=== PATIENT | female | born 1960 | race Caucasian/White ===

== ENCOUNTER 2019-09-22 09:45 | Outpatient (CLI) | payer MEDICAID, SELFPAY ==
--- NOTE | 2019-09-24 10:56 | ONC CON_ITS ---
Dr. Coronado New Patient Note Patient: Shana Connor Unit #: [id number]: 1960 Dicatated By: Nam Coronado M.D.Date of Visit: Sep 22, 2019 Onc MED New Patient/Consult Referring Physician: Dr. Mi Dangelo M.D. Chief Complaint: Breast cancer. History of Present Illness: This is a 59 year-old woman with grade 2 invasive ductal carcinoma of the right breast, stage IA (T1b, N0, M0), ER/GA positive and HER-2/dora negative. She had presented with an abnormal screening mammogram, which reportedly was BI-RADS 4, showing a suspicious lesion in the upper outer quadrant of the right breast, estimated at 0.6 cm. She underwent ultrasound directed core needle biopsy of the lesion on 08/07/2019. Pathology showed invasive ductal carcinoma, grade 1-2. The maximum focus of tumor was 0.5 cm. The breast prognostic profile showed ER positive at 95% and GA positive at 94%. It was negative for overexpression of HER-2/dora, 1+ by IHC and amplification ratio by FISH of 0.9 with 1.8 HER-2 copies/cell. The Ki-67 was intermediate at 15%. She preferred not to have radiation, and she then underwent right modified radical mastectomy on 08/17/2019. Pathology showed grade 2 invasive ductal carcinoma measuring 8 mm in maximum dimension. The margins were free with the closest being the deep margin at 2.5 cm. There was no involvement in 5 axillary lymph nodes. She is seen now in regard to adjuvant therapy. She has been feeling pretty good generally. She still has a fair amount of discomfort in the right chest and axilla following the recent surgery, but it is getting better. Her energy and appetite are still variable, but also getting better. ECOG score is 1. Her weight is stable. She has no fever, night sweats, or hot flashes. She has some allergy related sinus symptoms and she reports having a persistent nonproductive cough. She has some mild exertional dyspnea. She has no GI or complaints other than frequent urination. She has some arthritis in her right index finger. She has no other joint or bone pain. She complains that her feet get numb quite often. She has no other focal neurologic symptoms. She had her first at age 27. She underwent natural menopause at around age 44. She received no hormone replacement therapy. Her mother has been treated for breast cancer. There is no other history of breast or ovarian cancer in the family. Past Medical History: Her medical history includes allergic rhinitis, chronic obstructive pulmonary disease, and lichen planus. Past Surgical History: She underwent ultrasound directed core needle biopsy of the right breast on 08/07/2019 and she underwent right modified radical mastectomy on 08/17/2019. Her other surgical/procedural history includes section x 3 and cholecystectomy in 2002. Medications: Clobetasol Propionate 1 (0.05 %) Ointment Topical daily, Singulair 1 Tablet (of 10 mg) Oral daily, Symbicort 1 Puff(s) (of 80-4.5 mcg/act) Aerosol Inhalation b.i.d. Allergies: Aspirin, Codeine Sulfate, and Flagyl. Social History: Ms. Connor is . She is a daily smoker who has smoked 0.5 packs/day for 43 years. She has no history of drinking. She has a history of smoking for at least 40 years, previously up to 1 pack of cigarettes daily. She has cut down to 1/2 pack/day, and she has planning to quit. She had some alcohol use back in her 20s, but never heavy. Family History: She has no information regarding her biologic father. Her mother still living at age 77. She has diabetes. She has been treated for breast cancer. A son has type 1 diabetes. There is no other history of breast cancer or ovarian cancer in the family. Review Of Symptoms: Constitutional - Her energy is still somewhat variable, but getting better. Appetite also is variable. Her weight is stable. She has no fever, night sweats, or hot flashes. Her ECOG score is 1, Eyes - No change in vision, ENMT - No hearing loss or tinnitus. She has allergy related sinus symptoms. No mouth sores. No sore throat or difficulty swallowing, Hematologic/Lymphatic - She bruises easily, Respiratory - She gets short of breath when she walks a lot. She has persistent nonproductive cough. No pleuritic pain or hemoptysis, Cardiovascular - No angina pain. No palpitations, Gastrointestinal - No nausea or vomiting. No heartburn or acid reflux. No diarrhea or constipation. No blood in the stool or black stools, Genitourinary (F) - No dysuria or hematuria. She has urinary frequency. No urgency or incontinence, Musculoskeletal - She still has discomfort in her right chest/axillary area. She has some arthritis in her right index finger. She has no other joint or bone pain, Integumentary - She has lichen planus. She manages it with topical steroid, Neurologic - No headache. She has occasional orthostatic lightheadedness. She has numbness/tingling in her feet quite often. She has no other focal neurologic symptoms, Psychiatric - She recently has had some anxiety. No depression. She has had difficulty sleeping, but that is getting a little better. Vital Signs: Performed on Sep 22, 2019 10:46: 6, 28.80, 1.82 sq.m, 64.00 in, 98 %, 79 /min, 18 /min, 122/76 mm(hg), 97.5 F (LOW), and 167.8 lbs (HIGH). Physical Examination: Constitutional - She appears to be in good general health, Eyes - Sclerae nonicteric. Conjunctivae clear, ENMT - No lesions noted in the oral cavity, Neck - No mass or thyromegaly, Hematologic/Lymphatic - No cervical or clavicular adenopathy, Respiratory - Lungs are clear with some decrease in air movement bilaterally, Cardiovascular - Heart rhythm is regular. There is no murmur, gallop, or rub noted, Breasts - The mastectomy incision appears well-healed. There are no lesions noted in the right chest wall. The left breast shows no mass. There is no axillary adenopathy noted, Abdomen - Soft. There is an area of linear nodularity palpable in the right upper quadrant abdominal wall. It runs vertically. It is not tender. There are no changes in the overlying skin. Liver and spleen are not enlarged. There is no abdominal mass or ascites noted and there is no inguinal adenopathy, Back/Spine - No spine or CVA tenderness noted, Extremities - No edema. Pedal pulses are palpable bilaterally, Integumentary - No rashes. No suspicious skin lesions noted, Neurologic - No focal neurologic deficits noted. Impression: 1. Patient with grade 2 invasive ductal carcinoma of the right breast, stage IA (T1b, N0, M0), ER/GA positive and HER-2/dora negative. 2. She underwent right modified radical mastectomy on 08/17/2019. Her other medical illnesses include: 3. COPD. 4. Allergic rhinitis. 5. Lichen planus. Plan: The pathology findings were reviewed with the patient. We discussed the clinical implications. She has undergone mastectomy for an invasive ductal cancer of the right breast. It was an early stage lesion, T1b, with negative axillary lymph nodes, and it was hormone receptor positive and HER-2/dora negative. As such, she has recommended to undergo adjuvant hormonal therapy, preferably with an aromatase inhibitor. Side effects were reviewed including the potential for osteoporosis and/or joint pain, among others. She will need a baseline DEXA scan and she will then be scheduled for baseline lab studies, following which she will start treatment with anastrozole 1 mg daily. She will be given treatment for bone health as indicated. She will be scheduled for a 3-month interval follow-up visit. In the meantime, she has planning to quit smoking. Signed By: Nam Coronado M.D. <<Signature on File>>
== END 2019-09-22 09:46 | disposition home or self-care (01) ==
LOC: ONCMED 09:49
PROVIDERS: Family Provider Nurse Practitioner Family; PCP Nurse Practitioner; Referring Provider Surgery; Visit Provider Internal Medicine Hematology & Oncology
DX: C50.411 Malignant neoplasm of upper-outer quadrant of right female breast (principal); J44.9 Chronic obstructive pulmonary disease, unspecified; L43.9 Lichen planus, unspecified; F17.210 Nicotine dependence, cigarettes, uncomplicated; Z17.0 Estrogen receptor positive status [ER+]; Z79.811 Long term (current) use of aromatase inhibitors; Z90.11 Acquired absence of right breast and nipple; Z78.0 Asymptomatic menopausal state
CPT/HCPCS: 99205

== ENCOUNTER 2019-10-03 14:26 | Outpatient (CLI) | payer MEDICAID, SELFPAY ==
--- NOTE | 2019-10-03 14:31 | XR_ITS ---
WS: [id number] DEXA (DUAL ENERGY X-RAY ABSORPTIOMETRY) Bone mineral density was performed using a Pixelated machine. HISTORY: POSTMENOPAUSAL, SYMPTOMS OF OSTEOPOROSIS COMPARISON: None available. Lumbar spine BMD (L1-L4): 0.857 g/cm2 T score: -2.7 Z score: -2.0 Total hip BMD: Left: 0.809 g/cm2. T score: -1.6 Z score: -1.0 Right: 0.844 g/cm2. T score: -1.3 Z score: -0.7 10 year probability of a major osteoporotic fracture is 8%. XR/XR DEXA axial skeleton* [id number] IMPRESSION: OSTEOPOROSIS based upon the WHO classification for females.
[2019-10-03 15:22] LABS: Basophils % 0.6 %; Eosinophils # 0.1 10^3/uL (0.0-0.8); Hematocrit 40.9 % (37.0-47.0); Lymphocytes # 3.1 10^3/uL (0.8-4.8); Lymphocytes % 47.5 %; Mean Corpuscular HGB Conc 31.8 g/dL (30.0-36.0); Mean Corpuscular Hemoglobin 27.1 pg (28.0-34.0); Mean Corpuscular Volume 85.4 fL (81-99); Mean Platelet Volume 11.2 fL (7.4-10.4); Monocytes # 0.5 10^3/uL (0.2-0.9); Monocytes % 8.2 %; Neutrophils # 2.8 10^3/uL (1.8-7.7); Neutrophils % 41.5 %; Nucleated Red Blood Cells % 0 %; Platelet Count 223 10^3/cmm (130-400); Red Blood Count 4.79 10^6/uL (4.1-5.3); Red Cell Distribution Width 12.9 % (12.1-15.1); White Blood Count 6.6 10^3/uL (4.0-10.0)
[2019-10-03 15:46] LABS: Alanine Aminotransferase 32 U/L (0-33); Albumin Level 4.5 g/dL (3.5-5.2); Alkaline Phosphatase 71 IU/L (35-105); Aspartate Amino Transferase 22 U/L (0-32); Blood Urea Nitrogen 9 mg/dL (6-20); Calcium 9.4 mg/dL (8.5-10.5); Carbon Dioxide 27 mmol/L (22-29); Chloride 102 mmol/L (98-107); Globulin 2.8 g/dL (1.3-4.6); Glomerular Filtration Rate 64.5 mL/min (90-130); Glucose 119 mg/dL (65-115); Sodium 140 mmol/L (136-145); Total Bilirubin 0.2 mg/dL (0.15-1.2); Total Protein 7.3 g/dL (6.6-8.7)
[2019-10-03 16:18] LABS: 25 Hydroxy Vitamin D 58 ng/mL (30-100)
== END 2019-10-03 14:27 | disposition home or self-care (01) ==
LOC: ONCMED 14:29
PROVIDERS: Family Provider Nurse Practitioner Family; PCP Nurse Practitioner; Visit Provider Internal Medicine Medical Oncology
DX: C50.411 Malignant neoplasm of upper-outer quadrant of right female breast (principal); Z78.0 Asymptomatic menopausal state; M81.0 Age-related osteoporosis without current pathological fracture
CPT/HCPCS: 77080; 80053; 82306; 85025

== ENCOUNTER 2020-01-03 12:07 | Outpatient (CLI) | payer MEDICAID, SELFPAY ==
--- NOTE | 2020-01-07 10:19 | ONC FU_ITS ---
Dr. Coronado Patient Follow-Up Note Patient: Shana Connor Unit #: [id number]: 1960 Dicatated By: Nam Coronado M.D.Date of Visit:Jan 03, 2020 Onc Med Follow-up/Prog Note Chief Complaint: Breast cancer. History of Present Illness: This is a 59 year-old woman with grade 2 invasive ductal carcinoma of the right breast, stage IA (T1b, N0, M0), ER/MI positive and HER-2/dora negative. She had presented with an abnormal screening mammogram, which reportedly was BI-RADS 4, showing a suspicious lesion in the upper outer quadrant of the right breast, estimated at 0.6 cm. She underwent ultrasound directed core needle biopsy of the lesion on 08/07/2019. Pathology showed invasive ductal carcinoma, grade 1-2. The maximum focus of tumor was 0.5 cm. The breast prognostic profile showed ER positive at 95% and MI positive at 94%. It was negative for overexpression of HER-2/dora, 1+ by IHC and amplification ratio by FISH of 0.9 with 1.8 HER-2 copies/cell. The Ki-67 was intermediate at 15%. She preferred not to have radiation, and she then underwent right modified radical mastectomy on 08/17/2019. Pathology showed grade 2 invasive ductal carcinoma measuring 8 mm in maximum dimension. The margins were free with the closest being the deep margin at 2.5 cm. There was no involvement in 5 axillary lymph nodes. I had seen her initially on 09/22/2019. She began adjuvant hormonal therapy with anastrozole 1 mg daily. Her baseline DEXA scan showed evidence of osteoporosis with T score -2.7 in the lumbar spine, -1.6 in the left hip, and -1.3 in the right hip. With that finding, she also started alendronate 70 mg weekly. Her other medical illnesses include COPD, allergic rhinitis, and lichen planus. She had her first at age 27. She underwent natural menopause at around age 44. She received no hormone replacement therapy. Her mother has been treated for breast cancer. There is no other history of breast or ovarian cancer in the family. She has a history of smoking for at least 40 years, previously up to 1 pack of cigarettes daily. She had cut down to 1/2 pack/day. She is seen for a follow-up visit. She has not been feeling good. Her energy is gone downhill, and she has limited activity. ECOG score is 2. Appetite also has not been good. Her weight is down a couple of pounds. She has not had fever, night sweats, or hot flashes. She has been getting sick to her stomach. She also has been having pain in her shoulders and knees, and she complains that her back hurts constantly. She still has pain in her right chest wall. She has some sinus drainage and associated cough, and she complains that she has been having trouble breathing. Bowel function remains adequate. She has urinary frequency and some urgency. She does not complain of headache. She has been having dizziness. She has some numbness in her right arm. She also complains that she has having problems with depression, and she continues to have difficulty sleeping despite taking trazodone at bedtime. Medications: Clobetasol Propionate 1 (0.05 %) Ointment Topical daily, Sertraline HCl 1 Tablet (of 25 mg) Oral daily, Singulair 1 Tablet (of 10 mg) Oral daily, Symbicort 1 Puff(s) (of 80-4.5 mcg/act) Aerosol Inhalation b.i.d., traZODone HCl 1 Tablet (of 100 mg) Oral daily Allergies: Aspirin, Codeine Sulfate, and Flagyl. Review of Systems: Constitutional - Her energy has gone downhill. She has limited activity. Appetite is not good. Her weight is down a couple of pounds. She has no fever, night sweats, or hot flashes. Her ECOG score is 2, ENMT - She has allergy related sinus symptoms. No mouth sores. No sore throat or difficulty swallowing, Hematologic/Lymphatic - She bruises easily, Respiratory - She has been having trouble breathing. She has some cough with the sinus drainage. No pleuritic pain or hemoptysis, Cardiovascular - No angina pain. No palpitations, Gastrointestinal - She has nausea. No vomiting. No heartburn or acid reflux. No diarrhea or constipation. No blood in the stool or black stools, Genitourinary (F) - No dysuria or hematuria. She has urinary frequency and urgency. No incontinence, Musculoskeletal - She has pain in her shoulders and knees, and she also is having back pain. Her right arm still hurts, Neurologic - No headache. She has dizziness. She has numbness in her arms, Psychiatric - She has anxiety and depression. She has had difficulty sleeping. Vital Signs: Performed on Jan 03, 2020 12:35 Height - 64.00 in Weight - 164.8 lbs (LOW) BSA - 1.80 sq.m BMI - 28.29 Temperature - 98.0 F (LOW) Pulse - 88 /min Respiration - 20 /min BP - 134/76 mm(hg) O2 Sat - 97 % Pain - 9 Physical Examination: Constitutional - She appears somewhat weak generally, Eyes - Sclerae nonicteric. Conjunctivae clear, ENMT - No lesions noted in the oral cavity, Hematologic/Lymphatic - No cervical or clavicular adenopathy, Respiratory - Lungs are clear with some decrease in air movement bilaterally, Cardiovascular - Heart rhythm is regular. There is no murmur, gallop, or rub noted, Breasts - There is still tenderness in the right chest wall. There are no chest wall lesions noted. There is no axillary adenopathy, Extremities - No edema, Neurologic - No focal neurologic deficits noted. Lab/Imaging: Test performed on Oct 03, 2019 15:12 Sodium 140 mmol/L Vitamin D (25-Hydroxy), Total 58 ng/mL Potassium 4.0 mmol/L Chloride 102 mmol/L CO2 27 mmol/L Anion Gap 15.0 BUN 9 mg/dL Creatinine 0.9 mg/dL Cr Clearance (Est) 82.8700 mL/min eGFR 64.5 mL/min Glucose 119 mg/dL Calcium 9.4 mg/dL Protein, Total 7.3 g/dL Albumin 4.5 g/dL Globulin 2.8 g/dL Bilirubin, Total 0.2 mg/dL ALT (SGPT) 32 U/L AST (SGOT) 22 U/L Alkaline Phosphatase 71 IU/L WBC 6.6 10 3/uL RBC 4.79 10 6/uL HGB 13.0 g/dL HCT 40.9 % MCV 85.4 fL MCH 27.1 pg MCHC 31.8 g/dL RDW 12.9 % Platelet Count 223 10 3/cmm MPV 11.2 fL Neutrophils 2.8 10 3/uL Lymphocytes 3.1 10 3/uL Monocytes 0.5 10 3/uL Eosinophils 0.1 10 3/uL Basophils 0.0 10 3/uL Neutrophil % 41.5 % Lymphocyte % 47.5 % Monocyte % 8.2 % Eosinophil % 2.0 % Basophils % 0.6 % Impression: 1. Patient with grade 2 invasive ductal carcinoma of the right breast, stage IA (T1b, N0, M0), ER/MI positive and HER-2/dora negative. 2. She underwent right modified radical mastectomy on 08/17/2019. Her other medical illnesses include: 3. COPD. 4. Allergic rhinitis. 5. Lichen planus. In September 2019 she began adjuvant hormonal therapy with anastrozole 1 mg daily. Her baseline DEXA scan showed evidence of osteoporosis with T score -2.7 in the lumbar spine. With that finding, she also began treatment with alendronate 70 mg weekly. She comes in now with multiple complaints which include worsening fatigue and significant musculoskeletal pain. This is almost certainly treatment related. Plan: She is advised to stop both the anastrozole and the alendronate. I will see her for a follow-up visit in 1 month. Signed By: Nam Coronado M.D. <<Signature on File>>
== END 2020-01-03 12:08 | disposition home or self-care (01) ==
LOC: ONCMED 12:10
PROVIDERS: PCP Physician Assistant Medical; Visit Provider Internal Medicine Medical Oncology
DX: C50.411 Malignant neoplasm of upper-outer quadrant of right female breast (principal); Z17.0 Estrogen receptor positive status [ER+]; J30.9 Allergic rhinitis, unspecified; J44.9 Chronic obstructive pulmonary disease, unspecified; L43.9 Lichen planus, unspecified; Z79.818 Long term (current) use of other agents affecting estrogen receptors and estrogen levels
CPT/HCPCS: 99214

== ENCOUNTER 2020-02-12 12:51 | Outpatient (CLI) | payer MEDICAID, SELFPAY ==
--- NOTE | 2020-02-16 13:47 | ONC FU_ITS ---
Dr. Coronado Patient Follow-Up Note Patient: Shana Connor Unit #: [id number]: 1960 Dicatated By: Nam Coronado M.D.Date of Visit:Feb 12, 2020 Onc Med Follow-up/Prog Note Chief Complaint: Breast cancer. History of Present Illness: This is a 59 year-old woman with grade 2 invasive ductal carcinoma of the right breast, stage IA (T1b, N0, M0), ER/HI positive and HER-2/dora negative. She had presented with an abnormal screening mammogram, which reportedly was BI-RADS 4, showing a suspicious lesion in the upper outer quadrant of the right breast, estimated at 0.6 cm. She underwent ultrasound directed core needle biopsy of the lesion on 08/07/2019. Pathology showed invasive ductal carcinoma, grade 1-2. The maximum focus of tumor was 0.5 cm. The breast prognostic profile showed ER positive at 95% and HI positive at 94%. It was negative for overexpression of HER-2/dora, 1+ by IHC and amplification ratio by FISH of 0.9 with 1.8 HER-2 copies/cell. The Ki-67 was intermediate at 15%. She preferred not to have radiation, and she then underwent right modified radical mastectomy on 08/17/2019. Pathology showed grade 2 invasive ductal carcinoma measuring 8 mm in maximum dimension. The margins were free with the closest being the deep margin at 2.5 cm. There was no involvement in 5 axillary lymph nodes. I had seen her initially on 09/22/2019. She began adjuvant hormonal therapy with anastrozole 1 mg daily. Her baseline DEXA scan showed evidence of osteoporosis with T score -2.7 in the lumbar spine, -1.6 in the left hip, and -1.3 in the right hip. With that finding, she also started alendronate 70 mg weekly. Her other medical illnesses include COPD, allergic rhinitis, and lichen planus. She had her first at age 27. She underwent natural menopause at around age 44. She received no hormone replacement therapy. Her mother has been treated for breast cancer. There is no other history of breast or ovarian cancer in the family. She has a history of smoking for at least 40 years, previously up to 1 pack of cigarettes daily. She had cut down to 1/2 pack/day. INTERIM HISTORY: I had seen her for a follow-up visit on 01/03/2020. At that time she had multiple complaints, including significant fatigue and musculoskeletal pain. These seem to be almost certainly treatment related, and I did have her stop both the anastrozole and the alendronate. She is seen for a scheduled visit. She says that overall she has been feeling better since she stopped the medication, though her hips still hurt when she first gets up in the morning. On January 11 she developed extreme pain in her chest wall, severe enough to require pain pills and shots, but that subsequently did get better. Since then she still has had some chest wall pain, but not real strong. She describes it as a burning sensation. Her energy is still somewhat variable, but she is able to do light work. ECOG score is 1. Appetite also is variable. Her weight is up a couple of pounds. She has not had fever, but she is having a lot of hot flashes and sweating. She has shortness of breath with the hot weather. She also complains of cough. She is still smoking 1/2 pack of cigarettes daily. She has no GI complaints. She reports having overactive bladder. She does not complain of headache. She sometimes has dizziness. She has some numbness in her right arm. Medications: Clobetasol Propionate 1 (0.05 %) Ointment Topical daily, Gabapentin 1 Capsule (of 300 mg) Oral t.i.d., Magnesium 1 Tablet (of 400 mg) Oral daily, ProAir HFA 2 Puff(s) (of 108 (90 base) mcg/act) Aerosol, solution Inhalation four times a day, Singulair 1 Tablet (of 10 mg) Oral daily, Symbicort 2 Puff(s) (of 80-4.5 mcg/act) Aerosol Inhalation b.i.d., traMADol HCl 1 Tablet (of 50 mg) Oral q 6 hours PRN Allergies: Aspirin, Codeine Sulfate, and Flagyl. Review of Systems: Constitutional - Energy is somewhat variable. She is able to do light work. Appetite also is variable. Her weight is up a couple of pounds. She has not had fever. She has hot flashes and sweating. ECOG score is 1, ENMT - No sinus congestion/drainage. No mouth sores. No sore throat or difficulty swallowing, Hematologic/Lymphatic - She has easy bruising, Respiratory - She has shortness of breath, attributable to hot weather. She has cough. No pleuritic pain or hemoptysis. She is smoking 1/2 pack of cigarettes daily, Cardiovascular - No angina pain. No palpitations, Gastrointestinal - No nausea or vomiting. No heartburn or acid reflux. No diarrhea or constipation. No blood in the stool or black stools, Genitourinary (F) - No dysuria or hematuria. She has overactive bladder, Musculoskeletal - She had extreme pain on 11 January, severe enough that she required pain pills and shots, but it did get better. Since then her hips have still hurt when she first gets up. She still has some chest wall pain, but not real strong. It is a burning sensation, Integumentary - No skin rash, Neurologic - No headache. She sometimes has dizziness. She has numbness in her right arm. No other focal neurologic symptoms, Psychiatric - She has anxiety/depression. She has difficulty sleeping. Vital Signs: Performed on Feb 12, 2020 13:13 Height - 64.00 in Weight - 167.4 lbs (HIGH) BSA - 1.81 sq.m BMI - 28.73 Temperature - 98.5 F Pulse - 89 /min Respiration - 24 /min BP - 137/83 mm(hg) O2 Sat - 98 % Pain - 8 Physical Examination: Constitutional - She looks pretty good generally, Eyes - Sclerae nonicteric. Conjunctivae clear, ENMT - No lesions noted in the oral cavity, Hematologic/Lymphatic - No cervical, clavicular, or axillary adenopathy, Respiratory - Lungs are clear with some decrease in air movement bilaterally, Cardiovascular - Heart rhythm is regular. There is no murmur, gallop, or rub noted, Abdomen - Soft. Liver and spleen are not enlarged. There is no abdominal mass or ascites noted and there is no inguinal adenopathy, Extremities - No edema, Neurologic - No focal neurologic deficits noted. Impression: 1. 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 2. She underwent right modified radical mastectomy on 08/17/2019. Her other medical illnesses include: 3. COPD. 4. Allergic rhinitis. 5. Lichen planus. In September 2019 she began adjuvant hormonal therapy with anastrozole 1 mg daily. Her baseline DEXA scan showed evidence of osteoporosis with T score -2.7 in the lumbar spine. With that finding, she also began treatment with alendronate 70 mg weekly. She was seen for follow-up on 01/03/2020 and at that time she had significant fatigue and significant musculoskeletal pain which I felt was almost certainly treatment related. She stopped both the anastrozole and the alendronate. Since then she has been feeling better, though she still has some pain in her hips when she first gets up in the morning and she continues to have pain in her right chest wall. She also has having significant hot flashes and sweating. Plan: At least for now her treatment will remain on hold. She will be scheduled for a follow-up visit in 1 month. In the meantime, I will have her try venlafaxine for the hot flashes. Signed By: Nam Coronado M.D. <<Signature on File>>
== END 2020-02-12 12:52 | disposition home or self-care (01) ==
LOC: ONCMED 12:55
PROVIDERS: PCP Physician Assistant Medical; Visit Provider Internal Medicine Medical Oncology
DX: C50.411 Malignant neoplasm of upper-outer quadrant of right female breast (principal); Z17.0 Estrogen receptor positive status [ER+]; J44.9 Chronic obstructive pulmonary disease, unspecified; J30.9 Allergic rhinitis, unspecified; L43.9 Lichen planus, unspecified; M81.0 Age-related osteoporosis without current pathological fracture; M79.10 Myalgia, unspecified site; R07.89 Other chest pain; M25.552 Pain in left hip; M25.551 Pain in right hip; R61 Generalized hyperhidrosis; N95.1 Menopausal and female climacteric states; T45.1X5D Adverse effect of antineoplastic and immunosuppressive drugs, subsequent encounter; T45.8X5D Adverse effect of other primarily systemic and hematological agents, subsequent encounter; Z92.23 Personal history of estrogen therapy; Z90.11 Acquired absence of right breast and nipple
CPT/HCPCS: 99214

== ENCOUNTER 2020-03-18 14:00 | Outpatient (CLI) | payer MEDICAID, SELFPAY ==
--- NOTE | 2020-03-20 06:14 | ONC FU_ITS ---
Dr. Coronado Patient Follow-Up Note Patient: Shana Connor Unit #: [id number]: 1960 Dicatated By: Nam Coronado M.D.Date of Visit:Mar 18, 2020 Onc Med Follow-up/Prog Note Chief Complaint: Breast cancer. History of Present Illness: This is a 60 year-old woman with grade 2 invasive ductal carcinoma of the right breast, stage IA (T1b, N0, M0), ER/KY positive and HER-2/dora negative. She had presented with an abnormal screening mammogram, which reportedly was BI-RADS 4, showing a suspicious lesion in the upper outer quadrant of the right breast, estimated at 0.6 cm. She underwent ultrasound directed core needle biopsy of the lesion on 08/07/2019. Pathology showed invasive ductal carcinoma, grade 1-2. The maximum focus of tumor was 0.5 cm. The breast prognostic profile showed ER positive at 95% and KY positive at 94%. It was negative for overexpression of HER-2/dora, 1+ by IHC and amplification ratio by FISH of 0.9 with 1.8 HER-2 copies/cell. The Ki-67 was intermediate at 15%. She preferred not to have radiation, and she then underwent right modified radical mastectomy on 08/17/2019. Pathology showed grade 2 invasive ductal carcinoma measuring 8 mm in maximum dimension. The margins were free with the closest being the deep margin at 2.5 cm. There was no involvement in 5 axillary lymph nodes. I had seen her initially on 09/22/2019. She began adjuvant hormonal therapy with anastrozole 1 mg daily. Her baseline DEXA scan showed evidence of osteoporosis with T score -2.7 in the lumbar spine, -1.6 in the left hip, and -1.3 in the right hip. With that finding, she also started alendronate 70 mg weekly. Her other medical illnesses include COPD, allergic rhinitis, and lichen planus. She had her first at age 27. She underwent natural menopause at around age 44. She received no hormone replacement therapy. Her mother has been treated for breast cancer. There is no other history of breast or ovarian cancer in the family. She has a history of smoking for at least 40 years, previously up to 1 pack of cigarettes daily. She had cut down to 1/2 pack/day. INTERIM HISTORY: I had seen her for a follow-up visit on 01/03/2020. At that time she had multiple complaints, including significant fatigue and musculoskeletal pain. These seem to be almost certainly treatment related, and I did have her stop both the anastrozole and the alendronate. She is seen for a scheduled visit. Thus far she has remained off treatment. She continues to have multiple complaints. The most significant recently is that she has been having muscle cramps in her legs, severe enough that she cannot sleep. She also reports having pain in her right arm and chest wall, which gets worse with activity. She has still having frequent hot flashes, and she has not been taking venlafaxine consistently because of nausea. She says she has really bad shaking when she gets up in the morning. Her energy level is variable. ECOG score is 1. She says her appetite could be better. She has not had fever. She says her breathing is not good. She has cough associated with allergies. She is down to smoking 5 cigarettes/day. She has a little bit of acid reflux. A couple of weeks ago she had diarrhea for 2 days, but that resolved. She has no complaints. She currently has no other joint or bone pain. She does report having numbness in her right arm. Medications: B Complex 1 Capsule Oral daily, Clobetasol Propionate 1 (0.05 %) Ointment Topical daily, Ergocalciferol 1 Tablet (of 50 mcg ) Oral daily, Gabapentin 1 Capsule (of 300 mg) Oral t.i.d., Magnesium 1 Tablet (of 400 mg) Oral daily, ProAir HFA 2 Puff(s) (of 108 (90 base) mcg/act) Aerosol, solution Inhalation four times a day, Singulair 1 Tablet (of 10 mg) Oral daily, Symbicort 2 Puff(s) (of 80-4.5 mcg/act) Aerosol Inhalation b.i.d., traMADol HCl 1 Tablet (of 50 mg) Oral q 6 hours PRN, Vitamin D3 1 Capsule (of 125 mcg ) Oral daily Allergies: Aspirin, Codeine Sulfate, and Flagyl. Review of Systems: Constitutional - Her energy is variable. She is doing light work. Her appetite could be better. Her weight is up a couple of pounds. She has not had fever. She does report having hot flashes. ECOG score is 1, ENMT - She has sinus congestion/drainage. No mouth sores. No sore throat or difficulty swallowing, Hematologic/Lymphatic - No abnormal bruising or bleeding, Respiratory - Her breathing is not good. She has cough, which she attributes to allergies. She is down to smoking 5 cigarettes/day. No pleuritic pain or hemoptysis, Cardiovascular - No angina pain. No palpitations, Gastrointestinal - She has been having nausea with venlafaxine. She has a little bit of acid reflux. Two weeks ago she had diarrhea for a couple of days. Bowels have otherwise been okay. No blood in the stool or black stools, Genitourinary (F) - No dysuria or hematuria. No urinary frequency. No urgency or incontinence, Musculoskeletal - She has pain in her right arm/chest wall area with activity. She has been having a lot of leg cramps, Integumentary - No skin rash, Neurologic - No headache or dizziness. She has numbness in her right arm. No other focal neurologic symptoms, Psychiatric - She has anxiety and depression. She has difficulty sleeping because of the leg cramps. Vital Signs: Performed on Mar 18, 2020 14:21 Height - 64.00 in Weight - 169.4 lbs (HIGH) BSA - 1.82 sq.m BMI - 29.08 Temperature - 98.6 F Pulse - 87 /min Respiration - 24 /min BP - 115/69 mm(hg) O2 Sat - 98 % Pain - 4 Physical Examination: Constitutional - She looks pretty good generally, Eyes - Sclerae nonicteric. Conjunctivae clear, ENMT - No lesions noted in the oral cavity, Hematologic/Lymphatic - No cervical or clavicular adenopathy, Respiratory - Lungs are clear with some decrease in air movement bilaterally, Cardiovascular - Heart rhythm is regular. There is no murmur, gallop, or rub noted, Breasts - There are no lesions noted in the right chest wall. There is no axillary adenopathy, Abdomen - Soft. Liver and spleen are not enlarged. There is no abdominal mass or ascites noted and there is no inguinal adenopathy, Extremities - No edema, Neurologic - No focal neurologic deficits noted. Impression: 1. Patient with grade 2 invasive ductal carcinoma of the right breast, stage IA (T1b, N0, M0), ER/KY positive and HER-2/dora negative. 2. She underwent right modified radical mastectomy on 08/17/2019. Her other medical illnesses include: 3. COPD. 4. Allergic rhinitis. 5. Lichen planus. In September 2019 she began adjuvant hormonal therapy with anastrozole 1 mg daily. Her baseline DEXA scan showed evidence of osteoporosis with T score -2.7 in the lumbar spine. With that finding, she also began treatment with alendronate 70 mg weekly. She was seen for follow-up on 01/03/2020 and at that time she had significant fatigue and significant musculoskeletal pain which I felt was almost certainly treatment related. She stopped both the anastrozole and the alendronate. Since then she has felt somewhat better, though she continues to have numerous complaints. Plan: Her treatment will remain on hold. She will transition from venlafaxine to citalopram 20 mg daily. The dosage can be adjusted as necessary. She will be given a prescription for ropinirole to take 0.25 mg at bedtime, and that also can be escalated as needed. She will increase gabapentin to 600 mg 3 times daily. I will see her again in 1 month. Signed By: Nam Coronado M.D. <<Signature on File>>
== END 2020-03-18 14:01 | disposition home or self-care (01) ==
LOC: ONCMED 14:03
PROVIDERS: PCP Physician Assistant Medical; Visit Provider Internal Medicine Medical Oncology
DX: C50.411 Malignant neoplasm of upper-outer quadrant of right female breast (principal); Z17.0 Estrogen receptor positive status [ER+]; J44.9 Chronic obstructive pulmonary disease, unspecified; J30.9 Allergic rhinitis, unspecified; L43.9 Lichen planus, unspecified; Z79.818 Long term (current) use of other agents affecting estrogen receptors and estrogen levels
CPT/HCPCS: 99214

== ENCOUNTER 2020-04-25 15:03 | Outpatient (CLI) | payer MEDICAID, SELFPAY ==
--- NOTE | 2020-04-25 19:25 | ONC FU_ITS ---
Dr. Coronado Patient Follow-Up Note Patient: Shana Connor Unit #: [id number]: 1960 Dicatated By: Nam Coronado M.D.Date of Visit:Apr 25, 2020 Onc Med Follow-up/Prog Note Chief Complaint: Breast cancer. History of Present Illness: This is a 60 year-old woman with grade 2 invasive ductal carcinoma of the right breast, stage IA (T1b, N0, M0), ER/MT positive and HER-2/dora negative. She had presented with an abnormal screening mammogram, which reportedly was BI-RADS 4, showing a suspicious lesion in the upper outer quadrant of the right breast, estimated at 0.6 cm. She underwent ultrasound directed core needle biopsy of the lesion on 08/07/2019. Pathology showed invasive ductal carcinoma, grade 1-2. The maximum focus of tumor was 0.5 cm. The breast prognostic profile showed ER positive at 95% and MT positive at 94%. It was negative for overexpression of HER-2/dora, 1+ by IHC and amplification ratio by FISH of 0.9 with 1.8 HER-2 copies/cell. The Ki-67 was intermediate at 15%. She preferred not to have radiation, and she then underwent right modified radical mastectomy on 08/17/2019. Pathology showed grade 2 invasive ductal carcinoma measuring 8 mm in maximum dimension. The margins were free with the closest being the deep margin at 2.5 cm. There was no involvement in 5 axillary lymph nodes. I had seen her initially on 09/22/2019. She began adjuvant hormonal therapy with anastrozole 1 mg daily. Her baseline DEXA scan showed evidence of osteoporosis with T score -2.7 in the lumbar spine, -1.6 in the left hip, and -1.3 in the right hip. With that finding, she also started alendronate 70 mg weekly. Her other medical illnesses include COPD, allergic rhinitis, and lichen planus. She had her first at age 27. She underwent natural menopause at around age 44. She received no hormone replacement therapy. Her mother has been treated for breast cancer. There is no other history of breast or ovarian cancer in the family. She has a history of smoking for at least 40 years, previously up to 1 pack of cigarettes daily. She had cut down to 1/2 pack/day. INTERIM HISTORY: I had seen her for a follow-up visit on 01/03/2020. At that time she had multiple complaints, including significant fatigue and musculoskeletal pain. These seem to be almost certainly treatment related, and I did have her stop both the anastrozole and the alendronate. She is seen for a scheduled visit. She has been feeling better generally since she has been taking the citalopram. She also noted improvement in her leg cramps with the ropinirole. Her main complaint now has had her feet are dry and cracked, she has an itchy, burning skin eruption. It first started on the left foot about 6 to 7 months ago. She is tried different treatments for it. At one point she apparently was given triamcinolone, but she says it did not help. Overall, though, she is feeling better. Medications: B Complex 1 Capsule Oral daily, CeleXA 1 Tablet (of 10 mg) Oral daily, Clobetasol Propionate 1 (0.05 %) Ointment Topical daily, Ergocalciferol 1 Tablet (of 50 mcg ) Oral daily, Gabapentin 1 Capsule (of 600 mg) Oral t.i.d., Magnesium 1 Tablet (of 400 mg) Oral daily, ProAir HFA 2 Puff(s) (of 108 (90 base) mcg/act) Aerosol, solution Inhalation four times a day, rOPINIRole HCl 1 Tablet (of 0.25 mg) Oral at bedtime, Singulair 1 Tablet (of 10 mg) Oral daily, Symbicort 2 Puff(s) (of 80-4.5 mcg/act) Aerosol Inhalation b.i.d., traMADol HCl 1 Tablet (of 50 mg) Oral q 6 hours PRN, Vitamin D3 1 Capsule (of 125 mcg ) Oral daily Allergies: Aspirin, Codeine Sulfate, and Flagyl. Review of Systems: Constitutional - Her energy is very well. She sometimes feels sluggish. She is able to do light work. Her appetite is okay. Her weight is stable. She has not had fever. She does have hot flashes and sweating. ECOG score is 1, ENMT - She always has sinus drainage. No mouth sores. No sore throat or difficulty swallowing, Hematologic/Lymphatic - No abnormal bruising or bleeding, Respiratory - She has coughing spells, sometimes associated with shortness of breath/gasping. No pleuritic pain or hemoptysis, Cardiovascular - No angina pain. No palpitations, Gastrointestinal - No nausea or vomiting. No heartburn or acid reflux. No diarrhea or constipation. No blood in the stool or black stools, Genitourinary (F) - No dysuria or hematuria. No urinary frequency. No urgency or incontinence, Musculoskeletal - She complains that her knees pop. Her hip sometimes hurt when she first gets up, Integumentary - She has a significant skin eruption on her feet, left worse than right, Neurologic - She occasionally has slight headache. She sometimes has dizziness. No numbness or tingling. No other focal neurologic symptoms, Psychiatric - She has anxiety and depression, she has been feeling better since she started on the citalopram. She does have difficulty sleeping, but her leg cramps also are better. Vital Signs: Performed on Apr 25, 2020 15:23 Height - 64.00 in Weight - 168.6 lbs (LOW) BSA - 1.82 sq.m BMI - 28.94 Temperature - 98.0 F (LOW) Pulse - 76 /min Respiration - 20 /min BP - 141/83 mm(hg) (HIGH) O2 Sat - 100 % Pain - 8 Physical Examination: Constitutional - She looks pretty good generally, Eyes - Sclerae nonicteric. Conjunctivae clear, ENMT - No lesions noted in the oral cavity, Hematologic/Lymphatic - No cervical, clavicular, or axillary adenopathy, Respiratory - Lungs are clear with some decrease in air movement bilaterally, Cardiovascular - Heart rhythm is regular. There is no murmur, gallop, or rub noted, Abdomen - Soft. Liver and spleen are not enlarged. There is no abdominal mass or ascites noted and there is no inguinal adenopathy, Extremities - No edema, Integumentary - There is a patchy, annular skin eruption on both feet, worse on the left. It has an eczematous appearance, Neurologic - No focal neurologic deficits noted. Impression: 1. Patient with grade 2 invasive ductal carcinoma of the right breast, stage IA (T1b, N0, M0), ER/MT positive and HER-2/dora negative. 2. She underwent right modified radical mastectomy on 08/17/2019. Her other medical illnesses include: 3. COPD. 4. Allergic rhinitis. 5. Lichen planus. In September 2019 she began adjuvant hormonal therapy with anastrozole 1 mg daily. Her baseline DEXA scan showed evidence of osteoporosis with T score -2.7 in the lumbar spine. With that finding, she also began treatment with alendronate 70 mg weekly. She was seen for follow-up on 01/03/2020 and at that time she had significant fatigue and significant musculoskeletal pain which I felt was almost certainly treatment related. She stopped both the anastrozole and the alendronate. During subsequent follow-up I also had her change her antidepressant from venlafaxine to citalopram and she was started on ropinirole for leg cramps. With those changes she has been feeling better generally. Her main complaint now is that she is having problems associated with a significant skin eruption on both feet, worse on the left. It has an eczematous appearance. Plan: Her treatment will remain on hold. Her medications will otherwise remain the same. I took scrapings from the left foot for RENE prep, and I will make recommendations for treatment of the skin eruption when those results are available. I will timely plan a follow-up visit in 3 months. Signed By: Nam Coronado M.D. <<Signature on File>>
== END 2020-04-25 15:04 | disposition home or self-care (01) ==
LOC: ONCMED 15:05
PROVIDERS: PCP Physician Assistant Medical; Visit Provider Internal Medicine Medical Oncology
DX: C50.411 Malignant neoplasm of upper-outer quadrant of right female breast (principal); Z17.0 Estrogen receptor positive status [ER+]; R21 Rash and other nonspecific skin eruption; J44.9 Chronic obstructive pulmonary disease, unspecified; J30.9 Allergic rhinitis, unspecified; L43.9 Lichen planus, unspecified; Z92.23 Personal history of estrogen therapy
CPT/HCPCS: 87210; 99214

== ENCOUNTER 2020-07-23 13:45 | Outpatient (CLI) | payer MEDICAID, SELFPAY ==
--- NOTE | 2020-07-25 13:22 | ONC FU_ITS ---
Dr. Coronado Patient Follow-Up Note Patient: Shana Connor Unit #: [id number]: 1960 Dicatated By: Nam Coronado M.D.Date of Visit:Jul 23, 2020 Onc Med Follow-up/Prog Note Chief Complaint: Breast cancer. History of Present Illness: This is a 60 year-old woman with grade 2 invasive ductal carcinoma of the right breast, stage IA (T1b, N0, M0), ER/OR positive and HER-2/dora negative. She had presented with an abnormal screening mammogram, which reportedly was BI-RADS 4, showing a suspicious lesion in the upper outer quadrant of the right breast, estimated at 0.6 cm. She underwent ultrasound directed core needle biopsy of the lesion on 08/07/2019. Pathology showed invasive ductal carcinoma, grade 1-2. The maximum focus of tumor was 0.5 cm. The breast prognostic profile showed ER positive at 95% and OR positive at 94%. It was negative for overexpression of HER-2/dora, 1+ by IHC and amplification ratio by FISH of 0.9 with 1.8 HER-2 copies/cell. The Ki-67 was intermediate at 15%. She preferred not to have radiation, and she then underwent right modified radical mastectomy on 08/17/2019. Pathology showed grade 2 invasive ductal carcinoma measuring 8 mm in maximum dimension. The margins were free with the closest being the deep margin at 2.5 cm. There was no involvement in 5 axillary lymph nodes. I had seen her initially on 09/22/2019. She began adjuvant hormonal therapy with anastrozole 1 mg daily. Her baseline DEXA scan showed evidence of osteoporosis with T score -2.7 in the lumbar spine, -1.6 in the left hip, and -1.3 in the right hip. With that finding, she also started alendronate 70 mg weekly. Her other medical illnesses include COPD, allergic rhinitis, and lichen planus. She had her first at age 27. She underwent natural menopause at around age 44. She received no hormone replacement therapy. Her mother has been treated for breast cancer. There is no other history of breast or ovarian cancer in the family. She has a history of smoking for at least 40 years, previously up to 1 pack of cigarettes daily. She had cut down to 1/2 pack/day. INTERIM HISTORY: I had seen her for a follow-up visit on 01/03/2020. At that time she had multiple complaints, including significant fatigue and musculoskeletal pain. These appeared to be treatment related, and I did have her stop both the anastrozole and the alendronate. She is seen for a scheduled visit. She says she has been having good days and bad days. She is able to do some light work. ECOG score is 1. Her appetite is not that good, in part due to dental work. She does not have fever, night sweats, or hot flashes. She has allergy related sinus symptoms and cough. She has some shortness of breath. She does not complain of chest pain. She has no GI or complaints. She is still having pain, typically in the lower back and legs. She has numbness in her right leg from the waist down. She says it feels like it is asleep, but without the tingling. Medications: B Complex 1 Capsule Oral daily, Gabapentin 1 Capsule (of 600 mg) Oral t.i.d., ProAir HFA 2 Puff(s) (of 108 (90 base) mcg/act) Aerosol, solution Inhalation four times a day, Singulair 1 Tablet (of 10 mg) Oral daily, Symbicort 2 Puff(s) (of 80-4.5 mcg/act) Aerosol Inhalation b.i.d., Vitamin D3 1 Capsule (of 125 mcg ) Oral daily Allergies: Aspirin, Codeine Sulfate, and Flagyl. Review of Systems: Constitutional - Her energy is variable. She has good days and bad days. Appetite is not that good. She does not have fever, night sweats, or hot flashes. ECOG score is 1, ENMT - She has allergy related sinus symptoms. No mouth sores. No sore throat or difficulty swallowing, Hematologic/Lymphatic - No abnormal bruising or bleeding, Respiratory - She has some shortness of breath. She has cough, also allergy related. No pleuritic pain or hemoptysis, Cardiovascular - No angina pain. No palpitations, Gastrointestinal - No nausea or vomiting. No heartburn or acid reflux. No diarrhea or constipation. No blood in the stool or black stools, Genitourinary (F) - No dysuria or hematuria. No urinary frequency. No urgency or incontinence, Musculoskeletal - She still has some pain, mainly in her lower back and legs, Integumentary - No skin rash, Neurologic - No headache or dizziness. She says her right leg is numb from the waist down. She says it feels like it is asleep, but without the tingling, Psychiatric - She has some anxiety/depression. She sleeps okay. Vital Signs: Performed on Jul 23, 2020 13:55 Height - 64.00 in Weight - 177.4 lbs (HIGH) BSA - 1.86 sq.m BMI - 30.45 (HIGH) Temperature - 97.8 F (LOW) Pulse - 96 /min Respiration - 16 /min BP - 140/66 mm(hg) O2 Sat - 98 % Pain - 0 Physical Examination: Constitutional - She looks pretty good generally, Eyes - Sclerae nonicteric. Conjunctivae clear, ENMT - No lesions noted in the oral cavity, Hematologic/Lymphatic - No cervical, clavicular, or axillary adenopathy, Respiratory - Lungs are clear with some decrease in air movement bilaterally, Cardiovascular - Heart rhythm is regular. There is a II/ systolic murmur. There is no gallop or rub noted, Abdomen - Soft. Liver and spleen are not enlarged. There is no abdominal mass or ascites noted and there is no inguinal adenopathy, Extremities - No edema, Integumentary - There is an eczematous skin eruption on the dorsum of both feet. She also has a small patch on the upper right forearm, Neurologic - No focal neurologic deficits noted. Impression: 1. Patient with grade 2 invasive ductal carcinoma of the right breast, stage IA (T1b, N0, M0), ER/OR positive and HER-2/dora negative. 2. She underwent right modified radical mastectomy on 08/17/2019. Her other medical illnesses include: 3. COPD. 4. Allergic rhinitis. 5. Lichen planus. In September 2019 she began adjuvant hormonal therapy with anastrozole 1 mg daily. Her baseline DEXA scan showed evidence of osteoporosis with T score -2.7 in the lumbar spine. With that finding, she also began treatment with alendronate 70 mg weekly. She was seen for follow-up on 01/03/2020 and at that time she had significant fatigue and significant musculoskeletal pain which I felt was almost certainly treatment related. She stopped both the anastrozole and the alendronate. During subsequent follow-up I also had her change her antidepressant from venlafaxine to citalopram and she was started on ropinirole for leg cramps. With those changes she had been feeling better generally. However, she is continued to have fatigue and she has musculoskeletal pain, mainly in the lower back and legs. She also has a persistent skin eruption on both feet, appearance of which is consistent with eczema. Plan: She will continue her topical steroid for the eczema, but I will also have her schedule him to see Dr. Bryant for further management of that problem. She will now begin a trial of further adjuvant hormonal therapy with exemestane 25 mg daily. I will see her again in 3 months, or sooner as needed. Signed By: Nam Coronado M.D. <<Signature on File>>
== END 2020-07-23 13:46 | disposition home or self-care (01) ==
LOC: ONCMED 13:47
PROVIDERS: PCP Physician Assistant Medical; Visit Provider Internal Medicine Medical Oncology
DX: C50.411 Malignant neoplasm of upper-outer quadrant of right female breast (principal); Z17.0 Estrogen receptor positive status [ER+]; J44.9 Chronic obstructive pulmonary disease, unspecified; J30.9 Allergic rhinitis, unspecified; L43.9 Lichen planus, unspecified; L30.9 Dermatitis, unspecified; M81.0 Age-related osteoporosis without current pathological fracture; Z79.52 Long term (current) use of systemic steroids; Z79.811 Long term (current) use of aromatase inhibitors; Z90.11 Acquired absence of right breast and nipple
CPT/HCPCS: 99214

== ENCOUNTER → 2020-07-30 12:04 | Outpatient (BNVA) | payer MEDICAID, SELFPAY | PROVIDERS: PCP Physician Assistant Medical; Visit Provider Internal Medicine Medical Oncology | DX: C50.411 Malignant neoplasm of upper-outer quadrant of right female breast (principal) | CPT/HCPCS: 85025 ==

== ENCOUNTER 2020-08-31 11:46 | Emergency (ER) | payer MEDICAID, SELFPAY ==
[2020-08-31 11:48] VITALS: BP 177/113; PULSE 88; RESP 16; TEMP 36.8; O2SAT 98; BMI 28.4
[2020-08-31 12:02] VITALS: O2SAT 99
--- NOTE | 2020-08-31 12:08 | W.ED.ANXIETY ---
HPI - Anxiety General: Chief Complaint: Anxiety Stated Complaint: ANXIETY Time Seen by Provider: 08/31/20 11:51 History of Present Illness: HPI narrative: The patient is a 60-year-old female who comes to the ER complaining of anxiety related to taking care of grandchildren while her daughter is on the phone. She is also frustrated that the grandchildren do not listen to her. She got fed up and came to the ER. Denies suicidal or homicidal ideations. Just admits to severe stress and anxiety related to her home life. Denies drugs and alcohol. She has an appointment with psych next month MD complaint: anxiety Severity: moderate Quality: constant Place: home Associated symptoms: Deny chest pain, confusion, headache(s) or palpitations Review of Systems General: Reports: 10 or more systems reviewed and unremarkable except in HPI and below Const: Denies: fatigue Eyes: Denies: change in vision, blurry vision or eye redness ENMT: Denies: throat pain, swelling of lips/tongue, ear or mastoid pain or nasal congestion Card: Denies: chest pain, palpitations, irregular heart rhythm, edema, dyspnea on exertion or orthopnea Resp: Denies: dyspnea, productive cough or non-productive cough GI: Denies: abdominal pain, diarrhea or GI cramping : Denies: flank pain, difficulty voiding, urinary frequency or urinary urgency Musc: Denies: neck pain, back pain, extremity pain, joint pain, joint redness, limited range of motion or muscle weakness Skin/Breast: Denies: rash, pruritus, erythema, skin pain or skin tenderness Neuro: Denies: headache(s), numbness in extremities, weakness in extremities, sensory changes, difficulty walking, dizziness, confusion or Slurred speech present Psych: Reports: anxiety and depression Endo: Denies: polyuria All/Imm: Denies: urticaria, throat swelling or tongue swelling Physical Exam Const: COMMON NORMALS: no acute distress, average body habitus, patient oriented x3, no limitations, healthy appearing, alert and well nourished GENERAL APPEARANCE: cooperative, comfortable and well developed ORIENTATION/CONSCIOUSNESS: Yes awake, Yes oriented to person, Yes oriented to place and Yes oriented to time HENMT: COMMON NORMALS: normocephalic, external ears normal and Normal external nose present HEAD & SCALP: normal to inspection and normocephalic NOSE: Normal external nose present EXTERNAL EAR: Yes external ears normal MOUTH: Normal oral and palatal mucosa present THROAT: posterior oropharynx normal Eye: COMMON NORMALS: Equal, round and reactive pupils present and EOMs intact bilaterally GENERAL EYE: appearance normal, both eyes and all related structures PUPIL: Yes Equal, round and reactive pupils present Neck/C-Spine: COMMON NORMALS: full ROM, no lymphadenopathy, no meningeal signs and no JVD GENERAL: Yes normal visual inspection Lymph: LYMPHATIC: no lymphadenopathy noted Chest: COMMONS NORMALS: normal inspection of the chest and normal palpation of entire chest wall Resp: COMMON NORMALS: normal respiratory effort, No retractions, No use of accessory muscles, clear to auscultation bilaterally and percussion normal EFFORT & INSPECTION: Yes able to speak in complete sentences AUSCULTATION: clear to auscultation bilaterally PERCUSSION: percussion normal Cardio: COMMON NORMALS: no JVD, regular rate, regular rhythm, S1 normal heart sound present, S2 normal heart sound present and Peripheral pulses 2+ throughout RATE: regular rate RHYTHM: regular rhythm HEART SOUNDS: S1 normal heart sound present and S2 normal heart sound present PERIPHERAL PULSES: Peripheral pulses 2+ throughout GI: COMMON NORMALS: Normal to inspection, nondistended, normoactive bowel sounds present, Soft to palpation, non-tender and no masses INSPECTION: Yes normal to inspection PALPATION: Yes Soft to palpation : COMMON NORMALS: Yes no CVA tenderness BLADDER/KIDNEY EXAM: Yes no CVA tenderness Back/Pelvis: COMMON NORMALS: no CVA tenderness, thoracic and lumbar spine normal to inspection, no thoracic nor lumbar tenderness and thoraco-lumbar ROM normal Extremity: COMMON NORMALS: normal to inspection, full ROM, capillary refill normal, no joint enlargement and no pedal edema GENERAL: Yes normal exam except as noted Neuro: COMMON NORMALS: patient oriented x3, CN's II-XII intact bilaterally, moves all extremities, no focal motor deficits, no sensory deficits noted and gait normal SENSORIUM/ORIENTATION: Yes alert, Yes oriented to person, Yes oriented to place and Yes oriented to time MENINGEAL SIGNS: Yes no meningeal signs Psych: COMMON NORMALS: mental status grossly normal, Normal thought process present, cooperative, normal affect and speech normal SPEECH: Yes normal speech MOOD & AFFECT: Yes depressed mood and Yes anxious THOUGHT PROCESS: Normal thought process present Skin: COMMON NORMALS: no rashes or lesions noted GENERAL SKIN EXAM: no rashes or lesions noted Course Vital Signs: Vital signs: Vital Signs Temperature 98.3 F 08/31/20 11:48 Pulse Rate 88 08/31/20 11:48 Respiratory Rate 16 08/31/20 11:48 Blood Pressure 177/113 08/31/20 11:48 Pulse Oximetry 99 08/31/20 12:02 MDM - Anxiety MDM Narrative: Medical decision making narrative: The patient came in with an acute anxiety issue. She was given Ativan and calm down and was stable for discharge. Placed a case management referral to help her get a psychiatry appointment. ER with worsening symptoms Discharge Plan Discharge Patient Disposition: Home Clinical Impression: Acute anxiety Condition: Stable Prescriptions: No Action gabapentin 300 mg capsule 300 mg PO TID RF: 0 exemestane 25 mg tablet 25 mg PO DAILY RF: 0 loratadine [Claritin] 10 mg tablet 10 mg PO DAILY RF: 0 Proair Digihaler 90 mcg/actuation aero powdr breath act w/sensor 1 inh inhalation Q4H RF: 0 budesonide-formoterol [Symbicort] 80-4.5 mcg/actuation HFA aerosol inhaler 2 puff inhalation BID RF: 0 Discharge Orders: Discharge ED (Routine); Ordered 08/31/20 Ordered By: Suman Daniel Referrals: Salvador Menjivar [Primary Care Provider] - Discharge Diet: Advance as tolerated Discharge Activity: Resume usual activity Patient Instructions: Anxiety (ED) Activity Restrictions/Additional Instructions: Please follow-up with psychiatry as an outpatient. Return to the ER with worsening symptoms Coding Level of Care Code ED Operations Administrative Assistant for Karen Fwd Exam Comprehensive
[2020-08-31] MEDS: LORazepam 0.5 mg Tablet PO (12:34)
--- NOTE | 2020-09-02 15:23 | DCPLANNER ---
inside sales manager had message to speak with patient about a referral to [facility]. inside sales manager called phone number [phone], unable to speak with patient at this time, phone number has been disconnected or is no longer in service.
== END 2020-08-31 13:32 | disposition home or self-care (01) ==
PROVIDERS: Emergency Provider Family Medicine; PCP Physician Assistant Medical
DX: F41.9 Anxiety disorder, unspecified (principal)
CPT/HCPCS: 12345; 99281; 99283

== ENCOUNTER → 2020-09-23 14:07 | Outpatient (BNVA) | payer MEDICAID, SELFPAY | PROVIDERS: PCP Physician Assistant Medical; Visit Provider Psychiatry & Neurology Psychiatry | DX: F33.2 Major depressive disorder, recurrent severe without psychotic features (principal) | CPT/HCPCS: 99204 ==

== ENCOUNTER 2020-10-23 13:37 | Outpatient (CLI) | payer MEDICAID, SELFPAY ==
[2020-10-23 14:07] LABS: Basophils % 0.4 %; Eosinophils # 0.2 10^3/uL (0.0-0.8); Hematocrit 43.8 % (37.0-47.0); Hemoglobin 14.4 g/dL (11.5-15.3); Lymphocytes # 2.9 10^3/uL (0.8-4.8); Lymphocytes % 41.3 %; Mean Corpuscular HGB Conc 32.9 g/dL (30.0-36.0); Mean Corpuscular Hemoglobin 27.9 pg (28.0-34.0); Mean Corpuscular Volume 84.7 fL (81-99); Mean Platelet Volume 11.1 fL (7.4-10.4); Monocytes # 0.5 10^3/uL (0.2-0.9); Monocytes % 7.5 %; Neutrophils % 47.7 %; Nucleated Red Blood Cells % 0 %; Platelet Count 243 10^3/cmm (130-400); Red Blood Count 5.17 10^6/uL (4.1-5.3); Red Cell Distribution Width 13.1 % (12.1-15.1); White Blood Count 6.9 10^3/uL (4.0-10.0)
[2020-10-23 14:26] LABS: Alanine Aminotransferase 40 U/L (0-33); Albumin Level 4.4 g/dL (3.5-5.2); Alkaline Phosphatase 59 IU/L (35-105); Anion Gap 14.9 (5-19); Aspartate Amino Transferase 25 U/L (0-32); Blood Urea Nitrogen 8 mg/dL (6-20); Carbon Dioxide 27 mmol/L (22-29); Chloride 103 mmol/L (98-107); Globulin 2.6 g/dL (1.3-4.6); Glomerular Filtration Rate 64.3 mL/min (90-130); Glucose 145 mg/dL (65-115); Osmolality Calculated 293 mOsm/kg (285-295); Potassium 3.9 mmol/L (3.5-5.1); Sodium 141 mmol/L (136-145); Total Bilirubin 0.2 mg/dL (0.15-1.2)
--- NOTE | 2020-10-27 11:46 | ONC FU_ITS ---
Dr. Coronado Patient Follow-Up Note Patient: Shana Connor Unit #: [id number]: [id number] Dicatated By: Nam Coronado M.D.Date of Visit:Oct 23, 2020 Onc Med Follow-up/Prog Note Chief Complaint: Breast cancer. 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 She had presented with an abnormal screening mammogram, which reportedly was BI-RADS 4, showing a suspicious lesion in the upper outer quadrant of the right breast, estimated at 0.6 cm. She underwent ultrasound directed core needle biopsy of the lesion on 08/07/2019. Pathology showed invasive ductal carcinoma, grade 1-2. The maximum focus of tumor was 0.5 cm. The breast prognostic profile showed ER positive at 95% and HI positive at 94%. It was negative for overexpression of HER-2/dora, 1+ by IHC and amplification ratio by FISH of 0.9 with 1.8 HER-2 copies/cell. The Ki-67 was intermediate at 15%. She preferred not to have radiation, and she then underwent right modified radical mastectomy on 08/17/2019. Pathology showed grade 2 invasive ductal carcinoma measuring 8 mm in maximum dimension. The margins were free with the closest being the deep margin at 2.5 cm. There was no involvement in 5 axillary lymph nodes. I had seen her initially on 09/22/2019. She began adjuvant hormonal therapy with anastrozole 1 mg daily. Her baseline DEXA scan showed evidence of osteoporosis with T score -2.7 in the lumbar spine, -1.6 in the left hip, and -1.3 in the right hip. With that finding, she also started alendronate 70 mg weekly. Her other medical illnesses include COPD, allergic rhinitis, and lichen planus. She had her first at age 27. She underwent natural menopause at around age 44. She received no hormone replacement therapy. Her mother has been treated for breast cancer. There is no other history of breast or ovarian cancer in the family. She has a history of smoking for at least 40 years, previously up to 1 pack of cigarettes daily. She had cut down to 1/2 pack/day. INTERIM HISTORY: I had seen her for a follow-up visit on 01/03/2020. At that time she had multiple complaints, including significant fatigue and musculoskeletal pain. These appeared to be treatment related, and I did have her stop both the anastrozole and the alendronate. In July 2020 she further adjuvant hormonal therapy with exemestane 25 mg daily. At that time she also began topical steroid therapy for eczema. She is seen for a scheduled visit. She complains of having pain in her right leg and hip, mostly at night. The pain starts in the area behind her right knee, but she says the whole leg feels like it is on fire. She says it feels like there is thousand needles sticking her and then feels like it is coming out of a deep freeze. She has had no benefit taking 300 mg of gabapentin 3 times daily. She says her energy is pretty good. She is walking and exercising. Her ECOG score is 0. Her appetite is variable. She has not had fever. She does have some hot flashes and sweating. She has allergy related sinus symptoms and cough and she sometimes has shortness of breath. She does not complain of chest pain. She has no GI or complaints. She occasionally has back pain. She does not complain of headache or dizziness. She has an area of itching in her right arm and she sometimes has itching in her feet. The rash on her feet tends to come and go. She does seem to be getting some benefit with the steroid cream. Medications: B Complex 1 Capsule Oral daily, Gabapentin 1 Capsule (of 600 mg) Oral t.i.d., ProAir HFA 2 Puff(s) (of 108 (90 base) mcg/act) Aerosol, solution Inhalation four times a day, Singulair 1 Tablet (of 10 mg) Oral daily, Symbicort 2 Puff(s) (of 80-4.5 mcg/act) Aerosol Inhalation b.i.d., Vitamin D3 1 Capsule (of 125 mcg ) Oral daily Allergies: Aspirin, Codeine Sulfate, and Flagyl. Vital Signs: Performed on Oct 23, 2020 15:45 Height - 64.00 in Weight - 170.6 lbs (LOW) BSA - 1.83 sq.m BMI - 29.28 Temperature - 96.9 F (LOW) Pulse - 96 /min Respiration - 18 /min BP - 122/70 mm(hg) O2 Sat - 96 % Pain - 6 Fatigue - 0 Physical Examination: Constitutional - She looks pretty good generally, Eyes - Sclerae nonicteric. Conjunctivae clear, ENMT - No lesions noted in the oral cavity, Hematologic/Lymphatic - No cervical, clavicular, or axillary adenopathy, Respiratory - Lungs are clear with some decrease in air movement bilaterally, Cardiovascular - Heart rhythm is regular. There is a II/ systolic murmur. There is no gallop or rub noted, Abdomen - Soft. Liver and spleen are not enlarged. There is no abdominal mass or ascites noted and there is no inguinal adenopathy, Extremities - No edema, Integumentary - There is just a mild residual skin eruption on her feet. An area of excema persists on the upper right forearm, Neurologic - No focal neurologic deficits noted. Lab/Imaging: Test performed on Oct 23, 2020 13:47 Sodium 141 mmol/L Potassium 3.9 mmol/L Chloride 103 mmol/L CO2 27 mmol/L Anion Gap 14.9 BUN 8 mg/dL Creatinine 0.9 mg/dL Cr Clearance (Est) 83.24 mL/min eGFR 64.3 mL/min Glucose 145 mg/dL Osmolality - Calculated 293 mOsm/kg Calcium 9.0 mg/dL Protein, Total 7.0 g/dL Albumin 4.4 g/dL Globulin 2.6 g/dL Bilirubin, Total 0.2 mg/dL ALT (SGPT) 40 U/L AST (SGOT) 25 U/L Alkaline Phosphatase 59 IU/L WBC 6.9 10 3/uL RBC 5.17 10 6/uL HGB 14.4 g/dL HCT 43.8 % MCV 84.7 fL MCH 27.9 pg MCHC 32.9 g/dL RDW 13.1 % Platelet Count 243 10 3/cmm MPV 11.1 fL Neutrophils 3.30 10 3/uL Lymphocytes 2.9 10 3/uL Monocytes 0.5 10 3/uL Eosinophils 0.2 10 3/uL Basophils 0.0 10 3/uL Neutrophil % 47.7 % Lymphocyte % 41.3 % Monocyte % 7.5 % Eosinophil % 3.0 % Basophils % 0.4 % NRBC % 0 % Problem List: 1. Grade 2 invasive ductal carcinoma of the right breast, stage IA (T1b, N0, M0), ER/HI positive and HER-2/dora negative. She underwent right modified radical mastectomy on 08/17/2019. 2. COPD. 3. Allergic rhinitis. 4. Lichen planus. 5. She has a skin eruption which appears consistent with eczema. 6. Osteoporosis. 7. Depression. Problems Addressed with this Encounter and Plan: 1. 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 She underwent right modified radical mastectomy on 08/17/2019. In September 2019 she began adjuvant hormonal therapy with anastrozole 1 mg daily. At her follow-up on 01/03/2020 she reported significant fatigue and significant musculoskeletal pain which I felt was almost certainly treatment related. She stopped both the anastrozole and the alendronate. In July 2020 she began further adjuvant hormonal therapy with exemestane. Thus far she appears to be tolerating it with acceptable toxicity. She will continue exemestane 25 mg daily. I will see her for a follow-up visit in 3 months. In the meantime, she has undergone mastectomy and she is in need of postmastectomy bras and prosthesis. 2. Her baseline DEXA scan showed evidence of osteoporosis with T score -2.7 in the lumbar spine. With that finding, she also began treatment with alendronate. It was stopped in January 2020. As her symptoms have improved, she will try going back on the alendronate at 70 mg weekly. 3. She has a skin eruption on her feet and to a lesser extent on her arms. It appears consistent with eczema. It has shown some improvement on topical therapy with clobetasol. 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 4. She has somewhat unusual neuropathy symptoms localized to the right leg. I am uncertain what may be causing it. Thus far it has just been managed symptomatically. 5. She has bony nodules on the dorsum of both feet. This appears to be something physiologic, as it is very symmetric. However, she does have associated tenderness, I will schedule her to see a manager of case. Signed By: Nam Coronado M.D. <<Signature on File>>
== END 2020-10-23 13:38 | disposition home or self-care (01) ==
LOC: ONCMED 13:39
PROVIDERS: PCP Physician Assistant Medical; Visit Provider Internal Medicine Medical Oncology
DX: C50.411 Malignant neoplasm of upper-outer quadrant of right female breast (principal); M81.0 Age-related osteoporosis without current pathological fracture; J44.9 Chronic obstructive pulmonary disease, unspecified; R21 Rash and other nonspecific skin eruption; M89.9 Disorder of bone, unspecified; G57.91 Unspecified mononeuropathy of right lower limb; Z17.0 Estrogen receptor positive status [ER+]; Z79.811 Long term (current) use of aromatase inhibitors; Z90.11 Acquired absence of right breast and nipple
CPT/HCPCS: 80053; 85025; 99214

== ENCOUNTER → 2020-11-12 10:00 | Outpatient (BNVA) | payer MEDICAID, SELFPAY | PROVIDERS: PCP Physician Assistant Medical; Visit Provider Psychiatry & Neurology Psychiatry | DX: F33.2 Major depressive disorder, recurrent severe without psychotic features (principal) | CPT/HCPCS: 99214 ==

== ENCOUNTER → 2020-12-20 15:05 | Outpatient (BNVA) | payer MEDICAID, SELFPAY | PROVIDERS: PCP Physician Assistant Medical; Visit Provider Psychiatry & Neurology Psychiatry | DX: F33.2 Major depressive disorder, recurrent severe without psychotic features (principal) | CPT/HCPCS: 99213 ==

== ENCOUNTER → 2020-12-24 09:36 | Outpatient (BNVA) | payer MEDICAID, SELFPAY | PROVIDERS: PCP Physician Assistant Medical; Visit Provider Podiatrist Foot & Ankle Surgery | DX: M77.31 Calcaneal spur, right foot (principal); M77.32 Calcaneal spur, left foot; M79.672 Pain in left foot; M79.671 Pain in right foot; M19.072 Primary osteoarthritis, left ankle and foot; M19.071 Primary osteoarthritis, right ankle and foot | CPT/HCPCS: 73630 ==

== ENCOUNTER 2021-01-22 14:01 | Outpatient (CLI) | payer MEDICAID, SELFPAY ==
[2021-01-22 15:12] LABS: Iron 68 ug/dL (37-145); Total Iron Binding Capacity 295 mcg/dl; Unsaturated Iron Binding 227 ug/dL (112-347)
--- NOTE | 2021-01-26 10:59 | ONC FU_ITS ---
Dr. Coronado Patient Follow-Up Note Patient: Shana Connor Unit #: [id number]: 1960 Dicatated By: Nam Coronado M.D.Date of Visit:Jan 22, 2021 Onc Med Follow-up/Prog Note Chief Complaint: Breast cancer. 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 She had presented with an abnormal screening mammogram, which reportedly was BI-RADS 4, showing a suspicious lesion in the upper outer quadrant of the right breast, estimated at 0.6 cm. She underwent ultrasound directed core needle biopsy of the lesion on 08/07/2019. Pathology showed invasive ductal carcinoma, grade 1-2. The maximum focus of tumor was 0.5 cm. The breast prognostic profile showed ER positive at 95% and ME positive at 94%. It was negative for overexpression of HER-2/dora, 1+ by IHC and amplification ratio by FISH of 0.9 with 1.8 HER-2 copies/cell. The Ki-67 was intermediate at 15%. She preferred not to have radiation, and she then underwent right modified radical mastectomy on 08/17/2019. Pathology showed grade 2 invasive ductal carcinoma measuring 8 mm in maximum dimension. The margins were free with the closest being the deep margin at 2.5 cm. There was no involvement in 5 axillary lymph nodes. I had seen her initially on 09/22/2019. She began adjuvant hormonal therapy with anastrozole 1 mg daily. Her baseline DEXA scan showed evidence of osteoporosis with T score -2.7 in the lumbar spine, -1.6 in the left hip, and -1.3 in the right hip. With that finding, she also started alendronate 70 mg weekly. Her other medical illnesses include COPD, allergic rhinitis, and lichen planus. She had her first at age 27. She underwent natural menopause at around age 44. She received no hormone replacement therapy. Her mother has been treated for breast cancer. There is no other history of breast or ovarian cancer in the family. She has a history of smoking for at least 40 years, previously up to 1 pack of cigarettes daily. She had cut down to 1/2 pack/day. INTERIM HISTORY: I had seen her for a follow-up visit on 01/03/2020. At that time she had multiple complaints, including significant fatigue and musculoskeletal pain. These appeared to be treatment related, and I did have her stop both the anastrozole and the alendronate. In July 2020 she further adjuvant hormonal therapy with exemestane 25 mg daily. At that time she also began topical steroid therapy for eczema. She is seen for a scheduled visit. Her energy is pretty good, though she does have some fatigue. ECOG score is 1. Her appetite is OK. She has not had fever. She has hot flashes and sweating. She continues to complain of cough and she has shortness of breath. She does not complain of chest pain. She has no GI or complaints. She has back pain and she continues to have pain in her right leg. Medications: B Complex 1 Capsule Oral daily, buPROPion HCl ER (XL) (300 mg) Tablet SR 24 HR Oral daily, E400 (400 Units) Capsule Oral daily, Gabapentin 1 Capsule (of 600 mg) Oral t.i.d., ProAir HFA 2 Puff(s) (of 108 (90 base) mcg/act) Aerosol, solution Inhalation four times a day, Singulair 1 Tablet (of 10 mg) Oral daily, Symbicort 2 Puff(s) (of 80-4.5 mcg/act) Aerosol Inhalation b.i.d., Vitamin D3 1 Capsule (of 125 mcg ) Oral daily Allergies: Aspirin, Codeine Sulfate, and Flagyl. Vital Signs: Performed on Jan 22, 2021 16:00 Height - 64.00 in Weight - 172.4 lbs (HIGH) BSA - 1.84 sq.m BMI - 29.59 Temperature - 98.1 F (LOW) Pulse - 106 /min (HIGH) Respiration - 18 /min BP - 156/83 mm(hg) (HIGH) O2 Sat - 98 % Pain - 0 Fatigue - 5 Physical Examination: Constitutional - She looks pretty good generally, Eyes - Sclerae nonicteric. Conjunctivae clear, ENMT - No lesions noted in the oral cavity, Hematologic/Lymphatic - No cervical, clavicular, or axillary adenopathy, Respiratory - Lungs show diminished air movement and coarse breath sounds bilaterally, Cardiovascular - Heart rhythm is regular. There is a II/ systolic murmur. There is no gallop or rub noted, Abdomen - Soft. Liver and spleen are not enlarged. There is no abdominal mass or ascites noted and there is no inguinal adenopathy, Extremities - No edema, Neurologic - No focal neurologic deficits noted. Lab/Imaging: Test performed on Oct 23, 2020 13:47 Sodium 141 mmol/L Potassium 3.9 mmol/L Chloride 103 mmol/L CO2 27 mmol/L Anion Gap 14.9 BUN 8 mg/dL Creatinine 0.9 mg/dL Cr Clearance (Est) 83.24 mL/min eGFR 64.3 mL/min Glucose 145 mg/dL Osmolality - Calculated 293 mOsm/kg Calcium 9.0 mg/dL Protein, Total 7.0 g/dL Albumin 4.4 g/dL Globulin 2.6 g/dL Bilirubin, Total 0.2 mg/dL ALT (SGPT) 40 U/L AST (SGOT) 25 U/L Alkaline Phosphatase 59 IU/L WBC 6.9 10 3/uL RBC 5.17 10 6/uL HGB 14.4 g/dL HCT 43.8 % MCV 84.7 fL MCH 27.9 pg MCHC 32.9 g/dL RDW 13.1 % Platelet Count 243 10 3/cmm MPV 11.1 fL Neutrophils 3.30 10 3/uL Lymphocytes 2.9 10 3/uL Monocytes 0.5 10 3/uL Eosinophils 0.2 10 3/uL Basophils 0.0 10 3/uL Neutrophil % 47.7 % Lymphocyte % 41.3 % Monocyte % 7.5 % Eosinophil % 3.0 % Basophils % 0.4 % NRBC % 0 % Problem List: 1. Grade 2 invasive ductal carcinoma of the right breast, stage IA (T1b, N0, M0), ER/ME positive and HER-2/dora negative. She underwent right modified radical mastectomy on 08/17/2019. 2. COPD. 3. Allergic rhinitis. 4. Lichen planus. 5. She has a skin eruption which appears consistent with eczema. 6. Osteoporosis. 7. Depression. Problems Addressed with this Encounter and Plan: 1. 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 She underwent right modified radical mastectomy on 08/17/2019. In September 2019 she began adjuvant hormonal therapy with anastrozole 1 mg daily. At her follow-up on 01/03/2020 she reported significant fatigue and significant musculoskeletal pain which I felt was almost certainly treatment related. She stopped both the anastrozole and the alendronate. In July 2020 she began further adjuvant hormonal therapy with exemestane. Thus far she has been able to tolerate it with acceptable toxicity. She continue exemestane 25 mg daily. I will see her for a follow-up visit in 3 months. 2. Her baseline DEXA scan showed evidence of osteoporosis with T score -2.7 in the lumbar spine. With that finding, she has been taking alendronate 70 mg weekly. 3. She has a history of smoking in excess of 40 pack/years. She has persistent cough. She will be scheduled for a lung cancer screening CT. Signed By: Nam Coronado M.D. <<Signature on File>>
== END 2021-01-22 14:02 | disposition home or self-care (01) ==
PROVIDERS: PCP Physician Assistant Medical; Visit Provider Internal Medicine Medical Oncology
DX: C50.811 Malignant neoplasm of overlapping sites of right female breast (principal); Z17.0 Estrogen receptor positive status [ER+]; Z79.811 Long term (current) use of aromatase inhibitors; J44.9 Chronic obstructive pulmonary disease, unspecified; J30.9 Allergic rhinitis, unspecified; F32.9 Major depressive disorder, single episode, unspecified; M81.0 Age-related osteoporosis without current pathological fracture; L43.9 Lichen planus, unspecified; Z87.891 Personal history of nicotine dependence; Z90.11 Acquired absence of right breast and nipple; Z79.899 Other long term (current) drug therapy
CPT/HCPCS: 36415; 83540; 83550; 99214

== ENCOUNTER 2021-02-05 07:29 | Outpatient (CLI) | payer MEDICAID, SELFPAY ==
--- NOTE | 2021-02-05 07:36 | CT_ITS ---
WS: [id number] LDCT LUNG CANCER SCREENING HISTORY: Nicotine Dependence TECHNIQUE: Axial imaging performed from the apices to 1 cm below the costophrenic angles. Coronal and sagittal reformats are submitted with axial MIP series. All CT scans at [facility] use at least one of these dose optimization techniques: automated exposure control; mA and/or kV adjustment per patient size (includes targeted exams where dose is matched to clinical indication); or iterativ e reconstruction. DLP: 78.31 mGy.cm DIvol: 2.38 mGy COMPARISON: None available. Diagnostic quality: Satisfactory Lung Nodules: No discrete pulmonary nodules or endobronchial lesions. Small amount of mucus in the pr oximal RIGHT mainstem bronchus. Biapical pleural thickening and nodularity with scarring. Lungs: Benign granuloma LEFT lower lobe. No pneumonia. Heart: Other findings: There are numerous mediastinal and hilar lymph nodes. Some of these lymph nodes are c alcified. Other lymph nodes are less than a centimeter. No adenopathy based on criteria. Small hiatal hernia. Splenic granulomata. No adrenal mass. CT/CT lung screening [id number] IMPRESSION: LUNG-RADS: 1-Negative FOLLOW UP: 12 Month: Continue annual screening with LDCT OTHER FINDINGS (S MODIFIER): None.
== END 2021-02-05 07:30 | disposition home or self-care (01) ==
LOC: RAD 07:33
PROVIDERS: PCP Physician Assistant Medical; Visit Provider Internal Medicine Critical Care Medicine
DX: Z12.2 Encounter for screening for malignant neoplasm of respiratory organs (principal); F17.210 Nicotine dependence, cigarettes, uncomplicated; K44.9 Diaphragmatic hernia without obstruction or gangrene
CPT/HCPCS: 71271

== ENCOUNTER → 2021-02-19 08:30 | Outpatient (BNVA) | payer MEDICAID, SELFPAY | PROVIDERS: PCP Physician Assistant Medical; Visit Provider Psychiatry & Neurology Psychiatry | DX: F33.2 Major depressive disorder, recurrent severe without psychotic features (principal); F17.200 Nicotine dependence, unspecified, uncomplicated | CPT/HCPCS: 99214 ==

== ENCOUNTER → 2021-02-25 11:31 | Outpatient (BNVA) | payer MEDICAID, SELFPAY | PROVIDERS: PCP Physician Assistant Medical; Visit Provider Podiatrist Foot & Ankle Surgery | DX: R21 Rash and other nonspecific skin eruption (principal); M79.673 Pain in unspecified foot; L60.3 Nail dystrophy; M19.071 Primary osteoarthritis, right ankle and foot; B35.1 Tinea unguium; M79.671 Pain in right foot; M79.672 Pain in left foot; B35.9 Dermatophytosis, unspecified | CPT/HCPCS: 84450; 84460 ==

== ENCOUNTER 2021-04-28 12:11 | Outpatient (CLI) | payer MEDICAID, SELFPAY ==
[2021-04-28 13:22] LABS: Basophils # 0.1 10^3/uL (0.0-0.1); Basophils % 0.7 %; Eosinophils # 0.1 10^3/uL (0.0-0.8); Eosinophils % 1.8 %; Hematocrit 42.8 % (37.0-47.0); Hemoglobin 13.9 g/dL (11.5-15.3); Lymphocytes # 2.7 10^3/uL (0.8-4.8); Lymphocytes % 36.5 %; Mean Corpuscular HGB Conc 32.5 g/dL (30.0-36.0); Mean Corpuscular Hemoglobin 28.5 pg (28.0-34.0); Mean Corpuscular Volume 87.7 fl (81-99); Mean Platelet Volume 11.3 fL (7.4-10.4); Monocytes # 0.6 10^3/uL (0.2-0.9); Neutrophils # 3.84 10^3/uL (1.8-7.7); Neutrophils % 52.7 %; Nucleated Red Blood Cells % 0 %; Platelet Count 251 10^3/cmm (130-400); Red Blood Count 4.88 10^6/uL (4.1-5.3); Red Cell Distribution Width 13.8 % (12.1-15.1); White Blood Count 7.3 10^3/uL (4.0-10.0)
[2021-04-28 13:59] LABS: Alanine Aminotransferase 18 U/L (0-33); Albumin Level 4.5 g/dL (3.5-5.2); Alkaline Phosphatase 73 IU/L (35-105); Anion Gap 14.4 (5-19); Aspartate Amino Transferase 16 U/L (0-32); Blood Urea Nitrogen 10 mg/dL (6-20); Calcium 9.3 mg/dL (8.5-10.5); Carbon Dioxide 26 mmol/L (22-29); Chloride 102 mmol/L (98-107); Globulin 2.8 g/dL (1.3-4.6); Glomerular Filtration Rate 56.7 mL/min (90-130); Glucose 90 mg/dL (65-115); Osmolality Calculated 285 mOsm/kg (285-295); Potassium 4.4 mmol/L (3.5-5.1); Sodium 138 mmol/L (136-145); Total Bilirubin 0.3 mg/dL (0.15-1.2); Total Protein 7.3 g/dL (6.6-8.7)
--- NOTE | 2021-04-28 17:33 | ONC FU_ITS ---
Dr. Coronado Patient Follow-Up Note Patient: Shana Connor Unit #: [id number]: 1960 Dicatated By: Nam Coronado M.D.Date of Visit:Apr 28, 2021 Onc Med Follow-up/Prog Note Chief Complaint: Breast cancer. History of Present Illness: This is a 61 year-old woman with grade 2 invasive ductal carcinoma of the right breast, stage IA (T1b, N0, M0), ER/CO positive and HER-2/dora negative. She had presented with an abnormal screening mammogram, which reportedly was BI-RADS 4, showing a suspicious lesion in the upper outer quadrant of the right breast, estimated at 0.6 cm. She underwent ultrasound directed core needle biopsy of the lesion on 08/07/2019. Pathology showed invasive ductal carcinoma, grade 1-2. The maximum focus of tumor was 0.5 cm. The breast prognostic profile showed ER positive at 95% and CO positive at 94%. It was negative for overexpression of HER-2/dora, 1+ by IHC and amplification ratio by FISH of 0.9 with 1.8 HER-2 copies/cell. The Ki-67 was intermediate at 15%. She preferred not to have radiation, and she then underwent right modified radical mastectomy on 08/17/2019. Pathology showed grade 2 invasive ductal carcinoma measuring 8 mm in maximum dimension. The margins were free with the closest being the deep margin at 2.5 cm. There was no involvement in 5 axillary lymph nodes. I had seen her initially on 09/22/2019. She began adjuvant hormonal therapy with anastrozole 1 mg daily. Her baseline DEXA scan showed evidence of osteoporosis with T score -2.7 in the lumbar spine, -1.6 in the left hip, and -1.3 in the right hip. With that finding, she also started alendronate 70 mg weekly. Her other medical illnesses include COPD, allergic rhinitis, and lichen planus. She had her first at age 27. She underwent natural menopause at around age 44. She received no hormone replacement therapy. Her mother has been treated for breast cancer. There is no other history of breast or ovarian cancer in the family. She has a history of smoking for at least 40 years, previously up to 1 pack of cigarettes daily. She had cut down to 1/2 pack/day. INTERIM HISTORY: I had seen her for a follow-up visit on 01/03/2020. At that time she had multiple complaints, including significant fatigue and musculoskeletal pain. These appeared to be treatment related, and I did have her stop both the anastrozole and the alendronate. In July 2020 she began further adjuvant hormonal therapy with exemestane 25 mg daily. At that time she also began topical steroid therapy for eczema. She is seen for a scheduled visit. She has been feeling pretty good generally. She seems to be tolerating the exemestane pretty well, though she does complain of having pain in the lateral aspect of her right hip. She says it hurts daily, though not as bad as it had previously. She still sometimes has associated tingling in her right leg. She has pretty good energy, and she does a lot of walking. Her ECOG score is 1. She says her appetite is gone downhill. She has had significant weight loss. By our scale she is down 14 pounds. She does not have fever or night sweats. She does have cough and she has some shortness of breath. She is smoking, but she has cut down to 1/2 pack of cigarettes daily. She does not complain of chest pain. She has no GI/ complaints other than constipation. She has no other joint or bone pain. She has been having a slight headache. She does not complain of dizziness. She has no other focal neurologic symptoms. Medications: B Complex 1 Capsule Oral daily, buPROPion HCl ER (XL) (300 mg) Tablet SR 24 HR Oral daily, E400 (400 Units) Capsule Oral daily, Gabapentin 1 Capsule (of 600 mg) Oral t.i.d., ProAir HFA 2 Puff(s) (of 108 (90 base) mcg/act) Aerosol, solution Inhalation four times a day, Singulair 1 Tablet (of 10 mg) Oral daily, Symbicort 2 Puff(s) (of 80-4.5 mcg/act) Aerosol Inhalation b.i.d., Vitamin D3 1 Capsule (of 125 mcg ) Oral daily Allergies: Aspirin, Codeine Sulfate, and Flagyl. Vital Signs: Performed on Apr 28, 2021 15:18 Height - 64.00 in Weight - 158.4 lbs (LOW) BSA - 1.77 sq.m BMI - 27.19 Temperature - 96.6 F (LOW) Pulse - 99 /min Respiration - 18 /min BP - 106/66 mm(hg) O2 Sat - 98 % Pain - 3 Fatigue - 2 Physical Examination: Constitutional - She looks pretty good generally, Eyes - Sclerae nonicteric. Conjunctivae clear, ENMT - Mouth is dry. There are no lesions noted in the oral cavity, Hematologic/Lymphatic - No cervical or clavicular adenopathy, Respiratory - Lungs sound clear with diminished air movement bilaterally, Cardiovascular - Heart rhythm is regular. There is a II/ systolic murmur. There is no gallop or rub noted, Breasts - There are no lesions noted in the right chest wall. The left breast shows no mass. There is no axillary adenopathy noted, Abdomen - Soft. Liver and spleen are not enlarged. There is no abdominal mass or ascites noted and there is no inguinal adenopathy, Extremities - No edema, Neurologic - No focal neurologic deficits noted. Lab/Imaging: Test performed on Apr 28, 2021 12:37 Sodium 138 mmol/L Potassium 4.4 mmol/L Chloride 102 mmol/L CO2 26 mmol/L Anion Gap 14.4 BUN 10 mg/dL Creatinine 1.0 mg/dL Cr Clearance (Est) 68.71 mL/min eGFR 56.7 mL/min Glucose 90 mg/dL Osmolality - Calculated 285 mOsm/kg Calcium 9.3 mg/dL Protein, Total 7.3 g/dL Albumin 4.5 g/dL Globulin 2.8 g/dL Bilirubin, Total 0.3 mg/dL ALT (SGPT) 18 U/L AST (SGOT) 16 U/L Alkaline Phosphatase 73 IU/L WBC 7.3 10 3/uL RBC 4.88 10 6/uL HGB 13.9 g/dL HCT 42.8 % MCV 87.7 fl MCH 28.5 pg MCHC 32.5 g/dL RDW 13.8 % Platelet Count 251 10 3/cmm MPV 11.3 fL Neutrophils 3.84 10 3/uL Lymphocytes 2.7 10 3/uL Monocytes 0.6 10 3/uL Eosinophils 0.1 10 3/uL Basophils 0.1 10 3/uL Neutrophil % 52.7 % Lymphocyte % 36.5 % Monocyte % 8.0 % Eosinophil % 1.8 % Basophils % 0.7 % NRBC % 0 % Problem List: 1. Grade 2 invasive ductal carcinoma of the right breast, stage IA (T1b, N0, M0), ER/CO positive and HER-2/dora negative. She underwent right modified radical mastectomy on 08/17/2019. 2. COPD. 3. Allergic rhinitis. 4. Lichen planus. 5. She has a skin eruption which appears consistent with eczema. 6. Osteoporosis. 7. Depression. Problems Addressed with this Encounter and Plan: 1. Patient with grade 2 invasive ductal carcinoma of the right breast, stage IA (T1b, N0, M0), ER/CO positive and HER-2/dora negative. She underwent right modified radical mastectomy on 08/17/2019. In September 2019 she began adjuvant hormonal therapy with anastrozole 1 mg daily. At her follow-up on 01/03/2020 she reported significant fatigue and significant musculoskeletal pain which I felt was almost certainly treatment related. She stopped both the anastrozole and the alendronate. In July 2020 she began further adjuvant hormonal therapy with exemestane. She has been tolerating it with acceptable toxicity, though she has had ongoing complaints of pain in the right hip area and she also has anorexia with significant weight loss. She will have x-rays of the pelvis and right hip. For now she will continue adjuvant hormonal therapy with exemestane 25 mg daily. I will see her for a follow-up visit in 3 months. 2. Her baseline DEXA scan showed evidence of osteoporosis with T score -2.7 in the lumbar spine. With that finding, she has been taking alendronate 70 mg weekly. 3. She has a history of smoking in excess of 40 pack/years. She has persistent cough. She had a negative screening lung CT in January 2021. She would like something to help her quit smoking, she previously was not successful using nicotine products. Unfortunately, Chantix is currently not available. Signed By: Nam Coronado M.D. <<Signature on File>>
== END 2021-04-28 12:12 | disposition home or self-care (01) ==
LOC: ONCMED 12:16
PROVIDERS: PCP Physician Assistant Medical; Visit Provider Internal Medicine Medical Oncology
DX: C50.411 Malignant neoplasm of upper-outer quadrant of right female breast (principal); Z17.0 Estrogen receptor positive status [ER+]; M81.0 Age-related osteoporosis without current pathological fracture; J44.9 Chronic obstructive pulmonary disease, unspecified; F32.9 Major depressive disorder, single episode, unspecified; F17.210 Nicotine dependence, cigarettes, uncomplicated; Z79.811 Long term (current) use of aromatase inhibitors; Z90.11 Acquired absence of right breast and nipple
CPT/HCPCS: 36415; 80053; 85025; 99214

== ENCOUNTER 2021-04-29 09:18 | Outpatient (CLI) | payer MEDICAID, SELFPAY ==
--- NOTE | 2021-04-29 09:46 | XR_ITS ---
WS: [id number] Exam: XR hip RT 2-3V wo/w pel* [id number] Date/Time of Exam: 04/29/2021 9:49 AM Reason For Exam: BREAST CANCER/OSTEOPOROSIS/R HIP PAIN No acute fracture or dislocation. The joint compartment relatively well maintained. Hypertrophic spur ring along the lateral aspect of the acetabulum that might predispose the patient to femoral acetabul ar impingement. No sign of bone destruction. XR/XR hip RT 2-3V wo/w pel* [id number] IMPRESSION: 1. No fracture or bone destruction noted. 2. Hypertrophic bone formation along the lateral margin of the acetabulum that might predispose the patient to femoral acetabular impingement.
== END 2021-04-29 09:19 | disposition home or self-care (01) ==
PROVIDERS: PCP Physician Assistant Medical; Visit Provider Internal Medicine Medical Oncology
DX: C50.411 Malignant neoplasm of upper-outer quadrant of right female breast (principal); M81.0 Age-related osteoporosis without current pathological fracture; M25.551 Pain in right hip
CPT/HCPCS: 73502

== ENCOUNTER → 2021-05-14 10:16 | Outpatient (BNVA) | payer MEDICAID, SELFPAY | PROVIDERS: PCP Physician Assistant Medical; Visit Provider Psychiatry & Neurology Psychiatry | DX: F33.2 Major depressive disorder, recurrent severe without psychotic features (principal); F17.210 Nicotine dependence, cigarettes, uncomplicated | CPT/HCPCS: 99214 ==

== ENCOUNTER 2021-05-23 12:31 | Outpatient (CLI) | payer MEDICAID, SELFPAY ==
--- NOTE | 2021-05-23 12:38 | USCV_ITS ---
Shana Connor Age: 61 Gender: F : 1960 Exam Date: 05/23/2021 13:18 Ordering Phys: Stacie Glover MD Technologist: Johanna Robbins [place] [facility] [place]: SOB BP: 158 / 90 HR: 77 Rhythm: Sinus Technical Quality: Adequate MEASUREMENTS (Male / Female) Normal Values 2D ECHO LV Diastolic Diameter PLAX 4.8 cm 4.2 - 5.9 / 3.9 - 5.3 cm LV Systolic Diameter PLAX 2.2 cm LV Chamber Size 2.6 cm IVS Diastolic Thickness 1.2 cm 0.6 - 1.0 / 0.6 - 0.9 cm IVS Systolic Thickness 2.0 cm LVPW Diastolic Thickness 1.4 cm 0.6 - 1.0 / 0.6 - 0.9 cm LVPW Systolic Thickness 1.5 cm RV Chamber Size 2.7 cm LVOT Diameter 2.1 cm LV Ejection Fraction 2D Teich 85.3 % LV Ejection Fraction MOD 2C 56.1 % LV Ejection Fraction 2C AL 55.3 % LA Diameter 2.6 cm LA Width 2.4 cm LA Height 3.6 cm RA Width 2.6 cm RA Height 3.7 cm Aorta at Sinotubular Diameter 2.5 cm M-MODE LV Diastolic Diameter MM 5.2 cm 4.2 - 5.9 / 3.9 - 5.3 cm LV Systolic Diameter MM 4.2 cm LV Ejection Fraction MM Teich 37.3 % IVS Diastolic Thickness MM 1.0 cm 0.6 - 1.0 / 0.6 - 0.9 cm IVS Systolic Thickness MM 1.3 cm LVPW Diastolic Thickness MM 1.4 cm 0.6 - 1.0 / 0.6 - 0.9 cm LVPW Systolic Thickness MM 1.5 cm Aortic Annulus Diameter 3.4 cm LA Ao Ratio MM 0.9 MV E Point Septal Separation 0.8 cm DOPPLER AV Peak Velocity 166.0 cm/s LVOT Peak Velocity 102.0 cm/s AV Area Cont Eq vti 2.2 cm squared AV Area Cont Eq pk 2.1 cm squared MV Area PHT 3.9 cm squared Mitral E to A Ratio 0.8 MV E' Velocity 44.0 cm/s Mitral E to MV E' Ratio 8.4 Mitral E to LV E' Lateral Ratio 7.2 Mitral E to LV E' Septal Ratio 10.2 TR Peak Velocity 220.6 cm/s TR Peak Gradient 19.5 mmHg TR Mean Velocity 162.4 cm/s TR Mean Gradient 12.2 mmHg TR Velocity Time Integral 62.9 cm TV Peak E Velocity 59.0 cm/s PV Peak Velocity 50.0 cm/s RV Acceleration Time 0.1 s RV Ejection Time 0.3 s RV AcT/ET 0.4 FINDINGS Left Ventricle Normal left ventricular size. LV systolic function is normal with EF of 50-55%. No regional wall motion abnormalities. Grade 1 diastolic dysfunction Right Ventricle The right ventricle is normal in size and function. Right Atrium The right atrium is normal in size. Left Atrium The left atrium is normal in size. Mitral Valve Structurally normal mitral valve without significant stenosis or prolapse. There is no mitral regurgitation. Aortic Valve Structurally normal aortic valve without significant sclerosis or stenosis. There is no aortic regurgitation. Tricuspid Valve Structurally normal tricuspid valve without significant stenosis or regurgitation. Insufficient TR jet to calculate RVSP Pulmonic Valve Structurally normal pulmonic valve without significant stenosis. There is no pulmonic regurgitation. Pericardium Normal pericardium without effusion. Aorta Normal ascending aorta dimension. CONCLUSIONS LV systolic function is normal with EF of 50-55% Grade 1 diastolic dysfunction No significant valvular heart disease No comparison studies are available Dilshad Mcknight MD (Electronically Signed) Final Date: 23 May 2021 17:49 S
== END 2021-05-23 12:32 | disposition home or self-care (01) ==
LOC: RAD 12:33
PROVIDERS: PCP Physician Assistant; Visit Provider Internal Medicine Critical Care Medicine
DX: R06.02 Shortness of breath (principal)
CPT/HCPCS: 93306

== ENCOUNTER 2021-05-27 20:00 | Outpatient (CLI) | payer MEDICAID, SELFPAY | END 2021-05-27 20:01 | disposition home or self-care (01) | LOC: SLEEP 05-28 06:40 | PROVIDERS: PCP Physician Assistant Medical; Visit Provider Internal Medicine Critical Care Medicine | DX: G47.33 Obstructive sleep apnea (adult) (pediatric) (principal) | CPT/HCPCS: 95810 ==

== ENCOUNTER → 2021-05-29 09:12 | Outpatient (BNVA) | payer MEDICAID, SELFPAY | PROVIDERS: PCP Physician Assistant; Visit Provider Internal Medicine Critical Care Medicine | DX: Z01.812 Encounter for preprocedural laboratory examination (principal); Z20.822 Contact with and (suspected) exposure to COVID-19 | CPT/HCPCS: 87635 ==

== ENCOUNTER 2021-06-04 09:51 | Outpatient (CLI) | payer MEDICAID, SELFPAY ==
--- NOTE | 2021-06-04 10:45 | PFTS_ITS ---
Date of Study:06/04/21 Date of Dictation: MECHANICS: Forced vital capacity (FVC) is normal. Forced expiratory volume in one second (FEV1) is normal. FEV1/FVC is normal. FLOW VOLUME LOOP: Normal. LUNG VOLUMES: Total lung capacity (TLC) is normal. Residual volume (RV) is normal. DIFFUSING CAPACITY FOR CARBON MONOXIDE: Normal. INTERPRETATION: All component of the pulmonary function tests are normal. MTDD
== END 2021-06-04 09:52 | disposition home or self-care (01) ==
LOC: RT 09:54
PROVIDERS: PCP Physician Assistant; Visit Provider Internal Medicine Critical Care Medicine
DX: J44.9 Chronic obstructive pulmonary disease, unspecified (principal)
CPT/HCPCS: 94060; 94726; 94729; J7611

== ENCOUNTER 2021-06-16 12:49 | Outpatient (CLI) | payer MEDICAID, SELFPAY ==
--- NOTE | 2021-06-16 13:03 | MR_ITS ---
WS: [id number] INDICATION: Breast cancer right hip pain TECHNIQUE: MRI of the pelvis without and with gadolinium enhancement. FINDINGS: Comparison radiograph April 29, 2021 Hypertrophic changes about the right acetabulum. Normal bone marrow signal in the underlying right fe moral head and neck. Moderate degenerative arthritis both hips with joint space narrowing. No evidenc e of metastatic disease in the right hip. Normal bone marrow signal in the lower lumbar spine and sacrum. Normal bone marrow signal in the iliu m. Normal visualized pubic rami. Normal soft tissues. No abnormal gadolinium enhancement. Distal sacrum and coccyx appear normal. Mild degenerative arthrit is sacroiliac joints with a small amount of subchondral cystic change on the right. Mild disc bulging L4-L5 and L5-S1. MR/MR pelvis wo/w con [id number] IMPRESSION: Moderate degenerative arthritis both hips with joint space narrowing. Hypertrop hic changes about the right hip. Normal bone marrow signal in the right femoral head and neck. No evidence of metastatic disease in the right hip. Normal bone marrow signal in the lower lumbar spine, sacrum and ilium. No evide nce of bony metastatic disease. Mild degenerative arthritis sacroiliac joints with a small amount of subchondra l cystic change on the right. Mild disc bulging L4-L5 and L5-S1 with small central protrusion L5-S1.otrusion L5-S1.
[2021-06-16] MEDS: gadobenate dimeglumine 20 mL vial IV (13:47)
== END 2021-06-16 12:50 | disposition home or self-care (01) ==
LOC: RADSHAW 12:53
PROVIDERS: PCP Physician Assistant; Visit Provider Internal Medicine Medical Oncology
DX: C50.411 Malignant neoplasm of upper-outer quadrant of right female breast (principal); M16.0 Bilateral primary osteoarthritis of hip; M51.26 Other intervertebral disc displacement, lumbar region; M51.27 Other intervertebral disc displacement, lumbosacral region
CPT/HCPCS: 72197; A9577

== ENCOUNTER 2021-06-23 08:22 | Outpatient (CLI) | payer MEDICAID, SELFPAY ==
--- NOTE | 2021-06-23 09:05 | ONC FU_ITS ---
Dr. Coronado Patient Follow-Up Note Patient: Shana Connor Unit #: [id number]: 1960 Dicatated By: Nam Coronado M.D.Date of Visit:Jun 23, 2021 Onc Med Follow-up/Prog Note Chief Complaint: Breast cancer. 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 She had presented with an abnormal screening mammogram, which reportedly was BI-RADS 4, showing a suspicious lesion in the upper outer quadrant of the right breast, estimated at 0.6 cm. She underwent ultrasound directed core needle biopsy of the lesion on 08/07/2019. Pathology showed invasive ductal carcinoma, grade 1-2. The maximum focus of tumor was 0.5 cm. The breast prognostic profile showed ER positive at 95% and IN positive at 94%. It was negative for overexpression of HER-2/dora, 1+ by IHC and amplification ratio by FISH of 0.9 with 1.8 HER-2 copies/cell. The Ki-67 was intermediate at 15%. She preferred not to have radiation, and she then underwent right modified radical mastectomy on 08/17/2019. Pathology showed grade 2 invasive ductal carcinoma measuring 8 mm in maximum dimension. The margins were free with the closest being the deep margin at 2.5 cm. There was no involvement in 5 axillary lymph nodes. I had seen her initially on 09/22/2019. She began adjuvant hormonal therapy with anastrozole 1 mg daily. Her baseline DEXA scan showed evidence of osteoporosis with T score -2.7 in the lumbar spine, -1.6 in the left hip, and -1.3 in the right hip. With that finding, she also started alendronate 70 mg weekly. Her other medical illnesses include COPD, allergic rhinitis, and lichen planus. She had her first at age 27. She underwent natural menopause at around age 44. She received no hormone replacement therapy. Her mother has been treated for breast cancer. There is no other history of breast or ovarian cancer in the family. She has a history of smoking for at least 40 years, previously up to 1 pack of cigarettes daily. She had cut down to 1/2 pack/day. INTERIM HISTORY: At her followup visit on 01/03/2020 she had multiple complaints, including significant fatigue and musculoskeletal pain. These appeared to be treatment related, and I did have her stop both the anastrozole and the alendronate. In July 2020 she began further adjuvant hormonal therapy with exemestane 25 mg daily. At that time she also began topical steroid therapy for eczema. She has scheduled follow-up on 04/28/2021. At that time she was having significant pain in the right hip area. X-rays of the right hip showed hypertrophic spurring along the lateral aspect of the acetabulum, but there was no evidence of metastatic disease. Further evaluation with MRI of the pelvis on 06/16/2021 again showed hypertrophic changes about the right acetabulum. There were moderate degenerative arthritis changes in both hips, there was no evidence of metastatic disease. She is seen for a followup visit. She says she has been doing okay. Her energy is variable. She is able to do light work. ECOG score is 1. She has good appetite. She has not had fever, but she does complain that she sweats a lot. She has allergy related sinus symptoms and she does have quite a bit of cough. She has shortness of breath with activity, but she says her breathing is not bad. She does not complain of chest pain. She has no GI or complaints. She is still having significant pain in the lateral aspect of the right hip. She has occasional headache. She does not complain of dizziness, and she has no focal neurologic symptoms. Medications: B Complex 1 Capsule Oral daily, buPROPion HCl ER (XL) (300 mg) Tablet SR 24 HR Oral daily, E400 (400 Units) Capsule Oral daily, Gabapentin 1 Capsule (of 600 mg) Oral t.i.d., ProAir HFA 2 Puff(s) (of 108 (90 base) mcg/act) Aerosol, solution Inhalation four times a day, Singulair 1 Tablet (of 10 mg) Oral daily, Symbicort 2 Puff(s) (of 80-4.5 mcg/act) Aerosol Inhalation b.i.d., Vitamin D3 1 Capsule (of 100 mcg ) Oral daily Allergies: Aspirin, Codeine Sulfate, and Flagyl. Vital Signs: Performed on Jun 23, 2021 08:34 Height - 64.00 in Weight - 157 lbs (LOW) BSA - 1.76 sq.m BMI - 26.95 Temperature - 97.6 F (LOW) Pulse - 92 /min Respiration - 18 /min BP - 163/75 mm(hg) (HIGH) O2 Sat - 99 % Pain - 6 Fatigue - 1 Physical Examination: Constitutional - She looks pretty good generally, Eyes - Sclerae nonicteric. Conjunctivae clear, ENMT - Mouth is dry. There are no lesions noted in the oral cavity, Hematologic/Lymphatic - No cervical or clavicular adenopathy, Respiratory - Lungs sound clear with diminished air movement bilaterally, Cardiovascular - Heart rhythm is regular. There is a II/ systolic murmur. There is no gallop or rub noted, Breasts - There are no lesions noted in the right chest wall. There is no axillary adenopathy noted, Abdomen - Soft. Liver and spleen are not enlarged. There is no abdominal mass or ascites noted and there is no inguinal adenopathy, Extremities - No edema, Neurologic - No focal neurologic deficits noted. Problem List: 1. Grade 2 invasive ductal carcinoma of the right breast, stage IA (T1b, N0, M0), ER/IN positive and HER-2/dora negative. She underwent right modified radical mastectomy on 08/17/2019. 2. COPD. 3. Allergic rhinitis. 4. Lichen planus. 5. She has a skin eruption which appears consistent with eczema. 6. Osteoporosis. 7. Depression. Problems Addressed with this Encounter and Plan: 1. Patient with grade 2 invasive ductal carcinoma of the right breast, stage IA (T1b, N0, M0), ER/IN positive and HER-2/dora negative. She underwent right modified radical mastectomy on 08/17/2019. In September 2019 she began adjuvant hormonal therapy with anastrozole 1 mg daily. At her follow-up on 01/03/2020 she reported significant fatigue and significant musculoskeletal pain which I felt was almost certainly treatment related. She stopped both the anastrozole and the alendronate. In July 2020 she began further adjuvant hormonal therapy with exemestane. She has been tolerating it with acceptable toxicity, though she has had ongoing complaints of pain in the right hip area. X-rays of the right hip and subsequent MRI of the pelvis showed no evidence of metastatic disease. As such, she will continue adjuvant hormonal therapy with exemestane 25 mg daily. I will see her again in 3 months. In the meantime, I will see if I get her scheduled for an appointment at the pain clinic, as her pain does seem to localize laterally, and she may have at least some component of trochanteric bursitis which may be amenable to a local injection. 2. Her baseline DEXA scan showed evidence of osteoporosis with T score -2.7 in the lumbar spine. With that finding, she has been taking alendronate 70 mg weekly. I did have her stop taking it when her bone pain had worsened. At this point I will have her start treatment with Prolia, but that will be subject to verification of insurance coverage. Signed By: Nam Coronado M.D. <<Signature on File>>
== END 2021-06-23 08:23 | disposition home or self-care (01) ==
LOC: ONCMED 08:24
PROVIDERS: PCP Physician Assistant; Visit Provider Internal Medicine Medical Oncology
DX: C50.811 Malignant neoplasm of overlapping sites of right female breast (principal); Z17.0 Estrogen receptor positive status [ER+]; Z90.11 Acquired absence of right breast and nipple; Z79.811 Long term (current) use of aromatase inhibitors; Z79.52 Long term (current) use of systemic steroids; J44.9 Chronic obstructive pulmonary disease, unspecified; J30.9 Allergic rhinitis, unspecified; L43.9 Lichen planus, unspecified; L30.9 Dermatitis, unspecified; M81.0 Age-related osteoporosis without current pathological fracture; F32.9 Major depressive disorder, single episode, unspecified; Z79.899 Other long term (current) drug therapy
CPT/HCPCS: 99214

== ENCOUNTER → 2021-07-21 08:20 | Outpatient (BNVA) | payer MEDICAID, SELFPAY | PROVIDERS: PCP Physician Assistant; Visit Provider Anesthesiology Pain Medicine | DX: M47.816 Spondylosis without myelopathy or radiculopathy, lumbar region (principal); M51.16 Intervertebral disc disorders with radiculopathy, lumbar region; M16.0 Bilateral primary osteoarthritis of hip; F17.200 Nicotine dependence, unspecified, uncomplicated; Z79.899 Other long term (current) drug therapy | CPT/HCPCS: 99204 ==

== ENCOUNTER 2021-07-24 10:15 | Outpatient (CLI) | payer MEDICAID, SELFPAY ==
--- NOTE | 2021-07-24 10:22 | MM_ITS ---
WS: [id number] LEFT DIGITAL MAMMOGRAPHY WITH CAD CLINICAL INFORMATION: HX OF BREAST CA HISTORY: Prior right mastectomy COMPARISON: TECHNIQUE: 3 views of the left breast were obtained. FINDINGS: Scattered fibroglandular densities of the left breast. One or 2 tiny incidental punctate calcificatio ns. No suspicious focal mass, asymmetry, calcifications, or architectural distortion. No evidence of jose gnancy. MM/[place] [id number] IMPRESSION: BI-RADS: 2-Benign FOLLOW UP: 1 Year Follow-up Recommend return to annual diagnostic mammography.
== END 2021-07-24 10:16 | disposition home or self-care (01) ==
LOC: RADSHAW 10:17
PROVIDERS: PCP Physician Assistant; Visit Provider Physician Assistant
DX: Z85.3 Personal history of malignant neoplasm of breast (principal)
CPT/HCPCS: 77065

== ENCOUNTER → 2021-08-11 13:00 | Outpatient (BNVA) | payer MEDICAID, SELFPAY | PROVIDERS: PCP Physician Assistant; Visit Provider Anesthesiology Pain Medicine | DX: M16.0 Bilateral primary osteoarthritis of hip (principal) | CPT/HCPCS: 20610; 77002; J1030; J3490 ==

== ENCOUNTER → 2021-08-12 10:01 | Outpatient (BNVA) | payer MEDICAID, SELFPAY | PROVIDERS: PCP Physician Assistant; Visit Provider Psychiatry & Neurology Psychiatry | DX: F33.2 Major depressive disorder, recurrent severe without psychotic features (principal); F17.200 Nicotine dependence, unspecified, uncomplicated | CPT/HCPCS: 99214 ==

== ENCOUNTER → 2021-08-27 08:57 | Outpatient (BNVA) | payer MEDICAID, SELFPAY | PROVIDERS: PCP Physician Assistant; Visit Provider Anesthesiology Pain Medicine | DX: M47.816 Spondylosis without myelopathy or radiculopathy, lumbar region (principal); M51.16 Intervertebral disc disorders with radiculopathy, lumbar region; M16.0 Bilateral primary osteoarthritis of hip; M79.604 Pain in right leg; F17.210 Nicotine dependence, cigarettes, uncomplicated | CPT/HCPCS: 99213; 99214 ==

== ENCOUNTER 2021-09-23 14:20 | Outpatient (CLI) | payer MEDICAID, SELFPAY ==
--- NOTE | 2021-09-23 19:03 | ONC FU_ITS ---
Dr. Coronado Patient Follow-Up Note Patient: Shana Connor Unit #: [id number]: 1960 Dicatated By: Nam Coronado M.D.Date of Visit:Sep 23, 2021 Onc Med Follow-up/Prog Note Chief Complaint: Breast cancer. History of Present Illness: This is a 61 year-old woman with grade 2 invasive ductal carcinoma of the right breast, stage IA (T1b, N0, M0), ER/VA positive and HER-2/dora negative. She had presented with an abnormal screening mammogram, which reportedly was BI-RADS 4, showing a suspicious lesion in the upper outer quadrant of the right breast, estimated at 0.6 cm. She underwent ultrasound directed core needle biopsy of the lesion on 08/07/2019. Pathology showed invasive ductal carcinoma, grade 1-2. The maximum focus of tumor was 0.5 cm. The breast prognostic profile showed ER positive at 95% and VA positive at 94%. It was negative for overexpression of HER-2/dora, 1+ by IHC and amplification ratio by FISH of 0.9 with 1.8 HER-2 copies/cell. The Ki-67 was intermediate at 15%. She preferred not to have radiation, and she then underwent right modified radical mastectomy on 08/17/2019. Pathology showed grade 2 invasive ductal carcinoma measuring 8 mm in maximum dimension. The margins were free with the closest being the deep margin at 2.5 cm. There was no involvement in 5 axillary lymph nodes. I had seen her initially on 09/22/2019. She began adjuvant hormonal therapy with anastrozole 1 mg daily. Her baseline DEXA scan showed evidence of osteoporosis with T score -2.7 in the lumbar spine, -1.6 in the left hip, and -1.3 in the right hip. With that finding, she also started alendronate 70 mg weekly. At her followup visit on 01/03/2020 she had multiple complaints, including significant fatigue and musculoskeletal pain. These appeared to be treatment related, and I did have her stop both the anastrozole and the alendronate. In July 2020 she began further adjuvant hormonal therapy with exemestane 25 mg daily. At that time she also began topical steroid therapy for eczema. Her other medical illnesses include COPD, allergic rhinitis, and lichen planus. She had her first at age 27. She underwent natural menopause at around age 44. She received no hormone replacement therapy. Her mother has been treated for breast cancer. There is no other history of breast or ovarian cancer in the family. She has a history of smoking for at least 40 years, previously up to 1 pack of cigarettes daily. She had cut down to 1/2 pack/day. INTERIM HISTORY: She has scheduled follow-up on 04/28/2021. At that time she was having significant pain in the right hip area. X-rays of the right hip showed hypertrophic spurring along the lateral aspect of the acetabulum, but there was no evidence of metastatic disease. Further evaluation with MRI of the pelvis on 06/16/2021 again showed hypertrophic changes about the right acetabulum. There were moderate degenerative arthritis changes in both hips, there was no evidence of metastatic disease. She continued adjuvant hormonal therapy with exemestane 25 mg daily. She is seen for a followup visit. She has been feeling pretty good generally. Subsequent to her last visit she was started on paroxetine at 20 mg daily. She has since then reduced the dosage to 10 mg because it was making her sick. She also started propranolol 10 mg twice daily. She is concerned because her recent laboratory studies had shown slight increase in her serum creatinine with her calculated GFR mildly decreased at 48 mL/min. Appetite is somewhat variable. Her weight is stable. She has not had fever. She does report having a lot of sweating both during the daytime and at night. She has not had sore mouth or throat. She does not complain of cough. She sometimes has shortness of breath. She does not complain of chest pain. She has no GI or complaints. She has had pain in her right hip. She was given a steroid injection, which helped for a while. She currently has no other joint or bone pain. She does not complain of headache. She says she gets lightheaded a lot. She has no numbness/paresthesia or other focal neurologic symptoms, but she does complain that she is shaky. Medications: B Complex 1 Capsule Oral daily, buPROPion HCl ER (XL) (300 mg) Tablet SR 24 HR Oral daily, E400 (400 Units) Capsule Oral daily, Gabapentin 1 Capsule (of 600 mg) Oral t.i.d., Paxil 0.5 Tablet (of 20 mg) Oral at bedtime, ProAir HFA 2 Puff(s) (of 108 (90 base) mcg/act) Aerosol, solution Inhalation four times a day, Propranolol HCl 1 Tablet (of 10 mg) Oral b.i.d., Singulair 1 Tablet (of 10 mg) Oral daily, Symbicort 2 Puff(s) (of 80-4.5 mcg/act) Aerosol Inhalation b.i.d., Vitamin D3 1 Capsule (of 100 mcg ) Oral daily Allergies: Aspirin, Codeine Sulfate, and Flagyl. Vital Signs: Performed on Sep 23, 2021 14:37 Height - 64.00 in Weight - 156.8 lbs (LOW) BSA - 1.76 sq.m BMI - 26.91 Temperature - 98.2 F (LOW) Pulse - 90 /min Respiration - 16 /min BP - 136/73 mm(hg) O2 Sat - 97 % Pain - 0 Fatigue - 5 Physical Examination: Constitutional - She looks pretty good generally, Eyes - Sclerae nonicteric. Conjunctivae clear, ENMT - No lesions noted in the oral cavity, Hematologic/Lymphatic - No cervical or clavicular adenopathy, Respiratory - Lungs sound clear with diminished air movement bilaterally, Cardiovascular - Heart rhythm is regular. There is a II/ systolic murmur. There is no gallop or rub noted, Breasts - There are no lesions noted in the right chest wall. The left breast shows no mass. There is no axillary adenopathy noted, Abdomen - Soft. Liver and spleen are not enlarged. There is no abdominal mass or ascites noted and there is no inguinal adenopathy, Extremities - No edema, Neurologic - No focal neurologic deficits noted. Problem List: 1. Grade 2 invasive ductal carcinoma of the right breast, stage IA (T1b, N0, M0), ER/VA positive and HER-2/dora negative. She underwent right modified radical mastectomy on 08/17/2019. 2. COPD. 3. Allergic rhinitis. 4. Lichen planus. 5. She has a skin eruption which appears consistent with eczema. 6. Osteoporosis. 7. Depression. Problems Addressed with this Encounter and Plan: 1. Patient with grade 2 invasive ductal carcinoma of the right breast, stage IA (T1b, N0, M0), ER/VA positive and HER-2/dora negative. She underwent right modified radical mastectomy on 08/17/2019. In September 2019 she began adjuvant hormonal therapy with anastrozole 1 mg daily. At her follow-up on 01/03/2020 she reported significant fatigue and significant musculoskeletal pain which I felt was almost certainly treatment related. She stopped both the anastrozole and the alendronate. In July 2020 she began further adjuvant hormonal therapy with exemestane. She has been tolerating it with acceptable toxicity, though she has had ongoing complaints of pain in the right hip area. X-rays of the right hip and subsequent MRI of the pelvis showed no evidence of metastatic disease. She did get some temporary benefit with a local injection. She has otherwise been stable clinically. In the absence of any evidence of metastatic disease, she continues adjuvant hormonal therapy with exemestane 25 mg daily. She will be scheduled for a follow-up visit in 6 months. 2. Her baseline DEXA scan showed evidence of osteoporosis with T score -2.7 in the lumbar spine. With that finding, she had started taking alendronate 70 mg weekly. I did have her stop taking it when her bone pain worsened. She will now be scheduled for a repeat DEXA scan, as it has been close to 2 years since her last study. She will have further treatment as indicated. Signed By: Nam Coronado M.D. <<Signature on File>>
== END 2021-09-23 14:21 | disposition home or self-care (01) ==
LOC: ONCMED 14:24
PROVIDERS: PCP Physician Assistant; Visit Provider Internal Medicine Medical Oncology
DX: C50.411 Malignant neoplasm of upper-outer quadrant of right female breast (principal); Z17.0 Estrogen receptor positive status [ER+]; J44.9 Chronic obstructive pulmonary disease, unspecified; L43.9 Lichen planus, unspecified; J30.9 Allergic rhinitis, unspecified; M81.0 Age-related osteoporosis without current pathological fracture; F32.A Depression, unspecified; Z79.899 Other long term (current) drug therapy
CPT/HCPCS: 99214

== ENCOUNTER 2021-10-20 14:36 | Outpatient (CLI) | payer MEDICAID, SELFPAY ==
--- NOTE | 2021-10-20 14:45 | XR_ITS ---
WS: [id number] SCREENING DEXA SCAN [employer] CLINICAL INFORMATION: 2 YEAR FOLLOW UP EVALUATION, OSTEOPOROSIS COMPARISON: None. FINDINGS: The L1-L4 bone mineral density measures 0.919 g/cm2. This corresponds to a T score score of -2.2 and Z score of -1.2. Left femoral neck bone mineral density measures 0.809 g/cm2. This corresponds to a T score of -1.6 an d Z score of -0.8. Right femoral neck bone mineral density measures 0.810 g/cm2. This corresponds to a T score -1.6of an d Z score of -0.8. Mean femoral neck bone mineral density measures 0.809 g/cm2. This corresponds to a T score of -1.6 an d Z score of -0.8. XR/XR DEXA axial skeleton* [id number] IMPRESSION: Osteopenia Patient's FRAX calculated 10 year probability for major osteoporotic fracture i s 10.3 % and osteoporotic hip fracture is 2.3%.
== END 2021-10-20 14:37 | disposition home or self-care (01) ==
LOC: RAD 14:38
PROVIDERS: PCP Physician Assistant; Visit Provider Internal Medicine Medical Oncology
DX: M81.0 Age-related osteoporosis without current pathological fracture (principal); M85.80 Other specified disorders of bone density and structure, unspecified site
CPT/HCPCS: 77080

== ENCOUNTER 2021-10-27 11:03 | Outpatient (CLI) | payer MEDICAID, SELFPAY ==
--- NOTE | 2021-10-27 11:15 | USCV_ITS ---
Shana Connor Age: 61 Gender: F : 1960 Exam Date: 10/27/2021 10:55 Ordering Phys: Luis Manuel Bingham DPM Technologist: Joy Mares Exam Location: [facility] [place]_ Indication: PRE OP RIGHT LEFT Brachial 0.00 mmHg Brachial 126.00 mmHg Pressure (mmHg) Waveform Pressure (mmHg) Waveform 143.00 High Thigh 136.00 169.00 Below Knee 166.00 161.00 WATER [employer] 145.00 101.00 DPA 161.00 1.28 Ankle/Brachial Index 1.28 94.00 Pre-Exercise Toe Pressure 100.00 Pre-Exercise Toe/Brachial Index 0.79 0.75 FINDINGS Normal resting ABIs bilaterally Normal resting TBI bilaterally New normal PVR waveforms CONCLUSIONS No evidence of any significant arterial obstruction, based on the above findings. Dr Ervin Millard MD [facility] (Electronically Signed) Final Date: 29 October 2021 10:17 S
== END 2021-10-27 11:04 | disposition home or self-care (01) ==
LOC: RAD 11:04
PROVIDERS: PCP Physician Assistant; Visit Provider Podiatrist Foot & Ankle Surgery
DX: R09.89 Other specified symptoms and signs involving the circulatory and respiratory systems (principal)
CPT/HCPCS: 93923

== ENCOUNTER 2021-10-30 11:02 | Outpatient (CLI) | payer MEDICAID, SELFPAY ==
[2021-10-30] MEDS: denosumab 60 mg SDV SUBCUT (11:23)
== END 2021-10-30 11:03 | disposition home or self-care (01) ==
PROVIDERS: PCP Physician Assistant; Visit Provider Internal Medicine Medical Oncology
DX: M81.0 Age-related osteoporosis without current pathological fracture (principal)
CPT/HCPCS: 96372; J0897

== ENCOUNTER → 2021-11-04 11:02 | Outpatient (BNVA) | payer MEDICAID, SELFPAY | PROVIDERS: PCP Physician Assistant; Visit Provider Psychiatry & Neurology Psychiatry | DX: F33.2 Major depressive disorder, recurrent severe without psychotic features (principal) | CPT/HCPCS: 99214 ==

== ENCOUNTER → 2021-11-17 10:42 | Outpatient (BNVA) | payer MEDICAID, SELFPAY | PROVIDERS: PCP Physician Assistant; Visit Provider Anesthesiology Pain Medicine | DX: M16.0 Bilateral primary osteoarthritis of hip (principal); M51.16 Intervertebral disc disorders with radiculopathy, lumbar region; M47.816 Spondylosis without myelopathy or radiculopathy, lumbar region; M79.604 Pain in right leg; M79.605 Pain in left leg; F17.210 Nicotine dependence, cigarettes, uncomplicated; Z79.891 Long term (current) use of opiate analgesic | CPT/HCPCS: 99214 ==

== ENCOUNTER → 2021-11-20 09:01 | Outpatient (BNVA) | payer MEDICAID, SELFPAY | PROVIDERS: PCP Physician Assistant; Visit Provider Podiatrist Foot & Ankle Surgery | DX: L60.0 Ingrowing nail (principal); B35.1 Tinea unguium; F17.210 Nicotine dependence, cigarettes, uncomplicated | CPT/HCPCS: 11750 ==

== ENCOUNTER → 2021-12-19 13:57 | Outpatient (BNVA) | payer MEDICAID, SELFPAY | PROVIDERS: PCP Physician Assistant; Visit Provider Podiatrist Foot & Ankle Surgery | DX: L60.0 Ingrowing nail (principal) | CPT/HCPCS: 99213 ==

== ENCOUNTER → 2021-12-24 10:48 | Outpatient (BNVA) | payer MEDICAID, SELFPAY | PROVIDERS: PCP Physician Assistant; Visit Provider Anesthesiology Pain Medicine | DX: M51.16 Intervertebral disc disorders with radiculopathy, lumbar region (principal); M47.816 Spondylosis without myelopathy or radiculopathy, lumbar region; M16.0 Bilateral primary osteoarthritis of hip; M79.604 Pain in right leg; F17.210 Nicotine dependence, cigarettes, uncomplicated; Z79.891 Long term (current) use of opiate analgesic | CPT/HCPCS: 99214 ==

== ENCOUNTER → 2021-12-30 10:21 | Outpatient (BNVA) | payer MEDICAID, SELFPAY | PROVIDERS: PCP Physician Assistant; Referring Provider Anesthesiology Pain Medicine; Visit Provider Orthopaedic Surgery | DX: M70.61 Trochanteric bursitis, right hip (principal) | CPT/HCPCS: 20610; 73522; 99203; J0702; J3490 ==

== ENCOUNTER 2022-01-14 06:34 | Outpatient (CLI) | payer MEDICAID, SELFPAY ==
--- NOTE | 2022-01-14 | US_ITS ---
WS: [id number] RENAL ULTRASOUND HISTORY: CHRONIC KIDNEY DISEASE COMPARISON: None available. TECHNIQUE: 2-D and color Doppler imaging of the kidney submitted. Right kidney: 10.6 cm x 5.8 cm x 4.2 cm. Normal echogenicity with no hydronephrosis or mass. Left kidney: 9.8 cm x 4.6 cm x 4.7 cm. Normal echogenicity with no hydronephrosis or mass. Aorta: Normal. Urinary Bladder: Normal distention. US/US renal BI* [id number] IMPRESSION: Normal renal ultrasound.
== END 2022-01-14 06:35 | disposition home or self-care (01) ==
LOC: RAD 06:34
PROVIDERS: PCP Physician Assistant; Visit Provider Internal Medicine
DX: N18.9 Chronic kidney disease, unspecified (principal)
CPT/HCPCS: 76770

== ENCOUNTER → 2022-03-19 07:51 | Outpatient (BNVA) | payer MEDICARE, MEDICAID, SELFPAY | PROVIDERS: PCP Physician Assistant; Visit Provider Podiatrist Foot & Ankle Surgery | DX: L60.0 Ingrowing nail (principal); L60.3 Nail dystrophy; M79.672 Pain in left foot | CPT/HCPCS: 11750 ==

== ENCOUNTER 2022-03-27 11:50 | Emergency (ER) | payer MEDICARE, MEDICAID, SELFPAY ==
--- NOTE | 2022-03-27 12:08 | ED_ITS ---
HPI - General Adult General: Chief complaint: Weakness Stated complaint: weakness Time Seen by Provider: 03/27/22 11:51 Source: patient and EMS Mode of arrival: EMS Limitations: no limitations History of Present Illness: This patient presented to our emergency department via EMS. She is here primarily because she states over the past couple weeks she has felt like she has weakness in her lower extremities. She states that it seems to worse than when she is active. She denies any focal weakness it seems to be involving both her lower extremities. She denies any difficulty with speech, difficulty with upper extremity movement etc. She denies any loss of bowel or bladder control. She also states that she feels like she gets short of breath at times. She does admit to having COPD but states she quit smoking approximately 3 weeks ago. She is approximately 2 and half years out from a right mastectomy for invasive ductal carcinoma. She is seen by oncology at this facility. Also periodically seen by pulmonology. She denies fevers chills or cough. She denies any chest pain. She states she has had some slight weight gain over the past 6 months. She denies any vomiting or diarrhea change in bowel bladder habits etc. No headache, difficulty with speech, other focal neurologic symptoms. She states she was seen in a clinic this morning and [place] and she reports that they told her she should come to the emergency department. We did not receive any telephone calls from any facilities regarding this patient however we called the clinic that she stated that she was seen and was able to talks with some of the staff there. They report from reading the nurse practitioner's note that the patient had a couple falls last week But they did not specifically request her to go to the emergency department. I asked the patient about this and additional information she said oh yes she did fall . She stated 1 fall was after she got out of bed to go to the bathroom and she felt lightheaded and collapsed and the second fall was after she stood up and then moved to another room and also fell. She denied any associated palpitations, injury or pain as a result of these falls. In light of the constellation of her presentation I asked her what generally she felt was bothering her that necessitated her to come to the emergency department and she was again rather vague about many of her symptoms she states she does not feel as energetic and feels less rested and weak than she normally does. She did not admitted to me that she has not been using her CPAP at night for the last 3 weeks and that her sleep is been poor because she had gotten used to the CPAP machine and it actually improved her sleep nights rest. She also recently had toenail excisions has been taking antibiotics as well as Tylenol with codeine for pain and I asked her if her foot surgeries is altered her proprioception some that might be contributing to how she is feeling but she stated that she did not think that was bothering her at this time. Associated symptoms: Reports dyspnea; Deny chest pain, confusion, headache(s), nausea, rash, palpitations, syncope or vomiting Review of Systems Const: Reports: fatigue; Denies: fever(s), chills or body aches Eyes: Denies: change in vision ENMT: Denies: throat pain, odynophagia, nasal congestion or nasal obstruction Card: Reports: lightheadedness and dyspnea on exertion; Denies: chest pain, palpitations, irregular heart rhythm, edema, swelling of feet/ankles, syncope or pre-syncope Resp: Reports: dyspnea; Denies: productive cough, non-productive cough, wheezing or stridor GI: Denies: abdominal pain, nausea, vomiting or diarrhea : Denies: flank pain, difficulty voiding, dysuria or urinary frequency Musc: Reports: back pain; Denies: neck pain, extremity pain or extremity swelling Skin/Breast: Denies: rash or pruritus Neuro: Reports: weakness in extremities and frequent falls; Denies: headache(s), numbness in extremities, dizziness, vertigo, confusion, Slurred speech present or seizure-like activity Psych: Reports: depression; Denies: anxiety [facility] ED PFSH: Medical History (Updated 03/27/22 @ 15:32 by Juan Manuel Ferguson DO) Breast cancer Osteoporosis Psychiatric care Surgical History H/O mastectomy History of cholecystectomy Family History Mother Diabetes Cancer Chronic kidney disease (CKD) Social History Smoking and tobacco status: current every day smoker (1 cig/day) cigarettes Packs smoked per day: 0.23 Years cigarettes smoked: 44 [ Other cigarette details: Hx of 1 PPD x 43 Years] Quit status (tobacco): has tried quititng Number of times tried to quit tobacco: 2 Second hand smoke exposure: No Smoking risk assessment/counseling performed?: No Alcohol intake: former Desire information about alcohol rehabilitation?: No Counseling given: No Desire information about substance/drug rehabilitation?: No Counseling given: No Lives independently: Yes Household members: none Marital status: / Current occupational status: disabled History of recent travel: No Current gender identity: Female Physical Exam Narrative: EXAM NARRATIVE: The patient is alert makes good eye contact. Const: COMMON NORMALS: no acute distress, average body habitus, patient oriented x3 and alert GENERAL APPEARANCE: cooperative HENMT: COMMON NORMALS: normocephalic, atraumatic, Normal nasal mucous membranes and turbinates present and moist oral mucous membranes HEAD & SCALP: normocephalic and atraumatic FACE & SINUS: normal facial exam NOSE: Normal nasal mucous membranes and turbinates present Eye: COMMON NORMALS: Equal, round and reactive pupils present, EOMs intact bilaterally and conjunctivae normal CONJUNCTIVA: Yes conjunctivae normal PUPIL: Yes Equal, round and reactive pupils present Neck/C-Spine: COMMON NORMALS: no JVD and No carotid bruits CERVICAL SPINE: Yes cervical ROM normal, No Cervical spine tenderness, No step off deformity, No Paracervical muscle tenderness, No Paracervical spasm and No Trapezius muscle tenderness Chest: COMMONS NORMALS: normal inspection of the chest and normal inspection of the breasts (Right breast absent) Breast/axilla inspection: Yes normal inspection of the breasts (Right breast absent) Resp: COMMON NORMALS: normal respiratory effort, No retractions, No use of accessory muscles and clear to auscultation bilaterally AUSCULTATION: clear to auscultation bilaterally Cardio: COMMON NORMALS: no JVD, regular rate, regular rhythm, No murmurs present (Cardio) and Peripheral pulses 2+ throughout RATE: regular rate RHYTHM: regular rhythm PERIPHERAL PULSES: Peripheral pulses 2+ throughout GI: COMMON NORMALS: Normal to inspection, nondistended, normoactive bowel sounds present, Soft to palpation and non-tender PALPATION: Yes Soft to palpation Back/Pelvis: COMMON NORMALS: thoracic and lumbar spine normal to inspection, thoraco-lumbar ROM normal and straight leg raise negative bilaterally THORACIC SPINE/UPPER BACK: No thoracic spinal tenderness and No paraspinal muscle tenderness LUMBAR SPINE/LOWER BACK: No lumbar spinal tenderness and No paraspinal muscle tenderness SACROILIAC JOINTS: Yes SI joint(s) abnormal (Right) SI joint details: tender to palpation Extremity: COMMON NORMALS: normal to inspection, full ROM, capillary refill normal, no joint enlargement, no calf tenderness and no pedal edema Neuro: COMMON NORMALS: patient oriented x3, moves all extremities, no focal motor deficits and no sensory deficits noted SENSORIUM/ORIENTATION: Yes alert CRANIAL NERVES: Yes CN normal except as noted SPEECH: speech normal Psych: COMMON NORMALS: mental status grossly normal and cooperative Skin: COMMON NORMALS: no rashes or lesions noted, no wounds, turgor normal and no jaundice GENERAL SKIN EXAM: no rashes or lesions noted and turgor normal Course Reevaluation(s): Reevaluation #1: Patient is currently lying comfortably in her room. Vital signs reviewed and normal. Repeat examination reveals her to be alert calm conversant. No focal or new findings on repeat examination. All her studies today and the results and implications were shared with the patient. Time: 15:29 Vital Signs: Vital signs: Vital Signs Temperature 98.2 F 03/27/22 12:09 Pulse Rate 64 03/27/22 14:56 Respiratory Rate 16 03/27/22 14:56 Blood Pressure 120/72 03/27/22 14:56 Pulse Oximetry 98 03/27/22 14:56 Oxygen Delivery Me thod 03/27/22 14:56 MDM - General Adult Medical Decision Making This patient who came to the emergency department for rather vague and multifactorial somatic complaints was evaluated. Her primary symptoms seem to be related to fatigue and sense of breathlessness from time to time. Contributing history was that she apparently has not been using her CPAP for the last 3+ weeks because of lack of all her equipment necessary for her CPAP to function. He had no symptoms to suggest any focality to her symptoms and this was reinforced by a very reassuring physical examination. Her ancillary studies did not show any signs of central nervous system or intracranial hemorrhage mass etc. Her lumbar spine films are reassuring and that they showed no lytic lesion s or severe bony abnormalities. Her laboratories were also reassuring, EKG showed no acute changes and her monitoring of her cardiac rhythms were is normal. Vital signs remained very stable and reassuring throughout her emergency department stay. At this point the work-up and medical screening ex amination does not reveal any evidence of an ongoing emergency medical condition. I have shared these findings with her in detail. She voiced understanding of our evaluation and was comfortable and reassured by our lack of any significant results. We discussed return precautions in detail, I enco uraged her to get her CPAP operational, follow-up with her routine physician and return to this emergency department anytime she develops new persistent or worsening symptoms. Medical Records I reviewed the patient's medical records. Reviewed oncology note as well as recent pulmonary medicine note. Lab Data I reviewed the patient's lab results. : 03/27/22 12:50 03/27/22 12:[address] 03/27/22 12:30 IMPRESSION: 1. No evidence of intracranial hemorrhage or mass effect. 2. Minimal small vessel changes. Mild parenchymal volume loss. 3. No acute intracranial findings. Lumbar Spine X-Ray 03/27/22 12:30 Impression: 1. Minimal osteoarthritis. 2. Degenerative disc narrowing at L5-S1. Laboratory Results WBC 7.0 10^3/uL (4.0-10.0) 03/27/22 12:50 RBC 4.80 10^6/uL (4.1-5.3) 03/27/22 12:50 Hgb 13.7 g/dL (11.5-15.3) 03/27/22 12:50 Hct 42.0 % (37.0-47.0) 03/27/22 12:50 MCV 87.5 fl (81-99) 03/27/22 12:50 MCH 28.5 pg (28.0-34.0) 03/27/22 12:50 MCHC 32.6 g/dL (30.0-36.0) 03/27/22 12:50 RDW 13.1 % (12.1-15.1) 03/27/22 12:50 Plt Count 249 10^3/cmm (130-400) 03/27/22 12:50 MPV 10.7 fL (7.4-10.4) H 03/27/22 12:50 Neut % (Auto) 43.1 % 03/27/22 12:50 Lymph % (Auto) 43.4 % 03/27/22 12:50 [place] % (Auto) 9.5 % 03/27/22 12:50 Eos % (Auto) 3.1 % 03/27/22 12:50 Baso % (Auto) 0.6 % 03/27/22 12:50 Neut # (Auto) 3.02 10^3/uL (1.8-7.7) 03/27/22 12:50 Lymph # (Auto) 3.1 10^3/uL (0.8-4.8) 03/27/22 12:50 [place] # (Auto) 0.7 10^3/uL (0.2-0.9) 03/27/22 12:50 Eos # (Auto) 0.2 10^3/uL (0.0-0.8) 03/27/22 12:50 Baso # (Auto) 0.0 10^3/uL (0.0-0.1) 03/27/22 12:50 Nucleated RBC % (auto) 0 % 03/27/22 12:50 Nucleated RBCs # 0.0 /100WBC 03/27/22 12:50 Sodium 140 mmol/L (136-145) 03/27/22 12:50 Potassium 4.3 mmol/L (3.5-5.1) 03/27/22 12:50 Chloride 102 mmol/L (98-107) 03/27/22 12:50 Carbon Dioxide 29 mmol/L (22-29) 03/27/22 12:50 Anion Gap 13.3 (5-19) 03/27/22 12:50 BUN 15 mg/dL (8-23) 03/27/22 12:50 Creatinine 1.2 mg/dL (0.5-0.9) H 03/27/22 12:50 GFR Calculation 45.8 mL/min (90-130) L 03/27/22 12:50 Glucose 79 mg/dL (65-115) 03/27/22 12:50 Calculated Osmolality 290 mOsm/kg (285-295) 03/27/22 12:50 Calcium 9.1 mg/dL (8.5-10.5) 03/27/22 12:50 Total Bilirubin 0.3 mg/dL (0.15-1.2) 03/27/22 12:50 AST 18 U/L (0-32) 03/27/22 12:50 ALT 23 U/L (0-33) 03/27/22 12:50 Alkaline Phosphatase 45 U/L (35-105) 03/27/22 12:50 NT-Pro-B Natriuret Pep 23 pg/mL (0-125) 03/27/22 12:50 Total Protein 6.9 g/dL (6.6-8.7) 03/27/22 12:50 Albumin 4.4 g/dL (3.5-5.2) 03/27/22 12:50 Globulin 2.5 g/dL (1.3-4.6) 03/27/22 12:50 Urine Color Yellow (Yellow) 03/27/22 14:45 Urine Appearance Clear (CLEAR) 03/27/22 14:45 Urine pH 7 (5-7) 03/27/22 14:45 Ur Specific [place] 1.010 (1.005-1.030) 03/27/22 14:45 Urine Protein Neg (Negative) 03/27/22 14:45 Urine Glucose (UA) Norm (Normal) 03/27/22 14:45 Urine Ketones Negative (Negative) 03/27/22 14:45 Urine Blood 2+ (Negative) H 03/27/22 14:45 Urine Nitrate Negative (Negative) 03/27/22 14:45 Urine Bilirubin Neg (Negative) 03/27/22 14:45 Urine Urobilinogen 1 mg/dL (Negative) H 03/27/22 14:45 Ur Leukocyte Esterase 2+ (Negative) H 03/27/22 14:45 Urine RBC 0-4 /hpf (0-2) H 03/27/22 14:45 Urine WBC 0-4 /hpf (0-5) H 03/27/22 14:45 Ur Squamous Epith Cells 10-15 /hpf (0-5) H 03/27/22 14:45 Amorphous Sediment Not Reportable 03/27/22 14:45 Urine Bacteria None /hpf (NONE) 03/27/22 14:45 EKG Data EKG 1: I personally reviewed and interpreted this EKG as follows: Interpretation: EKG reveals a resting rate of 68 bpm. Consistent with normal sinus rhythm. Normal intervals, normal axis. No acute ST-T wave changes. Normal EKG. Computer generated interpretation: Head CT 03/27/22 12:30 IMPRESSION: 1. No evidence of intracranial hemorrhage or mass effect. 2. Minimal small vessel changes. Mild parenchymal volume loss. 3. No acute intracranial findings. Lumbar Spine X-Ray 03/27/22 12:30 Impression: 1. Minimal osteoarthritis. 2. Degenerative disc narrowing at L5-S1. Discharge Plan Discharge Patient Disposition: Home Clinical Impression: Obstructive sleep apnea, COPD (chronic obstructive pulmonary disease) Condition: Stable Prescriptions: No Action exemestane 25 mg tablet 25 mg PO DAILY Rx Instructions: must administer after a meal Proair Digihaler 90 mcg/actuation aero powdr breath act w/sensor 2 inh inhalation Q4H PRN (Reason: shortness of breath or wheezing) Label Comments: CPAP Rx Instructions: CPAP B-complex with vitamin C Capsule 1 cap PO DAILY vitamin E (dl, acetate) 400 unit capsule 450 mg PO DAILY Spiriva with HandiHaler 18 mcg capsule, w/inhalation device 1 cap inhalation DAILY Rx Instructions: puncture 1 cap using device; one dose = 2 inhalations (DME) orthopedic sandal See Rx Instructions .Route .MEDSUPPLY Qty: 1 0RF Rx Instructions: As directed cholecalciferol (vitamin D3) 125 mcg (5,000 unit) capsule 125 mcg PO DAILY (DME) oxygen-air delivery systems Device See Rx Instructions .Route Rx Instructions: As directed azelastine 137 mcg (0.1 %) aerosol,spray 1 spray intranasal BID 30 Days Qty: 30 6RF Rx Instructions: administer into each nostril bupropion HCl [Wellbutrin XL] 300 mg tablet extended release 24 hr 300 mg PO QAM Qty: 30 2RF paroxetine HCl 40 mg tablet 40 mg PO DAILY Qty: 30 2RF propranolol 10 mg tablet 10 mg PO BID Qty: 60 2RF varenicline 1 mg tablet 1 mg PO BID Qty: 56 2RF acetaminophen-codeine 300-30 mg tablet 1 tab PO Q6H PRN (Reason: pain) 7 Days Qty: 20 0RF cephalexin 500 mg capsule 500 mg PO BID 7 Days Qty: 14 0RF fluticasone propionate [Flonase Allergy Relief] 50 mcg/actuation spray,suspension 2 spray intranasal DAILY Qty: 16 3RF Rx Instructions: administer into each nostril Discharge Orders: Discharge ED (Routine); Ordered 03/27/22 Ordered By: Juan Manuel Ferguson Referrals: Leelee Echevarria PA-C [Primary Care Provider] - Discharge Diet: Usual diet Discharge Activity: Increase activity as tolerated Patient Instructions: Opioid Safety Activity Restrictions/Additional Instructions: As we discussed while you are in the emergency department there was no no worrisome results from your evaluation. We do encourage you to start using your CPAP as previously recommended. We also recommend you continue taking all your usual medications, avoid tobacco use, follow-up with your regular care provider in the next 7 to 10 days and your specialists as previously scheduled. If you develop any new persistent or worsening symptoms such as chest pain, fevers, focal weakness or other concerns return to this emergency department i mmediately. Coding Level of Care Code ED Barrel Planer for Karen Fwsuyapa Exam Comprehensive
[2022-03-27 12:09] VITALS: BP 142/77; PULSE 71; RESP 18; TEMP 36.8; O2SAT 97; BMI 26.8
--- NOTE | 2022-03-27 12:30 | CT_ITS ---
WS: [id number] CT HEAD TECHNIQUE: Noncontrast CT of the head obtained from the skullbase to the vertex. CLINICAL INFORMATION: falls COMPARISON: None. DLP: 954.[address] scans at [facility] use at least one of these dose optimization techniques: automated e xposure control; mA and/or kV adjustment per patient size (includes targeted exams where dose is matc hed to clinical indication); or iterative reconstruction. FINDINGS: No evidence of intracranial hemorrhage or mass effect. Ventricular system and basal cisterns are montilla nt. Mild small vessel changes with mild parenchymal volume loss. No extra-axial fluid collections. No evidence of mass or mass effect. Paranasal sinuses and mastoid air cells are well aerated. .Normal visualized soft tissues. CT/CT head wo con* [id number] IMPRESSION: 1. No evidence of intracranial hemorrhage or mass effect. 2. Minimal small vessel changes. Mild parenchymal volume loss. 3. No acute intracranial findings.
--- NOTE | 2022-03-27 12:30 | XR_ITS ---
WS: [id number] Lumbar spine, 3 views, 03/27/2022 Clinical Data: back pain Comparison: None. Findings: No compression fractures or subluxation is seen. There is degenerative disc narrowing at L5-S1. Minim al anterior osteophyte formation is present in all lumbar vertebral bodies.. The transverse processes and SI joints are normal. There are clips in the right upper quadrant from a cholecystectomy XR/XR lumbar spine 2-3V* [id number] Impression: 1. Minimal osteoarthritis. 2. Degenerative disc narrowing at L5-S1.
--- NOTE | 2022-03-27 12:53 | ECG_ITS ---
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 Measurements Intervals [place] Rate: 68 P: 67 NJ: 164 QRS: 29 QRSD: 84 T: 57 QT: 388 QTc: 415 Interpretive Statements SINUS RHYTHM Compared to ECG 07/27/2014 22:37:46 No significant changes Electronically Signed On 03-28-2022 9:19:58 CDT by Celso Sanderson M.D. [id number]
[2022-03-27 13:05] LABS: Basophils % 0.6 %; Eosinophils # 0.2 10^3/uL (0.0-0.8); Eosinophils % 3.1 %; Hemoglobin 13.7 g/dL (11.5-15.3); Lymphocytes # 3.1 10^3/uL (0.8-4.8); Lymphocytes % 43.4 %; Mean Corpuscular HGB Conc 32.6 g/dL (30.0-36.0); Mean Corpuscular Hemoglobin 28.5 pg (28.0-34.0); Mean Corpuscular Volume 87.5 fl (81-99); Mean Platelet Volume 10.7 fL (7.4-10.4); Monocytes # 0.7 10^3/uL (0.2-0.9); Monocytes % 9.5 %; Neutrophils # 3.02 10^3/uL (1.8-7.7); Neutrophils % 43.1 %; Nucleated Red Blood Cells % 0 %; Platelet Count 249 10^3/cmm (130-400); Red Cell Distribution Width 13.1 % (12.1-15.1)
[2022-03-27 13:43] LABS: Alanine Aminotransferase 23 U/L (0-33); Albumin Level 4.4 g/dL (3.5-5.2); Alkaline Phosphatase 45 U/L (35-105); Anion Gap 13.3 (5-19); Aspartate Amino Transferase 18 U/L (0-32); Blood Urea Nitrogen 15 mg/dL (8-23); Calcium 9.1 mg/dL (8.5-10.5); Carbon Dioxide 29 mmol/L (22-29); Chloride 102 mmol/L (98-107); Globulin 2.5 g/dL (1.3-4.6); Glomerular Filtration Rate 45.8 mL/min (90-130); Glucose 79 mg/dL (65-115); NT Pro B Type Natriuretic Pept 23 pg/mL (0-125); Osmolality Calculated 290 mOsm/kg (285-295); Potassium 4.3 mmol/L (3.5-5.1); Sodium 140 mmol/L (136-145); Total Bilirubin 0.3 mg/dL (0.15-1.2); Total Protein 6.9 g/dL (6.6-8.7)
[2022-03-27 14:56] VITALS: BP 120/72; PULSE 64; RESP 16; O2SAT 98
[2022-03-27 15:04] LABS: Bilirubin Urine Neg (Negative); Blood Urine 2+ (Negative); Glucose Urine UA Norm (Normal); Ketones Urine Negative (Negative); Nitrate Urine Negative (Negative); Protein Urine Neg (Negative); Urine Appearance Clear (CLEAR); Urine Color Yellow (Yellow); Urobilinogen Urine 1 mg/dL (Negative); pH Urine 7 (5-7)
[2022-03-27 15:05] LABS: Add Urine Microscopic? YES; Leukocyte Esterase Urine 2+ (Negative)
[2022-03-27 15:09] LABS: RBC Urine 0-4 /hpf (0-2); WBC Urine 0-4 /hpf (0-5)
[2022-03-27 15:10] LABS: Add Urine Culture? Yes
[2022-03-27 15:42] VITALS: BP 119/71; PULSE 74; RESP 16; O2SAT 97
== END 2022-03-27 15:43 | disposition home or self-care (01) ==
PROVIDERS: Emergency Provider Emergency Medicine; PCP Physician Assistant
DX: J44.9 Chronic obstructive pulmonary disease, unspecified (principal); G47.33 Obstructive sleep apnea (adult) (pediatric); Z85.3 Personal history of malignant neoplasm of breast; F17.210 Nicotine dependence, cigarettes, uncomplicated
CPT/HCPCS: 70450; 72100; 80053; 81001; 83880; 85025; 87086; 93005; 99285

== ENCOUNTER 2022-04-10 10:04 | Outpatient (CLI) | payer MEDICARE, MEDICAID, SELFPAY ==
--- NOTE | 2022-04-10 10:45 | CT_ITS ---
WS: [id number] LDCT LUNG CANCER SCREENING HISTORY: F17.210 - Nicotine dependence, cigarettes, uncomplicated TECHNIQUE: Axial imaging performed from the apices to 1 cm below the costophrenic angles. Coronal and sagittal reformats are submitted with axial MIP series. All CT scans at [facility] use at least one of these dose optimization techniques: automated exposure control; mA and/or kV adjustment per patient size (includes targeted exams where dose is matched to clinical indication); or iterativ e reconstruction. DLP: 66.40 mGy.cm DIvol: Mean CTDIvol: 1.60 (mGy) COMPARISON: 02/05/2021 Diagnostic quality: Satisfactory Lung Nodules: No endobronchial lesions or nodules. No mass. Lungs: Mild pulmonary hyperexpansion from emphysema. Heart: Normal size heart. No pericardial effusion. Other findings: Small benign appearing mediastinal and hilar lymph nodes. No increase in size. Prior RIGHT mastectomy. Splenic granulomata. CT/CT lung screening [id number] IMPRESSION: LUNG-RADS: 1-Negative FOLLOW UP: 12 Month: Continue annual screening with LDCT OTHER FINDINGS (S MODIFIER): None.
== END 2022-04-10 10:05 | disposition home or self-care (01) ==
LOC: RAD 10:06
PROVIDERS: PCP Physician Assistant; Visit Provider Internal Medicine Critical Care Medicine
DX: Z12.2 Encounter for screening for malignant neoplasm of respiratory organs (principal); F17.210 Nicotine dependence, cigarettes, uncomplicated
CPT/HCPCS: 71271

== ENCOUNTER → 2022-04-16 11:03 | Outpatient (BNVA) | payer MEDICARE, MEDICAID, SELFPAY | PROVIDERS: PCP Physician Assistant; Visit Provider Podiatrist Foot & Ankle Surgery | DX: L60.3 Nail dystrophy (principal) | CPT/HCPCS: 99213 ==

== ENCOUNTER 2022-05-04 15:27 | Oncology outpatient (recurring) (ONCR) | payer MEDICARE, MEDICAID, SELFPAY ==
[2022-05-04] MEDS: denosumab 60 mg SDV SUBCUT (16:49)
== END 2022-06-01 23:59 | disposition home or self-care (01) ==
PROVIDERS: PCP Physician Assistant; Visit Provider Internal Medicine Medical Oncology
DX: C50.411 Malignant neoplasm of upper-outer quadrant of right female breast (principal); Z17.0 Estrogen receptor positive status [ER+]; Z90.11 Acquired absence of right breast and nipple; Z79.818 Long term (current) use of other agents affecting estrogen receptors and estrogen levels; M81.0 Age-related osteoporosis without current pathological fracture; Z79.899 Other long term (current) drug therapy; Z87.891 Personal history of nicotine dependence
CPT/HCPCS: 96372; 99214; J0897

== ENCOUNTER → 2022-05-18 13:01 | Outpatient (BNVA) | payer MEDICARE, MEDICAID, SELFPAY | PROVIDERS: PCP Physician Assistant; Visit Provider Podiatrist Foot & Ankle Surgery | DX: L60.3 Nail dystrophy (principal); Z98.890 Other specified postprocedural states | CPT/HCPCS: 99213 ==

== ENCOUNTER 2022-06-11 13:40 | Outpatient (CLI) | payer MEDICARE, MEDICAID, SELFPAY ==
--- NOTE | 2022-06-11 13:49 | MM_ITS ---
WS: [id number] LEFT 3D TOMOSYNTHESIS DIGITAL MAMMOGRAPHY WITH CAD CLINICAL INFORMATION: HX OF BREAST CA COMPARISON: July 24, 2021 TECHNIQUE: 3 views of the left breast were obtained. FINDINGS: Scattered fibroglandular densities of the left breast. A few incidental punctate calcifications. No suspicious focal mass, asymmetry, calcifications, or architectural distortion. No evidence of jose gnancy. MM/[place] [id number] IMPRESSION: BI-RADS: 2-Benign FOLLOW UP: 1 Year Follow-up Recommend return to annual diagnostic mammography.
== END 2022-06-11 13:41 | disposition home or self-care (01) ==
LOC: RAD 13:40
PROVIDERS: PCP Physician Assistant; Visit Provider Physician Assistant
DX: Z85.3 Personal history of malignant neoplasm of breast (principal)
CPT/HCPCS: 77061; G0279

== ENCOUNTER 2022-08-20 11:08 | Outpatient (CLI) | payer MEDICARE, MEDICAID, SELFPAY ==
--- NOTE | 2022-08-20 11:19 | USCV_ITS ---
Shana Connor Age: 62 Gender: F : 1960 Exam Date: 08/20/2022 13:13 Ordering Phys: Leelee Echevarria Technologist: Exam [place] [facility] [place] Indication: pad RIGHT LEFT Brachial mmHg Brachial 136.00 mmHg Pressure (mmHg) Waveform Pressure (mmHg) Waveform 132.00 EAP SPECIALIST 163.00 163.00 DPA 168.00 1.20 Ankle/Brachial Index 1.20 131.00 Pre-Exercise Toe Pressure 109.00 0.96 Pre-Exercise Toe/Brachial Index 0.80 FINDINGS Resting ELIO of 1.2 on the right and 1.2 on the left Resting TBI of 0.96 on the right and 0.8 on the left CONCLUSIONS Normal resting ABIs and TBIs bilaterally. No significant arterial obstruction, based on the above findings Dr Ervin Millard MD FACC (Electronically Signed) Final Date: 07 September 2022 07:56 S
== END 2022-08-20 11:09 | disposition home or self-care (01) ==
LOC: RAD 11:09
PROVIDERS: PCP Physician Assistant; Visit Provider Physician Assistant
DX: I99.8 Other disorder of circulatory system (principal); I73.9 Peripheral vascular disease, unspecified
CPT/HCPCS: 93922

== ENCOUNTER → 2022-09-25 09:56 | Outpatient (BNVA) | payer MEDICARE, MEDICAID, SELFPAY | PROVIDERS: PCP Physician Assistant; Visit Provider Internal Medicine Pulmonary Disease | DX: J44.9 Chronic obstructive pulmonary disease, unspecified (principal); J30.9 Allergic rhinitis, unspecified; G47.33 Obstructive sleep apnea (adult) (pediatric); Z87.891 Personal history of nicotine dependence | CPT/HCPCS: 99214 ==

== ENCOUNTER → 2022-10-12 09:43 | Outpatient (BNVA) | payer MEDICARE, MEDICAID, SELFPAY | PROVIDERS: PCP Physician Assistant; Visit Provider Podiatrist Foot & Ankle Surgery | DX: S93.491A Sprain of other ligament of right ankle, initial encounter (principal); X58.XXXA Exposure to other specified factors, initial encounter | CPT/HCPCS: 73610 ==

== ENCOUNTER 2022-10-12 14:27 | Outpatient (CLI) | payer MEDICARE, MEDICAID, SELFPAY | END 2022-10-12 14:28 | disposition home or self-care (01) | LOC: SPT 14:28 | PROVIDERS: PCP Physician Assistant; Visit Provider Podiatrist Foot & Ankle Surgery | DX: Z46.89 Encounter for fitting and adjustment of other specified devices (principal); S93.401D Sprain of unspecified ligament of right ankle, subsequent encounter; X58.XXXD Exposure to other specified factors, subsequent encounter | CPT/HCPCS: 97760; 99213; L1902 ==

== ENCOUNTER → 2022-11-10 07:54 | Outpatient (BNVA) | payer MEDICARE, MEDICAID, SELFPAY | PROVIDERS: PCP Physician Assistant; Referring Provider Physician Assistant; Visit Provider Psychiatry & Neurology Neurology | DX: R25.1 Tremor, unspecified (principal); F32.A Depression, unspecified; Z79.899 Other long term (current) drug therapy; R26.0 Ataxic gait; R29.2 Abnormal reflex; M54.2 Cervicalgia; R20.0 Anesthesia of skin; R20.2 Paresthesia of skin; M20.001 Unspecified deformity of right finger(s); J44.9 Chronic obstructive pulmonary disease, unspecified; G47.33 Obstructive sleep apnea (adult) (pediatric); Z91.81 History of falling; Z87.891 Personal history of nicotine dependence | CPT/HCPCS: 99204 ==

== ENCOUNTER 2022-11-16 12:40 | Oncology outpatient (recurring) (ONCR) | payer MEDICARE, MEDICAID, SELFPAY ==
[2022-11-16] MEDS: denosumab 60 mg SDV SUBCUT (15:11)
[2022-11-16 15:13] VITALS: BP 122/74; PULSE 80; RESP 16; TEMP 36.7; O2SAT 98
== END 2022-11-29 23:59 | disposition home or self-care (01) ==
PROVIDERS: PCP Physician Assistant; Visit Provider Internal Medicine Medical Oncology
DX: C50.411 Malignant neoplasm of upper-outer quadrant of right female breast (principal); Z17.0 Estrogen receptor positive status [ER+]; Z90.11 Acquired absence of right breast and nipple; Z79.818 Long term (current) use of other agents affecting estrogen receptors and estrogen levels; M81.0 Age-related osteoporosis without current pathological fracture; Z79.899 Other long term (current) drug therapy; Z87.891 Personal history of nicotine dependence; M25.571 Pain in right ankle and joints of right foot
CPT/HCPCS: 96372; 99213; 99214; J0897

== ENCOUNTER 2022-11-22 16:01 | Inpatient (IN) | payer MEDICARE, MEDICAID, SELFPAY ==
[2022-11-22] VITALS (9 sets, daily range): BP systolic 97–112; BP diastolic 62–68; PULSE 90–125; RESP 16–19; TEMP 36.6–37.7; O2SAT 96–98; BMI 28.4
[2022-11-22 17:11] LABS: Glucose Urine UA Norm (Normal); Ketones Urine 1+ (Negative); Protein Urine 3+ (Negative); Urine Appearance Hazy (CLEAR); Urine Color Dark Yellow (Yellow); pH Urine 5 (5-7)
[2022-11-22 17:12] LABS: Add Urine Microscopic? YES; Bilirubin Urine 1+ (Negative); Blood Urine 3+ (Negative); Leukocyte Esterase Urine 2+ (Negative); Nitrate Urine Negative (Negative); Urobilinogen Urine 4 mg/dL (Negative)
[2022-11-22 17:13] LABS: Basophils % 0.3 %; Eosinophils % 0.2 %; Hematocrit 40.5 % (37.0-47.0); Lymphocytes # 2.1 10^3/uL (0.8-4.8); Lymphocytes % 14.9 %; Mean Corpuscular HGB Conc 32.1 g/dL (30.0-36.0); Mean Corpuscular Hemoglobin 27.6 pg (28.0-34.0); Monocytes # 1.5 10^3/uL (0.2-0.9); Monocytes % 10.6 %; Neutrophils % 73.6 %; Nucleated Red Blood Cells % 0 %; Platelet Count 205 10^3/cmm (130-400); Red Blood Count 4.71 10^6/uL (4.1-5.3); Red Cell Distribution Width 12.9 % (12.1-15.1)
--- NOTE | 2022-11-22 17:13 | W.ED.ABDPA2 ---
HPI - Abdominal Pain General: Chief Complaint: Abdominal Pain Stated Complaint: Sent from clinic, abd pain Time Seen by Provider: 11/22/22 17:13 History of Present Illness: Ms. Connor is a 62-year-old lady presenting to the emergency department due to right lower quadrant abdominal pain. She reports onset of symptoms 3 days ago without known specific provoking event. Initially more suprapubic in nature now right lower quadrant with radiation up to the flank and back. Moderate to severe in intensity and worse with palpation and movement. She has noticed possible hematuria and decreased urine output. Nausea but no vomiting. No diarrhea. No other specific changes in health, exacerbating, or alleviating factors identified. Onset (ago): day(s) Pain Consistency: constant Location: RLQ Radiation: R flank and back Exacerbating factors: movement Relieving factors: nothing Associated Symptoms: Reports dysuria, hematuria and nausea; Denies diarrhea and vomiting Review of Systems General: Reports: 10 or more systems reviewed and unremarkable except in HPI and below GI: Reports: nausea; Denies: vomiting or diarrhea : Reports: dysuria and hematuria PFSH ED PFSH: Medical History Allergic rhinosinusitis Breast cancer Chronic kidney disease Stage 3a 10/2022 COPD (chronic obstructive pulmonary disease) Depression Eczema Obstructive sleep apnea Osteoarthritis Osteoporosis Psychiatric care Surgical History History of section x 3 History of cholecystectomy History of right mastectomy (08/17/19) Right modified radical mastectomy S/P matrixectomy of toe Family History Mother Diabetes Cancer Chronic kidney disease (CKD) Social History Smoking and tobacco status: former smoker (smoked x 40+ years) Quit status (tobacco): has quit using tobacco Second hand smoke exposure: Yes (Some.) Smoking risk assessment/counseling performed?: No Alcohol intake: former Desire information about alcohol rehabilitation?: No Counseling given: No Substance/Drug Use: never Desire information about substance/drug rehabilitation?: No Counseling given: No Lives independently: Yes Household members: none Marital status: / Current occupational status: disabled Do you think of yourself as: Straight/Heterosexual Current gender identity: Female Physical Exam Const: COMMON NORMALS: alert GENERAL APPEARANCE: cooperative and well developed HENMT: COMMON NORMALS: normocephalic and atraumatic HEAD & SCALP: normocephalic and atraumatic Eye: COMMON NORMALS: conjunctivae normal CONJUNCTIVA: Yes conjunctivae normal SCLERA: sclerae normal Neck/C-Spine: COMMON NORMALS: supple GENERAL: Yes trachea midline Resp: COMMON NORMALS: normal respiratory effort EFFORT & INSPECTION: Yes able to speak in complete sentences Cardio: COMMON NORMALS: regular rhythm RATE: tachycardic RHYTHM: regular rhythm GI: COMMON NORMALS: Soft to palpation PALPATION: Yes Soft to palpation, Yes Tenderness to palpation present (GI), No Guarding due to palpation present (GI) and No Rigid due to palpation Extremity: GENERAL: Yes normal exam except as noted and No edema Neuro: COMMON NORMALS: moves all extremities SENSORIUM/ORIENTATION: Yes alert and No Orientation impaired Psych: COMMON NORMALS: mental status grossly normal and Normal thought process present THOUGHT PROCESS: Normal thought process present Course Vital Signs: Vital signs: Vital Signs Temperature 99.0 F 11/24/22 13:11 Pulse Rate 89 11/24/22 13:11 Respiratory Rate 16 11/24/22 13:11 Blood Pressure 132/83 11/24/22 13:11 Pulse Oximetry 98 11/24/22 13:11 Oxygen Delivery Me thod Room Air 11/24/22 12:00 Fraction of Inspir ed Oxygen 21 11/22/22 22:30 MDM - Abdominal Pain Medical Decision Making 62-year-old lady presenting with abdominal and urinary symptoms. Exam as above. No evidence of acute surgical abdomen. Patient is somewhat ill and tachycardic however nontoxic in appearance. Labs notable for leukocytosis, normal hemoglobin and platelet count. Metabolic panel with dehydration and elevated creatinine above baseline. Lipase is normal. Urinalysis concerning for urinary tract infection. CT demonstrates obstructing stone in the distal right ureter with mild hydroureteronephrosis and stranding. Patient treated with antibiotics, IV fluids, analgesia. Discussed with urology. Patient requires inpatient management of infected kidney stone. The results of ED evaluation were discussed with the patient including plan for admission due to requirement for level of care not available if discharged to prevent significant worsening/deterioration. Patient agreeable with plan. Discussed with hospitalist service who was agreeable to admit patient. Medical Records I reviewed the patient's medical records. Lab Data I reviewed the patient's lab results. 11/23/22 04:07 11/24/22 03:03 Labs/Radiology: Radiology Impressions Abdomen/Pelvis CT 11/23/22 10:20 IMPRESSION: 1. No ureteral calcification. 2. No pelvic mass. 3. Advanced RIGHT pyelonephritis. Enhancement extends into the proximal RIGHT ureter. No obstructing stone or mass identified. Findings associated with the RIGHT kidney are probably all related to the urinary tract infection. Notified Dr. Acosta at 11/23/2022 1:56 PM. Laboratory Results WBC 14.0 10^3/uL (4.0-10.0) H 11/22/22 17:02 RBC 4.71 10^6/uL (4.1-5.3) 11/22/22 17:02 Hgb 13.0 g/dL (11.5-15.3) 11/22/22 17:02 Hct 40.5 % (37.0-47.0) 11/22/22 17:02 MCV 86.0 fl (81-99) 11/22/22 17:02 MCH 27.6 pg (28.0-34.0) L 11/22/22 17:02 MCHC 32.1 g/dL (30.0-36.0) 11/22/22 17:02 RDW 12.9 % (12.1-15.1) 11/22/22 17:02 Plt Count 205 10^3/cmm (130-400) 11/22/22 17:02 MPV 11.0 fL (7.4-10.4) H 11/22/22 17:02 Neut % (Auto) 73.6 % 11/22/22 17:02 Lymph % (Auto) 14.9 % 11/22/22 17:02 Carbon % (Auto) 10.6 % 11/22/22 17:02 Eos % (Auto) 0.2 % 11/22/22 17:02 Baso % (Auto) 0.3 % 11/22/22 17:02 Neut # (Auto) 10.30 10^3/uL (1.8-7.7) H 11/22/22 17:02 Lymph # (Auto) 2.1 10^3/uL (0.8-4.8) 11/22/22 17:02 Carbon # (Auto) 1.5 10^3/uL (0.2-0.9) H 11/22/22 17:02 Eos # (Auto) 0.0 10^3/uL (0.0-0.8) 11/22/22 17:02 Baso # (Auto) 0.0 10^3/uL (0.0-0.1) 11/22/22 17:02 Nucleated RBC % (auto) 0 % 11/22/22 17:02 Nucleated RBCs # 0.0 /100WBC 11/22/22 17:02 Sodium 126 mmol/L (136-145) L 11/22/22 17:02 Potassium 3.7 mmol/L (3.5-5.1) 11/22/22 17:02 Chloride 92 mmol/L (98-107) L 11/22/22 17:02 Carbon Dioxide 20 mmol/L (22-29) L 11/22/22 17:02 Anion Gap 17.7 (5-19) 11/22/22 17:02 BUN 19 mg/dL (8-23) 11/22/22 17:02 Creatinine 1.7 mg/dL (0.5-0.9) H 11/22/22 17:02 GFR Calculation 30.7 mL/min (90-130) L 11/22/22 17:02 Glucose 141 mg/dL (65-115) H 11/22/22 17:02 Calculated Osmolality 267 mOsm/kg (285-295) L 11/22/22 17:02 Lactic Acid 1.4 mmol/L (0.5-2.2) 11/22/22 17:02 Calcium 8.2 mg/dL (8.5-10.5) L 11/22/22 17:02 Total Bilirubin 0.5 mg/dL (0.15-1.2) 11/22/22 17:02 AST 11 U/L (0-32) 11/22/22 17:02 ALT 18 U/L (0-33) 11/22/22 17:02 Alkaline Phosphatase 65 U/L (35-105) 11/22/22 17:02 Total Protein 7.5 g/dL (6.6-8.7) 11/22/22 17:02 Albumin 4.1 g/dL (3.5-5.2) 11/22/22 17:02 Globulin 3.4 g/dL (1.3-4.6) 11/22/22 17:02 Lipase 12 U/L (13-60) L 11/22/22 17:02 Procalcitonin 0.35 ng/mL (0-0.5) 11/22/22 17:02 TSH 1.27 uIU/mL (0.27-4.20) 11/22/22 17:02 Urine Color Dark yellow (Yellow) 11/22/22 16:22 Urine Appearance Hazy (CLEAR) A 11/22/22 16:22 Urine pH 5 (5-7) 11/22/22 16:22 Ur Specific [place] 1.020 (1.005-1.030) 11/22/22 16:22 Urine Protein 3+ (Negative) H 11/22/22 16:22 Urine Glucose (UA) Norm (Normal) 11/22/22 16:22 Urine Ketones 1+ (Negative) H 11/22/22 16:22 Urine Blood 3+ (Negative) H 11/22/22 16:22 Urine Nitrate Negative (Negative) 11/22/22 16:22 Urine Bilirubin 1+ (Negative) H 11/22/22 16:22 Urine Urobilinogen 4 mg/dL (Negative) H 11/22/22 16:22 Ur Leukocyte Esterase 2+ (Negative) H 11/22/22 16:22 Urine RBC 10-15 /hpf (0-2) H 11/22/22 16:22 Urine WBC Too numerous to cnt /hpf (0-5) H 11/22/22 16:22 Ur Squamous Epith Cells 0-4 /hpf (0-5) H 11/22/22 16:22 Amorphous Sediment Not Reportable 11/22/22 16:22 Urine Bacteria 1+ /hpf (NONE) H 11/22/22 16:22 Discharge Plan Discharge Patient Disposition: Admitted As Inpatient Admit Provider: Anuel Carlson Clinical Impression: UTI (urinary tract infection), Sepsis, THO (acute kidney injury), Calculus, ureteral, Hydroureteronephrosis Condition: Stable Discharge Diet: Advance as tolerated and Usual diet Discharge Activity: Resume usual activity and Increase activity as tolerated Coding Level of Care Code ED Director Of [employer] for [facility] Fwd
[2022-11-22 17:25] LABS: Add Urine Culture? Yes; Bacteria Urine 1+ /hpf; Squamous Epithelial Cell Urine 0-4 /hpf (0-5); WBC Urine TOO NUMEROUS TO CNT /hpf (0-5)
[2022-11-22 17:32] LABS: Alanine Aminotransferase 18 U/L (0-33); Albumin Level 4.1 g/dL (3.5-5.2); Alkaline Phosphatase 65 U/L (35-105); Anion Gap 17.7 (5-19); Aspartate Amino Transferase 11 U/L (0-32); Blood Urea Nitrogen 19 mg/dL (8-23); Calcium 8.2 mg/dL (8.5-10.5); Carbon Dioxide 20 mmol/L (22-29); Chloride 92 mmol/L (98-107); Creatinine Clr Calc Pharmacy 36.2364; Globulin 3.4 g/dL (1.3-4.6); Glomerular Filtration Rate 30.7 mL/min (90-130); Glucose 141 mg/dL (65-115); Lipase 12 U/L (13-60); Osmolality Calculated 267 mOsm/kg (285-295); Potassium 3.7 mmol/L (3.5-5.1); Sodium 126 mmol/L (136-145); Total Bilirubin 0.5 mg/dL (0.15-1.2); Total Protein 7.5 g/dL (6.6-8.7)
[2022-11-22 17:33] LABS: Lactic Sepsis W/Reflex 1.4 mmol/L (0.5-2.2)
--- NOTE | 2022-11-22 17:51 | CTR_ITS ---
PROCEDURE INFORMATION: Exam: CT Abdomen And Pelvis Without Contrast Exam date and time: 11/22/2022 6:12 PM Age: 62 years old Clinical indication: Abdominal pain; Localized; Right lower quadrant (rlq); Prior surgery; Surgery type: C-sec; Dena; Right mastectomy; Additional info: Rlq pain, eval pyelonephritis vs appy vs other TECHNIQUE: Imaging protocol: Computed tomography of the abdomen and pelvis without contrast. Radiation optimization: All CT scans at this facility use at least one of these dose optimization techniques: automated exposure control; mA and/or kV adjustment per patient size (includes targeted exams where dose is matched to clinical indication); or iterative reconstruction. REPORTING DATA: Count of CT and Cardiac NM exams in prior 12 months: This patient has received 2 known CTs and 0 known cardiac nuclear medicine studies in the 12 months prior to the current study. COMPARISON: 1. MR pelvis wo/w con [id number] 06/16/2021 1:[address] abdomen pelvis w con* [id number] 04/16/2019 8:19 PM RADIATION DOSE METRICS: Total DLP (mGy-cm): 676.99 FINDINGS: Lungs: Left lower lobe calcified granuloma is unchanged. Diaphragm: Small-sized hiatal hernia. Liver: Diffuse fatty infiltration of the liver. Liver borderline enlarged measuring 17.8 cm. Gallbladder and bile ducts: Cholecystectomy. Pancreas: Normal. No ductal dilation. Spleen: Splenic granulomata are unchanged. Adrenal glands: Normal. No mass. Kidneys and ureters: There is mild right-sided hydroureteronephrosis. There is an obstructing stone present in the right distal ureter at the ureterovesical junction measuring 3 mm maximum size on series 4, image 208. There is stranding adjacent to the right ureter and right kidney which is asymmetric. Small bilateral nonobstructing 2-3 mm stones are seen bilaterally in the kidneys. Stomach and bowel: Unremarkable. No obstruction. No mucosal thickening. Appendix: No evidence of appendicitis. Intraperitoneal space: Unremarkable. No free air. No significant fluid collection. Vasculature: Unremarkable. No abdominal aortic aneurysm. Lymph nodes: Unremarkable. No enlarged lymph nodes. Urinary bladder: The bladder is incompletely distended. Reproductive: Unremarkable as visualized. Bones/joints: Unremarkable. No acute fracture. Soft tissues: Partially imaged right mastectomy change. CT/CT kidney stone [id number] IMPRESSION: 1. Obstructing stone in the distal right ureter measures 3 mm with mild hydroureteronephrosis proximally. There is stranding adjacent to the right kidney/ureter present. Correlate with urinalysis for possible infection. 2. Additional small bilateral nonobstructing nephroliths are also seen. 3. Fatty infiltration of the liver with borderline hepatomegaly. 4. Stable cholecystectomy changes.
[2022-11-22] MEDS: cefTRIAXone 1,000 MG in sodium chloride 0.9% (plus) 50 ML 100 MG IV (17:52)
[2022-11-22] MEDS: fentaNYL 50 mcg/mL INJ 2mL IVP (17:53)
[2022-11-22] MEDS: sodium chloride 0.9% 1,000 ML 999 ML IV (17:53)
[2022-11-22] MEDS: piperacillin-tazobactam 4.5 GM in sodium chloride 0.9% (plus) 50 ML IV (19:30)
--- NOTE | 2022-11-22 19:45 | PC.NURSE ---
Report called to Candis BALTAZAR on med surg at this time.
--- NOTE | 2022-11-22 20:01 | PM.HP ---
Providers/Chief Complaint Admitting Physician: Anuel Carlson MD Primary Care Provider: Leelee Echevarria Chief Complaint: Sent from clinic, abd pain History of Present Illness Shana Connor is a 62 year old female with a past medical COPD, breast cancer, depression, eczema, obstructive sleep apnea, who presents to [facility] due to 24-hour history of difficulty urinating, dysuria, right-sided flank pain, right lower quadrant pain. Denies any fevers, chills, nausea, vomiting, prior history of nephrolithiasis. Review of Systems Const: Denies: fever(s) Card: Denies: chest pain Resp: Denies: dyspnea GI: Reports: abdominal pain : Denies: flank pain or difficulty voiding Musc: Denies: back pain Medications/Allergies Home Medications Medication Instructions Recorded Confirmed Last Taken Type B-complex with vitamin C 1 cap PO DAILY 09/23/20 11/22/22 Unknown History vitamin E (dl, acetate) 180 mg 450 mg PO DAILY 11/12/20 11/22/22 Unknown History (400 unit) capsule cholecalciferol (vitamin D3) 125 125 mcg PO DAILY 07/21/21 11/22/22 Unknown History mcg (5,000 unit) capsule fluticasone propionate 50 2 spray intranasal DAILY #16 grams 02/10/22 11/22/22 Unknown Rx mcg/actuation nasal spray,suspension (Flonase Allergy Relief) azelastine 137 mcg (0.1 %) nasal 1 spray intranasal BID 30 days #30 03/25/22 11/22/22 Unknown Rx spray aerosol mL cetirizine 10 mg capsule (All Day 10 mg PO DAILY PRN 08/12/22 11/22/22 Unknown History Allergy (cetirizine)) exemestane 25 mg tablet See Rx Instructions .Route 08/21/22 11/22/22 Unknown Rx .COMPLEX #30 tabs albuterol sulfate 90 mcg/actuation 2 puff inhalation Q6H PRN 09/25/22 11/22/22 Unknown History aerosol inhaler tiotropium 2.5 mcg-olodaterol 2.5 2 puff inhalation DAILY #4 grams 09/25/22 11/22/22 Unknown Rx mcg/actuation mist for inhalation (Stiolto Respimat) ASO ankle brace #1 ea 10/12/22 11/22/22 Unknown Rx bupropion HCl 300 mg 24 hr tablet, 300 mg PO QAM #30 tabs 11/04/22 11/22/22 Unknown Rx extended release (Wellbutrin XL) paroxetine HCl 40 mg tablet 40 mg PO DAILY #30 tabs 11/04/22 11/22/22 Unknown Rx paroxetine HCl 40 mg tablet (Paxil) 40 mg PO DAILY 11/16/22 11/22/22 Unknown History Allergies Allergy/AdvReac Type Severity Reaction Status Date / Time aspirin Allergy Severe makes me Verified 11/22/22 14:54 stop breathing codeine Allergy Intermediate loss of Verified 11/22/22 14:54 functioning metronidazole [From Flagyl] Allergy Intermediate memory fog Verified 11/22/22 14:54 mushrooms Allergy Severe Can't Uncoded 11/22/22 14:54 breath PFSH Acute PFSH: Medical History Allergic rhinosinusitis Breast cancer COPD (chronic obstructive pulmonary disease) Depression Eczema Obstructive sleep apnea Osteoarthritis Osteoporosis Psychiatric care Surgical History History of section x 3 History of cholecystectomy History of right mastectomy (08/17/19) Right modified radical mastectomy Family History Mother Diabetes Cancer Chronic kidney disease (CKD) Social History Smoking and tobacco status: former smoker (smoked x 40+ years) Quit status (tobacco): has quit using tobacco Second hand smoke exposure: Yes (Some.) Smoking risk assessment/counseling performed?: No Alcohol intake: former Desire information about alcohol rehabilitation?: No Counseling given: No Substance/Drug Use: never Desire information about substance/drug rehabilitation?: No Counseling given: No Lives independently: Yes Household members: none Marital status: / Current occupational status: disabled Do you think of yourself as: Straight/Heterosexual Current gender identity: Female Vitals/I&O/Wt Last Vital Signs Temp 100 F H 11/22/22 16:13 Pulse 101 H 11/22/22 19:03 Resp 16 11/22/22 19:03 BP 101/68 11/22/22 19:03 Pulse Ox 96 11/22/22 19:03 O2 Del Method Room Air 11/22/22 19:03 11/22/22 11/22/22 11/22/22 06:59 14:59 22:59 Intake Total 1050 / 1050 Balance 1050 / 1050 Weight last 48 hrs Weight 77.564 kg Physical Exam Const: COMMON NORMALS: no acute distress and patient oriented x3 HENMT: COMMON NORMALS: normocephalic Eye: COMMON NORMALS: Equal, round and reactive pupils present and EOMs intact bilaterally Neck/C-Spine: COMMON NORMALS: full ROM and no lymphadenopathy Lymph: LYMPHATIC: no lymphadenopathy noted Resp: COMMON NORMALS: normal respiratory effort, No retractions, No use of accessory muscles and clear to auscultation bilaterally AUSCULTATION: clear to auscultation bilaterally Cardio: COMMON NORMALS: regular rate, regular rhythm, S1 normal heart sound present and S2 normal heart sound present RATE: regular rate RHYTHM: regular rhythm HEART SOUNDS: S1 normal heart sound present and S2 normal heart sound present GI: COMMON NORMALS: Normal to inspection, nondistended, normoactive bowel sounds present, Soft to palpation and non-tender Extremity: COMMON NORMALS: no pedal edema Neuro: COMMON NORMALS: patient oriented x3, CN's II-XII intact bilaterally, moves all extremities and no focal motor deficits Psych: COMMON NORMALS: mental status grossly normal Data 11/22/22 17:02 11/22/22 17:02 A&P Assessment and plan (1) UTI (urinary tract infection): (2) THO (acute kidney injury): (3) Calculus, ureteral: (4) Hydroureteronephrosis: (5) COPD (chronic obstructive pulmonary disease): (6) Hyponatremia: Plan 1. ? Obstructing stone in the distal right ureter measures 3 mm with mild hydroureteronephrosis proximally. There is stranding adjacent to the right kidney/ureter present. Correlate with urinalysis for possible infection. 2. ? Additional small bilateral nonobstructing nephroliths are also seen. 3. ? Fatty infiltration of the liver with borderline hepatomegaly. 4. ? Stable cholecystectomy changes. -Has leukocytosis, evidence of UTI, creatinine 1.7, serum sodium 126 Plan -Admit to general medical floors -Continue Rocephin -Urine culture, blood cultures -Urology consulted, n.p.o. at midnight possible surgical procedure tomorrow morning -Morphine for pain -Zofran for nausea -Hyponatremia likely sec to dehydration, IV fluids -THO likely sec to UTI, nephrolithiasis, IV fluids -Full code -SCDs for DVT prophylaxis, Lovenox on hold for possible surgical intervention -Sleep apnea, CPAP Attestations Medical Necessity Statement*: Patient requires hospitalization, inpatient, greater than 2 midnights, for UTI, right nephrolithiasis with hydroureteronephrosis, hyponatremia Coding Level of Care Code Acute Code for g Fwd Diagnoses UTI (urinary tract infection) N39.0 THO (acute kidney injury) N17.9 Calculus, ureteral N20.1 Hydroureteronephrosis N13.30 COPD (chronic obstructive pulmonary disease) J44.9 Hyponatremia E87.1
--- NOTE | 2022-11-22 20:31 | P.CONIM_ITS ---
Providers/Reason For Consult Consulting Physician/Specialty*: Urology/Acosta Reason for Consult*: Right distal ureteral stone/UTI Requesting Physician: Dr. Carlson Attending Physician: Anuel Carlson MD Primary Care Provider: Leelee Echevarria History of Present Illness History of Present Illness Shana Connor is a 62 year old female presenting to [facility] ED with about 3 days of RLQ pain, LUTS, and later pain radiating to Back and Right flank. Pain described as severe. No prior stones. He does have a history of apparently decreased renal function and follows with nephrology per her report Denied N/V/F/C. Workup: * WBC: 14 * Lactate: normal * Cr: 1.7 up from baseline * Nl LFTs * CT: mild Right hydronephrosis / hydroureter to 3mm RIGHT UVJ stone. Perirenal /periureteral stranding. There is a collection of fluid superior to bladder not mentioned in the report: differential includes ovarian cyst, bowel dilation segmentally, ?. Not a lot of inflammation locally. On review of CT in 2019 there appears to be a similar though to a lesser extent fluid collection in the same area. * UA: TNTC WBCs, 0-4 squamous cells, nitrite negative. * Vitals: no hemodynamic instability. Temp: 100.1. Tachycardia. Antibiotics started. Will review with radiology Suspicious that this will not be a ureteral obstruction secondary to a stone. May require cystoscopy. Review of Systems Const: Reports: malaise; Denies: fever(s) or chills Eyes: Denies: change in vision or yellow eyes ENMT: Denies: hoarseness Card: Denies: chest pain Resp: Denies: dyspnea or productive cough GI: Reports: abdominal pain; Denies: hematochezia : Reports: flank pain and urinary urgency Musc: Denies: joint redness Skin/Breast: Denies: rash or new lesions Neuro: Denies: confusion, behavioral changes or Slurred speech present Psych: Denies: memory loss Endo: Denies: flushing Clint/Lymph: Reports: easy bruising and easy bleeding All/Imm: Denies: acute wheezing Medications/Allergies Home Medications Medication Instructions Recorded Confirmed Last Taken Type vitamin E (dl, acetate) 180 mg 180 mg PO DAILY 11/12/20 11/23/22 Unknown History (400 unit) capsule cholecalciferol (vitamin D3) 125 125 mcg PO QAM 07/21/21 11/23/22 Unknown History mcg (5,000 unit) capsule fluticasone propionate 50 2 spray intranasal DAILY #16 grams 02/10/22 11/23/22 Unknown Rx mcg/actuation nasal spray,suspension (Flonase Allergy Relief) azelastine 137 mcg (0.1 %) nasal 1 spray intranasal BID 30 days #30 03/25/22 11/23/22 Unknown Rx spray aerosol mL cetirizine 10 mg capsule (All Day 10 mg PO DAILY PRN Allergy Symptoms 08/12/22 11/23/22 Unknown History Allergy (cetirizine)) albuterol sulfate 90 mcg/actuation 2 puff inhalation Q4H PRN 09/25/22 11/23/22 Unknown History aerosol inhaler Shortness Of Breath tiotropium 2.5 mcg-olodaterol 2.5 2 puff inhalation DAILY #4 grams 09/25/22 11/23/22 Unknown Rx mcg/actuation mist for inhalation (Stiolto Respimat) ASO ankle brace #1 ea 10/12/22 11/23/22 Unknown Rx bupropion HCl 300 mg 24 hr tablet, 300 mg PO QAM #30 tabs 11/04/22 11/23/22 Unknown Rx extended release (Wellbutrin XL) paroxetine HCl 40 mg tablet (Paxil) 40 mg PO BEDTIME 11/16/22 11/23/22 Unknown History clobetasol 0.05 % topical cream See Rx Instructions .Route .COMPLEX 11/23/22 11/23/22 Unknown History exemestane 25 mg tablet 25 mg PO QAM 11/23/22 11/23/22 Unknown History hydroxyzine HCl 50 mg tablet 50 mg PO BID PRN Anxiety 11/23/22 11/23/22 Unknown History vitamin B complex 1 tab PO DAILY 11/23/22 11/23/22 Unknown History Allergies Allergy/AdvReac Type Severity Reaction Status Date / Time aspirin Allergy Severe makes me Verified 11/22/22 14:54 stop breathing codeine Allergy Intermediate loss of Verified 11/22/22 14:54 functioning metronidazole [From Flagyl] Allergy Intermediate memory fog Verified 11/22/22 14:54 mushrooms Allergy Severe Can't Uncoded 11/22/22 14:54 breath PFSH Acute PFSH: Medical History Allergic rhinosinusitis Breast cancer Chronic kidney disease Stage 3a 10/2022 COPD (chronic obstructive pulmonary disease) Depression Eczema Obstructive sleep apnea Osteoarthritis Osteoporosis Psychiatric care Surgical History History of section x 3 History of cholecystectomy History of right mastectomy (08/17/19) Right modified radical mastectomy S/P matrixectomy of toe Family History Mother Diabetes Cancer Chronic kidney disease (CKD) Social History Smoking and tobacco status: former smoker (smoked x 40+ years) Quit status (tobacco): has quit using tobacco Second hand smoke exposure: Yes (Some.) Smoking risk assessment/counseling performed?: No Alcohol intake: former Desire information about alcohol rehabilitation?: No Counseling given: No Substance/Drug Use: never Desire information about substance/drug rehabilitation?: No Counseling given: No Lives independently: Yes Household members: none Marital status: / Current occupational status: disabled Do you think of yourself as: Straight/Heterosexual Current gender identity: Female Vitals/I&O/Wt Last Vital Signs Temp 100 F H 11/22/22 16:13 Pulse 101 H 11/22/22 19:03 Resp 16 11/22/22 19:03 BP 101/68 11/22/22 19:03 Pulse Ox 96 11/22/22 19:03 O2 Del Method Room Air 11/22/22 19:03 11/22/22 11/22/22 11/22/22 06:59 14:59 22:59 Intake Total 1100 / 1100 Balance 1100 / 1100 Weight last 48 hrs Weight 171 lb Physical Exam Const: COMMON NORMALS: no acute distress, alert and well nourished GENERAL APPEARANCE: well kempt and well developed ORIENTATION/CONSCIOUSNESS: not confused HENMT: COMMON NORMALS: normocephalic HEAD & SCALP: normal to inspection and normocephalic Eye: COMMON NORMALS: conjunctivae normal and no scleral icterus CONJUNCTIVA: Yes conjunctivae normal Neck/C-Spine: GENERAL: Yes normal visual inspection Resp: COMMON NORMALS: normal respiratory effort EFFORT & INSPECTION: Yes able to speak in complete sentences, No labored and No Actively coughing Cardio: COMMON NORMALS: regular rate RATE: regular rate Neuro: COMMON NORMALS: no focal motor deficits SENSORIUM/ORIENTATION: Yes alert Psych: COMMON NORMALS: mental status grossly normal APPEARANCE: Yes grossly normal and Yes well kempt ATTITUDE: Yes calm and Yes engaged Skin: COMMON NORMALS: no rashes or lesions noted and no jaundice GENERAL SKIN EXAM: no rashes or lesions noted Data 11/23/22 04:07 11/23/22 04:07 A&P Assessment and plan (1) UTI (urinary tract infection): (2) Hydroureteronephrosis: Exact etiology unclear. Differential diagnosis does include a right distal ureteral stone but so far not able to identified on CT scan (3) Pelvic mass: Increasing pelvic mass of unclear etiology. Will review with radiology in the morning Plan Further evaluate pelvic mass and look for other potential sources of right ureteral obstruction. Consult Attestations Medical Necessity Statement: UTI, evidence of right ureteral obstruction, refractory pain requiring hospitalization. Work-up ongoing. Coding Level of Care Code Acute Code for g Fwd Diagnoses UTI (urinary tract infection) N39.0 Hydroureteronephrosis N13.30 Pelvic mass R19.00
[2022-11-22 20:37] LABS: Procalcitonin 0.35 ng/mL (0-0.5)
[2022-11-22] MEDS: sodium chloride 0.9% 1,000 ML 100 ML IV (21:02)
[2022-11-22 22:36] LABS: Thyroid Stimulating Hormone 1.27 uIU/mL (0.27-4.20)
[2022-11-23] VITALS (8 sets, daily range): BP systolic 100–142; BP diastolic 67–85; PULSE 93–99; RESP 15–18; TEMP 36.6–37.1; O2SAT 95–98; BMI 28.4
[2022-11-23 04:13] LABS: Basophils % 0.2 %; Eosinophils # 0.1 10^3/uL (0.0-0.8); Eosinophils % 0.5 %; Hematocrit 37.4 % (37.0-47.0); Hemoglobin 11.9 g/dL (11.5-15.3); Lymphocytes # 1.8 10^3/uL (0.8-4.8); Mean Corpuscular HGB Conc 31.8 g/dL (30.0-36.0); Mean Corpuscular Hemoglobin 27.7 pg (28.0-34.0); Monocytes # 1.5 10^3/uL (0.2-0.9); Monocytes % 14.2 %; Neutrophils # 7.03 10^3/uL (1.8-7.7); Neutrophils % 67.9 %; Nucleated Red Blood Cells % 0 %; Platelet Count 187 10^3/cmm (130-400); Red Cell Distribution Width 13.1 % (12.1-15.1); White Blood Count 10.4 10^3/uL (4.0-10.0)
[2022-11-23 04:29] LABS: Blood Urea Nitrogen 19 mg/dL (8-23); Calcium 7.4 mg/dL (8.5-10.5); Carbon Dioxide 20 mmol/L (22-29); Chloride 103 mmol/L (98-107); Glomerular Filtration Rate 38.4 mL/min (90-130); Glucose 113 mg/dL (65-115); Osmolality Calculated 283 mOsm/kg (285-295); Sodium 135 mmol/L (136-145)
[2022-11-23 04:33] LABS: Anion Gap 16.1 (5-19); Potassium 4.1 mmol/L (3.5-5.1)
[2022-11-23 04:38] LABS: Estmated Average Glucose 126
[2022-11-23] MEDS: buPROPion XL (24 HR) 300 mg Tablet PO (05:19)
[2022-11-23] MEDS: sodium chloride 0.9% 1,000 ML 100 ML IV (05:20)
[2022-11-23] MEDS: pantoprazole DR 40 mg Tablet PO (08:24)
--- NOTE | 2022-11-23 08:50 | PC.PHAR ---
pt states she takes care of her own medications-pt states the propranolol 10mg bid filled 10/12/22 30d/s was dced-
--- NOTE | 2022-11-23 09:18 | P.PN_ITS ---
Subjective Subjective: Patient's seen and examined. She is feeling a little bit better. Still with right flank pain and right lower quadrant pain, but not as bad as it had been. No vomiting. Medications: Reviewed: Yes Vitals/I&O/Wt Last Vital Signs Temp 98.8 F 11/23/22 08:00 Pulse 93 11/23/22 08:00 Resp 18 11/23/22 08:00 BP 111/74 11/23/22 08:00 Pulse Ox 95 11/23/22 08:00 O2 Del Method Room Air 11/23/22 08:00 FiO2 21 11/22/22 22:30 11/22/22 11/23/22 11/23/22 22:59 06:59 14:59 Intake Total 1100 / 1100 830 / 1930 Balance 1100 / 1100 830 / 1930 Weight last 48 hrs Weight 77.564 kg Weight 77.564 kg Physical Exam Narrative: Awake and alert, mildly ill-appearing, lungs are clear. Regular rhythm. Has some right flank greater than right lower quadrant pain with palpation, no rebound or guarding. Positive bowel sounds. 2+ pulses. Speech clear. Data 11/23/22 04:07 11/23/22 04:07 Micro: Microbiology 11/23/22 04:07 Blood Culture - Preliminary Blood SPECIMEN COLLECTED 11/22/22 21:34 Blood Culture - Preliminary Blood SPECIMEN COLLECTED A&P Assessment and plan (1) UTI (urinary tract infection): Present on admission, with some perinephric and periureteral stranding noted on imaging Urine culture and blood cultures pending On Rocephin IVFs Pain control and antiemetics as needed (2) Right distal ureteral calculus: Obstructing 3 mm stone in the right distal ureter with some hydroureteronephrosis proximally Has been seen by Dr. Acosta, appreciate assistance Straining urine for stones (3) Hyponatremia: Secondary to dehydration Improved 126 > 135 Adjust IVFs to maintenance (4) Pelvic mass: Per Dr Acosta's consultation, there is a fluid collection superior to the blad camelia not mentioned in the CT report with a similar though smaller finding noted in 2019 imaging, etiology currently not clear (5) THO (acute kidney injury): Does not meet criteria for acute kidney injury, nor did she at admission, last creatinine 1.2 Appears to have chronic kidney disease stage IIIa on review of chart This admission has elevated creatinine secondary to dehydration and infection - Improved 1.7 > 1.4 On IV fluids (6) COPD (chronic obstructive pulmonary disease): Chronic, not acute On duonebs as needed, home flonase (7) Obstructive sleep apnea: Chronic, on CPAP (8) Major depressive disorder, recurrent severe without psychotic features: Chronic On home buproprion and paroxetine (9) 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 At risk of acute worsening, including renal failure and progressive infection, without appropriate treatment. Coding Level of Care Code Acute Code for Chg Fwd Diagnoses UTI (urinary tract infection) N39.0 Right distal ureteral calculus N20.1 Hyponatremia E87.1 Pelvic mass R19.00 THO (acute kidney injury) N17.9 COPD (chronic obstructive pulmonary disease) J44.9 Obstructive sleep apnea G47.33 Major depressive disorder, recurrent severe without psychotic features F33.2 Carcinoma of upper-outer quadrant of right breast in female, estrogen receptor positive C50.411; Z17.0
--- NOTE | 2022-11-23 10:20 | CT_ITS ---
WS: [id number] CT ABDOMEN AND PELVIS WITH CONTRAST HISTORY: fluid collection superior to bladder on noncontrast CT TECHNIQUE: Imaging performed of the abdomen and pelvis with IV contrast and oral. Dual phase imaging of the abdomen and pelvis. Coronal and sagittal reformats are submitted. All CT scans at [facility] use at least one of these dose optimization techniques: automated exposure control; mA and/or kV adjustment per patient size (includes targeted exams where dose is matched to clinical indication ); or iterative reconstruction. IV CONTRAST: Omnipaque 350; 100 mL IV. Oral contrast: Yes. DLP: 1304.33 mGy.cm COMPARISON: 11/22/2022 Lower thorax: Benign granuloma RIGHT lung base. Heart is normal size. Small hiatal hernia. Liver/biliary system: Mild hepatic steatosis and mild hepatomegaly. Gallbladder: Status post cholecystectomy. Pancreas: Normal size pancreas and pancreatic duct. No adjacent inflammation. Spleen: Granulomatous. Normal size. Adrenal glands: Normal. Right kidney: Abnormal RIGHT kidney. Kidney is enlarged with perinephric stranding. Variable enhancem ent and attenuation throughout the kidney. Multifocal wedge-shaped areas of low attenuation and decre ased enhancement. Mild dilatation of the RIGHT renal pelvis. Proximal RIGHT ureter is also dilated wi th periureteral wall enhancement. Near the pelvic brim the ureter returns to more normal caliber. No ureteral stone. Left kidney: Normal. Aorta: Mild atherosclerosis with no aneurysm. Lymphadenopathy: None. Free fluid: None. GI tract: No obstruction. Less fluid distention of the cecum. No evidence for appendicitis. Abdominal wall: Fat containing umbilical hernia. Pelvis: No free fluid or adenopathy within the pelvis. Atrophic uterus. No pelvic mass. Ovaries are a trophic also. Normal urinary bladder. No ureteral obstruction or calcification. Bones: Unremarkable. CT/CT abdomen pelvis w con* [id number] IMPRESSION: 1. No ureteral calcification. 2. No pelvic mass. 3. Advanced RIGHT pyelonephritis. Enhancement extends into the proximal RIGHT ureter. No obstructing stone or mass identified. Findings associated with the R IGHT kidney are probably all related to the urinary tract infection. Notified Dr. Acosta at 11/23/2022 1:56 PM.
[2022-11-23] MEDS: dextrose 5%-ns + KCl 20 20 MEQ/1,000 ML BAG 100 MEQ IV ×2 (11:04→20:43)
[2022-11-23] MEDS: iohexol 350 mg/mL 500 mL Btl (per mL) IV (13:17)
--- NOTE | 2022-11-23 17:11 | PM.PN ---
Subjective Subjective: Urology follow-up: Reviewed films with Dr. Ruano radiology. Details of the pelvic mass were not clear on noncontrasted CT scan and she recommended a repeat with contrast as well as a pelvic ultrasound CT scan abdomen and pelvis with and without IV and oral contrast showed the cystic area to be portion of the cecum. The uterus was closely approximated to the bladder and much better defined on the contrasted image and there was no evidence of ureteral stone in the area of the distal ureter. There was increased enhancement of the ureteral wall consistent more with inflammatory change and likely some relative obstructive changes distally kidney showed evidence of pyelonephritis. I did review the films. No indication for stenting. WBCs improved, 10.4 Creatinine improved: 1.4 down from 1.7 Vitals/I&O/Wt Last Vital Signs Temp 98.7 F 11/23/22 16:00 Pulse 94 11/23/22 16:00 Resp 16 11/23/22 16:00 BP 142/85 11/23/22 16:00 Pulse Ox 98 11/23/22 16:00 O2 Del Method Room Air 11/23/22 16:00 FiO2 21 11/22/22 22:30 11/23/22 11/23/22 11/23/22 06:59 14:59 22:59 Intake Total 830 / 1930 460 / 460 Balance 830 / 1930 460 / 460 Weight last 48 hrs Weight 171 lb Weight 171 lb Physical Exam Const: COMMON NORMALS: no acute distress and patient oriented x3 HENMT: OTHER: Atraumatic Neck/C-Spine: OTHER: Good range of motion Resp: OTHER: Unlabored. No audible wheezes Neuro: COMMON NORMALS: patient oriented x3 Psych: COMMON NORMALS: mental status grossly normal, Normal thought process present and cooperative THOUGHT PROCESS: Normal thought process present Data 11/23/22 04:07 11/23/22 04:07 Micro: Microbiology 11/23/22 04:07 Blood Culture - Preliminary Blood SPECIMEN COLLECTED 11/22/22 21:34 Blood Culture - Preliminary Blood SPECIMEN COLLECTED A&P Assessment and plan (1) Hydroureteronephrosis: (2) Acute pyelonephritis: Plan No indication currently for stent. Would continue IV antibiotics for acute pyelonephritis. The abnormal findings on the CT scan regarding pelvic mass ultimately found to be benign variants of normal. No further work-up indicated. It is clear on the CT scan that 2 calcifications in the area of the distal ureter were not in fact in the ureter at all. Hydroureteronephrosis most likely secondary to relative decreased lumen based on inflammatory changes of the ureter. Clinically no progression to increasing infectious concerns. Attestations Medical Necessity Statement*: See attending Coding Level of Care Code Acute Code for Chg Fwd Diagnoses Hydroureteronephrosis N13.30 Acute pyelonephritis N10
[2022-11-23] MEDS: cefTRIAXone 1,000 MG in sodium chloride 0.9% (plus) 50 ML 100 MG IV (18:12)
[2022-11-23] MEDS: acetaminophen 325 mg Tablet 650 MG PO (18:12)
[2022-11-23] MEDS: PARoxetine 20 mg Tablet 40 MG PO (20:42)
[2022-11-24] VITALS (7 sets, daily range): BP systolic 118–143; BP diastolic 71–83; PULSE 88–98; RESP 16; TEMP 36.6–37.2; O2SAT 95–98
[2022-11-24] MEDS: acetaminophen 325 mg Tablet 650 MG PO (01:37)
[2022-11-24 04:06] LABS: Anion Gap 16.2 (5-19); Blood Urea Nitrogen 13 mg/dL (8-23); Calcium 7.7 mg/dL (8.5-10.5); Carbon Dioxide 19 mmol/L (22-29); Chloride 106 mmol/L (98-107); Glomerular Filtration Rate 56.6 mL/min (90-130); Glucose 154 mg/dL (65-115); Magnesium 2.2 mg/dL (1.7-2.3); Osmolality Calculated 287 mOsm/kg (285-295); Phosphorus 2.3 mg/dL (2.5-4.5); Potassium 4.2 mmol/L (3.5-5.1); Sodium 137 mmol/L (136-145)
[2022-11-24] MEDS: buPROPion XL (24 HR) 300 mg Tablet PO (06:06)
[2022-11-24] MEDS: dextrose 5%-ns + KCl 20 20 MEQ/1,000 ML BAG 100 MEQ IV (06:09)
--- NOTE | 2022-11-24 07:19 | PM.PN ---
Subjective Subjective: Urology follow-up: Feeling better. Decreased discomfort. No fever. Vital signs are stable overnight I reviewed with her the final on her CT scan. There is no evidence of intrinsic ureteral obstruction The pelvic mass was determined to be dilated cecum primarily. The hydroureteronephrosis was likely related to edema from infection. Recommended holding on further urologic evaluation at this point. I expect she will be fine with antibiotic therapy alone. Vitals/I&O/Wt Last Vital Signs Temp 97.9 F 11/24/22 04:00 Pulse 96 11/24/22 04:00 Resp 16 11/24/22 04:00 BP 143/78 11/24/22 04:00 Pulse Ox 97 11/24/22 03:34 O2 Del Method CPAP 11/24/22 03:34 FiO2 21 11/22/22 22:30 11/23/22 11/24/22 11/24/22 22:59 06:59 14:59 Intake Total 1495 / 1955 943.333 / 2898.333 Balance 1495 / 1955 943.333 / 2898.333 Weight last 48 hrs Weight 171 lb Weight 171 lb Physical Exam Narrative: Alert, oriented, no acute distress Normal mental status Unlabored respiration Appears much more comfortable. Good range of motion of extremities Data 11/23/22 04:07 11/24/22 03:03 Micro: Microbiology 11/23/22 04:07 Blood Culture - Preliminary Blood NEGATIVE TO DATE 11/22/22 21:34 Blood Culture - Preliminary Blood NEGATIVE TO DATE A&P Assessment and plan (1) UTI (urinary tract infection): Agree with continued antibiotic therapy. (2) Hydroureteronephrosis: No indication for stenting Plan We will sign off at this point. Please call for any concerns or questions Attestations Medical Necessity Statement*: See attending Coding Level of Care Code Acute Code for Chg Fwd Diagnoses UTI (urinary tract infection) N39.0 Hydroureteronephrosis N13.30
[2022-11-24] MEDS: PARoxetine 20 mg Tablet 40 MG PO (08:31)
[2022-11-24] MEDS: pantoprazole DR 40 mg Tablet PO (08:31)
[2022-11-24] MEDS: fluticasone nasal spray 16gm Btl 2 SPRAY INTRANASAL (08:32)
--- NOTE | 2022-11-24 11:02 | P.DS_ITS ---
Discharge Providers Date of Admission: 11/22/22 19:37 Date of Discharge: November 24, 2022 Attending Provider at Admission: Anuel Carlson MD Attending Provider at Discharge: Wagner Barroso MD Consults: Urology Primary Care Provider: Leelee Echevarria Diagnoses at Discharge Discharge Diagnosis (1) UTI (urinary tract infection): Status: Acute (2) Hydroureteronephrosis: Status: Acute Reason for Visit Reason for Visit: Sent from clinic, [facility] pain Hospital Course Hospital Course Shana Connor is a very pleasant 62-year-old female with a past medical history significant for COPD, nicotine use, osteoarthritis, obstructive sleep apnea, and chronic kidney disease who presented with difficulty urinating, dysuria, right- sided flank pain, and right lower quadrant abdominal pain, found to have acute pyelonephritis. Urine culture preliminary results with gram negative rods. Patient treated with broad spectrum antibiotic with ceftriaxone. Urology consulted and followed. Repeat imaging showed no ureteral calcification, no pelvic mass but did reveal advanced right pyelonephritis. Symptoms improved. Patient transitioned to cefpodoxime at discharge. She is to follow up with her primary care provider within one week. Physical Exam Narrative: General: Patient is awake and alert. Head: Normocephalic. Atraumatic. EOM intact. Neck: No JVD. Cardiovascular: RRR. No gallops. No murmurs. No peripheral edema. Lungs: Clear to auscultation, no use of accessory muscles, no crackles or wheezes. Skin: No jaundice. No rashes. Abdomen: Normal bowel sounds, abdomen soft and nontender. Genito Urinary: Genital exam not performed since complaints not related. Rectal: Rectal exam not performed since no symptoms indicated blood loss. Extremities: No cyanosis or clubbing. Musculoskeletal: 5/5 strength, normal range of motion, no swollen or erythematous joints. Neurological: Moves all 4 extremities. No myoclonus. Discharge Data Studies Completed and Pending Completed Studies During Hospitalization Category Date Time Status CT abdomen pelvis w con* [id number] Urgent Cat Scan 11/23/22 10:[address] kidney stone [id number] Stat Cat Scan 11/22/22 17:51 Completed Pending at discharge Category Date Time Status Blood Culture Routine Lab 11/22/22 21:34 Results Urine Culture Stat Lab 11/22/22 16:22 Results US pelvic complete* [id number] Urgent Ultrasound 11/30/22 10:15 Unverified Radiology Impressions Abdomen/Pelvis CT 11/23/22 10:20 IMPRESSION: 1. No ureteral calcification. 2. No pelvic mass. 3. Advanced RIGHT pyelonephritis. Enhancement extends into the proximal RIGHT ureter. No obstructing stone or mass identified. Findings associated with the RIGHT kidney are probably all related to the urinary tract infection. Notified Dr. Acosta at 11/23/2022 1:56 PM. Laboratory Results WBC 10.4 10^3/uL (4.0-10.0) H 11/23/22 04:07 RBC 4.30 10^6/uL (4.1-5.3) 11/23/22 04:07 Hgb 11.9 g/dL (11.5-15.3) 11/23/22 04:07 Hct 37.4 % (37.0-47.0) 11/23/22 04:07 MCV 87.0 fl (81-99) 11/23/22 04:07 MCH 27.7 pg (28.0-34.0) L 11/23/22 04:07 MCHC 31.8 g/dL (30.0-36.0) 11/23/22 04:07 RDW 13.1 % (12.1-15.1) 11/23/22 04:07 Plt Count 187 10^3/cmm (130-400) 11/23/22 04:07 MPV 11.0 fL (7.4-10.4) H 11/23/22 04:07 Neut % (Auto) 67.9 % 11/23/22 04:07 Lymph % (Auto) 17.0 % 11/23/22 04:07 Hand % (Auto) 14.2 % 11/23/22 04:07 Eos % (Auto) 0.5 % 11/23/22 04:07 Baso % (Auto) 0.2 % 11/23/22 04:07 Neut # (Auto) 7.03 10^3/uL (1.8-7.7) 11/23/22 04:07 Lymph # (Auto) 1.8 10^3/uL (0.8-4.8) 11/23/22 04:07 Hand # (Auto) 1.5 10^3/uL (0.2-0.9) H 11/23/22 04:07 Eos # (Auto) 0.1 10^3/uL (0.0-0.8) 11/23/22 04:07 Baso # (Auto) 0.0 10^3/uL (0.0-0.1) 11/23/22 04:07 Nucleated RBC % (auto) 0 % 11/23/22 04:07 Nucleated RBCs # 0.0 /100WBC 11/23/22 04:07 Sodium 137 mmol/L (136-145) 11/24/22 03:03 Potassium 4.2 mmol/L (3.5-5.1) 11/24/22 03:03 Chloride 106 mmol/L (98-107) 11/24/22 03:03 Carbon Dioxide 19 mmol/L (22-29) L 11/24/22 03:03 Anion Gap 16.2 (5-19) 11/24/22 03:03 BUN 13 mg/dL (8-23) 11/24/22 03:03 Creatinine 1.0 mg/dL (0.5-0.9) H 11/24/22 03:03 GFR Calculation 56.6 mL/min (90-130) L 11/24/22 03:03 Glucose 154 mg/dL (65-115) H 11/24/22 03:03 Estimat Average Glucose 126 11/23/22 04:07 Hemoglobin A1c 6.0 % (4.0-6.0) 11/23/22 04:07 Calculated Osmolality 287 mOsm/kg (285-295) 11/24/22 03:03 Lactic Acid 1.4 mmol/L (0.5-2.2) 11/22/22 17:02 Calcium 7.7 mg/dL (8.5-10.5) L 11/24/22 03:03 Phosphorus 2.3 mg/dL (2.5-4.5) L 11/24/22 03:03 Magnesium 2.2 mg/dL (1.7-2.3) 11/24/22 03:03 Total Bilirubin 0.5 mg/dL (0.15-1.2) 11/22/22 17:02 AST 11 U/L (0-32) 11/22/22 17:02 ALT 18 U/L (0-33) 11/22/22 17:02 Alkaline Phosphatase 65 U/L (35-105) 11/22/22 17:02 Total Protein 7.5 g/dL (6.6-8.7) 11/22/22 17:02 Albumin 4.1 g/dL (3.5-5.2) 11/22/22 17:02 Globulin 3.4 g/dL (1.3-4.6) 11/22/22 17:02 Lipase 12 U/L (13-60) L 11/22/22 17:02 Procalcitonin 0.35 ng/mL (0-0.5) 11/22/22 17:02 TSH 1.27 uIU/mL (0.27-4.20) 11/22/22 17:02 Urine Color Dark yellow (Yellow) 11/22/22 16:22 Urine Appearance Hazy (CLEAR) A 11/22/22 16:22 Urine pH 5 (5-7) 11/22/22 16:22 Ur Specific [place] 1.020 (1.005-1.030) 11/22/22 16:22 Urine Protein 3+ (Negative) H 11/22/22 16:22 Urine Glucose (UA) Norm (Normal) 11/22/22 16:22 Urine Ketones 1+ (Negative) H 11/22/22 16:22 Urine Blood 3+ (Negative) H 11/22/22 16:22 Urine Nitrate Negative (Negative) 11/22/22 16:22 Urine Bilirubin 1+ (Negative) H 11/22/22 16:22 Urine Urobilinogen 4 mg/dL (Negative) H 11/22/22 16:22 Ur Leukocyte Esterase 2+ (Negative) H 11/22/22 16:22 Urine RBC 10-15 /hpf (0-2) H 11/22/22 16:22 Urine WBC Too numerous to cnt /hpf (0-5) H 11/22/22 16:22 Ur Squamous Epith Cells 0-4 /hpf (0-5) H 11/22/22 16:22 Amorphous Sediment Not Reportable 11/22/22 16:22 Urine Bacteria 1+ /hpf (NONE) H 11/22/22 16:22 Vitals Last Vital Signs Temp 98.2 F 11/24/22 08:00 Pulse 88 11/24/22 08:00 Resp 16 11/24/22 08:00 BP 118/71 11/24/22 08:00 Pulse Ox 96 11/24/22 07:40 O2 Del Method Room Air 11/24/22 07:40 FiO2 21 11/22/22 22:30 Discharge Plan Discharge Patient Disposition: Home Condition: Stable Prescriptions: New cefpodoxime 200 mg tablet 200 mg PO BID 12 Days Qty: 24 0RF Rx Instructions: must administer with a meal/food Endocet 5-325 mg tablet 1 tab PO Q8H PRN (Reason: pain) 7 Days Qty: 14 0RF Continued vitamin E (dl, acetate) 400 unit capsule 180 mg PO DAILY cholecalciferol (vitamin D3) 125 mcg (5,000 unit) capsule 125 mcg PO QAM azelastine 137 mcg (0.1 %) aerosol,spray 1 spray intranasal BID 30 Days Qty: 30 6RF Rx Instructions: administer into each nostril paroxetine HCl [Paxil] 40 mg tablet 40 mg PO BEDTIME (DME) ASO ankle brace See Rx Instructions .Route .MEDSUPPLY Qty: 1 0RF Rx Instructions: As directed albuterol sulfate 90 mcg/actuation HFA aerosol inhaler 2 puff inhalation Q4H PRN (Reason: Shortness Of Breath) Stiolto Respimat 2.5-2.5 mcg/actuation mist 2 puff inhalation DAILY Qty: 4 3RF All Day Allergy (cetirizine) 10 mg capsule 10 mg PO DAILY PRN (Reason: Allergy Symptoms) bupropion HCl [Wellbutrin XL] 300 mg tablet extended release 24 hr 300 mg PO QAM Qty: 30 2RF fluticasone propionate [Flonase Allergy Relief] 50 mcg/actuation spray,suspension 2 spray intranasal DAILY Qty: 16 3RF Rx Instructions: administer into each nostril clobetasol 0.05 % cream See Rx Instructions .ROUTE .COMPLEX Rx Instructions: apply to affected area one to two times weekly as directed hydroxyzine HCl 50 mg tablet 50 mg PO BID PRN (Reason: Anxiety) exemestane 25 mg tablet 25 mg PO QAM vitamin B complex Tablet 1 tab PO DAILY Discharge Orders: Discharge Order (Routine); Ordered 11/24/22 Ordered By: Wagner Barroso Referrals: Leelee Echevarria PA-C [Primary Care Provider] - 05/01/23 11:15 am Discharge Diet: Advance as tolerated and Usual diet Discharge Activity: Resume usual activity and Increase activity as tolerated Patient Instructions: Oxycodone/Acetaminophen (By mouth), Cefpodoxime Proxetil (By mouth), Opioid Safety Activity Restrictions/Additional Instructions: 1. Take medications as prescribed. 2. Keep follow up appointments. 3. Increase physical activity as tolerated. 4. No driving or operating heavy machines while on narcotics (oxycodone). Discharge Attestations Time Spent in Discharge Care*: greater than 30 min Quality Metrics Clinical Quality Measures [ No reported AMI, CVA or VTE this stay] Coding Level of Care Code Acute Code for Chg Fwd Diagnoses UTI (urinary tract infection) N39.0 Hydroureteronephrosis N13.30
--- NOTE | 2022-11-24 11:19 | PC.NURSE ---
1115 - IV OUT, INTACT, TOLERATED WELL. DC PAPERWORK COMPLETED. FLONASE GIVEN TO PT. WAITING FOR DAUGHTER TO LEAVE FACILITY.
== END 2022-11-24 13:12 | disposition home or self-care (01) | DRG 690 ==
LOC: ER 19:23 → MEDSURG 19:38
PROVIDERS: Emergency Medicine; Hospitalist; Admitting Provider Family Medicine; Emergency Provider Emergency Medicine; PCP Physician Assistant; Visit Provider Internal Medicine
DX: N10 Acute pyelonephritis (principal); F33.2 Major depressive disorder, recurrent severe without psychotic features; E87.1 Hypo-osmolality and hyponatremia; N13.1 Hydronephrosis with ureteral stricture, not elsewhere classified; N39.0 Urinary tract infection, site not specified; B96.20 Unspecified Escherichia coli [E. coli] as the cause of diseases classified elsewhere; J44.9 Chronic obstructive pulmonary disease, unspecified; M19.90 Unspecified osteoarthritis, unspecified site; G47.33 Obstructive sleep apnea (adult) (pediatric); N18.9 Chronic kidney disease, unspecified; Z79.51 Long term (current) use of inhaled steroids; C50.411 Malignant neoplasm of upper-outer quadrant of right female breast; Z79.811 Long term (current) use of aromatase inhibitors; Z17.0 Estrogen receptor positive status [ER+]; L30.9 Dermatitis, unspecified; M81.0 Age-related osteoporosis without current pathological fracture; Z90.11 Acquired absence of right breast and nipple; Z87.891 Personal history of nicotine dependence; N17.9 Acute kidney failure, unspecified; R19.00 Intra-abdominal and pelvic swelling, mass and lump, unspecified site
CPT/HCPCS: 36415; 74176; 74177; 80048; 80053; 81000; 81001; 83036; 83605; 83690; 83735; 84100; 84145; 84443; 85025; 87040; 87077; 87086; 87186; 94660; 94664; 96374; 96375; 99285; J0696; J2543; J3010; J7030; Q9967; S0156

== ENCOUNTER 2022-12-01 08:51 | Outpatient (CLI) | payer MEDICARE, MEDICAID, SELFPAY ==
--- NOTE | 2022-12-01 08:45 | MR_ITS ---
WS: [id number] MRI CERVICAL SPINE NONCONTRAST TECHNIQUE: Sagittal T1, T2 and STIR imaging. Axial T2, gradient, and fiesta imaging. CLINICAL INFORMATION: R25.1 - Tremor, unspecified COMPARISON: None. FINDINGS: Straightening of the normal cervical lordosis. Cord signal is normal. Mild disc bulging at C5-C6. C2-C3: Normal. C3-C4: Normal. C4-C5: Mild disc osteophyte complex with endplate ridging. Mild facet arthropathy. Mild LEFT and no s ignificant RIGHT foraminal narrowing. C5-C6: Disc osteophyte complex with endplate ridging. Moderate facet arthropathy. Mild LEFT and no si gnificant RIGHT foraminal narrowing. Spinal canal is patent. C6-C7: Disc osteophyte complex with endplate ridging. Moderate RIGHT and mild LEFT foraminal narrowin g. Moderate facet arthropathy. Spinal canal is patent. C7-T1: Mild osteophytic ridging. Mild facet arthropathy. Mild LEFT and no significant RIGHT foraminal narrowing. Visualized brain stem structures: Normal. Prevertebral soft tissues: Normal. MR/MR cervical spin wo con* [id number] IMPRESSION: Some images degraded by motion. 1. Straightening of the normal cervical lordosis. Cord signal is normal. No hi gh-grade central canal narrowing. 2. Mild LEFT C4-C5 C5-C6 and C7-T1 bony foraminal narrowing. 3. Mild disc osteophyte complex C5-C6. 4. Moderate RIGHT C6-C7 bony foraminal narrowing. 5. Moderate facet arthropathy C5-C6 and C6-C7.
--- NOTE | 2022-12-01 09:30 | MR_ITS ---
WS: [id number] MRI HEAD WITHOUT CONTRAST TECHNIQUE: Sagittal T1, T2 axial, T2 axial FLAIR, axial and coronal T1 images, axial susceptibility w eighted imaging, axial diffusion weighted images, and coronal T2 images were obtained. CLINICAL INFORMATION: R25.1 - Tremor, unspecified COMPARISON: CT head March 07, 2022 FINDINGS: No evidence of restricted diffusion to suggest acute ischemia. Ventricular system and basal cisterns are patent. Moderate patchy supratentorial white matter changes likely due to small vessel disease in a patient this age. Mild parenchymal volume loss. Normal posterior fossa. Normal vascular flow voids at the skull base. No extra-axial fluid collections. No evidence of mass or mass effect. Paranasal s inuses are well aerated. Mild mucosal thickening LEFT maxillary sinus. A few retention cysts in the posterior nasopharynx. Normal parapharyngeal fat. Mild mucosal thickenin g RIGHT mastoid tip. No hemosiderin on the susceptibly weighted images. Normal optic chiasm and pituitary infundibulum. Te mporal lobes and hippocampal formations are normal in appearance. Normal cavernous sinuses and Meckel 's cave. Proximal 7th and 8th cranial nerves appear normal. MR/MR head wo con* [id number] IMPRESSION: 1. No evidence of restricted diffusion to suggest acute ischemia. 2. Moderate patchy supratentorial white matter changes likely due to small ves isael disease in a patient this age. Mild parenchymal volume loss. 3. No hemosiderin on susceptibly weighted images. 4. Mild mucosal thickening LEFT maxillary sinus and RIGHT mastoid tip. 5. Temporal lobes and hippocampal formations are normal in appearance. 6. No other suspicious findings.
== END 2022-12-01 08:52 | disposition home or self-care (01) ==
LOC: RAD 08:55
PROVIDERS: PCP Physician Assistant; Visit Provider Psychiatry & Neurology Neurology
DX: R25.1 Tremor, unspecified (principal); M25.78 Osteophyte, vertebrae
CPT/HCPCS: 70551; 72141

== ENCOUNTER → 2022-12-15 12:35 | Outpatient (BNVA) | payer MEDICARE, MEDICAID, SELFPAY | PROVIDERS: PCP Physician Assistant; Visit Provider Psychiatry & Neurology Neurology | DX: R25.1 Tremor, unspecified (principal); Z90.11 Acquired absence of right breast and nipple; Z85.3 Personal history of malignant neoplasm of breast; J44.9 Chronic obstructive pulmonary disease, unspecified; G47.33 Obstructive sleep apnea (adult) (pediatric); M50.30 Other cervical disc degeneration, unspecified cervical region | CPT/HCPCS: 99212 ==

== ENCOUNTER → 2023-01-04 12:41 | Outpatient (BNVA) | payer MEDICARE, MEDICAID, SELFPAY | PROVIDERS: PCP Physician Assistant; Visit Provider Podiatrist Foot & Ankle Surgery | DX: S93.491A Sprain of other ligament of right ankle, initial encounter (principal); X58.XXXA Exposure to other specified factors, initial encounter; M25.371 Other instability, right ankle; L30.9 Dermatitis, unspecified | CPT/HCPCS: 99213 ==

== ENCOUNTER 2023-02-08 14:34 | Outpatient (CLI) | payer MEDICARE, MEDICAID, OTHER, SELFPAY ==
--- NOTE | 2023-02-08 14:49 | US_ITS ---
WS: [id number] RENAL ULTRASOUND HISTORY: CHRONIC KIDNEY DZ STAGE 3A COMPARISON: 01/14/2022 TECHNIQUE: 2-D and color Doppler imaging of the kidney submitted. Right kidney: 10.4 cm x 4.0 cm x 4.0 cm. Cortex: 1.1 cm Normal echogenicity with no hydronephrosis or mass. Left kidney: 10.2 cm x 4.1 cm x 3.5 cm. Cortex: 1.0 cm Normal echogenicity with no hydronephrosis or mass. Aorta: Normal. Urinary Bladder: Nondistended. US/US renal BI* [id number] IMPRESSION: Normal renal ultrasound. Stable renal ultrasound since 01/14/2022.
== END 2023-02-08 14:35 | disposition home or self-care (01) ==
LOC: RAD 14:38
PROVIDERS: PCP Physician Assistant; Visit Provider Nurse Practitioner Family
DX: N18.31 Chronic kidney disease, stage 3a (principal)
CPT/HCPCS: 76770

== ENCOUNTER → 2023-03-31 12:47 | Outpatient (BNVA) | payer MEDICARE, MEDICAID, SELFPAY | PROVIDERS: PCP Physician Assistant; Referring Provider Nurse Practitioner Family; Visit Provider Specialist | DX: M70.61 Trochanteric bursitis, right hip | CPT/HCPCS: 20610; 99204; J1100; J2795; J3301 ==

== ENCOUNTER → 2023-03-31 13:00 | Outpatient (BNVA) | payer MEDICARE, MEDICAID, SELFPAY | PROVIDERS: PCP Physician Assistant; Referring Provider Nurse Practitioner Family; Visit Provider Specialist | DX: M70.61 Trochanteric bursitis, right hip | CPT/HCPCS: 20610; 73502 ==

== ENCOUNTER 2023-04-07 06:00 | Outpatient (RCR) | payer MEDICARE, MEDICAID, SELFPAY | END 2023-05-01 23:59 | disposition home or self-care (01) | LOC: MPT 06:00 | PROVIDERS: Visit Provider Specialist | DX: M70.61 Trochanteric bursitis, right hip (principal) | CPT/HCPCS: 97110; 97140; 97161 ==

== ENCOUNTER → 2023-04-19 12:47 | Outpatient (BNVA) | payer MEDICARE, MEDICAID, SELFPAY | PROVIDERS: PCP Physician Assistant; Visit Provider Psychiatry & Neurology Neurology | DX: R25.1 Tremor, unspecified (principal) | CPT/HCPCS: 99212 ==

== ENCOUNTER → 2023-04-26 10:56 | Outpatient (BNVA) | payer MEDICARE, MEDICAID, SELFPAY | PROVIDERS: PCP Physician Assistant; Visit Provider Internal Medicine Pulmonary Disease | DX: F17.210 Nicotine dependence, cigarettes, uncomplicated (principal); J30.9 Allergic rhinitis, unspecified; G47.33 Obstructive sleep apnea (adult) (pediatric); J42 Unspecified chronic bronchitis; Z91.199 Patient's noncompliance with other medical treatment and regimen due to unspecified reason; R06.02 Shortness of breath; T78.40XA Allergy, unspecified, initial encounter; F41.1 Generalized anxiety disorder; N18.9 Chronic kidney disease, unspecified; F33.2 Major depressive disorder, recurrent severe without psychotic features | CPT/HCPCS: 36415; 82785; 85025; 86003; 99214 ==

== ENCOUNTER 2023-04-29 10:14 | Outpatient (CLI) | payer MEDICARE, MEDICAID, SELFPAY ==
--- NOTE | 2023-04-29 10:33 | MM_ITS ---
WS: [id number] LEFT 3D TOMOSYNTHESIS DIGITAL MAMMOGRAPHY WITH CAD CLINICAL INFORMATION: HX BR CA;RT MST; LT BR PAIN HISTORY: LEFT breast pain COMPARISON: 2021 TECHNIQUE: 3 views of the left breast were obtained. FINDINGS: Scattered fibroglandular densities of the left breast. A few incidental punctate calcifications. No n ew suspicious parenchymal abnormalities. No definite suspicious mammographic findings in the area of concern. Ultrasound is pending. ULTRASOUND BREAST LEFT TECHNIQUE: Ultrasound left breast focused area of concern. CLINICAL INFORMATION: HX BR CA;RT MST; LT BR PAIN FINDINGS: Ultrasound LEFT breast area of concern 9:00 to 3 o'clock position. Small simple cyst 9 o'clock positi on at the areola measuring 3 mm. Incidental ductal ectasia at the 3 o'clock position. No suspicious c ystic or solid lesions. No lesions to target for biopsy. Recommend return to annual diagnostic mammog [place]. IMPRESSION: MM/[place] [id number] BI-RADS: 2-Benign FOLLOW UP: 1 Year Follow-up Recommend return to annual screening mammography.
== END 2023-04-29 10:15 | disposition home or self-care (01) ==
LOC: RAD 10:15
PROVIDERS: PCP Physician Assistant; Visit Provider Internal Medicine Medical Oncology
DX: C50.411 Malignant neoplasm of upper-outer quadrant of right female breast (principal); Z17.0 Estrogen receptor positive status [ER+]
CPT/HCPCS: 76642; 77061; 99204; G0279; J1100; J2795; J3301

== ENCOUNTER → 2023-05-06 10:19 | Outpatient (BNVA) | payer MEDICARE, MEDICAID, SELFPAY | PROVIDERS: PCP Physician Assistant; Visit Provider Internal Medicine Cardiovascular Disease | DX: R07.9 Chest pain, unspecified (principal); J44.9 Chronic obstructive pulmonary disease, unspecified; R06.02 Shortness of breath; G47.33 Obstructive sleep apnea (adult) (pediatric); F41.1 Generalized anxiety disorder; N18.9 Chronic kidney disease, unspecified; F33.2 Major depressive disorder, recurrent severe without psychotic features; Z87.891 Personal history of nicotine dependence; R94.31 Abnormal electrocardiogram [ECG] [EKG] | CPT/HCPCS: 93005; 99204 ==

== ENCOUNTER 2023-05-11 14:55 | Outpatient (CLI) | payer MEDICARE, MEDICAID, SELFPAY ==
--- NOTE | 2023-05-11 15:00 | CT_ITS ---
WS: [id number] LDCT LUNG CANCER SCREENING TECHNIQUE: Noncontrast CT of the chest with coronal and sagittal reformatted images. CLINICAL INFORMATION: Cancer Screen COMPARISON: CT 04/10/2022 DLP: 49.42 mGy.cm DIvol: Mean CTDIvol: 1.00 (mGy) All CT scans at [facility] use at least one of these dose optimization techniques: automat ed exposure control; mA and/or kV adjustment per patient size (includes targeted exams where dose is matched to clinical indication); or iterative reconstruction. FINDINGS: Mild chronic emphysematous changes. No acute pulmonary infiltrates. Tiny nodule RIGHT middle lobe emmett suring 3 mm. This is unchanged. No suspicious pulmonary parenchymal opacities. Normal size anterior mediastinal lymph nodes. Calcified anterior mediastinal and hilar lymph nodes. N ormal caliber thoracic aorta. No axillary lymphadenopathy. Surgical clips RIGHT axilla. Evidence of p rior RIGHT mastectomy. Splenic granulomas. IMPRESSION: CT/CT lung screening [id number] LUNG-RADS: 2-Benign Appearance or Behavior FOLLOW UP: 12 Month: Continue annual screening with LDCT
== END 2023-05-11 14:56 | disposition home or self-care (01) ==
PROVIDERS: PCP Physician Assistant; Visit Provider Internal Medicine Pulmonary Disease
DX: Z12.2 Encounter for screening for malignant neoplasm of respiratory organs (principal); Z87.891 Personal history of nicotine dependence
CPT/HCPCS: 71271

== ENCOUNTER 2023-05-17 12:01 | Outpatient (CLI) | payer MEDICARE, MEDICAID, SELFPAY ==
[2023-05-17 12:04] VITALS: BMI 27.4
--- NOTE | 2023-05-17 12:04 | ECG_ITS ---
[facility] Test Date: 2023-05-17 Pat Name: Shana Connor Department: Room: Gender: Female Hygiene Coordinator: Criss Maynardfus : 1960 Requested By: Nickie Mitchell Order Number: [id number] Baljit MD: Nickie Mitchell M.D. Interpretive Statements NAME OF STUDY: TREADMILL STRESS TEST INDICATION: Dyspnea on exertion Baseline blood pressure of 116/72 mm Hg, heart rate 90 beats per minute and oxygen saturation of 95%. EKG showed sinus rhythm, normal axis with normal ST-Ts. ??? The patient exercised for 6 minutes and 49 seconds on a standard protocol. Patient attained a maximum heart rate of 155 beats per minute(95% of the maximum predicted heart rate) with a blood pressure at the peak exercise of 177/65 mm Hg. The EKG at the peak exercise revealed sinus tachycardia with no significant ST-T wave changes. Patient did not have any chest pain or any significant arrhythmis with the exercise??? During the recovery phase, there were no new changes. ??? Blood pressure at the end of the recovery phase was 114/69 mm Hg with a heart rate of 100 beats per minute and oxygen saturation of 94%. ??? CONCLUSION: 1. Normal EKG response to treadmill exercise. 2. No exercise-induced chest pain or cardiac arrhythmia 3. Excellent exercise tolerance, attained a maximum of 10.2 METs. 4. Baseline normal blood pressure with normal response to exercise. Electronically Signed On 05-19-2023 12:45:42 CDT by Nickie Mitchell M.D. [email or web address]
[2023-05-17 12:40] VITALS: BP 114/69; PULSE 100
== END 2023-05-17 12:02 | disposition home or self-care (01) ==
LOC: CDL 12:01
PROVIDERS: PCP Physician Assistant; Visit Provider Internal Medicine Cardiovascular Disease
DX: R06.09 Other forms of dyspnea (principal)
CPT/HCPCS: 93017

== ENCOUNTER 2023-05-25 11:48 | Oncology outpatient (recurring) (ONCR) | payer MEDICARE, MEDICAID, SELFPAY ==
[2023-05-25 11:59] VITALS: BP 118/72; PULSE 86; RESP 16; TEMP 36.8; O2SAT 97
[2023-05-25 12:09] LABS: Basophils % 0.6 %; Eosinophils # 0.1 10^3/uL (0.0-0.8); Eosinophils % 2.1 %; Hematocrit 40.5 % (36-47); Lymphocytes # 2.4 10^3/uL (0.8-4.8); Lymphocytes % 35.6 %; Mean Corpuscular HGB Conc 32.6 g/dL (30-55); Mean Corpuscular Hemoglobin 27.8 pg (27-33); Mean Corpuscular Volume 85.4 fl (85-98); Monocytes # 0.6 10^3/uL (0.2-0.9); Monocytes % 8.7 %; Neutrophils # 3.57 10^3/uL (1.8-7.7); Neutrophils % 52.9 %; Nucleated Red Blood Cells % 0 %; Platelet Count 236 10^3/cmm (157-399); Red Blood Count 4.74 10^6/uL (3.85-5.65); Red Cell Distribution Width 13.8 % (12.1-15.1); White Blood Count 6.75 10^3/uL (3.29-11.43)
[2023-05-25 12:31] LABS: Alanine Aminotransferase 31 U/L (0-33); Albumin Level 4.7 g/dL (3.5-5.2); Alkaline Phosphatase 74 U/L (35-105); Anion Gap 13.1 (5-19); Aspartate Amino Transferase 24 U/L (0-32); Blood Urea Nitrogen 13 mg/dL (8-23); Calcium 10.1 mg/dL (8.5-10.5); Carbon Dioxide 29 mmol/L (22-29); Chloride 104 mmol/L (98-107); Globulin 2.4 g/dL (1.3-4.6); Glomerular Filtration Rate 50.5 mL/min (90-130); Glucose 96 mg/dL (65-115); Osmolality Calculated 294 mOsm/kg (285-295); Potassium 4.1 mmol/L (3.5-5.1); Sodium 142 mmol/L (136-145); Total Bilirubin 0.2 mg/dL (0.15-1.2); Total Protein 7.1 g/dL (6.6-8.7)
[2023-05-25 12:33] LABS: Creatinine Clr Calc Pharmacy 54.9633
[2023-05-25] MEDS: denosumab 60 mg SDV SUBCUT (14:36)
--- NOTE | 2023-05-25 15:15 | USCV_ITS ---
Shana Connor Age: 63 Gender: F : 1960 Exam Date: 05/25/2023 15:18 Ordering Phys: Nickie Mitchell MD ([email or web address]) Technologist: BURTON Exam Location: [facility] – [place] Indication: FLORES BP: 124 / 79 HR: 74 Rhythm: Sinus Technical Quality: Adequate MEASUREMENTS (Male / Female) Normal Values 2D ECHO LVOT Diameter 2.0 cm LV Ejection Fraction MOD 2C 61.4 % LV Ejection Fraction 2C AL 62.8 % LA Diameter 3.1 cm LA Width 2.7 cm LA Height 3.8 cm RA Width 2.6 cm RA Height 3.8 cm Aorta at Sinotubular Diameter 2.2 cm IVC Diameter 1.4 cm M-MODE Aortic Annulus Diameter 2.5 cm LA Ao Ratio MM 1.3 MV E Point Septal Separation 0.4 cm DOPPLER AV Peak Velocity 172.3 cm/s LVOT Peak Velocity 101.0 cm/s AV Area Cont Eq vti 2.2 cm squared AV Area Cont Eq pk 1.9 cm squared MV Peak Velocity 95.0 cm/s MV Area PHT 3.9 cm squared Mitral E to A Ratio 0.8 MV E' Velocity 50.0 cm/s Mitral E to MV E' Ratio 10.5 Mitral E to LV E' Lateral Ratio 9.0 Mitral E to LV E' Septal Ratio 12.6 TV Peak E Velocity 50.0 cm/s Right Atrial Pressure 3.0 mmHg PV Peak Velocity 126.0 cm/s RV Acceleration Time 0.1 s RV Ejection Time 0.3 s RV AcT/ET 0.3 FINDINGS Left Ventricle Normal left ventricular size, systolic function and wall thickness, with no regional wall motion abnormalities. Left ventricular ejection fraction is estimated at 60-65 %. Normal diastolic function. Right Ventricle Normal right ventricular size and systolic function. RVSP could not be calculated due to incomplete tricuspid regurgitation velocity profile. Right Atrium Normal right atrial size. Left Atrium Normal left atrial size. Mitral Valve Structurally normal mitral valve. No mitral valve stenosis. No mitral valve regurgitation. Aortic Valve Structurally normal trileaflet aortic valve. No aortic valve stenosis. No aortic valve regurgitation. Tricuspid Valve Structurally normal tricuspid valve. No tricuspid valve stenosis. Trace tricuspid valve regurgitation. Pulmonic Valve Structurally normal pulmonic valve. No pulmonary valve stenosis. Trace pulmonary valve regurgitation. Pericardium No pericardial effusion. Aorta Normal size aortic root and proximal ascending aorta. IVC Normal IVC dimension with >50% respiratory change of the inferior vena cava. CONCLUSIONS 1. Normal left ventricular size, systolic function and wall thickness, with no regional wall motion abnormalities. Left ventricular ejection fraction is estimated at 60-65 %. Normal diastolic function. 2. No significant valvular abnormality. 3. When compared to study dated 05/23/21, left ventricular systolic function seems to have improved. Nickie Mitchell MD (Electronically Signed) Final Date: 01 June 2023 12:38 S
== END 2023-06-01 23:59 | disposition home or self-care (01) ==
PROVIDERS: Nurse Practitioner Family; PCP Physician Assistant; Visit Provider Internal Medicine Medical Oncology
DX: C50.411 Malignant neoplasm of upper-outer quadrant of right female breast (principal); Z17.0 Estrogen receptor positive status [ER+]; Z90.11 Acquired absence of right breast and nipple; Z79.818 Long term (current) use of other agents affecting estrogen receptors and estrogen levels; M81.0 Age-related osteoporosis without current pathological fracture; Z79.899 Other long term (current) drug therapy; Z87.891 Personal history of nicotine dependence
CPT/HCPCS: 36415; 80053; 85025; 93306; 96372; 99214; J0897

== ENCOUNTER 2023-06-21 14:55 | Outpatient (CLI) | payer MEDICARE, MEDICAID, SELFPAY ==
--- NOTE | 2023-06-21 15:00 | CT_ITS ---
WS: [id number] CT LUMBAR SPINE, noncontrast. HISTORY: LOW BACK PAIN, fall 1 month ago. TECHNIQUE: Contiguous 2.0 mm axial imaging are performed. Sagittal and coronal reformats are submitte d and reviewed. All CT scans at [facility] use at least one of these dose optimization techni ques: automated exposure control; mA and/or kV adjustment per patient size (includes targeted exams w here dose is matched to clinical indication); or iterative reconstruction. IV contrast: None DLP: 506.28 mGy.cm COMPARISON: None available. Posterior alignment is normal. No acute fractures. Facet joints are normally aligned. Disc bases are well-maintained. L1-2: No central stenosis. Shallow LEFT foraminal disc protrusion. L2-3: Mild disc bulging. No stenosis. L3-4: Mild annular disc bulging without significant stenosis. L4-5: Mild diffuse annular disc bulging with a shallow LEFT foraminal disc protrusion. Mild central, bilateral subarticular recess and LEFT foraminal stenosis. Disc encroaches upon the subarticular rece sses and the traversing L5 nerve roots. L5-S1: Diffuse annular disc bulging. Posterior disc is calcified encroaching upon the ventral thecal sac, subarticular recesses and foramina. Calcified disc contacts the S1 nerve roots bilaterally. Mild central and foraminal stenosis. Visualized retroperitoneum is normal. IMPRESSION: 1. No lumbar spine fracture. 2. L4-5: Mild central, bilateral subarticular recess and LEFT foraminal stenosis. Disc encroaches upo n the traversing L5 nerve roots bilaterally in the subarticular recesses. 3. L5-S1: Calcified disc contacts the S1 nerve roots bilaterally. Mild central and bilateral foramina l and subarticular recess stenosis.
== END 2023-06-21 14:56 | disposition home or self-care (01) ==
LOC: RAD 14:55
PROVIDERS: PCP Physician Assistant; Visit Provider Nurse Practitioner Family
DX: M48.07 Spinal stenosis, lumbosacral region (principal); M51.87 Other intervertebral disc disorders, lumbosacral region; M51.37 Other intervertebral disc degeneration, lumbosacral region
CPT/HCPCS: 72131; 99213

== ENCOUNTER 2023-07-23 16:45 | Emergency (ER) | payer MEDICARE, MEDICAID, OTHER, SELFPAY ==
[2023-07-23 17:26] VITALS: BP 121/76; PULSE 94; RESP 15; TEMP 37.1; O2SAT 96; BMI 27.9
[2023-07-23 18:41] LABS: D Dimer 0.34 ug/mLFEU (0-0.59)
--- NOTE | 2023-07-23 21:05 | XRR_ITS ---
PROCEDURE INFORMATION: Exam: XR Right Knee Exam date and time: 07/23/2023 9:09 PM Age: 63 years old Clinical indication: Knee; Right; Patient HX: Pain, rle pain, popliteal pain, d-dimer negative TECHNIQUE: Imaging protocol: Radiologic exam of the right knee. Views: 3 views. COMPARISON: No relevant prior studies available. FINDINGS: Bones/joints: Mild tricompartmental osteoarthritis of the knee. Soft tissues: Normal. XR/XR knee RT 3V* [id number] IMPRESSION: Mild tricompartmental osteoarthritis of the knee.
--- NOTE | 2023-07-23 21:05 | W.ED.EXTPRO ---
Documented by User: NICOLLE Chong 07/23/23 23:06 HPI - Extremity Problem General: Chief complaint: Extremity Problem,Nontraumatic Stated complaint: sent over by doc, possible blood clot in leg Time Seen by Provider: 07/23/23 20:22 Source: patient Mode of arrival: wheelchair Limitations: no limitations History of Present Illness: Patient presents to the emergency department today accompanied by family for evaluation treatment of right lower extremity pain. Patient reports onset of pain approximately 5 days ago. She denies any trauma or known injuries. Patient states pain has continued to increase and worsen with time. She did call and notify her doctor if she has had corbett pain before where they were suspicious it was due to some of her chemotherapy medication. However, when she talk to them today, they did not think it was the same and recommended she come for a DVT rule out. Patient is denying shortness of breath, chest pain, prolonged immobilization or long car trips. However, patient does have a history of breast cancer, COPD, CKD, osteoporosis, and osteo arthritis. Patient denies any activities where she has been on her knees for prolonged amounts of time such as gardening or working on floors. Review of Systems General: Reports: 10 or more systems reviewed and unremarkable except in HPI and below PFSH ED PFSH: Medical History Chronic kidney disease Stage 3a 10/2022 Eczema Osteoarthritis Depression Obstructive sleep apnea Psychiatric care Allergic rhinosinusitis COPD (chronic obstructive pulmonary disease) Breast cancer Osteoporosis Surgical History S/P matrixectomy of toe History of section x 3 History of right mastectomy (08/17/19) Right modified radical mastectomy History of cholecystectomy Family History Mother Diabetes Cancer Chronic kidney disease (CKD) Social History Smoking and tobacco/nicotine status: former use of tobacco/nicotine Quit status (tobacco/nicotine): has quit using Year quit tobacco: 2022 Former quit date comment: 1 ppd X 40 years Second hand smoke exposure: Yes (Some.) Alcohol intake: former Substance/Drug Use: never Lives independently: Yes Household members: none Marital status: / Current occupational status: disabled Do you think of yourself as: Straight/Heterosexual Current gender identity: Female Physical Exam Const: COMMON NORMALS: no acute distress, patient oriented x3 and alert HENMT: COMMON NORMALS: normocephalic, atraumatic and hearing grossly normal bilaterally HEAD & SCALP: normocephalic and atraumatic Eye: COMMON NORMALS: Equal, round and reactive pupils present, EOMs intact bilaterally and conjunctivae normal CONJUNCTIVA: Yes conjunctivae normal PUPIL: Yes Equal, round and reactive pupils present Neck/C-Spine: COMMON NORMALS: full ROM and no JVD Lymph: LYMPHATIC: no lymphadenopathy noted Resp: COMMON NORMALS: normal respiratory effort, No retractions and No use of accessory muscles Cardio: COMMON NORMALS: no JVD and regular rate RATE: regular rate Back/Pelvis: COMMON NORMALS: thoraco-lumbar ROM normal Extremity: NARRATIVE EXTREMITY EXAM: Patient is able to bear weight and ambulate on the right lower extremity. Patient is able to wiggle her toes and able to perform plantar and dorsiflexion of the right foot. Patient has very little discomfort with this examination however, on palpation of the right calf, patient notes tenderness feeling like I was going to break her corbett . Patient is also tender on palpation in the popliteal region of the right knee. No significant swelling or effusion appreciated on physical examination of the right knee. While there is no significant swelling of the right calf, it is noticeably more firm than the left calf region. Neuro: COMMON NORMALS: patient oriented x3 SENSORIUM/ORIENTATION: Yes alert Psych: COMMON NORMALS: mental status grossly normal, Normal thought process present, cooperative and normal affect THOUGHT PROCESS: Normal thought process present Skin: COMMON NORMALS: no rashes or lesions noted and turgor normal GENERAL SKIN EXAM: no rashes or lesions noted and turgor normal OTHER: No pitting edema or discoloration of the right lower extremity. Course Vital Signs: Vital signs: Vital Signs Temperature 98.8 F 07/23/23 17:26 Pulse Rate 94 07/23/23 17:26 Respiratory Rate 15 07/23/23 17:26 Blood Pressure 121/76 07/23/23 17:26 Pulse Oximetry 96 07/23/23 17:26 Oxygen Delivery Me thod Room Air 07/23/23 17:26 MDM - Extremity (Nontraumatic) Medical Decision Making Patient was sent to the emergency department for rule out of a DVT. From the waiting room, patient had a D-dimer ordered which was negative. However, patient's physical examination does show tightness of the right calf in comparison to the left with tenderness in the popliteal region. While she does not have pitting edema, she does indicate tenderness to palpation on her calf but is not specifically Homans positive. Given the popliteal tenderness and long history of osteoporosis and osteoarthritis, will look for concerns for pathological fracture-also due to patient's current cancer status. I did have Dr. Thorne look over the patient's knee x-ray. There were no significant findings to this x-ray and, with her history of age greater than 60, cancer history, we did discuss the appropriateness of going ahead and doing a DVT rule out by ultrasound. I did discuss this with the patient who would like to proceed with the ultrasound. Ultrasound is negative for findings of DVT. After discussing with Dr. Thorne we will treat for musculoskeletal issues. Given that the patient has CKD we will not treat with NSAID. Also because she has cancer we will avoid steroids. Patient was treated with a muscle relaxer here in the emergency department with a prescription sent to the pharmacy to be picked up and continued in the morning. Recommended massage and application of heat to the muscle. Patient asked for a list of risk factors for DVT as she noted several members in her family were curious. I did provide these to her. Also, I gave her strict return precautions for change in the right lower extremity to be watching for and to be seen and reevaluated through the weekend of the holiday should they occur. Patient verbalized her understanding and agreement to treatment plan. Differential Diagnosis Likely lower extremity edema; Unlikely herpes zoster, gout, cellulitis, superficial thrombophlebitis or deep vein thrombosis of lower extremity Lab Data Radiology Impressions Knee X-Ray 07/23/23 21:05 IMPRESSION: Mild tricompartmental osteoarthritis of the knee. Venous Duplex 07/23/23 21:37 IMPRESSION: No evidence of deep vein thrombosis. Laboratory Results D-Dimer 0.34 ug/mLFEU (0-0.59) 07/23/23 18:07 All radiology interpretation(s) finalized by discharge Discharge Plan Discharge Patient Disposition: Home Clinical Impression: Acute pain of right lower extremity Condition: Stable Prescriptions: New tizanidine 4 mg tablet 4 mg PO Q8H PRN (Reason: muscle spasticity) Qty: 21 0RF No Action vitamin E (dl, acetate) 400 unit capsule 180 mg PO DAILY cholecalciferol (vitamin D3) 125 mcg (5,000 unit) capsule 125 mcg PO QAM azelastine 137 mcg (0.1 %) aerosol,spray 1 spray intranasal BID PRN Rx Instructions: administer into each nostril fluticasone propionate [Flonase Allergy Relief] 50 mcg/actuation spray,suspension 2 spray intranasal DAILY Qty: 16 3RF Rx Instructions: administer into each nostril Breztri Aerosphere 160-9-4.8 mcg/actuation HFA aerosol inhaler 2 inh inhalation BID Qty: 10.7 3RF bupropion HCl [Wellbutrin XL] 300 mg tablet extended release 24 hr 300 mg PO QAM Qty: 30 2RF paroxetine HCl 40 mg tablet 40 mg PO DAILY Qty: 30 2RF albuterol sulfate 90 mcg/actuation HFA aerosol inhaler 2 puff inhalation Q4H PRN (Reason: Shortness Of Breath) All Day Allergy (cetirizine) 10 mg capsule 10 mg PO DAILY PRN (Reason: Allergy Symptoms) triamcinolone acetonide 0.1 % lotion 1 applic topical BID Qty: 60 5RF exemestane 25 mg tablet See Rx Instructions .ROUTE .COMPLEX Qty: 90 2RF Dose Instruction: Take 1 tablet by mouth once daily Rx Instructions: Take 1 tablet by mouth once daily clobetasol 0.05 % cream See Rx Instructions .ROUTE .COMPLEX Rx Instructions: apply to affected area one to two times weekly as directed vitamin B complex Tablet 1 tab PO DAILY Discharge Orders: Discharge ED (Routine); Ordered 07/23/23 Ordered By: Vanesa Cedillo Referrals: Leelee Echevarria PA-C [Primary Care Provider] - Discharge Diet: Usual diet Discharge Activity: Increase activity as tolerated Patient Instructions: Deep Vein Thrombosis (ED), Muscle Spasm (ED) Activity Restrictions/Additional Instructions: Upon your arrival we did obtain a lab called a D-dimer. Elevated D-dimer levels do make his concerned for blood clots however, your D-dimer was within normal limits. Given the tenderness behind your knee we were suspicious for potential osteoarthritic findings causing issues with the knee joint-even possibly Alvarez's cyst. However, I did have our emergency room physician who subspecializes in orthopedics take a look at it. While there is some signs of arthritis it is not as significant as we suspected and, cannot appreciate a significant effusion which would typically accompany a Alvarez's cyst. Given your history, you are a patient with an overall increased risk of a blood clot so, the ER physician recommendation was to go ahead and perform an ultrasound of the vasculature in your right lower extremity to make sure we have not missed a blood clot. The good news is the ultrasound was clear. Due to the tightness on palpation of the musculature the emergency room physician recommended treatment with muscle relaxer. We do recommend continue to apply heating pads or warm moist heat with warm washcloths to the muscle of the calf for 15 to 20 minutes, multiple times throughout the day. We also recommend stretches of the calf muscle by flexion extension of the foot-think about pushing and releasing the gas pedal of your car. You had asked about the risk factors for developing a blood clot in your leg. There are several which are: Age greater than 60, prolonged immobilization such as long car rides or extended time in bed due to illness, injuries, surgeries, , hormone treatments, increased weight, smoking history, cancer history, history of heart failure, and overall genetics. We do want you to continue monitoring over the next several days. Watch for continued swelling of the right lower extremity, discoloration of the skin, inability to perform flexion extension of the foot, or lack of sensation in the lower extremity or foot. If any of these agree need to be brought back to the emergency department for evaluation-especially given the weekend and holiday coming up. Coding Level of Care Code ED Fugitive Detective for Chg Fwd Documented by User: Maxwell Thorne, 07/24/23 00:50 HPI - Extremity Problem General: Chief complaint: Extremity Problem,Nontraumatic Stated complaint: sent over by doc, possible blood clot in leg Time Seen by Provider: 07/23/23 20:22 [facility] ED PFSH: Medical History Chronic kidney disease Stage 3a 10/2022 Eczema Osteoarthritis Depression Obstructive sleep apnea Psychiatric care Allergic rhinosinusitis COPD (chronic obstructive pulmonary disease) Breast cancer Osteoporosis Surgical History S/P matrixectomy of toe History of section x 3 History of right mastectomy (08/17/19) Right modified radical mastectomy History of cholecystectomy Family History Mother Diabetes Cancer Chronic kidney disease (CKD) Social History Smoking and tobacco/nicotine status: former use of tobacco/nicotine Quit status (tobacco/nicotine): has quit using Year quit tobacco: 2022 Former quit date comment: 1 ppd X 40 years Second hand smoke exposure: Yes (Some.) Alcohol intake: former Substance/Drug Use: never Lives independently: Yes Household members: none Marital status: / Current occupational status: disabled Do you think of yourself as: Straight/Heterosexual Current gender identity: Female Course Vital Signs: Vital signs: Vital Signs Temperature 98.8 F 07/23/23 17:26 Pulse Rate 94 07/23/23 17:26 Respiratory Rate 15 07/23/23 17:26 Blood Pressure 121/76 07/23/23 17:26 Pulse Oximetry 96 07/23/23 17:26 Oxygen Delivery Me thod Room Air 07/23/23 17:26 MDM - Extremity (Nontraumatic) Medical Decision Making Patient was sent to the emergency department for rule out of a DVT. From the waiting room, patient had a D-dimer ordered which was negative. However, patient's physical examination does show tightness of the right calf in comparison to the left with tenderness in the popliteal region. While she does not have pitting edema, she does indicate tenderness to palpation on her calf but is not specifically Homans positive. Given the popliteal tenderness and long history of osteoporosis and osteoarthritis, will look for concerns for pathological fracture-also due to patient's current cancer status. I did have Dr. Thorne look over the patient's knee x-ray. There were no significant findings to this x-ray and, with her history of age greater than 60, cancer history, we did discuss the appropriateness of going ahead and doing a DVT rule out by ultrasound. I did discuss this with the patient who would like to proceed with the ultrasound. Ultrasound is negative for findings of DVT. After discussing with Dr. Thorne we will treat for musculoskeletal issues. Given that the patient has CKD we will not treat with NSAID. Also because she has cancer we will avoid steroids. Patient was treated with a muscle relaxer here in the emergency department with a prescription sent to the pharmacy to be picked up and continued in the morning. Recommended massage and application of heat to the muscle. Patient asked for a list of risk factors for DVT as she noted several members in her family were curious. I did provide these to her. Also, I gave her strict return precautions for change in the right lower extremity to be watching for and to be seen and reevaluated through the weekend of the holiday should they occur. Patient verbalized her understanding and agreement to treatment plan. This patient was originally seen by Mrs. Mamadou PA-C.? I agree with her history, evaluation, and treatment. Lab Data Radiology Impressions Knee X-Ray 07/23/23 21:05 IMPRESSION: Mild tricompartmental osteoarthritis of the knee. Venous Duplex 07/23/23 21:37 IMPRESSION: No evidence of deep vein thrombosis. Laboratory Results D-Dimer 0.34 ug/mLFEU (0-0.59) 07/23/23 18:07 Discharge Plan Discharge Patient Disposition: Home Clinical Impression: Acute pain of right lower extremity Condition: Stable Prescriptions: New tizanidine 4 mg tablet 4 mg PO Q8H PRN (Reason: muscle spasticity) Qty: 21 0RF No Action vitamin E (dl, acetate) 400 unit capsule 180 mg PO DAILY cholecalciferol (vitamin D3) 125 mcg (5,000 unit) capsule 125 mcg PO QAM azelastine 137 mcg (0.1 %) aerosol,spray 1 spray intranasal BID PRN Rx Instructions: administer into each nostril fluticasone propionate [Flonase Allergy Relief] 50 mcg/actuation spray,suspension 2 spray intranasal DAILY Qty: 16 3RF Rx Instructions: administer into each nostril Breztri Aerosphere 160-9-4.8 mcg/actuation HFA aerosol inhaler 2 inh inhalation BID Qty: 10.7 3RF bupropion HCl [Wellbutrin XL] 300 mg tablet extended release 24 hr 300 mg PO QAM Qty: 30 2RF paroxetine HCl 40 mg tablet 40 mg PO DAILY Qty: 30 2RF albuterol sulfate 90 mcg/actuation HFA aerosol inhaler 2 puff inhalation Q4H PRN (Reason: Shortness Of Breath) All Day Allergy (cetirizine) 10 mg capsule 10 mg PO DAILY PRN (Reason: Allergy Symptoms) triamcinolone acetonide 0.1 % lotion 1 applic topical BID Qty: 60 5RF exemestane 25 mg tablet See Rx Instructions .ROUTE .COMPLEX Qty: 90 2RF Dose Instruction: Take 1 tablet by mouth once daily Rx Instructions: Take 1 tablet by mouth once daily clobetasol 0.05 % cream See Rx Instructions .ROUTE .COMPLEX Rx Instructions: apply to affected area one to two times weekly as directed vitamin B complex Tablet 1 tab PO DAILY Discharge Orders: Discharge ED (Routine); Ordered 07/23/23 Ordered By: Vanesa Cedillo Referrals: Leelee Echevarria PA-C [Primary Care Provider] - Discharge Diet: Usual diet Discharge Activity: Increase activity as tolerated Patient Instructions: Deep Vein Thrombosis (ED), Muscle Spasm (ED) Activity Restrictions/Additional Instructions: Upon your arrival we did obtain a lab called a D-dimer. Elevated D-dimer levels do make his concerned for blood clots however, your D-dimer was within normal limits. Given the tenderness behind your knee we were suspicious for potential osteoarthritic findings causing issues with the knee joint-even possibly Alvarez's cyst. However, I did have our emergency room physician who subspecializes in orthopedics take a look at it. While there is some signs of arthritis it is not as significant as we suspected and, cannot appreciate a significant effusion which would typically accompany a Alvarez's cyst. Given your history, you are a patient with an overall increased risk of a blood clot so, the ER physician recommendation was to go ahead and perform an ultrasound of the vasculature in your right lower extremity to make sure we have not missed a blood clot. The good news is the ultrasound was clear. Due to the tightness on palpation of the musculature the emergency room physician recommended treatment with muscle relaxer. We do recommend continue to apply heating pads or warm moist heat with warm washcloths to the muscle of the calf for 15 to 20 minutes, multiple times throughout the day. We also recommend stretches of the calf muscle by flexion extension of the foot-think about pushing and releasing the gas pedal of your car. You had asked about the risk factors for developing a blood clot in your leg. There are several which are: Age greater than 60, prolonged immobilization such as long car rides or extended time in bed due to illness, injuries, surgeries, , hormone treatments, increased weight, smoking history, cancer history, history of heart failure, and overall genetics. We do want you to continue monitoring over the next several days. Watch for continued swelling of the right lower extremity, discoloration of the skin, inability to perform flexion extension of the foot, or lack of sensation in the lower extremity or foot. If any of these agree need to be brought back to the emergency department for evaluation-especially given the weekend and holiday coming up. Coding Level of Care Code ED Fugitive Detective for Karen Stokes
--- NOTE | 2023-07-23 21:37 | USR_ITS ---
PROCEDURE INFORMATION: Exam: US Duplex Right Lower Extremity Veins, Limited Exam date and time: 07/23/2023 10:19 PM Age: 63 years old Clinical indication: Pain; Leg, lower; Right; Additional info: Pain, RT calf/popliteal pain. Tightness of calf, pain on TECHNIQUE: Imaging protocol: Real-time duplex ultrasound of the right extremity with 2-D barreto scale, color Doppler flow and spectral waveform analysis including responses to compression and other maneuvers (when performed) with image documentation. Limited exam was focused on the right lower extremity veins. COMPARISON: US renal BI* [id number] 02/08/2023 3:01 PM FINDINGS: Right deep veins: Unremarkable. The common femoral, femoral, proximal profunda femoral and popliteal veins are patent without thrombus. Normal Doppler waveforms. Normal compressibility and/or augmentation response. Superficial veins: Unremarkable. Saphenofemoral junction is patent without thrombus. Soft tissues: Unremarkable. US/[place] [id number] IMPRESSION: No evidence of deep vein thrombosis.
[2023-07-23] MEDS: tizanidine 4 mg Tablet PO (23:10)
--- NOTE | 2023-07-23 23:17 | PC.NURSE ---
[id number]
== END 2023-07-23 23:21 | disposition home or self-care (01) ==
PROVIDERS: Emergency Medicine; Emergency Provider Physician Assistant; PCP Physician Assistant
DX: M79.604 Pain in right leg (principal); Z87.891 Personal history of nicotine dependence; N18.31 Chronic kidney disease, stage 3a; J44.9 Chronic obstructive pulmonary disease, unspecified; Z85.3 Personal history of malignant neoplasm of breast
CPT/HCPCS: 36415; 73562; 85378; 93971; 99284

== ENCOUNTER → 2023-07-29 08:25 | Outpatient (BNVA) | payer MEDICARE, MEDICAID, OTHER, SELFPAY | PROVIDERS: PCP Physician Assistant; Visit Provider Podiatrist Foot & Ankle Surgery | DX: L60.0 Ingrowing nail (principal) | CPT/HCPCS: 11750 ==

== ENCOUNTER → 2023-08-10 13:28 | Outpatient (BNVA) | payer MEDICARE, MEDICAID, SELFPAY | PROVIDERS: PCP Physician Assistant; Visit Provider Podiatrist Foot & Ankle Surgery | DX: M25.571 Pain in right ankle and joints of right foot (principal); Z98.890 Other specified postprocedural states; M20.41 Other hammer toe(s) (acquired), right foot | CPT/HCPCS: 73610; 99213 ==

== ENCOUNTER → 2023-08-20 08:49 | Outpatient (BNVA) | payer MEDICARE, MEDICAID, SELFPAY | PROVIDERS: PCP Physician Assistant; Visit Provider Nurse Practitioner Family | DX: R06.02 Shortness of breath (principal) | CPT/HCPCS: 99213 ==

== ENCOUNTER 2023-08-31 06:00 | Outpatient (RCR) | payer MEDICARE, MEDICAID, SELFPAY | END 2023-09-01 23:59 | disposition home or self-care (01) | LOC: MPT 06:00 | PROVIDERS: Visit Provider Internal Medicine Cardiovascular Disease | DX: M51.36 Other intervertebral disc degeneration, lumbar region (principal) | CPT/HCPCS: 97110; 97162 ==

== ENCOUNTER 2023-09-02 06:00 | Outpatient (RCR) | payer MEDICARE, MEDICAID, SELFPAY | END 2023-09-30 23:59 | disposition home or self-care (01) | LOC: MPT 06:00 | PROVIDERS: Visit Provider Internal Medicine Cardiovascular Disease | DX: M47.896 Other spondylosis, lumbar region (principal) | CPT/HCPCS: 97110; G0283 ==

== ENCOUNTER → 2023-09-09 07:44 | Outpatient (BNVA) | payer MEDICARE, MEDICAID, SELFPAY | PROVIDERS: PCP Physician Assistant; Visit Provider Podiatrist Foot & Ankle Surgery | DX: L60.0 Ingrowing nail (principal); M20.41 Other hammer toe(s) (acquired), right foot | CPT/HCPCS: 99214 ==

== ENCOUNTER 2023-10-01 08:23 | Day surgery (SDC) | payer MEDICARE, MEDICAID, SELFPAY ==
[2023-10-01] VITALS (9 sets, daily range): BP systolic 122–161; BP diastolic 65–92; PULSE 71–91; RESP 18–20; TEMP 36.1–36.3; O2SAT 94–98
--- NOTE | 2023-10-01 | XR_ITS ---
WS: [id number] Right foot, C-arm fluoroscopy views, 10/01/2023 Clinical Data: HELEN PICS Comparison: Bilateral feet, 12/24/2020 Findings: Dr. Bingham performed a fusion of the right second toe. Impression: Fusion of right second toe.
[2023-10-01] MEDS: sodium chloride 0.9% 1,000 ML 30 ML IV (08:53)
--- NOTE | 2023-10-01 09:42 | ANES.PREANE2 ---
Pre-Anesthetic Assessment Height/Weight: Height 1.65 m Weight 73.936 kg Temp Pulse Resp BP Pulse Ox O2 Del Method 97.4 F L 84 18 161/79 97 Room Air 10/01/23 08:34 10/01/23 08:34 10/01/23 08:34 10/01/23 08:34 10/01/23 08:34 10/01/23 08:39 Preop Diagnosis: Right second hammertoe deformity. Operation Date: 10/01/23 10:40 Proposed Procedures p Tendon Transfer Foot/Flexor tendon transfer right foot(Right) - Luis Manuel Bingham DPM s Hammertoe Correction/ Right second hammertoe correction(Right) - Luis Manuel Bingham DPM Was Beta Marcelino taken within 24 hours: N/A Was Clonidine taken within 24 hours: N/A Last intake: Intake Last Liquid Date 09/30/23 Last Liquid Time 21:00 Last Solid Date 09/30/23 Last Solid Time 17:30 Social Tobacco Smoked today Exam alert and oriented x 3 Airway Submandibular: within normal limits Cervical ROM: within normal limits Dentition: false Comments: Comments: Upper & lower Pulmonary Chronic Obstructive Pulmonary Disease and Sleep Apnea Chronic Renal Insufficiency Neuropsych Anxiety Anesthetic Plan ASA status: 3 Anesthesia: MAC Risk of > 500 ml blood loss (7ml/kg in children): No Medications/Allergies Home Medications Medication Instructions Recorded Confirmed Last Taken Type vitamin E (dl, acetate) 180 mg 180 mg PO DAILY 11/12/20 09/30/23 09/30/23 History (400 unit) capsule cholecalciferol (vitamin D3) 125 125 mcg PO QAM 07/21/21 09/30/23 09/30/23 History mcg (5,000 unit) capsule cetirizine 10 mg capsule (All Day 10 mg PO DAILY PRN Allergy Symptoms 08/12/22 09/30/23 09/30/23 History Allergy (cetirizine)) albuterol sulfate 90 mcg/actuation 2 puff inhalation Q4H PRN 09/25/22 09/30/23 09/30/23 History aerosol inhaler Shortness Of Breath clobetasol 0.05 % topical cream See Rx Instructions .Route .COMPLEX 11/23/22 09/30/23 09/30/23 History vitamin B complex 1 tab PO DAILY 11/23/22 09/30/23 09/30/23 History azelastine 137 mcg (0.1 %) nasal 1 spray intranasal BID PRN sob 04/26/23 09/30/23 09/30/23 History spray aerosol fluticasone propionate 50 2 spray intranasal DAILY #16 grams 04/26/23 09/30/23 09/30/23 Rx mcg/actuation nasal spray,suspension (Flonase Allergy Relief) oxybutynin chloride 5 mg 5 mg PO DAILY 08/13/23 09/30/23 09/30/23 History tablet,extended release 24 hr bupropion HCl 300 mg 24 hr tablet, 300 mg PO QAM #90 tabs 09/14/23 09/30/23 09/30/23 Rx extended release (Wellbutrin XL) paroxetine HCl 40 mg tablet 40 mg PO DAILY #90 tabs 09/14/23 09/30/23 09/30/23 Rx umeclidinium 62.5 mcg-vilanterol 1 inh inhalation DAILY #60 ea 09/21/23 09/30/23 09/30/23 Rx 25 mcg/actuation powdr for inhalation (Anoro Ellipta) exemestane 25 mg tablet 25 mg PO DAILY 10/01/23 10/01/23 10/01/23 History Allergies Allergy/AdvReac Type Severity Reaction Status Date / Time aspirin Allergy Severe makes me Verified 09/30/23 10:08 stop breathing codeine Allergy Intermediate loss of Verified 09/30/23 10:08 functioning metronidazole [From Flagyl] Allergy Intermediate memory fog Verified 09/30/23 10:08 mushrooms Allergy Severe Can't Uncoded 09/30/23 10:08 breath Current Medications Generic Name Dose Route Start Last Admin Trade Name Freq PRN Reason Stop Dose Admin Sodium Chloride 1,000 mls @ 30 mls/hr 10/01/23 08:30 10/01/23 08:53 Sodium Chloride 0.9% IV 10/02/23 08:29 30 mls/hr .Q24H RASHAWN Administration PFSH Anesthesia Medical History Chronic kidney disease Stage 3a 10/2022 Eczema Osteoarthritis Depression Obstructive sleep apnea Psychiatric care Allergic rhinosinusitis COPD (chronic obstructive pulmonary disease) Breast cancer Osteoporosis Surgical History S/P matrixectomy of toe History of section x 3 History of right mastectomy (08/17/19) Right modified radical mastectomy History of cholecystectomy Family History Mother Diabetes Cancer Chronic kidney disease (CKD) Social History Smoking and tobacco/nicotine status: former use of tobacco/nicotine Quit status (tobacco/nicotine): has quit using Year quit tobacco: 2022 Former quit date comment: 1 ppd X 40 years Second hand smoke exposure: Yes (Some.) Alcohol intake: former Substance/Drug Use: never Lives independently: Yes Household members: none Marital status: / Current occupational status: disabled Do you think of yourself as: Straight/Heterosexual Current gender identity: Female Data Anesthesia Cardiac Studies: Echocardiogram 05/25/23
--- NOTE | 2023-10-01 10:17 | P.HPUD_ITS ---
Surgery/Procedure H&P Update DATE OF PROCEDURE: October 01, 2023 DATE H&P PERFORMED: 09/08/23 H&P UPDATE INFORMATION: I have reviewed H&P completed within last 30 days, I have examined patient prior to procedure, No changes to prior documentation and H&P is in [facility] [place] EMR on date indicated PREOP DIAGNOSIS: Right second hammertoe deformity. PLANNED PROCEDURE: Operation Date: 10/01/23 10:40 Proposed Procedures p Tendon Transfer Foot/Flexor tendon transfer right foot(Right) - Luis Manuel Bingham DPM s Hammertoe Correction/ Right second hammertoe correction(Right) - Luis Manuel Bingham DPM
--- NOTE | 2023-10-01 10:18 | P.OP_ITS ---
Operative Report Date of procedure: October 01, 2023 Pre-op diagnosis: Contracture right foot M24.574 and Hammertoe right foot M20.41 Post-op diagnosis: Contracture right foot M24.574 and Hammertoe right foot M20.41 Procedure done: Flexor tendon transfer right foot. CPT code 26783. Right second hammertoe correction. CPT code 34493 Implants: 4-0 Vicryl, 4-0 nylon, [place] 2 mm screw Specimens removed/disposition: None Pathology: None Surgeon: Luis Manuel Bingham DPM Miniature Set Constructor: Roland Estimated blood loss: 2 19 IV fluids: None Urine output: None Complications: None Brief History: Patient requesting right second hammertoe correction. I reviewed at length with the patient, the risks, potential complications, benefits, alternatives, expectations, and typical outcomes associated with the surgery. The risks and potential complications were explained in detail, including but not limited to infection, wound dehiscence or soft tissue complications, bleeding and hematoma, chronic edema, neuritis or nerve damage producing numbness or chronic pain, CRPS, failure to relieve pain or worsening pain, thick / painful / unsightly scar, limited motion / stiffness, malposition, delayed union, malunion, or nonunion, fracture, reaction to implants, anesthetic complications, venous thromboembolism, and deformity recurrence. I discussed the notion of no regrets with the patient as it pertains to complications and outcomes. The patient seemed to understand the nature of the proposed care and required convalescence. They asked appropriate questions, answered to their satisfaction. They are aware no guarantees can be made as to a satisfactory outcome and they understand there may be other possible unforeseen complications or outcomes not listed here that will be treated accordingly if they arise. There were no written or implied guarantees given to the patient. They gave informed consent to proceed. Procedure: Under mild sedation the patient was brought to the operating room and remained on the gurney in supine position. A timeout was performed. Anesthesia was then administered by the anesthesia service. Local anesthesia was injected by myself consisting of 20 cc of one-to-one mixture 1% lidocaine and 0.5% Marcaine plain and a right second ray block fashion. Well-padded pneumatic tourniquet was applied to the right ankle. The right lower extremity was then scrubbed, prepped and draped utilizing normal aseptic technique. Right foot was exanguinated with an Esmarch bandage and tourniquet inflated to 250 mmHg. Attention was directed to the dorsal aspect of the right foot where a sagittal plane compartment with tendon imbalance and contracture of the right forefoot was appreciated along with right second hammertoe deformity with sagittal plane dominance. A linear incision was performed over the dorsal aspect of the right second toe coursing proximally, the starting at the proximal interphalangeal joint down to the metatarsal phalangeal joint through skin with a #15 blade. Transverse tenotomy and capsulotomy is performed of the second toe over the proximal interphalangeal joint and the head of the proximal phalanx was transected as well as the base of the intermediate phalanx transected of its articular surface in preparation for arthrodesis. Attention was then directed deep within the deepest portion of the incision within the confines of the second toe proximal to phalangeal joint where dissection was performed of the flexor digitorum longus tendon this was then split longitudinally and bisected fashion followed by resection at its most distal portion within the incision, medial and laterally it was wrapped back to itself and transferred effectively dorsally to the diaphysis of the proximal phalanx effectively transferring this deep flexor digitorum longus tendon to help correct the sagittal plane contracture of the right second toe. This was secured with absorbable suture. Arthrodesis of the right second hammertoe was then carried out utilizing a [place] 2 mm screw with excellent bony apposition and compression noted, the incision was flushed with copious amounts of sterile skin solution followed by intraoperative C arm to confirm placement of hardware down the medullary canal of the intermediate, proximal and distal phalanx and noted to be well centered with a rectus toe and the hardware did not violate or across the metatarsal phalangeal joint. Intraoperatively the right second toe was anatomically reduced and then corrected position. The incision was then irrigated with saline solution and closed in a layered fashion. Extensor tendon and capsule reapproximated with 4-0 Vicryl and skin reapproximated with 4-0 nylon. Incision was dressed with Adaptic, sterile 4 x 4's, Kerlix and Richard wrap followed by application of a postop shoe. Tourniquet was deflated and a prompt hyperemic response was noted to the distal digits of the right foot. Patient tolerated the procedure and anesthesia well and was transferred to the PACU with vital signs stable and vascular status intact. Following a period of postoperative monitoring she will be discharged home without home care instructions, scheduled follow-up and my cell phone number to contact me with any postoperative questions or concerns.
[2023-10-01] MEDS: ceFAZolin 2,000 MG in sodium chloride 0.9% (plus) 50 ML 100 MG IV (10:21)
[2023-10-01] MEDS: lidocaine 2% INJ 20 mL INJECTION (10:42)
[2023-10-01] MEDS: BUPivacaine 0.5% INJ 30 mL INJECTION (10:42)
--- NOTE | 2023-10-01 11:06 | W.PM.BPON ---
Date of Procedure: 10/01/23 Surgeon: Luis Manuel Bingham DPM [employer] Sales Manager(s): Roland Procedure(s) performed: Hammertoe correction with flexor tendon transfer right foot, second toe Findings of the procedure(s): None Estimated blood loss: 2 cc Specimen(s) removed: None Post-operative diagnosis: Hammertoe with flexor tendon contracture right second toe No complications with anesthesia or surgery
--- NOTE | 2023-10-01 17:56 | ANE.PACU2 ---
Inpatient post-anesthesia follow up: Airway intact: Yes Vital signs: Temperature 97.0 F Pulse Rate 71 Respiratory Rate 18 Blood Pressure 157/86 Pulse Oximetry 97 Oxygen Delivery Me thod Room Air Oxygen Flow Rate Fraction of Inspir ed Oxygen Hydration adequate: Yes Nausea and vomiting: No Pain level: 2 Mental status: Baseline
== END 2023-10-01 12:08 | disposition home or self-care (01) ==
PROVIDERS: PCP Physician Assistant; Visit Provider Podiatrist Foot & Ankle Surgery
PROC: (CPT 27690; principal; 2023-10-01 10:30)
PROC: (CPT 28285; 2023-10-01 10:30)
DX: M24.574 Contracture, right foot (principal); M20.41 Other hammer toe(s) (acquired), right foot; J44.9 Chronic obstructive pulmonary disease, unspecified; N18.30 Chronic kidney disease, stage 3 unspecified; G47.33 Obstructive sleep apnea (adult) (pediatric); M81.0 Age-related osteoporosis without current pathological fracture; Z85.3 Personal history of malignant neoplasm of breast; Z87.891 Personal history of nicotine dependence
CPT/HCPCS: 27690; 28285; 73620; 76000; C1713; J0690; J2250; J2704; J3010; J3490; J7030

== ENCOUNTER → 2023-10-07 14:56 | Outpatient (BNVA) | payer MEDICARE, MEDICAID, SELFPAY | PROVIDERS: PCP Physician Assistant; Visit Provider Podiatrist Foot & Ankle Surgery | DX: Z98.890 Other specified postprocedural states (principal) | CPT/HCPCS: 99024 ==

== ENCOUNTER → 2023-10-14 14:01 | Outpatient (BNVA) | payer MEDICARE, MEDICAID, SELFPAY | PROVIDERS: PCP Physician Assistant; Visit Provider Podiatrist Foot & Ankle Surgery | DX: Z98.890 Other specified postprocedural states (principal); Z47.89 Encounter for other orthopedic aftercare | CPT/HCPCS: 73630; 97760; 99024; L3031 ==

== ENCOUNTER 2023-10-14 14:37 | Outpatient (CLI) | payer MEDICARE, MEDICAID, SELFPAY | END 2023-10-14 14:38 | disposition home or self-care (01) | LOC: SPT 14:38 | PROVIDERS: PCP Physician Assistant; Visit Provider Podiatrist Foot & Ankle Surgery | DX: Z47.89 Encounter for other orthopedic aftercare (principal) | CPT/HCPCS: 97760; 99024; L3031 ==

== ENCOUNTER 2023-10-16 14:43 | Emergency (ER) | payer MEDICARE, MEDICAID, SELFPAY ==
[2023-10-16 14:46] VITALS: BP 128/70; PULSE 74; RESP 16; TEMP 36.9; O2SAT 98; BMI 27.1
--- NOTE | 2023-10-16 14:46 | W.ED.LOWEXIN ---
HPI - Extremity Injury (Lower) General: Chief Complaint: Extremity Problem,Nontraumatic Stated Complaint: RIGHT LEG PAIN/SWELLING Time Seen by Provider: 10/16/23 14:45 Source: patient Mode of arrival: EMS History of Present Illness: 63 yo female presents with pain and swelling of the R leg. She has a hx of breast CA diagnosed in August 2019 patient is stage Ia she undergone treatment and is being monitored at this time. No history of DVT or PE is not currently on any anticoagulants. She has had the swelling and pain intermittently in her leg for time 1 point evidently thought it was arthritic. She there has been discussion of recommending compression stockings but she states she has not had any prescriptions for them to this point. No recent injury to the leg. Review of Systems Const: Denies: fever(s) or chills Card: Denies: chest pain Resp: Denies: dyspnea GI: Denies: abdominal pain : Denies: dysuria, urinary frequency or urinary urgency Musc: Denies: neck pain or back pain Skin/Breast: Denies: rash PFSH ED PFSH: Medical History Chronic kidney disease Stage 3a 10/2022 Eczema Osteoarthritis Depression Obstructive sleep apnea Psychiatric care Allergic rhinosinusitis COPD (chronic obstructive pulmonary disease) Breast cancer Osteoporosis Surgical History S/P matrixectomy of toe History of section x 3 History of right mastectomy (08/17/19) Right modified radical mastectomy History of cholecystectomy Family History Mother Diabetes Cancer Chronic kidney disease (CKD) Social History Smoking and tobacco/nicotine status: former use of tobacco/nicotine Quit status (tobacco/nicotine): has quit using Year quit tobacco: 2022 Former quit date comment: 1 ppd X 40 years Second hand smoke exposure: Yes (Some.) Alcohol intake: former Substance/Drug Use: never Lives independently: Yes Household members: none Marital status: / Current occupational status: disabled Do you think of yourself as: Straight/Heterosexual Current gender identity: Female Physical Exam Const: COMMON NORMALS: no acute distress GENERAL APPEARANCE: cooperative and comfortable ORIENTATION/CONSCIOUSNESS: Yes awake, Yes oriented to person, Yes oriented to place and Yes oriented to time HENMT: COMMON NORMALS: normocephalic, atraumatic and hearing grossly normal bilaterally HEAD & SCALP: normocephalic and atraumatic Resp: COMMON NORMALS: normal respiratory effort, No retractions, No use of accessory muscles and clear to auscultation bilaterally AUSCULTATION: clear to auscultation bilaterally Cardio: COMMON NORMALS: regular rate, regular rhythm and No murmurs present (Cardio) RATE: regular rate RHYTHM: regular rhythm GI: COMMON NORMALS: Soft to palpation and No hepatosplenomegaly present AUSCULTATION: Yes normoactive bowel sounds PALPATION: Yes Soft to palpation, No Tenderness to palpation present (GI), No Guarding due to palpation present (GI) and Yes No hepatosplenomegaly present Extremity: COMMON NORMALS: normal to inspection and capillary refill normal GENERAL: Yes calf tenderness (Right lower leg) and Yes edema (Right lower leg) Neuro: SENSORIUM/ORIENTATION: Yes oriented to person, Yes oriented to place and Yes oriented to time Skin: COMMON NORMALS: no rashes or lesions noted GENERAL SKIN EXAM: no rashes or lesions noted Course Vital Signs: Vital signs: Vital Signs Temperature 98.4 F 10/16/23 14:46 Pulse Rate 74 10/16/23 14:46 Respiratory Rate 16 10/16/23 14:46 Blood Pressure 128/70 10/16/23 14:46 Pulse Oximetry 98 10/16/23 14:46 Oxygen Delivery Me thod Room Air 10/16/23 14:46 MDM - Extremity Injury (Lower) Medical Decision Making Venous duplex negative. No anemia CMP otherwise unremarkable. Discharge patient home she has had this for some time recommend some [id number] compression stockings elevate low-salt diet if persist could follow-up with her primary care doctor to consider prescription custom fit compression stockings Medical Records I reviewed the patient's medical records. Lab Data I reviewed the patient's lab results. 10/16/23 15:12 10/16/23 15:12 Radiology Impressions Venous Duplex 10/16/23 14:47 IMPRESSION: No evidence of deep vein thrombosis. Laboratory Results WBC 7.44 10^3/uL (3.29-11.43) 10/16/23 15:12 RBC 4.83 10^6/uL (3.85-5.65) 10/16/23 15:12 Hgb 13.10 g/dL (11.27-16.99) 10/16/23 15:12 Hct 41.4 % (36-47) 10/16/23 15:12 MCV 85.7 fl (85-98) 10/16/23 15:12 MCH 27.1 pg (27-33) 10/16/23 15:12 MCHC 31.6 g/dL (30-55) 10/16/23 15:12 RDW 13.7 % (12.1-15.1) 10/16/23 15:12 Plt Count 175 10^3/cmm (157-399) 10/16/23 15:12 MPV 11.2 fL (7.4-10.4) H 10/16/23 15:12 Neut % (Auto) 45.0 % 10/16/23 15:12 Lymph % (Auto) 43.8 % 10/16/23 15:12 [place] % (Auto) 8.7 % 10/16/23 15:12 Eos % (Auto) 2.0 % 10/16/23 15:12 Baso % (Auto) 0.4 % 10/16/23 15:12 Neut # (Auto) 3.34 10^3/uL (1.8-7.7) 10/16/23 15:12 Lymph # (Auto) 3.3 10^3/uL (0.8-4.8) 10/16/23 15:12 [place] # (Auto) 0.7 10^3/uL (0.2-0.9) 10/16/23 15:12 Eos # (Auto) 0.2 10^3/uL (0.0-0.8) 10/16/23 15:12 Baso # (Auto) 0.0 10^3/uL (0.0-0.1) 10/16/23 15:12 Nucleated RBC % (auto) 0 % 10/16/23 15:12 Nucleated RBCs # 0.0 /100WBC 10/16/23 15:12 Sodium 139 mmol/L (136-145) 10/16/23 15:12 Potassium 4.1 mmol/L (3.5-5.1) 10/16/23 15:12 Chloride 101 mmol/L (98-107) 10/16/23 15:12 Carbon Dioxide 25 mmol/L (22-29) 10/16/23 15:12 Anion Gap 17.1 (5-19) 10/16/23 15:12 BUN 16 mg/dL (8-23) 10/16/23 15:12 Creatinine 1.1 mg/dL (0.5-0.9) H 10/16/23 15:12 GFR Calculation 50.5 mL/min (90-130) L 10/16/23 15:12 Glucose 116 mg/dL (65-115) H 10/16/23 15:12 Calculated Osmolality 290 mOsm/kg (285-295) 10/16/23 15:12 Calcium 9.6 mg/dL (8.5-10.5) 10/16/23 15:12 Total Bilirubin 0.2 mg/dL (0.15-1.2) 10/16/23 15:12 AST 29 U/L (0-32) 10/16/23 15:12 ALT 34 U/L (0-33) H 10/16/23 15:12 Alkaline Phosphatase 55 U/L (35-105) 10/16/23 15:12 Total Protein 7.1 g/dL (6.6-8.7) 10/16/23 15:12 Albumin 4.2 g/dL (3.5-5.2) 10/16/23 15:12 Globulin 2.9 g/dL (1.3-4.6) 10/16/23 15:12 All radiology interpretation(s) finalized by discharge Discharge Plan Discharge Patient Disposition: Home Clinical Impression: Leg edema, right Condition: Stable Prescriptions: No Action vitamin E (dl, acetate) 400 unit capsule 180 mg PO DAILY cholecalciferol (vitamin D3) 125 mcg (5,000 unit) capsule 125 mcg PO QAM azelastine 137 mcg (0.1 %) aerosol,spray 1 spray intranasal BID PRN (Reason: sob) Rx Instructions: administer into each nostril fluticasone propionate [Flonase Allergy Relief] 50 mcg/actuation spray,suspension 2 spray intranasal DAILY Qty: 16 3RF Rx Instructions: administer into each nostril bupropion HCl [Wellbutrin XL] 300 mg tablet extended release 24 hr 300 mg PO QAM Qty: 90 0RF (DME) Carbon Fiber Plate See Rx Instructions .Route .MEDSUPPLY Qty: 1 0RF Rx Instructions: As directed albuterol sulfate 90 mcg/actuation HFA aerosol inhaler 2 puff inhalation Q4H PRN (Reason: Shortness Of Breath) All Day Allergy (cetirizine) 10 mg capsule 10 mg PO DAILY PRN (Reason: Allergy Symptoms) oxybutynin chloride 5 mg tablet extended release 24hr 5 mg PO DAILY Anoro Ellipta 62.5-25 mcg/actuation blister with device 1 inh inhalation DAILY Qty: 60 6RF vitamin B complex Tablet 1 tab PO DAILY exemestane 25 mg tablet 25 mg PO DAILY paroxetine HCl 40 mg tablet 40 mg PO QPM Discharge Orders: Discharge ED (Routine); Ordered 10/16/23 Ordered By: Mustapha Arellano Referrals: Leelee Echevarria PA-C [Primary Care Provider] - Discharge Diet: Usual diet and Low Salt Discharge Activity: Increase activity as tolerated Patient Instructions: Opioid Safety, Pain Management Activity Restrictions/Additional Instructions: Thank you for choosing [facility] for your healthcare needs today. Please realize this is an emergency room and that we are providing you with a medical screening exam and this may not be complete and all inclusive of all the testing and or work up that you may need to determine your ailment or severity of your illness. It is very important that you follow up as instructed or that you return to the Emergency Department should you have concerns or if your condition changes or worsens in any way. Coding Level of Care Code ED Office Technologist for Karen Stokes
--- NOTE | 2023-10-16 14:47 | USR_ITS ---
PROCEDURE INFORMATION: Exam: US Duplex Right Lower Extremity Veins, Limited Exam date and time: 10/16/2023 3:32 PM Age: 63 years old Clinical indication: Edema, localized; Lower extremity, right; Additional info: Leg sweling TECHNIQUE: Imaging protocol: Real-time duplex ultrasound of the right extremity with 2-D barreto scale, color Doppler flow and spectral waveform analysis including responses to compression and other maneuvers (when performed) with image documentation. Limited exam was focused on the right lower extremity veins. COMPARISON: US renal BI* [id number] 02/08/2023 3:01 PM FINDINGS: Right deep veins: Unremarkable. The common femoral, femoral, proximal profunda femoral and popliteal veins are patent without thrombus. Normal Doppler waveforms. Normal compressibility and/or augmentation response. Superficial veins: Greater saphenous vein at the saphenofemoral junction is patent without thrombus. Soft tissues: Unremarkable. US/[place] [id number] IMPRESSION: No evidence of deep vein thrombosis.
[2023-10-16 15:25] LABS: Basophils % 0.4 %; Eosinophils # 0.2 10^3/uL (0.0-0.8); Hematocrit 41.4 % (36-47); Lymphocytes # 3.3 10^3/uL (0.8-4.8); Lymphocytes % 43.8 %; Mean Corpuscular HGB Conc 31.6 g/dL (30-55); Mean Corpuscular Hemoglobin 27.1 pg (27-33); Mean Corpuscular Volume 85.7 fl (85-98); Mean Platelet Volume 11.2 fL (7.4-10.4); Monocytes # 0.7 10^3/uL (0.2-0.9); Monocytes % 8.7 %; Neutrophils # 3.34 10^3/uL (1.8-7.7); Nucleated Red Blood Cells % 0 %; Platelet Count 175 10^3/cmm (157-399); Red Blood Count 4.83 10^6/uL (3.85-5.65); Red Cell Distribution Width 13.7 % (12.1-15.1); White Blood Count 7.44 10^3/uL (3.29-11.43)
[2023-10-16 15:48] LABS: Alanine Aminotransferase 34 U/L (0-33); Albumin Level 4.2 g/dL (3.5-5.2); Alkaline Phosphatase 55 U/L (35-105); Anion Gap 17.1 (5-19); Aspartate Amino Transferase 29 U/L (0-32); Blood Urea Nitrogen 16 mg/dL (8-23); Calcium 9.6 mg/dL (8.5-10.5); Carbon Dioxide 25 mmol/L (22-29); Chloride 101 mmol/L (98-107); Globulin 2.9 g/dL (1.3-4.6); Glomerular Filtration Rate 50.5 mL/min (90-130); Glucose 116 mg/dL (65-115); Osmolality Calculated 290 mOsm/kg (285-295); Potassium 4.1 mmol/L (3.5-5.1); Sodium 139 mmol/L (136-145); Total Bilirubin 0.2 mg/dL (0.15-1.2); Total Protein 7.1 g/dL (6.6-8.7)
[2023-10-16 15:49] LABS: Creatinine Clr Calc Pharmacy 54.0714
[2023-10-16 16:41] VITALS: BP 138/82; O2SAT 98
== END 2023-10-16 16:42 | disposition home or self-care (01) ==
PROVIDERS: Emergency Provider Family Medicine; PCP Physician Assistant
DX: R60.0 Localized edema (principal); N18.9 Chronic kidney disease, unspecified; J44.9 Chronic obstructive pulmonary disease, unspecified; Z85.3 Personal history of malignant neoplasm of breast; Z87.891 Personal history of nicotine dependence
CPT/HCPCS: 80053; 85025; 93971; 99284

== ENCOUNTER 2023-10-25 14:01 | Outpatient (CLI) | payer MEDICARE, MEDICAID, SELFPAY ==
--- NOTE | 2023-10-25 14:00 | XR_ITS ---
WS: [id number] SCREENING DEXA SCAN [facility] CLINICAL INFORMATION: osteoporosis COMPARISON: 2021 FINDINGS: The L1-L4 bone mineral density measures 0.916 g/cm2. This corresponds to a T score score of -2.2 and Z score of -1.2. Left femoral neck bone mineral density measures 0.854 g/cm2. This corresponds to a T score of -1.2 an d Z score of -0.4. Right femoral neck bone mineral density measures 0.841 g/cm2. This corresponds to a T score -1.3of an d Z score of -0.5. Mean femoral neck bone mineral density measures 0.847 g/cm2. This corresponds to a T score of -1.3 an d Z score of -0.5. IMPRESSION: Osteopenia lumbar spine. Osteopenia femoral necks. Patient's FRAX calculated 10 year probability for major osteoporotic fracture is 20.3% and osteoporot ic hip fracture is 4.3%. Bone mineral density lumbar spine decreased -0.3% Bone mineral density femoral necks increased 4.7%
== END 2023-10-25 14:02 | disposition home or self-care (01) ==
LOC: RAD 14:01
PROVIDERS: PCP Physician Assistant; Visit Provider Nurse Practitioner Family
DX: M81.0 Age-related osteoporosis without current pathological fracture (principal); M85.89 Other specified disorders of bone density and structure, multiple sites
CPT/HCPCS: 77080

== ENCOUNTER → 2023-11-11 12:49 | Outpatient (BNVA) | payer MEDICARE, MEDICAID, SELFPAY | PROVIDERS: PCP Physician Assistant; Visit Provider Podiatrist Foot & Ankle Surgery | DX: Z98.890 Other specified postprocedural states (principal) | CPT/HCPCS: 73630 ==

== ENCOUNTER 2023-11-18 06:00 | Outpatient (RCR) | payer MEDICARE, MEDICAID, SELFPAY | END 2023-11-30 23:59 | disposition home or self-care (01) | LOC: MPT 06:00 | PROVIDERS: Visit Provider Podiatrist Foot & Ankle Surgery | DX: S93.401D Sprain of unspecified ligament of right ankle, subsequent encounter (principal); X58.XXXD Exposure to other specified factors, subsequent encounter | CPT/HCPCS: 97110; 97162 ==

== ENCOUNTER 2023-11-22 12:10 | Oncology outpatient (recurring) (ONCR) | payer MEDICARE, MEDICAID, SELFPAY ==
[2023-11-22 12:40] LABS: Basophils % 0.3 %; Eosinophils # 0.1 10^3/uL (0.0-0.8); Eosinophils % 1.8 %; Hematocrit 40.1 % (36-47); Lymphocytes # 2.8 10^3/uL (0.8-4.8); Lymphocytes % 35.7 %; Mean Corpuscular HGB Conc 33.2 g/dL (30-55); Mean Corpuscular Hemoglobin 27.9 pg (27-33); Mean Corpuscular Volume 84.2 fl (85-98); Mean Platelet Volume 10.5 fL (7.4-10.4); Monocytes # 0.5 10^3/uL (0.2-0.9); Monocytes % 6.9 %; Neutrophils # 4.31 10^3/uL (1.8-7.7); Nucleated Red Blood Cells % 0 %; Platelet Count 256 10^3/cmm (157-399); Red Blood Count 4.76 10^6/uL (3.85-5.65); Red Cell Distribution Width 14.1 % (12.1-15.1); White Blood Count 7.82 10^3/uL (3.29-11.43)
[2023-11-22 13:16] LABS: Alanine Aminotransferase 33 U/L (0-33); Albumin Level 4.5 g/dL (3.5-5.2); Alkaline Phosphatase 74 U/L (35-105); Anion Gap 12.4 (5-19); Aspartate Amino Transferase 24 U/L (0-32); Blood Urea Nitrogen 14 mg/dL (8-23); Calcium 9.3 mg/dL (8.5-10.5); Carbon Dioxide 29 mmol/L (22-29); Chloride 104 mmol/L (98-107); Globulin 2.5 g/dL (1.3-4.6); Glomerular Filtration Rate 45.7 mL/min (90-130); Glucose 147 mg/dL (65-115); Osmolality Calculated 295 mOsm/kg (285-295); Potassium 4.4 mmol/L (3.5-5.1); Sodium 141 mmol/L (136-145); Total Bilirubin 0.2 mg/dL (0.15-1.2)
== END 2023-11-30 23:59 | disposition home or self-care (01) ==
PROVIDERS: Nurse Practitioner Family; Visit Provider Internal Medicine Medical Oncology
DX: C50.411 Malignant neoplasm of upper-outer quadrant of right female breast (principal); Z17.0 Estrogen receptor positive status [ER+]; Z90.11 Acquired absence of right breast and nipple; Z79.818 Long term (current) use of other agents affecting estrogen receptors and estrogen levels; M81.0 Age-related osteoporosis without current pathological fracture; Z79.899 Other long term (current) drug therapy; Z87.891 Personal history of nicotine dependence
CPT/HCPCS: 36415; 80053; 85025; 99214

== ENCOUNTER 2023-11-25 13:38 | Outpatient (CLI) | payer MEDICARE, MEDICAID, SELFPAY ==
--- NOTE | 2023-11-25 13:40 | USCV_ITS ---
[employer] Guidance Shana Connor Age: 63 Gender: F : 1960 Exam Date: 11/25/2023 13:56 Ordering Phys: Leelee Echevarria Technologist: KIMBERLY [place]am [place] [facility] [place] [facility] [place] Indication: Bruit Risk Factors: Previous Vascular Surgery: Right Brachial BP: / Left Brachial BP: / Right Left Velocity (cm/s) Spectral Plaque Velocity (cm/s) Spectral Plaque Syst/Diast Broadening Syst/Diast Broadening 78.90/ 21.90 Prox CCA 80.10 / 21.70 94.40/ 28.40 Mid CCA 82.00 / 29.00 103.50/32.30 Distal CCA 88.10 / 36.60 83.10/ 26.00 Prox ICA 54.60 / 25.40 51.20/ 22.70 Mid ICA 56.50 / 21.60 58.80/ 25.60 Distal ICA 82.20 / 32.50 90.60 ECA 66.50 0.80 ICA/CCA 0.90 Antegrade Vertebral Antegrade 48.10/ 15.60 cm/s 55.70/ 25.10 cm/s Tri Subclavian Tri 107.9 125.2 0 0 FINDINGS Comparison: none available. No significant elevation of systolic or diastolic velocities. Waveforms are normal. Mixture of calcified and noncalcified plaque in the bifurcations. CONCLUSIONS Bilateral ICA stenosis less than 50%. Mild carotid atherosclerosis. Dr. Berna Ruano DO (Electronically Signed) Final Date: 25 November 2023 15:27 S
== END 2023-11-25 13:39 | disposition home or self-care (01) ==
LOC: RAD 13:38
PROVIDERS: PCP Physician Assistant; Visit Provider Physician Assistant
DX: R09.89 Other specified symptoms and signs involving the circulatory and respiratory systems (principal); I65.23 Occlusion and stenosis of bilateral carotid arteries
CPT/HCPCS: 93880

== ENCOUNTER 2023-12-01 06:00 | Outpatient (RCR) | payer MEDICARE, MEDICAID, SELFPAY | END 2023-12-31 23:59 | disposition home or self-care (01) | LOC: MPT 06:00 | PROVIDERS: PCP Physician Assistant; Visit Provider Podiatrist Foot & Ankle Surgery | DX: S93.409D Sprain of unspecified ligament of unspecified ankle, subsequent encounter (principal); X58.XXXD Exposure to other specified factors, subsequent encounter | CPT/HCPCS: 97110; 97112 ==

== ENCOUNTER → 2023-12-20 08:43 | Outpatient (BNVA) | payer MEDICARE, MEDICAID, SELFPAY | PROVIDERS: PCP Physician Assistant; Visit Provider Specialist | DX: M25.561 Pain in right knee (principal) | CPT/HCPCS: 73560; 73565; 99214 ==

== ENCOUNTER 2023-12-24 16:42 | Emergency (ER) | payer MEDICARE, MEDICAID, SELFPAY ==
[2023-12-24] VITALS (7 sets, daily range): BP systolic 130–152; BP diastolic 76–92; PULSE 69–98; RESP 16–17; TEMP 36.7; O2SAT 97–100; BMI 27.3
--- NOTE | 2023-12-24 16:51 | CTR_ITS ---
PROCEDURE INFORMATION: Exam: CT Head Without Contrast Exam date and time: 12/24/2023 5:22 PM Age: 63 years old Clinical indication: Dizziness TECHNIQUE: Imaging protocol: Computed tomography of the head without contrast. Radiation optimization: All CT scans at this facility use at least one of these dose optimization techniques: automated exposure control; mA and/or kV adjustment per patient size (includes targeted exams where dose is matched to clinical indication); or iterative reconstruction. Other technique: STROKE PROTOCOL was implemented. COMPARISON: MR head wo con* [id number] 12/01/2022 9:14 AM RADIATION DOSE METRICS: Total DLP (mGy-cm): 968.08 FINDINGS: Brain: There is periventricular white matter lucency consistent with chronic microvascular disease. No acute infarct is identified. There is no hemorrhage or extra-axial collection. There is no mass. Cerebral ventricles: No ventriculomegaly. Paranasal sinuses: Visualized sinuses are unremarkable. No fluid levels. Mastoid air cells: Visualized mastoid air cells are well aerated. Bones: Unremarkable. No acute fracture. Soft tissues: Unremarkable. CT/CT head wo con* [id number] IMPRESSION: 1. Mild chronic microvascular disease. 2. No acute intracranial lesion or injury and no change from prior scan. ASSESSMENT: ASPECTS (Frans[place]a Stroke Program Early CT Score) is 10.
--- NOTE | 2023-12-24 16:51 | XRR_ITS ---
PROCEDURE INFORMATION: Exam: XR Chest Exam date and time: 12/24/2023 5:11 PM Age: 63 years old Clinical indication: Other: Dizzy and weak; Prior surgery; Surgery date: 6+ months; Surgery type: R mastectomy and gallbladder removal; Additional info: Dizziness TECHNIQUE: Imaging protocol: Radiologic exam of the chest. Views: 1 view. COMPARISON: CT lung screening [id number] 05/11/2023 3:11 PM FINDINGS: Lungs: Stable calcified granuloma in the left lower lobe. No consolidation. Pleural spaces: Unremarkable. No pleural effusion. No pneumothorax. Heart/Mediastinum: Unremarkable. No cardiomegaly. Bones/joints: Unremarkable. XR/XR chest 1V portable [id number] IMPRESSION: No acute findings.
--- NOTE | 2023-12-24 16:52 | ECG_ITS ---
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 Measurements Intervals [place] Rate: 84 P: 67 NC: 168 QRS: 35 QRSD: 88 T: 59 QT: 354 QTc: 419 Interpretive Statements SINUS RHYTHM Compared to ECG 05/06/2023 10:31:15 No significant changes Electronically Signed On 12-24-2023 20:19:53 CDT by Dilshad Mcknight M.D. [id number]
--- NOTE | 2023-12-24 16:53 | ED_ITS ---
Documented by User: Sabino Pride MD 12/25/23 06:05 HPI - Dizziness 2 General: Chief Complaint: Dizziness Stated Complaint: dizzy, post vaccination Time Seen by Provider: 12/24/23 16:47 Source: patient and EMS Mode of arrival: EMS Limitations: no limitations History of Present Illness: HPI Narrative: 63-year-old female states that she has b een having lightheadedness and not feeling well after she had received a hepatitis shot today at 2:30 PM. She states her symptoms started right after states anytime she stands up she feels like she is going to pass out she is just felt weak as well. States she had some dizziness as well denies any headache denies any chest pain. Associated symptoms: Denies chest pain, chills, headache(s), nausea or vomiting Review of Systems 2 Const: Denies: fever(s), chills, body aches or change in appetite Eyes: Denies: blurry vision ENMT: Denies: throat pain or dental pain Card: Reports: pre-syncope; Denies: chest pain Resp: Denies: dyspnea GI: Denies: abdominal pain, nausea, vomiting or diarrhea : Denies: dysuria Musc: Denies: neck pain or back pain Skin/Breast: Denies: rash Neuro: Reports: dizziness; Denies: headache(s) PFSH ED 2 PFSH: Medical History Chronic kidney disease Stage 3a 10/2022 Eczema Osteoarthritis Depression Obstructive sleep apnea Psychiatric care Allergic rhinosinusitis COPD (chronic obstructive pulmonary disease) Breast cancer Osteoporosis Surgical History S/P matrixectomy of toe History of section x 3 History of right mastectomy (08/17/19) Right modified radical mastectomy History of cholecystectomy Family History Mother Diabetes Cancer Chronic kidney disease (CKD) Social History Smoking and tobacco/nicotine status: former use of tobacco/nicotine Quit status (tobacco/nicotine): has quit using Year quit tobacco: 2022 Former quit date comment: 1 ppd X 40 years Second hand smoke exposure: Yes (Some.) Alcohol intake: former Substance/Drug Use: never Lives independently: Yes Household members: none Marital status: / Current occupational status: disabled Do you think of yourself as: Straight/Heterosexual Current gender identity: Female Physical Exam 2 Const: COMMON NORMALS: patient oriented x3 HENMT: COMMON NORMALS: normocephalic and atraumatic HEAD & SCALP: n ormocephalic and atraumatic Eye: COMMON NORMALS: Equal, round and reactive pupils present and EOMs intact bilaterally PUPIL: Yes Equal, round and reactive pupils present Neck/C-Spine: COMMON NORMALS: full ROM and supple Chest: COMMONS NORMALS: normal inspection of the chest and normal palpation of entire chest wall Resp: COMMON NORMALS: normal respiratory effort, No retractions, No use of accessory muscles and clear to auscultation bilaterally AUSCULTATION: clear to auscultation bilaterally Cardio: COMMON NORMALS: regular rate, regular rhythm and No murmurs present (Cardio) RATE: regular rate RHYTHM: regular rhythm GI: COMMON NORMALS: Normal to inspection, nondistended, normoactive bowel sounds present, Soft to palpation, non-tender and no masses PALPATION: Yes Soft to palpation Extremity: COMMON NORMALS: normal to inspection and full ROM Neuro: COMMON NORMALS: patient oriented x3, moves all extremities and no focal motor deficits CRANIAL NERVES: Yes CN normal except as noted C OORDINATION/BALANCE: [id number] test normal SPEECH: speech normal M OTOR EXAM: 5/5 motor strength present throughout COORDINATION: [id number] test normal OTHER: Patient had felt lightheaded upon standing was able to ambulate in her room Psych: COMMON NORMALS: mental status grossly normal, Normal thought process present and cooperative THOUGHT PROCESS: Normal thought process present Skin: COMMON NORMALS: no rashes or lesions noted and no wounds GENERAL SKIN EXAM: no rashes or lesions noted Course 2 Reevaluation(s): Reevaluation #1: Patient is feeling much improved after Zofran and the meclizine she did ambulate again ambulated much better had no ataxia still complained of some slight lightheadedness still but no true vertigo Time: 17:45 Vital Signs: Vital signs: Vital Signs Temperature 98.1 F 12/24/23 16:45 Pulse Rate 69 12/24/23 20:14 Respiratory Rate 16 12/24/23 20:14 Blood Pressure 152/92 12/24/23 19:00 Pulse Oximetry 97 12/24/23 20:14 Oxygen Delivery Me thod Room Air 12/24/23 16:45 MDM - Dizziness Medical Decision Making Care transferred over to myself at shift change, awaiting lab work to come back, once lab work was back which is essentially benign I went talk to the patient patient is doing well with no complaints she is appears to be overwhelmed and rundown by going to so many doctors visits for the last couple months and then she think she may have had a reaction to the hepatitis B vaccine today. We will discharge patient home to follow-up with your PCP. Patient presents who dizziness lightheadedness that improved here with fluids and meds she has no signs of a posterior stroke care turned over to Dr. Denton pending labs Lab Data 12/24/23 18:46 12/24/23 18:46 Radiology Impressions Chest X-Ray 12/24/23 16:51 IMPRESSION: No acute findings. Head CT 12/24/23 16:51 IMPRESSION: 1. Mild chronic microvascular disease. 2. No acute intracranial lesion or injury and no change from prior scan. ASSESSMENT: ASPECTS ([place] Stroke Program Early CT Score) is 10. Laboratory Results WBC 7.53 10^3/uL (3.29-11.43) 12/24/23 18:46 RBC 4.60 10^6/uL (3.85-5.65) 12/24/23 18:46 Hgb 12.90 g/dL (11.27-16.99) 12/24/23 18:46 Hct 39.4 % (36-47) 12/24/23 18:46 MCV 85.7 fl (85-98) 12/24/23 18:46 MCH 28.0 pg (27-33) 12/24/23 18:46 MCHC 32.7 g/dL (30-55) 12/24/23 18:46 RDW 14.0 % (12.1-15.1) 12/24/23 18:46 Plt Count 221 10^3/cmm (157-399) 12/24/23 18:46 MPV 11.3 fL (7.4-10.4) H 12/24/23 18:46 Neut % (Auto) 43.4 % 12/24/23 18:46 Lymph % (Auto) 45.8 % 12/24/23 18:46 [place] % (Auto) 7.7 % 12/24/23 18:46 Eos % (Auto) 2.3 % 12/24/23 18:46 Baso % (Auto) 0.5 % 12/24/23 18:46 Neut # (Auto) 3.27 10^3/uL (1.8-7.7) 12/24/23 18:46 Lymph # (Auto) 3.5 10^3/uL (0.8-4.8) 12/24/23 18:46 [place] # (Auto) 0.6 10^3/uL (0.2-0.9) 12/24/23 18:46 Eos # (Auto) 0.2 10^3/uL (0.0-0.8) 12/24/23 18:46 Baso # (Auto) 0.0 10^3/uL (0.0-0.1) 12/24/23 18:46 Nucleated RBC % (auto) 0 % 12/24/23 18:46 Nucleated RBCs # 0.0 /100WBC 12/24/23 18:46 PT 12.90 SECONDS (12.1-14.9) 12/24/23 18:46 INR 0.95 (0.8-1.2) 12/24/23 18:46 Sodium 141 mmol/L (136-145) 12/24/23 18:46 Potassium 3.8 mmol/L (3.5-5.1) 12/24/23 18:46 Chloride 105 mmol/L (98-107) 12/24/23 18:46 Carbon Dioxide 28 mmol/L (22-29) 12/24/23 18:46 Anion Gap 11.8 (5-19) 12/24/23 18:46 BUN 8 mg/dL (8-23) 12/24/23 18:46 Creatinine 1.0 mg/dL (0.5-0.9) H 12/24/23 18:46 GFR Calculation 56.4 mL/min (90-130) L 12/24/23 18:46 Glucose 103 mg/dL (65-115) 12/24/23 18:46 Calculated Osmolality 291 mOsm/kg (285-295) 12/24/23 18:46 Calcium 8.7 mg/dL (8.5-10.5) 12/24/23 18:46 Total Bilirubin 0.2 mg/dL (0.15-1.2) 12/24/23 18:46 AST 24 U/L (0-32) 12/24/23 18:46 ALT 32 U/L (0-33) 12/24/23 18:46 Alkaline Phosphatase 81 U/L (35-105) 12/24/23 18:46 Total Protein 7.0 g/dL (6.6-8.7) 12/24/23 18:46 Albumin 4.2 g/dL (3.5-5.2) 12/24/23 18:46 Globulin 2.8 g/dL (1.3-4.6) 12/24/23 18:46 Discharge Plan Discharge Patient Disposition: Home Clinical Impression: Light-headedness, Dizziness Condition: Stable Prescriptions: No Action vitamin E (dl, acetate) 400 unit capsule 180 mg PO DAILY cholecalciferol (vitamin D3) 125 mcg (5,000 unit) capsule 125 mcg PO QAM azelastine 137 mcg (0.1 %) aerosol,spray 1 spray intranasal BID PRN (Reason: sob) Rx Instructions: administer into each nostril bupropion HCl [Wellbutrin XL] 300 mg tablet extended release 24 hr 300 mg PO QAM Qty: 90 0RF (DME) Carbon Fiber Plate See Rx Instructions .Route .MEDSUPPLY Qty: 1 0RF Rx Instructions: As directed albuterol sulfate 90 mcg/actuation HFA aerosol inhaler 2 puff inhalation Q4H PRN (Reason: Shortness Of Breath) All Day Allergy (cetirizine) 10 mg capsule 10 mg PO DAILY PRN (Reason: Allergy Symptoms) oxybutynin chloride 5 mg tablet extended release 24hr 5 mg PO DAILY Anoro Ellipta 62.5-25 mcg/actuation blister with device 1 inh inhalation DAILY Qty: 60 6RF fluticasone propionate [Flonase Allergy Relief] 50 mcg/actuation spray,suspension 2 spray intranasal DAILY Qty: 16 3RF Rx Instructions: administer into each nostril alendronate 70 mg tablet 70 mg PO .weekly Qty: 4 6RF vitamin B complex Tablet 1 tab PO DAILY exemestane 25 mg tablet 25 mg PO DAILY paroxetine HCl 40 mg tablet 40 mg PO QPM Discharge Orders: Discharge ED (Routine); Ordered 12/24/23 Ordered By: Slick Denton Referrals: Leelee Echevarria PA-C [Primary Care Provider] - 1 week Patient Instructions: Lightheadedness (ED), Dizziness (ED) Activity Restrictions/Additional Instructions: Your evaluation in ER did not provide any acute evidence for your symptomatology. All of your lab work and imaging was essentially benign. Your symptoms may be related to your hepatitis B vaccine or the fact that you been going to so many doctors appointments and beginning to get rundown. Please follow-up with your family practitioner in the next 7 days for further evaluation testing as needed. Coding Level of Care Code ED Documentation Designer for Karen Stokes NIH stroke score NIHSS Level Of Consciousness - 1a: 0 Level Of Consciousness Questions - 1b: Both Correct Level Of Consciousness Commands - 1c: Both Correct Best Gaze - 2: Normal Visual [place] - 3: No Visual Loss Facial Palsy - 4: Normal Motor Arm Right - 5: No Drift Motor Arm Left - 5: No Drift Motor Leg Right - 6: No Drift Motor Leg Left - 6: No Drift Limb Ataxia - 7: Absent Sensory - 8: Normal Best Language - 9: No Aphasia Dysarthia - 10: Normal Extinction And Inattention - 11: 0 Score Total Score: 0 Documented by User: Slick Denton DO 12/24/23 20:09 HPI - Dizziness 2 General: Chief Complaint: Dizziness Stated Complaint: dizzy, post vaccination Time Seen by Provider: 12/24/23 16:47 PFS ED 2 PFSH: Medical History Chronic kidney disease Stage 3a 10/2022 Eczema Osteoarthritis Depression Obstructive sleep apnea Psychiatric care Allergic rhinosinusitis COPD (chronic obstructive pulmonary disease) Breast cancer Osteoporosis Surgical History S/P matrixectomy of toe History of section x 3 History of right mastectomy (08/17/19) Right modified radical mastectomy History of cholecystectomy Family History Mother Diabetes Cancer Chronic kidney disease (CKD) Social History Smoking and tobacco/nicotine status: former use of tobacco/nicotine Quit status (tobacco/nicotine): has quit using Year quit tobacco: 2022 Former quit date comment: 1 ppd X 40 years Second hand smoke exposure: Yes (Some.) Alcohol intake: former Substance/Drug Use: never Lives independently: Yes Household members: none Marital status: / Current occupational status: disabled Do you think of yourself as: Straight/Heterosexual Current gender identity: Female Course 2 Vital Signs: Vital signs: Vital Signs Temperature 98.1 F 12/24/23 16:45 Pulse Rate 69 12/24/23 20:14 Respiratory Rate 16 12/24/23 20:14 Blood Pressure 152/92 12/24/23 19:00 Pulse Oximetry 97 12/24/23 20:14 Oxygen Delivery Me thod Room Air 12/24/23 16:45 MDM - Dizziness Medical Decision Making Care transferred over to myself at shift change, awaiting lab work to come back, once lab work was back which is essentially benign I went talk to the patient patient is doing well with no complaints she is appears to be overwhelmed and rundown by going to so many doctors visits for the last couple months and then she think she may have had a reaction to the hepatitis B vaccine today. We will discharge patient home to follow-up with your PCP. Lab Data 12/24/23 18:46 12/24/23 18:46 Radiology Impressions Chest X-Ray 12/24/23 16:51 IMPRESSION: No acute findings. Head CT 12/24/23 16:51 IMPRESSION: 1. Mild chronic microvascular disease. 2. No acute intracranial lesion or injury and no change from prior scan. ASSESSMENT: ASPECTS ([place] Stroke Program Early CT Score) is 10. Laboratory Results WBC 7.53 10^3/uL (3.29-11.43) 12/24/23 18:46 RBC 4.60 10^6/uL (3.85-5.65) 12/24/23 18:46 Hgb 12.90 g/dL (11.27-16.99) 12/24/23 18:46 Hct 39.4 % (36-47) 12/24/23 18:46 MCV 85.7 fl (85-98) 12/24/23 18:46 MCH 28.0 pg (27-33) 12/24/23 18:46 MCHC 32.7 g/dL (30-55) 12/24/23 18:46 RDW 14.0 % (12.1-15.1) 12/24/23 18:46 Plt Count 221 10^3/cmm (157-399) 12/24/23 18:46 MPV 11.3 fL (7.4-10.4) H 12/24/23 18:46 Neut % (Auto) 43.4 % 12/24/23 18:46 Lymph % (Auto) 45.8 % 12/24/23 18:46 [place] % (Auto) 7.7 % 12/24/23 18:46 Eos % (Auto) 2.3 % 12/24/23 18:46 Baso % (Auto) 0.5 % 12/24/23 18:46 Neut # (Auto) 3.27 10^3/uL (1.8-7.7) 12/24/23 18:46 Lymph # (Auto) 3.5 10^3/uL (0.8-4.8) 12/24/23 18:46 [place] # (Auto) 0.6 10^3/uL (0.2-0.9) 12/24/23 18:46 Eos # (Auto) 0.2 10^3/uL (0.0-0.8) 12/24/23 18:46 Baso # (Auto) 0.0 10^3/uL (0.0-0.1) 12/24/23 18:46 Nucleated RBC % (auto) 0 % 12/24/23 18:46 Nucleated RBCs # 0.0 /100WBC 12/24/23 18:46 PT 12.90 SECONDS (12.1-14.9) 12/24/23 18:46 INR 0.95 (0.8-1.2) 12/24/23 18:46 Sodium 141 mmol/L (136-145) 12/24/23 18:46 Potassium 3.8 mmol/L (3.5-5.1) 12/24/23 18:46 Chloride 105 mmol/L (98-107) 12/24/23 18:46 Carbon Dioxide 28 mmol/L (22-29) 12/24/23 18:46 Anion Gap 11.8 (5-19) 12/24/23 18:46 BUN 8 mg/dL (8-23) 12/24/23 18:46 Creatinine 1.0 mg/dL (0.5-0.9) H 12/24/23 18:46 GFR Calculation 56.4 mL/min (90-130) L 12/24/23 18:46 Glucose 103 mg/dL (65-115) 12/24/23 18:46 Calculated Osmolality 291 mOsm/kg (285-295) 12/24/23 18:46 Calcium 8.7 mg/dL (8.5-10.5) 12/24/23 18:46 Total Bilirubin 0.2 mg/dL (0.15-1.2) 12/24/23 18:46 AST 24 U/L (0-32) 12/24/23 18:46 ALT 32 U/L (0-33) 12/24/23 18:46 Alkaline Phosphatase 81 U/L (35-105) 12/24/23 18:46 Total Protein 7.0 g/dL (6.6-8.7) 12/24/23 18:46 Albumin 4.2 g/dL (3.5-5.2) 12/24/23 18:46 Globulin 2.8 g/dL (1.3-4.6) 12/24/23 18:46 All radiology interpretation(s) finalized by discharge Discharge Plan Discharge Patient Disposition: Home Clinical Impression: Light-headedness, Dizziness Condition: Stable Prescriptions: No Action vitamin E (dl, acetate) 400 unit capsule 180 mg PO DAILY cholecalciferol (vitamin D3) 125 mcg (5,000 unit) capsule 125 mcg PO QAM azelastine 137 mcg (0.1 %) aerosol,spray 1 spray intranasal BID PRN (Reason: sob) Rx Instructions: administer into each nostril bupropion HCl [Wellbutrin XL] 300 mg tablet extended release 24 hr 300 mg PO QAM Qty: 90 0RF (DME) Carbon Fiber Plate See Rx Instructions .Route .MEDSUPPLY Qty: 1 0RF Rx Instructions: As directed albuterol sulfate 90 mcg/actuation HFA aerosol inhaler 2 puff inhalation Q4H PRN (Reason: Shortness Of Breath) All Day Allergy (cetirizine) 10 mg capsule 10 mg PO DAILY PRN (Reason: Allergy Symptoms) oxybutynin chloride 5 mg tablet extended release 24hr 5 mg PO DAILY Anoro Ellipta 62.5-25 mcg/actuation blister with device 1 inh inhalation DAILY Qty: 60 6RF fluticasone propionate [Flonase Allergy Relief] 50 mcg/actuation spray,suspension 2 spray intranasal DAILY Qty: 16 3RF Rx Instructions: administer into each nostril alendronate 70 mg tablet 70 mg PO .weekly Qty: 4 6RF vitamin B complex Tablet 1 tab PO DAILY exemestane 25 mg tablet 25 mg PO DAILY paroxetine HCl 40 mg tablet 40 mg PO QPM Discharge Orders: Discharge ED (Routine); Ordered 12/24/23 Ordered By: Slick Denton Referrals: Leelee Echevarria PA-C [Primary Care Provider] - 1 week Patient Instructions: Lightheadedness (ED), Dizziness (ED) Activity Restrictions/Additional Instructions: Your evaluation in ER did not provide any acute evidence for your symptomatology. All of your lab work and imaging was essentially benign. Your symptoms may be related to your hepatitis B vaccine or the fact that you been going to so many doctors appointments and beginning to get rundown. Please follow-up with your family practitioner in the next 7 days for further evaluation testing as needed. Coding Level of Care Code ED Documentation Designer for Karen Stokes NIH stroke score Score Total Score: 0
[2023-12-24] MEDS: ondansetron 2 mg/ML SDV 2 mL 4 MG IVP (17:04)
[2023-12-24] MEDS: meclizine 25 mg tablet 50 MG PO (17:05)
[2023-12-24] MEDS: sodium chloride 0.9% 500 ML IV (17:06)
--- NOTE | 2023-12-24 17:44 | PC.NURSE ---
Ambulated patient after meds and fluids, patient seems to be walking more steadily, patient states she still feels a little lightheaded but it is better than when she arrived and tried to ambulate. Patient denies any dizziness.
[2023-12-24 19:13] LABS: Basophils % 0.5 %; Eosinophils # 0.2 10^3/uL (0.0-0.8); Eosinophils % 2.3 %; Hematocrit 39.4 % (36-47); Lymphocytes # 3.5 10^3/uL (0.8-4.8); Lymphocytes % 45.8 %; Mean Corpuscular HGB Conc 32.7 g/dL (30-55); Mean Corpuscular Volume 85.7 fl (85-98); Mean Platelet Volume 11.3 fL (7.4-10.4); Monocytes # 0.6 10^3/uL (0.2-0.9); Monocytes % 7.7 %; Neutrophils # 3.27 10^3/uL (1.8-7.7); Neutrophils % 43.4 %; Nucleated Red Blood Cells % 0 %; Platelet Count 221 10^3/cmm (157-399); White Blood Count 7.53 10^3/uL (3.29-11.43)
[2023-12-24 19:25] LABS: INR 0.95 (0.8-1.2)
[2023-12-24 19:31] LABS: Alanine Aminotransferase 32 U/L (0-33); Albumin Level 4.2 g/dL (3.5-5.2); Alkaline Phosphatase 81 U/L (35-105); Anion Gap 11.8 (5-19); Aspartate Amino Transferase 24 U/L (0-32); Blood Urea Nitrogen 8 mg/dL (8-23); Calcium 8.7 mg/dL (8.5-10.5); Carbon Dioxide 28 mmol/L (22-29); Chloride 105 mmol/L (98-107); Creatinine Clr Calc Pharmacy 59.6475; Globulin 2.8 g/dL (1.3-4.6); Glomerular Filtration Rate 56.4 mL/min (90-130); Glucose 103 mg/dL (65-115); Osmolality Calculated 291 mOsm/kg (285-295); Potassium 3.8 mmol/L (3.5-5.1); Sodium 141 mmol/L (136-145); Total Bilirubin 0.2 mg/dL (0.15-1.2)
== END 2023-12-24 20:15 | disposition home or self-care (01) ==
PROVIDERS: Emergency Provider Emergency Medicine; PCP Physician Assistant
DX: R42 Dizziness and giddiness (principal); Z87.891 Personal history of nicotine dependence; N18.31 Chronic kidney disease, stage 3a; J44.9 Chronic obstructive pulmonary disease, unspecified; Z85.3 Personal history of malignant neoplasm of breast; R55 Syncope and collapse
CPT/HCPCS: 36415; 70450; 71045; 80053; 85025; 85610; 93005; 96374; 99285; J2405; J7040; J8597

== ENCOUNTER 2024-01-01 06:00 | Outpatient (RCR) | payer MEDICARE, MEDICAID, SELFPAY | END 2024-01-30 23:59 | disposition home or self-care (01) | LOC: MPT 06:00 | PROVIDERS: PCP Physician Assistant; Visit Provider Podiatrist Foot & Ankle Surgery | DX: S93.409D Sprain of unspecified ligament of unspecified ankle, subsequent encounter (principal); X58.XXXD Exposure to other specified factors, subsequent encounter | CPT/HCPCS: 97110; 97112 ==

== ENCOUNTER 2024-01-13 10:35 | Outpatient (CLI) | payer MEDICARE, MEDICAID, SELFPAY ==
--- NOTE | 2024-01-13 11:00 | MR_ITS ---
WS: [id number] MRI RIGHT KNEE HISTORY: right knee pain COMPARISON: Radiograph 12/20/2023 Anterior cruciate ligament: Intact. Posterior cruciate ligament: Intact. Medial collateral ligament: MCL is displaced to the joint line by an extruded meniscus. There is mireya a and fluid surrounding the MCL but no tear. Posterior lateral corner structures: Intact. Medial menisci: Complex tear in the posterior horn towards the meniscal root. There is additional inc reased intrasubstance degeneration throughout the remaining meniscus. Anterior horn appears negative but extruded from the joint line. Lateral meniscus: Intact. Normal signal, size and shape. Extensor mechanism: Distal quadriceps tendon and patellar tendons are intact. Fluid and soft tissue: Moderate sized suprapatellar joint effusion. Moderate-sized Alvarez's cyst. Osseous and articular structures: Patellofemoral compartment: Mild narrowing of patellofemoral joint space. Cartilage appears intact. P atellar retinaculum is normal. Medial compartment: Significant amount of marrow edema involving the femoral condyle and tibial plate au with loss of joint space. Diffuse chondromalacia. No fracture. Lateral compartment: Mild narrowing. Mild thinning of the cartilage. Edema and fluid in the infrapatellar fat pad. MR/MR knee RT wo con* [id number] IMPRESSION: 1. Complex tear posterior horn medial meniscus. Tear is predominantly towards the meniscal root but there is abnormal signal throughout the posterior horn. 2. Medial meniscus partially extruded from the joint line displacing the MCL. 3. Moderate size suprapatellar joint effusion. 4. Moderate size Alvarez's cyst. 5. Marrow edema involving significant portions of the medial femoral condyle a nd tibial plateau. 6. Marked narrowing of the medial compartment with diffuse chondromalacia.
== END 2024-01-13 10:36 | disposition home or self-care (01) ==
LOC: RAD 10:35
PROVIDERS: PCP Physician Assistant; Visit Provider Specialist
DX: S83.8X1A Sprain of other specified parts of right knee, initial encounter (principal); M23.8X1 Other internal derangements of right knee; M71.21 Synovial cyst of popliteal space [Baker], right knee; M94.261 Chondromalacia, right knee; M25.861 Other specified joint disorders, right knee; X58.XXXA Exposure to other specified factors, initial encounter
CPT/HCPCS: 73721

== ENCOUNTER → 2024-01-17 07:41 | Outpatient (BNVA) | payer MEDICARE, MEDICAID, SELFPAY | PROVIDERS: PCP Family Medicine; Visit Provider Podiatrist Foot & Ankle Surgery | DX: Z98.890 Other specified postprocedural states (principal) | CPT/HCPCS: 73630; 99024 ==

== ENCOUNTER 2024-02-07 10:00 | Outpatient (CLI) | payer MEDICARE, MEDICAID, SELFPAY | END 2024-02-07 10:01 | disposition home or self-care (01) | LOC: SPT 10:01 | PROVIDERS: PCP Family Medicine; Visit Provider Specialist | DX: Z46.89 Encounter for fitting and adjustment of other specified devices (principal); M17.11 Unilateral primary osteoarthritis, right knee | CPT/HCPCS: 97760; L1812 ==

== ENCOUNTER → 2024-02-18 08:59 | Outpatient (BNVA) | payer MEDICARE, MEDICAID, SELFPAY | PROVIDERS: PCP Family Medicine; Visit Provider Nurse Practitioner Family | DX: L57.8 Other skin changes due to chronic exposure to nonionizing radiation (principal); L81.4 Other melanin hyperpigmentation; L24.9 Irritant contact dermatitis, unspecified cause | CPT/HCPCS: 99213 ==

== ENCOUNTER → 2024-03-06 15:03 | Outpatient (BNVA) | payer MEDICARE, MEDICAID, SELFPAY | PROVIDERS: PCP Family Medicine; Visit Provider Family Medicine | DX: R73.03 Prediabetes (principal); N18.9 Chronic kidney disease, unspecified; E11.9 Type 2 diabetes mellitus without complications; E55.9 Vitamin D deficiency, unspecified; R53.83 Other fatigue | CPT/HCPCS: 80053; 80061; 82652; 83036 ==

== ENCOUNTER → 2024-03-20 13:31 | Outpatient (BNVA) | payer MEDICARE, MEDICAID, SELFPAY | PROVIDERS: Visit Provider Physician Assistant | DX: R00.2 Palpitations (principal) | CPT/HCPCS: 93005 ==

== ENCOUNTER 2024-03-20 22:13 | Emergency (ER) | payer MEDICARE, MEDICAID, SELFPAY ==
[2024-03-20 22:14] VITALS: BP 163/98; PULSE 84; RESP 18; TEMP 36.8; O2SAT 97; BMI 25.6
--- NOTE | 2024-03-20 22:19 | ECG_ITS ---
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 Measurements Intervals [place] Rate: 79 P: 40 RI: 161 QRS: 37 QRSD: 85 T: 38 QT: 361 QTc: 414 Interpretive Statements SINUS RHYTHM Compared to ECG 12/24/2023 17:37:58 No significant changes Electronically Signed On 03-21-2024 23:27:28 CDT by Ervin Millard M.D. [id number]
[2024-03-20 22:35] LABS: Basophils % 0.4 %; Eosinophils # 0.1 10^3/uL (0.0-0.8); Eosinophils % 1.7 %; Hematocrit 43.5 % (36-47); Lymphocytes # 3.1 10^3/uL (0.8-4.8); Lymphocytes % 37.5 %; Mean Corpuscular HGB Conc 32.9 g/dL (30-55); Mean Corpuscular Hemoglobin 27.9 pg (27-33); Mean Corpuscular Volume 84.8 fl (85-98); Mean Platelet Volume 10.9 fL (7.4-10.4); Monocytes # 0.5 10^3/uL (0.2-0.9); Monocytes % 6.3 %; Nucleated Red Blood Cells % 0 %; Platelet Count 214 10^3/cmm (157-399); Red Blood Count 5.13 10^6/uL (3.85-5.65); Red Cell Distribution Width 13.4 % (12.1-15.1); White Blood Count 8.32 10^3/uL (3.29-11.43)
[2024-03-20 22:42] LABS: Charge for UA Resulting for Rev
[2024-03-20 22:46] LABS: Bilirubin Urine Neg (Negative); Blood Urine Neg (Negative); Glucose Urine UA Norm (Normal); Ketones Urine Negative (Negative); Leukocyte Esterase Urine Negative (Negative); Nitrate Urine Negative (Negative); Protein Urine Neg (Negative); Urine Appearance Clear (CLEAR); Urine Color Yellow (Yellow); Urobilinogen Urine Norm (Negative); pH Urine 7 (5-7)
[2024-03-20 22:55] LABS: Alanine Aminotransferase 22 U/L (0-33); Albumin Level 4.8 g/dL (3.5-5.2); Alkaline Phosphatase 122 U/L (35-105); Anion Gap 15.6 (5-19); Aspartate Amino Transferase 21 U/L (0-32); Blood Urea Nitrogen 7 mg/dL (8-23); Calcium 9.9 mg/dL (8.5-10.5); Carbon Dioxide 27 mmol/L (22-29); Chloride 103 mmol/L (98-107); Creatinine Clr Calc Pharmacy 47.6847; Globulin 3.2 g/dL (1.3-4.6); Glomerular Filtration Rate 45.5 mL/min (90-130); Glucose 93 mg/dL (65-115); Magnesium 2.2 mg/dL (1.7-2.3); Osmolality Calculated 292 mOsm/kg (285-295); Potassium 3.6 mmol/L (3.5-5.1); Sodium 142 mmol/L (136-145); Total Bilirubin 0.4 mg/dL (0.15-1.2)
[2024-03-20 23:00] VITALS: BP 155/90; PULSE 80; RESP 15; O2SAT 95
[2024-03-20] MEDS: sodium chloride 0.9% 1,000 ML 999 ML IV (23:00)
--- NOTE | 2024-03-20 23:04 | ED_ITS ---
HPI - Dizziness 2 General: Chief Complaint: Dizziness Stated Complaint: dizziness, htn Time Seen by Provider: 03/20/24 22:15 History of Present Illness: HPI Narrative: Patient returns to the ER because she still dizzy chest with fluttering and she is fatigued. Patient saw her PCP 2 times a day and has been seen in the ER once a day. Patient started a new medicine trospium for overactive bladder and it says it can cause the side effects. Patient took her morning dose but has not took her afternoon dose. She still having the symptoms. Related Data Home Medications Medication Instructions Recorded Confirmed vitamin E (dl, acetate) 180 mg 180 mg PO DAILY 11/12/20 03/20/24 (400 unit) capsule cholecalciferol (vitamin D3) 125 125 mcg PO QAM 07/21/21 03/20/24 mcg (5,000 unit) capsule cetirizine 10 mg capsule (All Day 10 mg PO DAILY PRN Allergy Symptoms 08/12/22 03/20/24 Allergy (cetirizine)) albuterol sulfate 90 mcg/actuation 2 puff inhalation Q4H PRN 09/25/22 03/20/24 aerosol inhaler Shortness Of Breath vitamin B complex 1 tab PO DAILY 11/23/22 03/20/24 azelastine 137 mcg (0.1 %) nasal 1 spray intranasal BID PRN sob 04/26/23 03/20/24 spray oxybutynin chloride 5 mg 5 mg PO DAILY 08/13/23 03/20/24 tablet,extended release 24 hr triamcinolone acetonide 0.1 % 1 applic topical DAILY 03/06/24 03/20/24 topical cream Previous Rx's Medication Instructions Recorded umeclidinium 62.5 mcg-vilanterol 1 inh inhalation DAILY #60 ea 09/21/23 25 mcg/actuation powdr for inhalation (Anoro Ellipta) Carbon Fiber Plate #1 ea 10/14/23 fluticasone propionate 50 2 spray intranasal DAILY #16 grams 11/05/23 mcg/actuation nasal spray,suspension (Flonase Allergy Relief) alendronate 70 mg tablet 70 mg PO .weekly #4 tabs 11/29/23 exemestane 25 mg tablet See Rx Instructions .Route 01/26/24 .COMPLEX #180 tabs Hinged Knee Brace, right #1 ea 02/07/24 blood sugar diagnostic (Blood #50 ea 03/06/24 Glucose Test strips) lancets 30 gauge (Droplet Lancets) #100 ea 03/06/24 bupropion HCl 300 mg 24 hr tablet, 300 mg PO QAM #90 tabs 03/09/24 extended release (Wellbutrin XL) paroxetine HCl 20 mg tablet 20 mg PO DAILY #90 tabs 03/09/24 paroxetine HCl 40 mg tablet 40 mg PO QPM #90 tabs 03/09/24 Allergies Allergy/AdvReac Type Severity Reaction Status Date / Time aspirin Allergy Severe makes me Verified 03/20/24 22:20 stop breathing codeine Allergy Intermediate loss of Verified 03/20/24 22:20 functioning hepatitis B virus vaccine Allergy Intermediate ADR-Dizzine Verified 03/20/24 22:20 ss metronidazole [From Flagyl] Allergy Intermediate memory fog Verified 03/20/24 22:20 mushrooms Allergy Severe Can't Uncoded 03/20/24 22:20 breath Review of Systems 2 General: Reports: 10 or more systems reviewed and unremarkable except in HPI and below PFSH ED 2 PFSH: Medical History Myocardial infarction (2007) Chronic kidney disease Stage 3a 10/2022 Eczema Osteoarthritis Depression Obstructive sleep apnea Psychiatric care Allergic rhinosinusitis COPD (chronic obstructive pulmonary disease) Breast cancer Osteoporosis Surgical History S/P matrixectomy of toe History of section x 3 History of right mastectomy (08/17/19) Right modified radical mastectomy History of cholecystectomy Family History Mother Diabetes Cancer Chronic kidney disease (CKD) Social History Smoking and tobacco/nicotine status: current every day tobacco/nicotine user Quit status (tobacco/nicotine): has quit using Year quit tobacco: 2022 Former quit date comment: 1 ppd X 40 years Second hand smoke exposure: Yes (Some.) Alcohol intake: former Substance/Drug Use: never Lives independently: Yes Household members: none Marital status: / Current occupational status: disabled Do you think of yourself as: Straight/Heterosexual Current gender identity: Female Physical Exam 2 Const: COMMON NORMALS: no acute distress, average body habitus, patient oriented x3, no limitations, healthy appearing, alert and well nourished HENMT: COMMON NORMALS: normocephalic, atraumatic, hearing grossly normal bilaterally, external ears normal, Normal external nose present and moist oral mucous membranes HEAD & SCALP: normocephalic and atraumatic NOSE: Normal external nose present EXTERNAL EAR: Yes external ears normal Neck/C-Spine: COMMON NORMALS: no JVD Chest: COMMONS NORMALS: normal inspection of the chest and normal palpation of entire chest wall Resp: COMMON NORMALS: normal respiratory effort, No retractions, No use of accessory muscles and clear to auscultation bilaterally AUSCULTATION: clear to auscultation bilaterally Cardio: COMMON NORMALS: no JVD, regular rate, regular rhythm, S1 normal heart sound present, S2 normal heart sound present, No gallops present (Cardio), No clicks present (Cardio), No murmurs present (Cardio) and No rub (Cardio) R ATE: regular rate RHYTHM: regular rhythm HEART SOUNDS: S1 normal heart sound present and S2 normal heart sound present GI: COMMON NORMALS: Normal to inspection, nondistended, normoactive bowel sounds present, Soft to palpation, non-tender, No hepatosplenomegaly present and no masses PALPATION: Yes Soft to palpation and Yes No hepatosplenomegaly present Neuro: COMMON NORMALS: patient oriented x3 SENSORIUM/ORIENTATION: Yes alert Course 2 Vital Signs: Vital signs: Vital Signs Temperature 98.3 F 03/20/24 22:14 Pulse Rate 84 03/20/24 22:14 Respiratory Rate 18 03/20/24 22:14 Blood Pressure 163/98 03/20/24 22:14 Pulse Oximetry 97 03/20/24 22:14 Oxygen Delivery Me thod Room Air 03/20/24 22:14 MDM - Dizziness Medical Decision Making It is thought the patient is having a adverse reaction to her medication. Lab work was reevaluated as well as EKG all of which was essentially negative or benign. Patient will be discharged instructed not to take her medication anymore. Lab Data 03/20/24 22:30 03/20/24 22:30 Laboratory Results WBC 8.32 10^3/uL (3.29-11.43) 03/20/24 22:30 RBC 5.13 10^6/uL (3.85-5.65) 03/20/24 22: Hgb 14.30 g/dL (11.27-16.99) 03/20/24: Hct 43.5 % (36-47) 03/20/24 22: MCV 84.8 fl (85-98) L 03/20/24 22: MCH 27.9 pg (27-33) 03/20/24: MCHC 32.9 g/dL (30-55) 03/20/24 22: RDW 13.4 % (12.1-15.1) 03/20/24: Plt Count 214 10^3/cmm (157-399) 03/20/24: MPV 10.9 fL (7.4-10.4) H 03/20/24: Neut % (Auto) 54.0 % 03/20/24: Lymph % (Auto) 37.5 % 03/20/24: [place] % (Auto) 6.3 % 03/20/24 22: Eos % (Auto) 1.7 % 03/20/24: Baso % (Auto) 0.4 % 03/20/24: Neut # (Auto) 4.50 10^3/uL (1.8-7.7) 03/20/24: Lymph # (Auto) 3.1 10^3/uL (0.8-4.8) 03/20/24: [place] # (Auto) 0.5 10^3/uL (0.2-0.9) 03/20/24 22: Eos # (Auto) 0.1 10^3/uL (0.0-0.8) 03/20/24: Baso # (Auto) 0.0 10^3/uL (0.0-0.1) 03/20/24: Nucleated RBC % (auto) 0 % 03/20/24: Nucleated RBCs # 0.0 /100WBC 03/20/24 22: Sodium 142 mmol/L (136-145) 03/20/24: Potassium 3.6 mmol/L (3.5-5.1) 08/19/24 22:30 Chloride 103 mmol/L (98-107) 03/20/24 22:30 Carbon Dioxide 27 mmol/L (22-29) 03/20/24 22:30 Anion Gap 15.6 (5-19) 03/20/24 22:30 BUN 7 mg/dL (8-23) L 03/20/24 22:30 Creatinine 1.2 mg/dL (0.5-0.9) H 03/20/24 22:30 GFR Calculation 45.5 mL/min (90-130) L 03/20/24 22:30 Glucose 93 mg/dL (65-115) 03/20/24 22:30 Calculated Osmolality 292 mOsm/kg (285-295) 03/20/24 22:30 Calcium 9.9 mg/dL (8.5-10.5) 03/20/24 22:30 Magnesium 2.2 mg/dL (1.7-2.3) 03/20/24 22:30 Total Bilirubin 0.4 mg/dL (0.15-1.2) 03/20/24 22:30 AST 21 U/L (0-32) 03/20/24 22:30 ALT 22 U/L (0-33) 03/20/24 22:30 Alkaline Phosphatase 122 U/L (35-105) H 03/20/24 22:30 Total Protein 8.0 g/dL (6.6-8.7) 03/20/24 22:30 Albumin 4.8 g/dL (3.5-5.2) 03/20/24 22:30 Globulin 3.2 g/dL (1.3-4.6) 03/20/24 22:30 Urine Color Yellow (Yellow) 03/20/24 22:38 Urine Appearance Clear (CLEAR) 03/20/24 22:38 Urine pH 7 (5-7) 03/20/24 22:38 Ur Specific [place] 1.000 (1.005-1.030) L 03/20/24 22:38 Urine Protein Neg (Negative) 03/20/24 22:38 Urine Glucose (UA) Norm (Normal) 03/20/24 22:38 Urine Ketones Negative (Negative) 03/20/24 22:38 Urine Blood Neg (Negative) 03/20/24 22:38 Urine Nitrate Negative (Negative) 03/20/24 22:38 Urine Bilirubin Neg (Negative) 03/20/24 22:38 Urine Urobilinogen Norm mg/dL (Negative) 03/20/24 22:38 Ur Leukocyte Esterase Negative (Negative) 03/20/24 22:38 Amorphous Sediment Not Reportable 03/20/24 22:38 All radiology interpretation(s) finalized by discharge Discharge Plan Discharge Patient Disposition: Home Clinical Impression: Adverse reaction to drug Qualifiers: Encounter type: subsequent encounter Qualified Code(s): T50.905D - Adverse effect of unspecified drugs, medicaments and biological substances, subsequent encounter Condition: Stable Prescriptions: No Action vitamin E (dl, acetate) 400 unit capsule 180 mg PO DAILY cholecalciferol (vitamin D3) 125 mcg (5,000 unit) capsule 125 mcg PO QAM azelastine 137 mcg (0.1 %) aerosol,spray 1 spray intranasal BID PRN (Reason: sob) Rx Instructions: administer into each nostril (DME) Carbon Fiber Plate See Rx Instructions .Route .MEDSUPPLY Qty: 1 0RF Rx Instructions: As directed triamcinolone acetonide 0.1 % cream 1 applic topical DAILY (DME) Blood Glucose Test Strip See Rx Instructions .ROUTE .MEDSUPPLY Qty: 50 11RF Rx Instructions: Brand/type to go with meter per insurance coverage (DME) lancets [Droplet Lancets] 30 gauge misc See Rx Instructions .Route Qty: 100 3RF Rx Instructions: As directed albuterol sulfate 90 mcg/actuation HFA aerosol inhaler 2 puff inhalation Q4H PRN (Reason: Shortness Of Breath) All Day Allergy (cetirizine) 10 mg capsule 10 mg PO DAILY PRN (Reason: Allergy Symptoms) oxybutynin chloride 5 mg tablet extended release 24hr 5 mg PO DAILY (DME) Hinged Knee Brace, right See Rx Instructions .Route .MEDSUPPLY Qty: 1 0RF Rx Instructions: As directed paroxetine HCl 20 mg tablet 20 mg PO DAILY Qty: 90 1RF Rx Instructions: Take with 40 mg for a total of 60 mg daily paroxetine HCl 40 mg tablet 40 mg PO QPM Qty: 90 1RF bupropion HCl [Wellbutrin XL] 300 mg tablet extended release 24 hr 300 mg PO QAM Qty: 90 1RF Anoro Ellipta 62.5-25 mcg/actuation blister with device 1 inh inhalation DAILY Qty: 60 6RF fluticasone propionate [Flonase Allergy Relief] 50 mcg/actuation spray,suspension 2 spray intranasal DAILY Qty: 16 3RF Rx Instructions: administer into each nostril alendronate 70 mg tablet 70 mg PO .weekly Qty: 4 6RF exemestane 25 mg tablet See Rx Instructions .ROUTE .COMPLEX Qty: 180 0RF Dose Instruction: TAKE 1 TABLET BY MOUTH ONCE DAILY Rx Instructions: TAKE 1 TABLET BY MOUTH ONCE DAILY vitamin B complex Tablet 1 tab PO DAILY Discharge Orders: Discharge ED (Routine); Ordered 03/20/24 Ordered By: Slick Denton Patient Instructions: Adverse Drug Reaction (ED) Activity Restrictions/Additional Instructions: Your evaluation in the ER tonight did not show any acute cause of your symptomatology other than the adverse reaction from your medicine for your overactive bladder. Please do not take this medicine anymore and the symptoms will dissipate. There is no treatment other than this. Please follow-up with your family practice physician for further evaluation and treatment. Coding Level of Care Code ED Nickel Plater for Karen Stokes
[2024-03-20 23:30] VITALS: BP 161/97; PULSE 80; RESP 25; O2SAT 93
== END 2024-03-21 00:15 | disposition home or self-care (01) ==
PROVIDERS: Emergency Provider Emergency Medicine
DX: R42 Dizziness and giddiness (principal); T44.3X5A Adverse effect of other parasympatholytics [anticholinergics and antimuscarinics] and spasmolytics, initial encounter; I25.2 Old myocardial infarction; N18.31 Chronic kidney disease, stage 3a; J44.9 Chronic obstructive pulmonary disease, unspecified; Z85.3 Personal history of malignant neoplasm of breast; Z72.0 Tobacco use
CPT/HCPCS: 36415; 80053; 81003; 81015; 83735; 85025; 93005; 96360; 99284; J7030

== ENCOUNTER 2024-03-28 06:00 | Outpatient (RCR) | payer MEDICARE, MEDICAID, SELFPAY | END 2024-04-01 18:00 | disposition home or self-care (01) | LOC: MPT 06:00 | PROVIDERS: PCP Family Medicine; Visit Provider Specialist | DX: M25.561 Pain in right knee (principal) | CPT/HCPCS: 97110; 97162 ==

== ENCOUNTER 2024-04-02 06:00 | Outpatient (RCR) | payer MEDICARE, MEDICAID, SELFPAY | END 2024-05-01 23:59 | disposition home or self-care (01) | LOC: MPT 06:00 | PROVIDERS: PCP Family Medicine; Visit Provider Specialist | DX: M25.561 Pain in right knee (principal) | CPT/HCPCS: 97110; 97112 ==

== ENCOUNTER 2024-04-04 08:34 | Outpatient (CLI) | payer MEDICARE, MEDICAID, SELFPAY ==
--- NOTE | 2024-04-04 09:00 | CT_ITS ---
WS: [id number] LDCT LUNG CANCER SCREENING TECHNIQUE: Noncontrast CT of the chest with coronal and sagittal reformatted images. CLINICAL INFORMATION: screening for lung ca COMPARISON: 05/11/2023 DLP: 41.42 mGy.cm DIvol: Mean CTDIvol: 0.90 (mGy) All CT scans at [facility] use at least one of these dose optimization techniques: automat ed exposure control; mA and/or kV adjustment per patient size (includes targeted exams where dose is matched to clinical indication); or iterative reconstruction. FINDINGS: Chronic emphysematous changes. Stable tiny nodule RIGHT middle lobe measuring 3 mm. This is unchanged . No new suspicious pulmonary parenchymal opacities. Evidence of prior RIGHT mastectomy. No mediastinal or hilar lymphadenopathy. Calcified anterior media stinal and hilar lymph nodes. Normal caliber thoracic aorta. No axillary lymphadenopathy. Surgical cl ips RIGHT axilla. Splenic granulomas. CT/CT lung screening [id number] IMPRESSION: LUNG-RADS: 2-Benign Appearance or Behavior FOLLOW UP: 12 Month: Continue annual screening with LDCT
== END 2024-04-04 08:35 | disposition home or self-care (01) ==
LOC: RAD 08:35
PROVIDERS: PCP Family Medicine; Visit Provider Internal Medicine Critical Care Medicine
DX: Z12.2 Encounter for screening for malignant neoplasm of respiratory organs (principal); F17.210 Nicotine dependence, cigarettes, uncomplicated; J43.9 Emphysema, unspecified; R91.1 Solitary pulmonary nodule; Z90.11 Acquired absence of right breast and nipple; D73.89 Other diseases of spleen
CPT/HCPCS: 71271; 99214

== ENCOUNTER 2024-04-19 09:43 | Outpatient (CLI) | payer MEDICARE, MEDICAID, SELFPAY | END 2024-04-19 09:44 | disposition home or self-care (01) | LOC: RT 09:44 | PROVIDERS: PCP Family Medicine; Visit Provider Internal Medicine Critical Care Medicine | DX: R06.09 Other forms of dyspnea (principal); F17.200 Nicotine dependence, unspecified, uncomplicated; J41.0 Simple chronic bronchitis | CPT/HCPCS: 94010; 94726; 94729 ==

== ENCOUNTER 2024-04-26 10:49 | Outpatient (CLI) | payer MEDICARE, MEDICAID, SELFPAY | END 2024-04-26 10:50 | disposition home or self-care (01) | LOC: SLEEP 10:51 | PROVIDERS: PCP Family Medicine; Visit Provider Internal Medicine Critical Care Medicine | DX: R06.09 Other forms of dyspnea (principal); F17.200 Nicotine dependence, unspecified, uncomplicated; F17.218 Nicotine dependence, cigarettes, with other nicotine-induced disorders; J41.0 Simple chronic bronchitis | CPT/HCPCS: 94762 ==

== ENCOUNTER 2024-05-02 06:00 | Outpatient (RCR) | payer MEDICARE, MEDICAID, SELFPAY | END 2024-06-01 23:59 | disposition home or self-care (01) | LOC: MPT 06:00 | PROVIDERS: PCP Family Medicine; Visit Provider Specialist | DX: M25.561 Pain in right knee (principal) | CPT/HCPCS: 97110; 97530 ==

== ENCOUNTER → 2024-05-15 07:50 | Outpatient (BNVA) | payer MEDICARE, MEDICAID, SELFPAY | PROVIDERS: PCP Family Medicine; Visit Provider Podiatrist Foot & Ankle Surgery | DX: Z98.890 Other specified postprocedural states; Z87.39 Personal history of other diseases of the musculoskeletal system and connective tissue; S90.31XA Contusion of right foot, initial encounter; W22.8XXA Striking against or struck by other objects, initial encounter | CPT/HCPCS: 73630; 99213 ==

== ENCOUNTER → 2024-05-26 09:56 | Outpatient (BNVA) | payer MEDICARE, MEDICAID, SELFPAY | PROVIDERS: PCP Family Medicine; Visit Provider Specialist | DX: M17.11 Unilateral primary osteoarthritis, right knee (principal); Z71.89 Other specified counseling | CPT/HCPCS: 20610; J7318 ==

== ENCOUNTER 2024-05-29 14:00 | Oncology outpatient (recurring) (ONCR) | payer MEDICARE, MEDICAID, SELFPAY ==
--- NOTE | 2024-05-03 10:00 | MM_ITS ---
WS: [id number] VIEWS: MLO, CC, and ML views LEFT breast. 3D digital tomosynthesis is also included in this exam. Comparison made with prior exam of 07/24/2021, 06/11/2022, 02/11/2017, 06/20/2018, 06/27/2019, 07/05/20, 05/03/2024,. Findings: There are scattered areas of fibroglandular density. No sign of suspicious mass, tumor calcification or architectural distortion. Stable appearing nodular densities in the LEFT breast. MM/[place] [id number] Impression: BI-RADS: 2 - Benign FOLLOW-UP: 1 Year Follow-up This mammogram was also analyzed by the Computer Aided Detection System [employer].
[2024-05-29 14:06] LABS: Basophils % 0.4 %; Eosinophils # 0.1 10^3/uL (0.0-0.8); Eosinophils % 1.4 %; Hematocrit 41.3 % (36-47); Lymphocytes # 2.6 10^3/uL (0.8-4.8); Lymphocytes % 35.5 %; Mean Corpuscular HGB Conc 33.2 g/dL (30-55); Mean Corpuscular Hemoglobin 28.5 pg (27-33); Mean Corpuscular Volume 85.9 fl (85-98); Mean Platelet Volume 10.4 fL (7.4-10.4); Monocytes # 0.5 10^3/uL (0.2-0.9); Monocytes % 6.5 %; Neutrophils # 4.13 10^3/uL (1.8-7.7); Neutrophils % 55.9 %; Nucleated Red Blood Cells % 0 %; Platelet Count 219 10^3/cmm (157-399); Red Blood Count 4.81 10^6/uL (3.85-5.65); Red Cell Distribution Width 13.4 % (12.1-15.1); White Blood Count 7.38 10^3/uL (3.29-11.43)
[2024-05-29 14:27] LABS: Alanine Aminotransferase 18 U/L (0-33); Albumin Level 4.2 g/dL (3.5-5.2); Alkaline Phosphatase 109 U/L (35-105); Anion Gap 11.8 (5-19); Aspartate Amino Transferase 16 U/L (0-32); Blood Urea Nitrogen 13 mg/dL (8-23); Calcium 9.1 mg/dL (8.5-10.5); Carbon Dioxide 29 mmol/L (22-29); Chloride 101 mmol/L (98-107); Creatinine Clr Calc Pharmacy 55.7841; Globulin 2.6 g/dL (1.3-4.6); Glomerular Filtration Rate 56.2 mL/min (90-130); Glucose 164 mg/dL (65-115); Osmolality Calculated 290 mOsm/kg (285-295); Potassium 3.8 mmol/L (3.5-5.1); Sodium 138 mmol/L (136-145); Total Bilirubin 0.2 mg/dL (0.15-1.2); Total Protein 6.8 g/dL (6.6-8.7)
== END 2024-06-01 23:59 | disposition home or self-care (01) ==
PROVIDERS: PCP Family Medicine; Visit Provider Nurse Practitioner Family
DX: Z53.9 Procedure and treatment not carried out, unspecified reason; C50.411 Malignant neoplasm of upper-outer quadrant of right female breast; M81.0 Age-related osteoporosis without current pathological fracture; Z17.0 Estrogen receptor positive status [ER+]; Z79.811 Long term (current) use of aromatase inhibitors
CPT/HCPCS: 36415; 77065; 80053; 85025; 99214

== ENCOUNTER → 2024-06-15 07:36 | Outpatient (BNVA) | payer MEDICARE, SELFPAY | PROVIDERS: PCP Family Medicine; Visit Provider Podiatrist Foot & Ankle Surgery | DX: L60.3 Nail dystrophy (principal) | CPT/HCPCS: 11750 ==

== ENCOUNTER → 2024-06-27 10:34 | Outpatient (BNVA) | payer MEDICARE, SELFPAY | PROVIDERS: PCP Family Medicine; Visit Provider Family Medicine | DX: N18.31 Chronic kidney disease, stage 3a (principal) | CPT/HCPCS: 80069; 82043; 82310; 82652; 83970; 85025 ==

== ENCOUNTER → 2024-07-07 09:20 | Outpatient (BNVA) | payer MEDICARE, SELFPAY | PROVIDERS: PCP Family Medicine; Referring Provider Family Medicine; Visit Provider Surgery | DX: Z86.0100 Personal history of colon polyps, unspecified; K59.04 Chronic idiopathic constipation | CPT/HCPCS: 99204 ==

== ENCOUNTER 2024-07-12 09:06 | Day surgery (SDC) | payer MEDICARE, MEDICAID, SELFPAY ==
[2024-07-12 09:33] VITALS: BP 109/73; PULSE 75; RESP 18; TEMP 36.9; O2SAT 99; BMI 25.5
[2024-07-12] MEDS: sodium chloride 0.9% 500 ML 15 ML IV (09:50)
--- NOTE | 2024-07-12 11:37 | P.ANESASSM_ITS ---
Pre-Anesthetic Assessment Height/Weight: Height 1.63 m Weight 67.585 kg Temp Pulse Resp BP Pulse Ox O2 Del Method 98.5 F 75 18 109/73 99 Room Air 07/12/24 09:33 07/12/24 09:33 07/12/24 09:33 07/12/24 09:33 07/12/24 09:33 07/12/24 09:33 Preop Diagnosis: history of colonic polyps. Operation Date: 07/12/24 10:45 Proposed Procedures p Colonoscopy 38815, G0105, Z86.0100, K59.04(Not Applicable) - Lamont Castro DO Familial anesthetic complications: none Was Beta Marcelino taken within 24 hours: N/A Was Clonidine taken within 24 hours: N/A Last intake: Intake Last Liquid Date 07/11/24 Last Liquid Time 20:30 Last Solid Date 07/11/24 Last Solid Time 08:00 Social Tobacco and No alcohol 1/2 ppd pack(s) per day 35 years pack years Exam alert, oriented x 3, No clear to auscultation bilaterally (inspiratory wheezes.) and No regular rate & rhythm Airway Submandibular: within normal limits Cervical ROM: within normal limits Mallampati: Class I Dentition: false (upper plate) Pulmonary Chronic Obstructive Pulmonary Disease CV/HEM Myocardial Infarction (2011 x2) 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 Chronic Renal Insufficiency Hepatic None reported Metabolic None reported Musc/skel Lower Back Pain (patient laying on side) rates back pain a 6/10 Neuropsych Anxiety and Depression Anesthetic Plan ASA status: 3 Anesthesia: MAC Medications/Allergies Home Medications Medication Instructions Recorded Confirmed Last Taken Type vitamin E (dl, acetate) 180 mg 180 mg PO DAILY 11/12/20 07/12/24 07/11/24 History (400 unit) capsule cholecalciferol (vitamin D3) 125 125 mcg PO QAM 07/21/21 07/12/24 07/11/24 History mcg (5,000 unit) capsule cetirizine 10 mg capsule (All Day 10 mg PO DAILY PRN Allergy Symptoms 08/12/22 07/12/24 09/30/23 History Allergy (cetirizine)) vitamin B complex 1 tab PO DAILY 11/23/22 07/12/24 07/11/24 History azelastine 137 mcg (0.1 %) nasal 1 spray intranasal BID PRN sob 04/26/23 07/12/24 10/16/23 History spray Carbon Fiber Plate #1 ea 10/14/23 07/11/24 07/11/24 Rx Hinged Knee Brace, right #1 ea 02/07/24 07/11/24 07/11/24 Rx blood sugar diagnostic (Blood #50 ea 03/06/24 07/11/24 07/11/24 Rx Glucose Test strips) solifenacin 5 mg tablet (Vesicare) 5 mg PO DAILY 03/27/24 07/12/24 07/11/24 History fluticasone propionate 50 2 spray intranasal DAILY #16 grams 03/29/24 07/12/24 07/11/24 Rx mcg/actuation nasal spray,suspension (Flonase Allergy Relief) alendronate 70 mg tablet 70 mg PO .weekly #4 tabs 05/08/24 07/12/24 07/11/24 Rx bupropion HCl 300 mg 24 hr tablet, 300 mg PO QAM #30 tabs 06/13/24 07/12/24 07/11/24 Rx extended release (Wellbutrin XL) paroxetine HCl 40 mg tablet 40 mg PO QPM #30 tabs 06/13/24 07/12/24 07/11/24 Rx trazodone 50 mg tablet 100 mg (2 x 50 mg) PO .HS PRN 06/13/24 07/12/24 Unknown Rx insomnia #60 tabs silver sulfadiazine 1 % topical 1 applic topical BID 2 weeks #50 06/15/24 07/12/24 07/11/24 Rx cream grams umeclidinium 62.5 mcg-vilanterol 1 inh inhalation DAILY COPD #60 ea 06/28/24 07/12/24 07/11/24 Rx 25 mcg/actuation powdr for inhalation (Anoro Ellipta) polyethylene glycol 3350 17 17 g PO DAILY 1 month #510 grams 07/07/24 07/12/24 07/11/24 Rx gram/dose oral powder (Miralax) lancets 30 gauge (OneTouch Delica #100 ea 07/10/24 07/11/24 07/11/24 Rx Plus Lancet) albuterol sulfate 90 mcg/actuation 2 puff inhalation Q4H PRN 07/11/24 07/12/24 07/11/24 History aerosol inhaler Shortness Of Breath Or Wheezing exemestane 25 mg tablet 25 mg PO DAILY 07/11/24 07/12/24 07/12/24 History paroxetine HCl 20 mg tablet 20 mg PO BEDTIME 07/11/24 07/12/24 07/11/24 History Allergies Allergy/AdvReac Type Severity Reaction Status Date / Time aspirin Allergy Severe makes me Verified 07/12/24 09:30 stop breathing mushroom Allergy Severe Can't Verified 07/12/24 09:30 breath codeine Allergy Intermediate loss of Verified 07/12/24 09:30 functioning hepatitis B virus vaccine Allergy Intermediate ADR-Dizzine Verified 07/12/24 09:30 ss metronidazole [From Flagyl] Allergy Intermediate memory fog Verified 07/12/24 09:30 trospium [From [place]] AdvReac Severe ADR/ALGY-Pa Verified 07/12/24 09:30 lpitations Current Medications Generic Name Dose Route Start Last Admin Trade Name Freq PRN Reason Stop Dose Admin Sodium Chloride 500 mls @ 15 mls/hr 07/12/24 09:20 07/12/24 09:50 Sodium Chloride 0.9% IV 07/13/24 09:19 15 mls/hr .Q24H PRN Administration COLONOSCOPY FLUIDS PFSH Anesthesia Medical History (Updated 07/07/24 @ 10:41 by Lamont Castro DO) History of colon polyps Myocardial infarction (2007) Chronic kidney disease Stage 3a 10/2022 Eczema Osteoarthritis Depression Obstructive sleep apnea Psychiatric care Allergic rhinosinusitis COPD (chronic obstructive pulmonary disease) Breast cancer Osteoporosis Surgical History (Updated 07/07/24 @ 10:41 by Lamont Castro DO) Hx of colonoscopy with polypectomy [facility] less than 10 yrs ago S/P matrixectomy of toe History of section x 3 History of right mastectomy (08/17/19) Right modified radical mastectomy History of cholecystectomy Family History Mother Diabetes Cancer Chronic kidney disease (CKD) Social History Smoking and tobacco/nicotine status: current every day tobacco/nicotine user cigarettes Packs smoked per day: 0.5 [ Other cigarette details: relpsed and now smoking 1/2 -3/4 Pack for day ] Quit status (tobacco/nicotine): has tried quititng Second hand smoke exposure: Yes (Some.) Alcohol intake: former Substance/Drug Use: never Lives independently: Yes Household members: none Marital status: / Current occupational status: disabled Do you think of yourself as: Straight/Heterosexual Current gender identity: Female Data Anesthesia Cardiac Studies: Echocardiogram 05/25/23
--- NOTE | 2024-07-12 12:10 | W.PM.OPSUD ---
Surgery/Procedure H&P Update DATE OF PROCEDURE: July 12, 2024 DATE H&P PERFORMED: 07/07/24 H&P UPDATE INFORMATION: I have reviewed H&P completed within last 30 days, I have examined patient prior to procedure and No changes to prior documentation PREOP DIAGNOSIS: history of colonic polyps. PLANNED PROCEDURE: Operation Date: 07/12/24 10:45 Proposed Procedures p Colonoscopy 26302, G0105, Z86.0100, K59.04(Not Applicable) - Lamont Castro DO
[2024-07-12 12:34] VITALS: BP 145/59; PULSE 75; RESP 16; TEMP 36.3; O2SAT 100
[2024-07-12 13:00] VITALS: BP 118/78; PULSE 78; RESP 18; O2SAT 100
--- NOTE | 2024-07-12 13:08 | ANE.PACU2 ---
Inpatient post-anesthesia follow up: Airway intact: Yes Vital signs: Temperature 97.3 F Pulse Rate 78 Respiratory Rate 18 Blood Pressure 118/78 Pulse Oximetry 100 Oxygen Delivery Me thod Room Air Oxygen Flow Rate 4 Fraction of Inspir ed Oxygen Hydration adequate: Yes Nausea and vomiting: No Pain level: 1 Mental status: Baseline
== END 2024-07-12 13:08 | disposition home or self-care (01) ==
PROVIDERS: PCP Family Medicine; Visit Provider Surgery
PROC: 0DJD8ZZ Inspection of Lower Intestinal Tract, Via Natural or Artificial Opening Endoscopic (ICD-10-PCS; CPT 45378; principal; 2024-07-12 10:45)
DX: K59.04 Chronic idiopathic constipation (principal); Z86.0100 Personal history of colon polyps, unspecified; D12.5 Benign neoplasm of sigmoid colon; D12.3 Benign neoplasm of transverse colon; J44.9 Chronic obstructive pulmonary disease, unspecified; I25.2 Old myocardial infarction; F17.210 Nicotine dependence, cigarettes, uncomplicated
CPT/HCPCS: 45385; 88305; J2704; J7040

== ENCOUNTER → 2024-07-24 12:46 | Outpatient (BNVA) | payer MEDICARE, SELFPAY | PROVIDERS: PCP Family Medicine; Visit Provider Surgery | DX: Z09 Encounter for follow-up examination after completed treatment for conditions other than malignant neoplasm (principal); R03.0 Elevated blood-pressure reading, without diagnosis of hypertension; K59.04 Chronic idiopathic constipation; D12.6 Benign neoplasm of colon, unspecified; K63.5 Polyp of colon | CPT/HCPCS: 99214 ==

== ENCOUNTER 2024-08-07 16:44 | Emergency (ER) | payer MEDICARE, MEDICAID, SELFPAY ==
[2024-08-07 17:00] VITALS: BP 152/83; PULSE 96; RESP 18; TEMP 36.9; O2SAT 98; BMI 24.6
--- NOTE | 2024-08-07 18:23 | XRR_ITS ---
PROCEDURE INFORMATION: Exam: XR Left Knee Exam date and time: 08/07/2024 6:44 PM Age: 64 years old Clinical indication: Injury or trauma; Fall; Blunt trauma; Knee; Left; Additional info: Fall, knee pain TECHNIQUE: Imaging protocol: Radiologic exam of the left knee. Views: 3 views. COMPARISON: No relevant prior studies available. FINDINGS: Bones/joints: Normal. Soft tissues: Normal. XR/XR knee LT 3V* [id number] IMPRESSION: No acute findings.
--- NOTE | 2024-08-07 18:23 | XRR_ITS ---
PROCEDURE INFORMATION: Exam: XR Left Hip Exam date and time: 08/07/2024 6:39 PM Age: 64 years old Clinical indication: Injury or trauma; Fall; Blunt trauma (contusions or hematomas); Left; Hip and pelvic region; Additional info: Fall, left hip pain. With pelvis TECHNIQUE: Imaging protocol: Radiologic exam of the left hip. Views: 2 or 3 views hip with pelvis when performed. COMPARISON: CT abdomen pelvis w con* [id number] 11/23/2022 1:07 PM FINDINGS: Bones/joints: Unremarkable. No acute fracture. Soft tissues: Unremarkable. XR/XR hip LT 2-3V wo/w pel* [id number] IMPRESSION: No acute findings.
--- NOTE | 2024-08-07 19:28 | ED_ITS ---
HPI - Fall General: Chief Complaint: Fall Stated Complaint: fell on ice Time Seen by Provider: 08/07/24 18:48 Source: patient Mode of arrival: ambulatory Limitations: no limitations History of Present Illness: Patient is a 64-year-old female who presents the emergency department after a fall occurred around 1430 prior to arrival. Patient states she went outside to check her mail, slipped on a patch of ice when she noticed the mail truck and reverse backing up towards her way. She states she fell directly onto her left lower extremity, she did not hit her head or lose consciousness. Does not take a blood thinner. No upper body injuries, states she has been able to ambulate still with quite a bit of pain. Primarily reporting pain to the left hip and left knee, just wants to make sure there is no fracture or dislocation. Has not taken anything for pain. No other symptoms reported at this time and she had no symptoms prior to the fall, stating this was accidental. MD complaint: fall Onset (ago): hour(s) Fall from: standing Fall witnessed: yes, by family Place fall occurred: street Loss of consciousness: None Prolonged down time: no Symptoms prior to fall: none Context: tripped/slipped (On ice) Location of injury - extremities: Left: thigh and knee Associated symptoms-after fall: Denies abdominal pain, chest pain, headache(s) or neck pain Related Data Home Medications Medication Instructions Recorded Confirmed vitamin E (dl, acetate) 180 mg 180 mg PO DAILY 11/12/20 07/24/24 (400 unit) capsule cholecalciferol (vitamin D3) 125 125 mcg PO QAM 07/21/21 07/24/24 mcg (5,000 unit) capsule cetirizine 10 mg capsule (All Day 10 mg PO DAILY PRN Allergy Symptoms 08/12/22 07/24/24 Allergy (cetirizine)) vitamin B complex 1 tab PO DAILY 11/23/22 07/24/24 azelastine 137 mcg (0.1 %) nasal 1 spray intranasal BID PRN sob 04/26/23 07/24/24 spray solifenacin 5 mg tablet (Vesicare) 5 mg PO DAILY 03/27/24 07/24/24 albuterol sulfate 90 mcg/actuation 2 puff inhalation Q4H PRN 07/11/24 07/24/24 aerosol inhaler Shortness Of Breath Or Wheezing paroxetine HCl 20 mg tablet 20 mg PO BEDTIME 07/11/24 07/24/24 Previous Rx's Medication Instructions Recorded Carbon Fiber Plate #1 ea 10/14/23 Hinged Knee Brace, right #1 ea 02/07/24 blood sugar diagnostic (Blood #50 ea 03/06/24 Glucose Test strips) alendronate 70 mg tablet 70 mg PO .weekly #4 tabs 05/08/24 bupropion HCl 300 mg 24 hr tablet, 300 mg PO QAM #30 tabs 06/13/24 extended release (Wellbutrin XL) paroxetine HCl 40 mg tablet 40 mg PO QPM #30 tabs 06/13/24 trazodone 50 mg tablet 100 mg (2 x 50 mg) PO .HS PRN 06/13/24 insomnia #60 tabs silver sulfadiazine 1 % topical 1 applic topical BID 2 weeks #50 06/15/24 cream grams umeclidinium 62.5 mcg-vilanterol 1 inh inhalation DAILY COPD #60 ea 06/28/24 25 mcg/actuation powdr for inhalation (Anoro Ellipta) polyethylene glycol 3350 17 17 g PO DAILY 1 month #510 grams 07/07/24 gram/dose oral powder (Miralax) lancets 30 gauge (OneTouch Delica #100 ea 07/10/24 Plus Lancet) fluticasone propionate 50 2 spray intranasal DAILY #16 grams 07/24/24 mcg/actuation nasal spray,suspension (Flonase Allergy Relief) linaclotide 145 mcg capsule 145 mcg PO DAILY #30 caps 07/24/24 (Linzess) exemestane 25 mg tablet 25 mg PO DAILY #30 tabs 08/01/24 Allergies Allergy/AdvReac Type Severity Reaction Status Date / Time aspirin Allergy Severe makes me Verified 08/07/24 17:08 stop breathing mushroom Allergy Severe Can't Verified 08/07/24 17:08 breath codeine Allergy Intermediate loss of Verified 08/07/24 17:08 functioning hepatitis B virus vaccine Allergy Intermediate ADR-Dizzine Verified 08/07/24 17:08 ss metronidazole [From Flagyl] Allergy Intermediate memory fog Verified 08/07/24 17:08 trospium [From Sanctura] AdvReac Severe ADR/ALGY-Pa Verified 08/07/24 17:08 lpitations Review of Systems General: Reports: 10 or more systems reviewed and unremarkable except in HPI and below Const: Reports: other (fall); Denies: fever(s) or chills Card: Denies: chest pain Resp: Denies: dyspnea or productive cough GI: Denies: abdominal pain, nausea, vomiting or diarrhea : Denies: flank pain Musc: Reports: joint pain (Left knee and left hip); Denies: neck pain, back pain, extremity pain, extremity swelling, joint swelling, joint redness, joint warmth, limited range of motion or muscle weakness Skin/Breast: Denies: rash Neuro: Denies: headache(s), numbness in extremities or weakness in extremities PFSH ED PFSH: Medical History Tubulovillous adenoma of colon Myocardial infarction (2007) Chronic kidney disease Stage 3a 10/2022 Eczema Osteoarthritis Depression Obstructive sleep apnea Psychiatric care Allergic rhinosinusitis COPD (chronic obstructive pulmonary disease) Breast cancer Osteoporosis Surgical History Hx of colonoscopy with polypectomy [facility], [facility] less than 10 yrs ago S/P matrixectomy of toe History of section x 3 History of right mastectomy (08/17/19) Right modified radical mastectomy History of cholecystectomy Family History Mother Diabetes Cancer Chronic kidney disease (CKD) Social History Smoking and tobacco/nicotine status: current every day tobacco/nicotine user cigarettes Packs smoked per day: 0.5 [ Other cigarette details: relpsed and now smoking 1/2 -3/4 Pack for day ] Quit status (tobacco/nicotine): has tried quititng Second hand smoke exposure: Yes (Some.) Alcohol intake: former Substance/Drug Use: never Lives independently: Yes Household members: none Marital status: / Current occupational status: disabled Do you think of yourself as: Straight/Heterosexual Current gender identity: Female Physical Exam Const: COMMON NORMALS: no acute distress, patient oriented x3, no limitations, healthy appearing, alert and well nourished HENMT: COMMON NORMALS: normocephalic and atraumatic HEAD & SCALP: normocephalic and atraumatic Neck/C-Spine: COMMON NORMALS: full ROM, supple and no meningeal signs Resp: COMMON NORMALS: normal respiratory effort, No use of accessory muscles and clear to auscultation bilaterally AUSCULTATION: clear to auscultation bilaterally Cardio: COMMON NORMALS: regular rate and regular rhythm RATE: regular rate RHYTHM: regular rhythm Extremity: COMMON NORMALS: normal to inspection, full ROM, capillary refill normal, no joint enlargement and no clubbing, cyanosis or edema NARRATIVE EXTREMITY EXAM: Reproducible tenderness to palpation of left lateral hip, and diffuse knee joint. No signs of trauma or dislocation/deformity. Full range of motion actively at the hip and knee, secondary to pain. Distal neurovascular exam is unremarkable. Neuro: COMMON NORMALS: patient oriented x3, moves all extremities, no focal motor deficits and no sensory deficits noted SENSORIUM/ORIENTATION: Yes alert MENINGEAL SIGNS: Yes no meningeal signs Skin: COMMON NORMALS: no rashes or lesions noted GENERAL SKIN EXAM: no rashes or lesions noted Course Vital Signs: Vital signs: Vital Signs Temperature 98.4 F 08/07/24 17:00 Pulse Rate 96 08/07/24 17:00 Respiratory Rate 18 08/07/24 17:00 Blood Pressure 152/83 08/07/24 17:00 Pulse Oximetry 98 08/07/24 17:00 Oxygen Delivery Me thod Room Air 08/07/24 17:00 MDM - Fall Medical Decision Making Patient slipped and fell a few hours prior to arrival, reporting pain to left knee and hip. X-ray of these areas were negative for any fracture or dislocation. Gave her dose of [place] here for pain control but encouraged her to do early ambulation and treat conservatively at home by alternating ibuprofen and Tylenol as well as RICE therapy. Likely dealing with contusions, her neurovascular exam was normal and encouraged her to follow-up with primary care for routine reevaluation. Return precautions given. Patient comfortable with discharge home. Lab Data Radiology Impressions Hip/Pelvis X-Ray 08/07/24 18:23 IMPRESSION: No acute findings. Knee X-Ray 08/07/24 18:23 IMPRESSION: No acute findings. All radiology interpretation(s) finalized by discharge Discharge Plan Discharge Patient Disposition: Home Clinical Impression: Fall, Contusion of hip, left, Contusion of knee, left Condition: Stable Prescriptions: No Action vitamin E (dl, acetate) 400 unit capsule 180 mg PO DAILY cholecalciferol (vitamin D3) 125 mcg (5,000 unit) capsule 125 mcg PO QAM azelastine 137 mcg (0.1 %) aerosol,spray 1 spray intranasal BID PRN (Reason: sob) Rx Instructions: administer into each nostril (DME) Carbon Fiber Plate See Rx Instructions .Route .MEDSUPPLY Qty: 1 0RF Rx Instructions: As directed (DME) Blood Glucose Test Strip See Rx Instructions .ROUTE .MEDSUPPLY Qty: 50 11RF Rx Instructions: Brand/type to go with meter per insurance coverage solifenacin [Vesicare] 5 mg tablet 5 mg PO DAILY Anoro Ellipta 62.5-25 mcg/actuation blister with device 1 inh inhalation DAILY Qty: 60 6RF polyethylene glycol 3350 [Miralax] 17 gram/dose powder 17 g PO DAILY 30 Days Qty: 510 12RF Linzess 145 mcg capsule 145 mcg PO DAILY Qty: 30 0RF All Day Allergy (cetirizine) 10 mg capsule 10 mg PO DAILY PRN (Reason: Allergy Symptoms) (DME) Hinged Knee Brace, right See Rx Instructions .Route .MEDSUPPLY Qty: 1 0RF Rx Instructions: As directed trazodone 50 mg tablet 100 mg PO .HS PRN (Reason: insomnia) Qty: 60 2RF bupropion HCl [Wellbutrin XL] 300 mg tablet extended release 24 hr 300 mg PO QAM Qty: 30 11RF paroxetine HCl 40 mg tablet 40 mg PO QPM Qty: 30 11RF silver sulfadiazine 1 % cream 1 applic topical BID 14 Days Qty: 50 2RF Rx Instructions: apply a 1.5 mm thickness alendronate 70 mg tablet 70 mg PO .weekly Qty: 4 6RF (DME) lancets [OneTouch Delica Plus Lancet] 30 gauge misc See Rx Instructions .ROUTE .COMPLEX Qty: 100 3RF Dose Instruction: USE DIRECTED FOUR TIMES DAILY Rx Instructions: USE DIRECTED FOUR TIMES DAILY fluticasone propionate [Flonase Allergy Relief] 50 mcg/actuation spray,suspension 2 spray intranasal DAILY Qty: 16 3RF Rx Instructions: administer into each nostril exemestane 25 mg tablet 25 mg PO DAILY Qty: 30 0RF Rx Instructions: TAKE 1 TABLET BY MOUTH ONCE DAILY vitamin B complex Tablet 1 tab PO DAILY paroxetine HCl 20 mg tablet 20 mg PO BEDTIME Rx Instructions: Take with 40 mg for a total of 60 mg daily albuterol sulfate 90 mcg/actuation HFA aerosol inhaler 2 puff inhalation Q4H PRN (Reason: Shortness Of Breath Or Wheezing) Rx Instructions: INHALE TWO PUFFS BY MOUTH EVERY 4 HOURS NEEDED Discharge Orders: Discharge ED (Routine); Ordered 08/07/24 Ordered By: Philipp Membreno Referrals: Liane Granados MD [Primary Care Provider] - Patient Instructions: Contusion in Adults (ED) Activity Restrictions/Additional Instructions: Crutches for comfort, begin bearing weight as tolerated. Range of motion exercises as tolerated. Alternate ibuprofen and Tylenol for any pain, ice to the areas for added relief. See attached patient instructions for further education, return with any new or worsening. Coding Level of Care Code ED Cotton Grader for Karen Stokes
[2024-08-07 20:16] VITALS: PULSE 95; O2SAT 97
[2024-08-07] MEDS: HYDROcodone-acetaminophen 7.5-325 mg Tablet 1 TAB PO (20:16)
[2024-08-07 20:25] VITALS: BP 135/91; PULSE 92; O2SAT 96
== END 2024-08-07 20:26 | disposition home or self-care (01) ==
PROVIDERS: Emergency Provider Physician Assistant; PCP Family Medicine
DX: S70.02XA Contusion of left hip, initial encounter (principal); S80.02XA Contusion of left knee, initial encounter; W00.0XXA Fall on same level due to ice and snow, initial encounter; F17.210 Nicotine dependence, cigarettes, uncomplicated; Z85.3 Personal history of malignant neoplasm of breast; J44.9 Chronic obstructive pulmonary disease, unspecified; N18.31 Chronic kidney disease, stage 3a
CPT/HCPCS: 73502; 73562; 99284

== ENCOUNTER → 2024-08-08 12:49 | Outpatient (BNVA) | payer MEDICARE, MEDICAID, SELFPAY | PROVIDERS: PCP Family Medicine; Visit Provider Anesthesiology Pain Medicine | DX: M47.816 Spondylosis without myelopathy or radiculopathy, lumbar region; M51.16 Intervertebral disc disorders with radiculopathy, lumbar region | CPT/HCPCS: 99204 ==

== ENCOUNTER → 2024-08-21 09:57 | Outpatient (BNVA) | payer MEDICARE, MEDICAID, SELFPAY | PROVIDERS: PCP Family Medicine; Visit Provider Surgery | DX: Z09 Encounter for follow-up examination after completed treatment for conditions other than malignant neoplasm (principal); K59.04 Chronic idiopathic constipation | CPT/HCPCS: 99214 ==

== ENCOUNTER 2024-08-24 06:00 | Outpatient (RCR) | payer MEDICARE, MEDICAID, SELFPAY | END 2024-09-01 23:59 | disposition home or self-care (01) | LOC: MPT 06:00 | PROVIDERS: PCP Family Medicine; Visit Provider Anesthesiology Pain Medicine | DX: M54.50 Low back pain, unspecified (principal); G89.29 Other chronic pain | CPT/HCPCS: 97110; 97162 ==

== ENCOUNTER → 2024-09-11 12:58 | Outpatient (BNVA) | payer MEDICARE, MEDICAID, SELFPAY | PROVIDERS: PCP Family Medicine; Visit Provider Anesthesiology Pain Medicine | DX: M47.816 Spondylosis without myelopathy or radiculopathy, lumbar region (principal); M51.16 Intervertebral disc disorders with radiculopathy, lumbar region | CPT/HCPCS: 99214 ==

== ENCOUNTER → 2024-09-27 11:57 | Outpatient (BNVA) | payer MEDICARE, MEDICAID, SELFPAY | PROVIDERS: PCP Family Medicine; Visit Provider Specialist | DX: Z01.818 Encounter for other preprocedural examination (principal); M17.11 Unilateral primary osteoarthritis, right knee | CPT/HCPCS: 73560; 73565; 99214 ==

== ENCOUNTER → 2024-10-04 10:40 | Outpatient (BNVA) | payer MEDICAID, SELFPAY | PROVIDERS: PCP Family Medicine; Visit Provider Podiatrist Foot & Ankle Surgery | DX: M79.671 Pain in right foot (principal); M79.672 Pain in left foot; G62.9 Polyneuropathy, unspecified; N18.31 Chronic kidney disease, stage 3a | CPT/HCPCS: 73630 ==

== ENCOUNTER 2024-10-04 11:16 | Outpatient (CLI) | payer MEDICAID, SELFPAY ==
[2024-10-04 11:47] LABS: Basophils % 0.5 %; Eosinophils # 0.2 10^3/uL (0.0-0.8); Eosinophils % 1.9 %; Hematocrit 42.9 % (36-47); Lymphocytes # 2.9 10^3/uL (0.8-4.8); Lymphocytes % 36.2 %; Mean Corpuscular HGB Conc 32.6 g/dL (30-55); Mean Corpuscular Hemoglobin 28.1 pg (27-33); Mean Platelet Volume 10.5 fL (7.4-10.4); Monocytes # 0.6 10^3/uL (0.2-0.9); Monocytes % 7.7 %; Neutrophils # 4.31 10^3/uL (1.8-7.7); Neutrophils % 53.5 %; Nucleated Red Blood Cells % 0 %; Platelet Count 264 10^3/cmm (157-399); Red Blood Count 4.99 10^6/uL (3.85-5.65); Red Cell Distribution Width 13.3 % (12.1-15.1); White Blood Count 8.06 10^3/uL (3.29-11.43)
[2024-10-04 11:51] LABS: Bilirubin Urine Negative (Negative); Blood Urine Trace (Negative); Glucose Urine UA Negative (Normal); Ketones Urine Trace (Negative); Leukocyte Esterase Urine Negative (Negative); Nitrate Urine Negative (Negative); Protein Urine Negative (Negative); Specific Gravity, Urine 1.021 (1.005-1.030); Urine Appearance Clear (CLEAR); Urine Color Yellow (Yellow); pH Urine 5.5 (5-7)
[2024-10-04 12:03] LABS: Estmated Average Glucose 114; Hemoglobin A1C 5.6 % (4.0-6.0)
[2024-10-04 12:11] LABS: Alanine Aminotransferase 12 U/L (0-33); Albumin Level 4.5 g/dL (3.5-5.2); Alkaline Phosphatase 170 U/L (35-105); Anion Gap 14.3 (5-19); Aspartate Amino Transferase 16 U/L (0-32); Blood Urea Nitrogen 9 mg/dL (8-23); Calcium 9.3 mg/dL (8.5-10.5); Carbon Dioxide 26 mmol/L (22-29); Chloride 105 mmol/L (98-107); Globulin 3.1 g/dL (1.3-4.6); Glomerular Filtration Rate 56.2 mL/min (90-130); Glucose 87 mg/dL (65-115); Osmolality Calculated 290 mOsm/kg (285-295); Potassium 4.3 mmol/L (3.5-5.1); Sodium 141 mmol/L (136-145); Total Bilirubin 0.3 mg/dL (0.15-1.2); Total Protein 7.6 g/dL (6.6-8.7)
[2024-10-04 12:22] LABS: Add Urine Microscopic? YES
[2024-10-04 12:23] LABS: Add Urine Culture? No; Mucus Urine TRACE /hpf; Squamous Epithelial Cell Urine 0-4 /hpf (0-5); WBC Urine 0-4 /hpf (0-5)
== END 2024-10-04 11:17 | disposition home or self-care (01) ==
PROVIDERS: Absent Provider Family Medicine; PCP Family Medicine; Visit Provider Specialist
DX: Z01.818 Encounter for other preprocedural examination (principal); E11.9 Type 2 diabetes mellitus without complications
CPT/HCPCS: 36415; 80053; 81001; 83036; 85025

== ENCOUNTER → 2024-10-09 14:05 | Outpatient (BNVA) | payer MEDICAID, SELFPAY | PROVIDERS: PCP Family Medicine; Visit Provider Anesthesiology Pain Medicine | DX: M54.9 Dorsalgia, unspecified (principal); M47.816 Spondylosis without myelopathy or radiculopathy, lumbar region; M51.16 Intervertebral disc disorders with radiculopathy, lumbar region | CPT/HCPCS: 99214 ==

== ENCOUNTER 2024-10-20 11:32 | Oncology outpatient (recurring) (ONCR) | payer MEDICARE, MEDICAID, SELFPAY ==
--- NOTE | 2024-10-20 12:00 | CT_ITS ---
WS: [id number] CT RIGHT KNEE, NONCONTRAST [facility] TECHNIQUE: Noncontrast CT of the RIGHT knee to include the RIGHT hip and ankle. CLINICAL INFORMATION: per [facility] protocol DLP: 944.[address] scans at [facility] use at least one of these dose optimization techniques: automated exposure control; mA and/or kV adjustment per patient size (includes targeted exams where dose is matched to clinical indication); or iterative reconstruction. FINDINGS: Advanced tricompartment arthritis RIGHT knee with hypertrophic changes along the joint line. Osteopenia. Small suprapatellar effusion. Joint space narrowing worse in the medial joint compartment. CT/CT knee RT [facility] [id number] IMPRESSION: Images obtained for preoperative purposes.
== END 2024-10-30 23:59 | disposition home or self-care (01) ==
LOC: RAD 11:32 → ONCMED 10-23 09:42
PROVIDERS: PCP Family Medicine; Visit Provider Specialist
DX: C50.411 Malignant neoplasm of upper-outer quadrant of right female breast (principal); Z17.0 Estrogen receptor positive status [ER+]; R92.322 Mammographic fibroglandular density, left breast; M17.11 Unilateral primary osteoarthritis, right knee
CPT/HCPCS: 73700

== ENCOUNTER → 2024-10-23 13:33 | Outpatient (BNVA) | payer MEDICARE, MEDICAID, SELFPAY | PROVIDERS: PCP Family Medicine; Visit Provider Obstetrics & Gynecology | DX: R87.619 Unspecified abnormal cytological findings in specimens from cervix uteri (principal) | CPT/HCPCS: 88305 ==

== ENCOUNTER 2024-10-26 11:20 | Observation (INO) | payer MEDICARE, MEDICAID, SELFPAY ==
[2024-10-26] VITALS (21 sets, daily range): BP systolic 99–144; BP diastolic 60–84; PULSE 69–92; RESP 12–20; TEMP 36.4–36.9; O2SAT 91–100; BMI 24.3
[2024-10-26] MEDS: gabapentin 300 mg Capsule PO (06:35)
[2024-10-26] MEDS: acetaminophen 1,000 MG/100 ML PIGGYBACK 400 MG IV ×3 (06:36→23:31)
[2024-10-26] MEDS: sodium chloride 0.9% 1,000 ML 30 ML IV (06:37)
--- NOTE | 2024-10-26 07:01 | W.PM.OPSUD ---
Surgery/Procedure H&P Update DATE OF PROCEDURE: October 26, 2024 DATE H&P PERFORMED: 10/18/24 H&P UPDATE INFORMATION: I have reviewed H&P completed within last 30 days, I have examined patient prior to procedure, No changes to prior documentation and H&P is in [facility] EMR on date indicated PLANNED PROCEDURE: Operation Date: 10/26/24 07:45 Proposed Procedures p Emeka Robot Total Knee Arthroplasty(Right) - Mariaelena Mcclain MD Related Problem List Diagnoses (1) Primary osteoarthritis of right knee:
--- NOTE | 2024-10-26 07:25 | ANES.PREANE2 ---
Pre-Anesthetic Assessment Height/Weight: Height 5 ft 5 in Weight 146 lb Temp Pulse Resp BP Pulse Ox O2 Del Method 97.6 F 84 17 144/84 97 Room Air 10/26/24 06:20 10/26/24 06:20 10/26/24 06:20 10/26/24 06:20 10/26/24 06:20 10/26/24 06:20 Preop Diagnosis: Knee osteoarthritis Operation Date: 10/26/24 07:45 Proposed Procedures p Emeka Robot Total Knee Arthroplasty(Right) - Mariaelena Mcclain MD Was Beta Marcelino taken within 24 hours: N/A Was Clonidine taken within 24 hours: N/A Last intake: Intake Last Liquid Date 10/25/24 Last Liquid Time 22:00 Last Solid Date 10/25/24 Last Solid Time 18:30 Social Tobacco and No alcohol Exam alert, oriented x 3 and regular rate & rhythm Decreased breath sounds bilaterally Airway Submandibular: within normal limits Cervical ROM: within normal limits Mallampati: Class III Comments: Comments: Edentulous Anesthetic Plan ASA status: 3 Anesthesia: General Other: No prior issues with anesthesia NPO since yesterday History of MARICEL without CPAP COPD, current smoker CKD stage III Labs reviewed and acceptable for procedure today EKG showing sinus rhythm Prior echo showing EF 60-65% Plan for general anesthesia Medications/Allergies Home Medications ?Medication ?Instructions ?Recorded ?Confirmed ?Last Taken ?Type cetirizine 10 mg capsule (All Day 5 mg PO DAILY PRN Allergy Symptoms 08/12/22 10/25/24 10/24/24 History Allergy (cetirizine)) azelastine 137 mcg (0.1 %) nasal 1 spray intranasal BID PRN sob 04/26/23 10/25/24 10/16/23 History spray Carbon Fiber Plate #1 ea 10/14/23 10/23/24 07/11/24 Rx Hinged Knee Brace, right #1 ea 02/07/24 10/23/24 07/11/24 Rx blood sugar diagnostic (Blood #50 ea 03/06/24 10/23/24 07/11/24 Rx Glucose Test strips) alendronate 70 mg tablet 70 mg PO .weekly #4 tabs 05/08/24 10/25/24 10/22/24 Rx bupropion HCl 300 mg 24 hr tablet, 300 mg PO QAM #30 tabs 06/13/24 10/25/24 10/25/24 Rx extended release (Wellbutrin XL) paroxetine HCl 40 mg tablet 40 mg PO QPM #30 tabs 06/13/24 10/25/24 10/24/24 Rx umeclidinium 62.5 mcg-vilanterol 1 inh inhalation DAILY COPD #60 ea 06/28/24 10/25/24 10/25/24 Rx 25 mcg/actuation powdr for inhalation (Anoro Ellipta) lancets 30 gauge (OneTouch Delica #100 ea 07/10/24 10/23/24 07/11/24 Rx Plus Lancet) albuterol sulfate 90 mcg/actuation 2 puff inhalation Q4H PRN 07/11/24 10/25/24 10/25/24 History aerosol inhaler Shortness Of Breath Or Wheezing paroxetine HCl 20 mg tablet 20 mg PO BEDTIME 07/11/24 10/25/24 10/25/24 History fluticasone propionate 50 2 spray intranasal DAILY #16 grams 07/24/24 10/25/24 10/25/24 Rx mcg/actuation nasal spray,suspension (Flonase Allergy Relief) exemestane 25 mg tablet 25 mg PO DAILY #30 tabs 08/01/24 10/26/24 10/26/24 Rx linaclotide 145 mcg capsule 145 mcg PO DAILY #30 caps 08/21/24 10/25/24 10/25/24 Rx (Linzess) trazodone 100 mg tablet 200 mg (2 x 100 mg) PO .HS PRN 08/30/24 10/25/24 Unknown Rx insomnia #60 tabs tizanidine 4 mg capsule 4 mg PO BID PRN muscle spasticity 09/11/24 10/25/24 Unknown Rx #60 caps mirabegron 25 mg tablet,extended 25 mg PO DAILY 90 days #90 tabs 10/03/24 10/25/24 10/25/24 Rx release 24 hr (Myrbetriq) gabapentin 100 mg capsule 100 mg PO BEDTIME #30 caps 10/12/24 10/25/24 10/24/24 Rx silver sulfadiazine 1 % topical 1 applic topical BID PRN ingrown 10/25/24 10/25/24 Unknown History cream toemanil Allergies Allergy/AdvReac Type Severity Reaction Status Date / Time aspirin Allergy Severe makes me Verified 10/26/24 06:16 stop breathing mushroom Allergy Severe Can't Verified 10/26/24 06:16 breath codeine Allergy Intermediate loss of Verified 10/26/24 06:16 functioning hepatitis B virus vaccine Allergy Intermediate ADR-Dizzine Verified 10/26/24 06:16 ss metronidazole (From Flagyl) Allergy Intermediate memory fog Verified 10/26/24 06:16 trospium (From Sanctura) AdvReac Severe ADR/ALGY-Pa Verified 10/26/24 06:16 lpitations Current Medications Generic Name Dose Route Start Last Admin Trade Name Freq PRN Reason Stop Dose Admin Sodium Chloride 1,000 mls @ 30 mls/hr 10/26/24 06:15 10/26/24 06:37 Sodium Chloride 0.9% IV 10/27/24 06:14 30 mls/hr .Q24H RASHAWN Administration PFSH Anesthesia Medical History Tubulovillous adenoma of colon Myocardial infarction (2007) Chronic kidney disease Stage 3a 10/2022 Eczema Osteoarthritis Depression Obstructive sleep apnea Psychiatric care Allergic rhinosinusitis COPD (chronic obstructive pulmonary disease) Breast cancer Osteoporosis Surgical History Hx of colonoscopy with polypectomy [facility] less than 10 yrs ago S/P matrixectomy of toe History of section x 3 History of right mastectomy (08/17/19) Right modified radical mastectomy History of cholecystectomy Family History Mother Diabetes Cancer Chronic kidney disease (CKD) Breast cancer Denies family history of Colon cancer Ovarian cancer Heart disease Hyperlipidemia Hypertension Uterine cancer Thyroid disease Stroke Social History Smoking and tobacco/nicotine status: current every day tobacco/nicotine user cigarettes Packs smoked per day: 0.5 [ Other cigarette details: relpsed and now smoking 1/2 -3/4 Pack for day ] Quit status (tobacco/nicotine): has tried quititng Second hand smoke exposure: Yes (Some.) Alcohol intake: former Substance/Drug Use: never Lives independently: Yes Household members: none Marital status: / Current occupational status: disabled Do you think of yourself as: Straight/Heterosexual Current gender identity: Female Data Anesthesia Cardiac Studies: Echocardiogram 05/25/23
[2024-10-26] MEDS: ceFAZolin 2,000 mg SDV 2000 MG IVP ×3 (07:52→23:31)
[2024-10-26] MEDS: tranexamic acid 1,000 mg/10mL SDV 1000 MG IV (08:18)
[2024-10-26] MEDS: VANCOMYCIN ADD-Vantage 1,000 MG VIAL 1000 MG XX (08:40)
[2024-10-26] MEDS: BUPivacaine 0.5% INJ 10 mL 20 ML (08:41)
[2024-10-26] MEDS: BUPivacaine liposome 13.3 mg/mL SDV 20 mL 266 MG INJECTION (08:41)
[2024-10-26] MEDS: ceFAZolin 1,000 mg SDV 2000 MG IRRIGATION (09:42)
[2024-10-26] MEDS: ceFAZolin 1,000 mg SDV 1000 MG IRRIGATION (09:45)
--- NOTE | 2024-10-26 10:22 | P.OP_ITS ---
Operative Report Date of procedure: October 26, 2024 Pre-op diagnosis: Primary osteoarthritis right knee Post-op diagnosis: Primary osteoarthritis right knee Post-op findings: Severe osteoarthritis of the right knee with large osteophytes and movement of cartilage Procedure done: Right total knee arthroplasty with Emeka guidance Implants: The [place] total knee system with a size 2 triathlon beaded cruciate retaining femur right, a triathlon titanium tibial component size 2 beaded, a triathlon X3 tibial bearing CS insert size 2 X 9 mm and a beaded triathlon titanium asymmetric patella size 32 x 10 mm Specimens removed/disposition: Bone, disposed of Pathology: None Surgeon: Mariaelena Mcclain MD Senior Controls Technician: Roula Baird, nurse practitioner who services were required for retraction, exposure, closure, and completion of the surgical procedure Anesthesia: General (Per ET tube, ASA 3) Estimated blood loss (mL): 120 Tourniquet time (min): 0 (No Aguirre) IV fluids (mL): 900 Urine output (mL): 175 Complications: None Findings: Severe degenerative osteoarthritis of the right knee with osteophyte formation, slight hyperextension, and varus deformity. Condition: stable Disposition: PACU (Then admit to floor under observation for postoperative rehabilitation and pain management) Brief History: 64-year-old woman presenting to the clinic complaining of severe right knee pain which interfered with her activities of daily living. The patient had cortisone injection which only lasted about an hour. She continued to have worsening of her pain and symptoms. After discussion, she wished to proceed with operative intervention in the form of right total knee arthroplasty. Risks and complications were discussed with her. Consents were signed and questions were answered. Procedure: The patient was brought to the operating theater, and after undergoing adequate general anesthesia intubated, ASA 3, the right lower extremity was prepped with DuraPrep and draped in usual fashion following placement of a tourniquet high on the leg. The leg was then draped free. Tourniquet was placed on the leg but was not elevated throughout the surgical procedure. Following exposure of the site of surgery, a surgical pause was performed. At the time of the surgical pause, we confirmed the site and side of surgery. Additionally, we confirmed the appropriate and timely administration of preoperative antibiotics, Ancef 2 g. Tranexamic acid 1 g was given preoperatively and will be given again on the floor for 1 dose postoperatively. The availability of equipment was confirmed, and the patient's identity was verbalized as well. Following the surgical pause, an incision was made centering over the patella continuing proximally and distally as necessary to allow access to the knee joint. Dissection continued through skin and soft tissues using a scalpel. Hemostasis was obtained using electrocautery. The skin incision was followed by a median parapatellar arthrotomy. The leg was extended and the patella was able to be displaced laterally. Appropriate arrays and markers were placed in appropriate position for use of the Emeka. Preoperative planning had been accomplished and was discussed in detail with the [facility] tour sales representative. Intraoperative mapping of the femur and tibia was accomplished after the arrays were placed. Once we had accomplished the Emeka mapping, we began the appropriate resections for placement of the prosthesis. The plan was for a cruciate retaining right total knee arthroplasty. Once appropriate mapping had been accomplished retraction was established using manual retraction by the Emeka leg positioner and retractors. The knee was evaluated. There was eburnation particularly of the medial femoral condyle.? There were large osteophytes circumferentially about the trochlear groove as well as the patella and medial tibial plateau.? After balancing the knee within the Emeka program, the appropriate bone resection was accomplished. Initial resection was accomplished on the tibia followed by appropriate resections on the femur. We had performed a medial release at the beginning of the procedure to allow for placement of the array. Proximal tibia was evaluated and it was felt that appropriate size for the tibia was a size 2, and appropriate femoral size was a size 2. A trial reduction was accomplished after osteophytes had been removed, the medial and lateral meniscus were excised, and bone cuts had been accomplished as above. We had removed the anterior cruciate ligament at the beginning of the case and preserved the posterior cruciate ligament. Trial reduction was accomplished with a size 2 femoral cruciate retaining component and a size 2 tibia with a CS tibial bearing insert which was 9 mm in thickness. Initial trial reduction demonstrated that the knee had excellent stability, full extension, and full flexion. The patient was hyperextended preoperatively, but she had full extension at the time of this implant. The trial components were removed after the femur had been drilled. Prior to removal of the tibial tray which had been pinned in position with appropriate rotation as determined by the Emeka plan, we broached the tibia. Subsequently, the 4 drill holes were made for the prosthetic component. All trial components had been removed, and the wound was irrigated. Plans were made for insertion of the prosthetic components. Prior to this, the patella was manually prepared. After resection of the articular surface freehand due to the thinness of the patella, it was measured and measured a 32 mm patella. We resected the articular surface of the patella utilizing the appropriate jig, and patellar height was restored with the patellar component. Once again, the wound was irrigated. The Tritanium tibia was impacted into position.? The beaded femur was then impacted into position in a cementless fashion. The CS tibial insert was placed prior to placement of the femoral component. The patella was pressed into position with a patellar clamp.? Exparel was injected prior to placement of the components. The knee was then copiously irrigated with betadine and saline and suctioned dry. Attention was then directed to closure. Closure was accomplished with 0 Vicryl in the fascial tissues followed by a running #1 strata fix 1 from proximal to distal and 1 from distal to proximal.? This was followed by Surgiflo and vancomycin powder. Subcutaneous tissues were closed with 2-0 Monocryl strata fix, and the skin was closed in a running subcuticular fashion with 3-0 Monocryl strata fix.? A sterile dressing was then placed consisting of Dermabond Prineo, OpSite, sterile soft roll including over the foot, and an Richard wrap. The patient was returned the Recovery Room in a satisfactory condition. X-rays were obtained and reviewed there.? The patient will be discharged to the floor for postoperative rehabilitation and pain management. Related Problem List Diagnoses (1) Primary osteoarthritis of right knee:
--- NOTE | 2024-10-26 10:30 | XR_ITS ---
WS: [id number] Exam: XR knee RT 1-2V 35645 Date/Time of Exam: 10/26/2024 10:54 AM Reason For Exam: S/P Right TKA A RIGHT total knee arthroplasty has been placed and is in excellent position. Postoperative changes in the adjacent soft tissues. XR/XR knee RT 1-2V 51610 IMPRESSION: 1. RIGHT total knee replacement in excellent position.
--- NOTE | 2024-10-26 11:30 | ANE.PACU2 ---
Inpatient post-anesthesia follow up: Airway intact: Yes Vital signs: Temperature 97.6 F Pulse Rate 92 Respiratory Rate 17 Blood Pressure 129/79 Pulse Oximetry 94 Oxygen Delivery Me thod Room Air Oxygen Flow Rate 6 Fraction of Inspir ed Oxygen Hydration adequate: Yes Nausea and vomiting: No Pain level: 1 Mental status: Baseline
[2024-10-26] MEDS: oxyCODONE 5 mg IR Tab/Cap PO ×2 (13:25→21:22)
[2024-10-26] MEDS: CELEcoxib 200 mg Capsule PO ×2 (13:25→23:31)
[2024-10-26] MEDS: chlorhexidine gluconate 0.12% Btl 473 mL 30 ML MUCOUS MEM ×3 (13:26→20:34)
[2024-10-26] MEDS: ipratropium-albuterol 3 mL Neb INHALATION ×2 (15:48→19:58)
[2024-10-26] MEDS: mupirocin oint 22 gm 1 APPLIC NASAL (17:48)
[2024-10-26] MEDS: calcium carbonate 500 mg Chew Tablet 1000 MG PO (17:48)
[2024-10-26] MEDS: sennosides-docusate Tablet 2 TAB PO (17:48)
[2024-10-26] MEDS: iron polysaccharide complex 150 mg Capsule PO (17:48)
[2024-10-26] MEDS: gabapentin 100 mg Capsule PO (20:35)
[2024-10-26] MEDS: PARoxetine 20 mg Tablet PO (20:35)
[2024-10-27] VITALS (10 sets, daily range): BP systolic 95–131; BP diastolic 53–72; PULSE 76–88; RESP 16–18; TEMP 36.9; O2SAT 92–99
[2024-10-27] MEDS: oxyCODONE 5 mg IR Tab/Cap PO ×2 (06:20→14:09)
[2024-10-27] MEDS: buPROPion XL (24 HR) 300 mg Tablet PO (06:30)
[2024-10-27] MEDS: acetaminophen 1,000 MG/100 ML PIGGYBACK 400 MG IV (06:30)
[2024-10-27 06:51] LABS: Basophils % 0.1 %; Hematocrit 32.2 % (36-47); Lymphocytes # 1.8 10^3/uL (0.8-4.8); Lymphocytes % 12.1 %; Mean Corpuscular HGB Conc 32.3 g/dL (30-55); Mean Corpuscular Hemoglobin 27.8 pg (27-33); Mean Corpuscular Volume 86.1 fl (85-98); Mean Platelet Volume 11.6 fL (7.4-10.4); Monocytes # 1.1 10^3/uL (0.2-0.9); Neutrophils # 12.01 10^3/uL (1.8-7.7); Neutrophils % 80.5 %; Nucleated Red Blood Cells % 0 %; Platelet Count 217 10^3/cmm (157-399); Red Blood Count 3.74 10^6/uL (3.85-5.65); Red Cell Distribution Width 13.4 % (12.1-15.1); White Blood Count 14.94 10^3/uL (3.29-11.43)
[2024-10-27 06:53] LABS: Anion Gap 17.1 (5-19); Blood Urea Nitrogen 17 mg/dL (8-23); Carbon Dioxide 25 mmol/L (22-29); Chloride 101 mmol/L (98-107); Creatinine Clr Calc Pharmacy 44.1453; Glomerular Filtration Rate 41.5 mL/min (90-130); Glucose 148 mg/dL (65-115); Osmolality Calculated 290 mOsm/kg (285-295); Potassium 5.1 mmol/L (3.5-5.1); Sodium 138 mmol/L (136-145)
[2024-10-27] MEDS: ipratropium-albuterol 3 mL Neb INHALATION ×2 (07:58→11:02)
[2024-10-27] MEDS: ceFAZolin 2,000 mg SDV 2000 MG IVP (08:40)
[2024-10-27] MEDS: iron polysaccharide complex 150 mg Capsule PO (08:40)
[2024-10-27] MEDS: cholecalciferol (vitamin D3) 1,000 unit Tablet 1000 UNIT PO (08:40)
[2024-10-27] MEDS: apixaban 5 mg Tablet 2.5 MG PO (08:40)
[2024-10-27] MEDS: fluticasone nasal spray 16gm Btl 2 SPRAY INTRANASAL (08:40)
[2024-10-27] MEDS: calcium carbonate 500 mg Chew Tablet 1000 MG PO (08:40)
[2024-10-27] MEDS: sennosides-docusate Tablet 2 TAB PO (08:40)
[2024-10-27] MEDS: multivitamin therapeutic Tablet 1 TAB PO (08:40)
[2024-10-27] MEDS: CELEcoxib 200 mg Capsule PO (11:13)
--- NOTE | 2024-10-27 13:59 | PM.DCS ---
Discharge Providers Date of Admission: 10/26/24 11:20 Date of Discharge: October 27, 2024 Attending Provider at Admission: Mariaelena Mcclain MD Attending Provider at Discharge: Mariaelena Mcclain MD Primary Care Provider: Liane Granados MD Diagnoses at Discharge Discharge Diagnosis (1) Primary osteoarthritis of right knee: Status: Acute (2) Status post total right knee replacement not using cement: Status: Acute Permanent problem details: Date of procedure: October 26, 2024 Diagnosis: Primary osteoarthritis right knee Procedure done: Right total knee arthroplasty with Emeka guidance Implants: The [place] total knee system with a size 2 triathlon beaded cruciate retaining femur right, a triathlon titanium tibial component size 2 beaded, a triathlon X3 tibial bearing CS insert size 2 X 9 mm and a beaded triathlon titanium asymmetric patella size 32 x 10 mm Reason for Visit Reason for Visit: M17.11 Brief History: This 64-year-old woman presented the clinic complaining of severe right knee pain which interfered with her activities of daily living. The patient had cortisone injection which only lasted about an hour. She continued to have worsening of her pain and symptoms. After discussion, she wished to proceed with operative intervention in the form of right total knee arthroplasty. Risks and complications were discussed with her. Consents were signed and questions were answered Hospital Course Hospital Course Patient was brought into the hospital under observation status following uneventful right total knee arthroplasty. She did well and worked with physical therapy. On the first postoperative day, dressings were changed except for the OpSite. The wound appeared benign as there was no drainage. There was no significant ecchymosis or swelling. The patient showed no signs of DVT and was felt safe for discharge to home. Therefore, she was discharged to home with home health. Physical Exam Const: COMMON NORMALS: no acute distress, average body habitus, patient oriented x3 and alert GENERAL APPEARANCE: cooperative and comfortable ORIENTATION/CONSCIOUSNESS: Yes awake HENMT: COMMON NORMALS: normocephalic and atraumatic HEAD & SCALP: normocephalic and atraumatic Eye: GENERAL EYE: appearance normal, both eyes and all related structures Chest: COMMONS NORMALS: normal inspection of the chest Resp: COMMON NORMALS: normal respiratory effort EFFORT & INSPECTION: Yes able to speak in complete sentences and Yes symmetric chest movement Extremity: RIGHT LOWER EXTREMITY: Yes knee joint (Large outer dressing was removed from the knee) Right knee: Yes inspection (No significant ecchymosis), Yes palpation (No significant tenderness), Yes ROM (Not evaluated) and Yes neurovascular exam (Intact distally without evidence of DVT) Neuro: COMMON NORMALS: patient oriented x3 SENSORIUM/ORIENTATION: Yes alert Psych: COMMON NORMALS: mental status grossly normal APPEARANCE: Yes grossly normal ATTITUDE: Yes calm and Yes engaged ATTENTION/CONCENTRATION: Yes attention grossly intact Skin: COMMON NORMALS: no rashes or lesions noted GENERAL SKIN EXAM: no rashes or lesions noted Urinary Catheter Management: Aguirre: Cath Placed During This Visit: yes, but has since been removed by the nurse Reason for Continuing Indwelling Catheter: Decision to DC Catheter Urinary Catheter Date of Insertion: 10/26/24 Urinary Catheter Time of Insertion: 08:03 Date Urinary Catheter Removed: 10/26/24 Time Urinary Catheter Discontinued: 17:59 Discharge Data Studies Completed and Pending Completed Studies During Hospitalization Category Date Time Status XR knee RT 1-2V 13888 Routine Exams 10/26/24 10:30 Completed Radiology Impressions Knee X-Ray 10/26/24 10:30 IMPRESSION: 1. RIGHT total knee replacement in excellent position. Laboratory Results WBC 14.94 10^3/uL (3.29-11.43) H 10/27/24 05:50 RBC 3.74 10^6/uL (3.85-5.65) L 10/27/24 05:50 Hgb 10.40 g/dL (11.27-16.99) L 10/27/24 05:50 Hct 32.2 % (36-47) L 10/27/24 05:50 MCV 86.1 fl (85-98) 10/27/24 05:50 MCH 27.8 pg (27-33) 10/27/24 05:50 MCHC 32.3 g/dL (30-55) 10/27/24 05:50 RDW 13.4 % (12.1-15.1) 10/27/24 05:50 Plt Count 217 10^3/cmm (157-399) 10/27/24 05:50 MPV 11.6 fL (7.4-10.4) H 10/27/24 05:50 Neut % (Auto) 80.5 % 10/27/24 05:50 Lymph % (Auto) 12.1 % 10/27/24 05:50 [place] % (Auto) 7.0 % 10/27/24 05:50 Eos % (Auto) 0.0 % 10/27/24 05:50 Baso % (Auto) 0.1 % 10/27/24 05:50 Neut # (Auto) 12.01 10^3/uL (1.8-7.7) H 10/27/24 05:50 Lymph # (Auto) 1.8 10^3/uL (0.8-4.8) 10/27/24 05:50 [place] # (Auto) 1.1 10^3/uL (0.2-0.9) H 10/27/24 05:50 Eos # (Auto) 0.0 10^3/uL (0.0-0.8) 10/27/24 05:50 Baso # (Auto) 0.0 10^3/uL (0.0-0.1) 10/27/24 05:50 Nucleated RBC % (auto) 0 % 10/27/24 05:50 Nucleated RBCs # 0.0 /100WBC 10/27/24 05:50 Sodium 138 mmol/L (136-145) 10/27/24 05:50 Potassium 5.1 mmol/L (3.5-5.1) 10/27/24 05:50 Chloride 101 mmol/L (98-107) 10/27/24 05:50 Carbon Dioxide 25 mmol/L (22-29) 10/27/24 05:50 Anion Gap 17.1 (5-19) 10/27/24 05:50 BUN 17 mg/dL (8-23) 10/27/24 05:50 Creatinine 1.3 mg/dL (0.5-0.9) H 10/27/24 05:50 GFR Calculation 41.5 mL/min (90-130) L 10/27/24 05:50 Glucose 148 mg/dL (65-115) H 10/27/24 05:50 Calculated Osmolality 290 mOsm/kg (285-295) 10/27/24 05:50 Calcium 9.0 mg/dL (8.5-10.5) 10/27/24 05:50 Vitals Last Vital Signs Temp 98.5 F 10/27/24 12:00 Pulse 82 10/27/24 12:00 Resp 17 10/27/24 12:00 BP 131/72 10/27/24 12:00 Pulse Ox 96 10/27/24 12:00 O2 Del Method Room Air 10/27/24 12:00 O2 Flow Rate 6 10/26/24 10:49 Discharge Plan Discharge Patient Disposition: Home Health Service Condition: Stable Prescriptions: New celecoxib 200 mg Capsule 200 mg PO 1XD 30 Days Qty: 30 0RF acetaminophen 500 mg Tablet 1,000 mg PO Q8H 15 Days Qty: 90 0RF oxycodone 5 mg Tablet 5 mg PO Q4H PRN (Reason: Moderate To Severe Pain) 7 Days Qty: 40 0RF Eliquis 5 mg Tablet 2.5 mg PO BID 30 Days Qty: 60 0RF Continued azelastine 137 mcg (0.1 %) aerosol,spray 1 spray intranasal BID PRN (Reason: sob) Rx Instructions: administer into each nostril (DME) Carbon Fiber Plate See Rx Instructions .Route .MEDSUPPLY Qty: 1 0RF Rx Instructions: As directed (DME) Blood Glucose Test Strip See Rx Instructions .ROUTE .MEDSUPPLY Qty: 50 11RF Rx Instructions: Brand/type to go with meter per insurance coverage Anoro Ellipta 62.5-25 mcg/actuation blister with device 1 inh inhalation DAILY Qty: 60 6RF Linzess 145 mcg capsule 145 mcg PO DAILY Qty: 30 11RF All Day Allergy (cetirizine) 10 mg capsule 5 mg PO DAILY PRN (Reason: Allergy Symptoms) (DME) Hinged Knee Brace, right See Rx Instructions .Route .MEDSUPPLY Qty: 1 0RF Rx Instructions: As directed bupropion HCl [Wellbutrin XL] 300 mg tablet extended release 24 hr 300 mg PO QAM Qty: 30 11RF paroxetine HCl 40 mg tablet 40 mg PO QPM Qty: 30 11RF trazodone 100 mg tablet 200 mg PO .HS PRN (Reason: insomnia) Qty: 60 2RF mirabegron [Myrbetriq] 25 mg tablet extended release 24 hr 25 mg PO DAILY 90 Days Qty: 90 1RF tizanidine 4 mg capsule 4 mg PO BID PRN (Reason: muscle spasticity) Qty: 60 1RF alendronate 70 mg tablet 70 mg PO .weekly Qty: 4 6RF (DME) lancets [OneTouch Delica Plus Lancet] 30 gauge misc See Rx Instructions .ROUTE .COMPLEX Qty: 100 3RF Dose Instruction: USE DIRECTED FOUR TIMES DAILY Rx Instructions: USE DIRECTED FOUR TIMES DAILY fluticasone propionate [Flonase Allergy Relief] 50 mcg/actuation spray,suspension 2 spray intranasal DAILY Qty: 16 3RF Rx Instructions: administer into each nostril exemestane 25 mg tablet 25 mg PO DAILY Qty: 30 0RF Rx Instructions: TAKE 1 TABLET BY MOUTH ONCE DAILY gabapentin 100 mg capsule 100 mg PO BEDTIME Qty: 30 0RF silver sulfadiazine 1 % cream 1 applic topical BID PRN (Reason: ingrown toemanil) Rx Instructions: apply a 1.5 mm thickness paroxetine HCl 20 mg tablet 20 mg PO BEDTIME Rx Instructions: Take with 40 mg for a total of 60 mg daily albuterol sulfate 90 mcg/actuation HFA aerosol inhaler 2 puff inhalation Q4H PRN (Reason: Shortness Of Breath Or Wheezing) Rx Instructions: INHALE TWO PUFFS BY MOUTH EVERY 4 HOURS NEEDED Discharge Orders: Discharge Order (Routine); Ordered 10/27/24 Ordered By: Mariaelena Mcclain Other Ambulatory Orders: DME: Walker (Order) Location: None Selected Ordered By: Mariaelena Mcclain Referrals: [facility] [Outside] Mariaelena Mcclain MD [Physician] - 12/06/24 3:15 pm Discharge Diet: Advance as tolerated and Usual diet Discharge Activity: Increase activity as tolerated, Limit activity as instructed, Use walker/crutches as instructed and As per PT/OT instructions Patient Instructions: Acetaminophen (By mouth), Celecoxib (By mouth), Apixaban (By mouth), Acute Wound Care (DC), Total Knee Replacement (DC), Post Anesthesia Care Activity Restrictions/Additional Instructions: Ice and elevation to right lower extremity. Weightbearing, range of motion, strengthening, and ambulation per physical therapy. Keep your dressing in place until you come to the office unless it lifts up and begins to leak at which time you may remove it. Follow-up as scheduled. Discharge Attestations Time Spent in Discharge Care*: greater than 30 min Specific Discharge Activities: educating patient, documenting/other paperwork and evaluating patient/reviewing data Quality Metrics Clinical Quality Measures [ No reported AMI, CVA or VTE this stay] Coding Level of Care Code Acute Code for Chg Fwd Diagnoses Primary osteoarthritis of right knee M17.11 Status post total right knee replacement not using cement Z96.651
--- NOTE | 2024-10-27 14:57 | PC.NURSE ---
Discharge Note Patient discharged to home via private vehicle accompanied by daughter. Discharge instructions reviewed with patient and/or energy conservation representative. Mobile pharmacy medications and/or prescriptions provided. Belongings/home medications returned.
== END 2024-10-27 14:59 | disposition home health service (06) ==
LOC: MEDSURG 14:19
PROVIDERS: Admitting Provider Specialist; PCP Family Medicine; Visit Provider Specialist
PROC: 8E0Y0CZ Robotic Assisted Procedure of Lower Extremity, Open Approach (ICD-10-PCS; CPT 27447; principal; 2024-10-26 07:45)
DX: M17.11 Unilateral primary osteoarthritis, right knee (principal); G47.33 Obstructive sleep apnea (adult) (pediatric); N18.30 Chronic kidney disease, stage 3 unspecified; J44.9 Chronic obstructive pulmonary disease, unspecified; I25.2 Old myocardial infarction; F17.210 Nicotine dependence, cigarettes, uncomplicated
CPT/HCPCS: 20985; 27447; 36415; 51702; 73560; 80048; 85025; 94640; 97116; 97161; 97165; 97530; A4216; C1776; C9290; G0378; J0131; J0690; J1171; J2704; J3010; J3370; J3490; J7030; J9999; P9045

== ENCOUNTER → 2024-11-03 09:23 | Outpatient (BNVA) | payer MEDICARE, MEDICAID, SELFPAY | PROVIDERS: PCP Family Medicine; Visit Provider Nurse Practitioner | DX: N18.31 Chronic kidney disease, stage 3a (principal); C50.411 Malignant neoplasm of upper-outer quadrant of right female breast; Z17.0 Estrogen receptor positive status [ER+]; N39.0 Urinary tract infection, site not specified; D37.4 Neoplasm of uncertain behavior of colon; E87.1 Hypo-osmolality and hyponatremia; N13.30 Unspecified hydronephrosis; R30.0 Dysuria | CPT/HCPCS: 80053; 81000; 85025 ==

== ENCOUNTER → 2024-11-06 15:25 | Outpatient (BNVA) | payer MEDICARE, MEDICAID, SELFPAY | PROVIDERS: PCP Family Medicine; Visit Provider Specialist | DX: Z98.890 Other specified postprocedural states (principal); Z96.651 Presence of right artificial knee joint | CPT/HCPCS: 73560; 73565; 99024 ==

== ENCOUNTER → 2024-11-14 13:51 | Outpatient (BNVA) | payer OTHER, SELFPAY | PROVIDERS: PCP Family Medicine; Referring Provider Nurse Practitioner; Visit Provider Nurse Practitioner | DX: N39.0 Urinary tract infection, site not specified (principal) | CPT/HCPCS: 87086 ==

== ENCOUNTER → 2024-11-22 09:12 | Outpatient (BNVA) | payer OTHER, MEDICAID, SELFPAY | PROVIDERS: PCP Family Medicine; Visit Provider Family Medicine | DX: N39.0 Urinary tract infection, site not specified (principal); B37.31 Acute candidiasis of vulva and vagina; Z87.440 Personal history of urinary (tract) infections | CPT/HCPCS: 81000; 87086 ==

== ENCOUNTER 2024-11-27 12:53 | Oncology outpatient (recurring) (ONCR) | payer MEDICARE, MEDICAID, SELFPAY ==
[2024-11-27 13:15] LABS: Basophils % 0.3 %; Eosinophils # 0.1 10^3/uL (0.0-0.8); Eosinophils % 1.8 %; Hematocrit 39.5 % (36-47); Lymphocytes % 49.6 %; Mean Corpuscular HGB Conc 31.9 g/dL (30-55); Mean Corpuscular Hemoglobin 27.9 pg (27-33); Mean Corpuscular Volume 87.6 fl (85-98); Mean Platelet Volume 10.7 fL (7.4-10.4); Monocytes # 0.4 10^3/uL (0.2-0.9); Monocytes % 6.7 %; Neutrophils # 2.52 10^3/uL (1.8-7.7); Neutrophils % 41.4 %; Nucleated Red Blood Cells % 0 %; Platelet Count 244 10^3/cmm (157-399); Red Blood Count 4.51 10^6/uL (3.85-5.65); Red Cell Distribution Width 14.3 % (12.1-15.1); White Blood Count 6.09 10^3/uL (3.29-11.43)
[2024-11-27 13:33] LABS: Alanine Aminotransferase 11 U/L (0-33); Albumin Level 4.6 g/dL (3.5-5.2); Alkaline Phosphatase 129 U/L (35-105); Anion Gap 14.2 (5-19); Aspartate Amino Transferase 13 U/L (0-32); Blood Urea Nitrogen 10 mg/dL (8-23); Calcium 9.1 mg/dL (8.5-10.5); Carbon Dioxide 26 mmol/L (22-29); Chloride 102 mmol/L (98-107); Globulin 2.7 g/dL (1.3-4.6); Glomerular Filtration Rate 56.2 mL/min (90-130); Glucose 140 mg/dL (65-115); Osmolality Calculated 287 mOsm/kg (285-295); Potassium 4.2 mmol/L (3.5-5.1); Sodium 138 mmol/L (136-145); Total Bilirubin 0.2 mg/dL (0.15-1.2); Total Protein 7.3 g/dL (6.6-8.7)
== END 2024-11-29 23:59 | disposition home or self-care (01) ==
PROVIDERS: Nurse Practitioner Family; PCP Family Medicine; Visit Provider Internal Medicine Medical Oncology
DX: Z08 Encounter for follow-up examination after completed treatment for malignant neoplasm (principal); Z85.3 Personal history of malignant neoplasm of breast; M81.0 Age-related osteoporosis without current pathological fracture; F17.210 Nicotine dependence, cigarettes, uncomplicated; Z79.811 Long term (current) use of aromatase inhibitors; Z90.11 Acquired absence of right breast and nipple; Z92.23 Personal history of estrogen therapy; Z79.899 Other long term (current) drug therapy
CPT/HCPCS: 36415; 80053; 85025; 99214

== ENCOUNTER 2024-11-30 05:00 | Outpatient (RCR) | payer MEDICARE, MEDICAID, SELFPAY | END 2024-12-30 23:55 | disposition home or self-care (01) | LOC: MPT 05:00 | PROVIDERS: PCP Family Medicine; Visit Provider Specialist | DX: Z47.89 Encounter for other orthopedic aftercare (principal) | CPT/HCPCS: 97110; 97162; G0283 ==

== ENCOUNTER → 2024-12-18 14:55 | Outpatient (BNVA) | payer MEDICARE, SELFPAY | PROVIDERS: PCP Family Medicine; Visit Provider Nurse Practitioner | DX: M25.561 Pain in right knee (principal); Z98.890 Other specified postprocedural states; Z96.651 Presence of right artificial knee joint | CPT/HCPCS: 73562 ==

== ENCOUNTER → 2024-12-20 10:38 | Outpatient (BNVA) | payer MEDICARE, MEDICAID, SELFPAY | PROVIDERS: PCP Family Medicine; Visit Provider Podiatrist Foot & Ankle Surgery | DX: T84.84XA Pain due to internal orthopedic prosthetic devices, implants and grafts, initial encounter (principal); Y79.2 Prosthetic and other implants, materials and accessory orthopedic devices associated with adverse incidents; G62.9 Polyneuropathy, unspecified; N18.31 Chronic kidney disease, stage 3a | CPT/HCPCS: 73630; 99214 ==

== ENCOUNTER 2024-12-31 05:00 | Outpatient (RCR) | payer MEDICARE, MEDICAID, SELFPAY | END 2025-01-29 23:59 | disposition home or self-care (01) | LOC: MPT 05:00 | PROVIDERS: PCP Family Medicine; Visit Provider Specialist | DX: Z47.1 Aftercare following joint replacement surgery (principal); Z96.651 Presence of right artificial knee joint | CPT/HCPCS: 97110; G0283 ==

== ENCOUNTER 2025-01-20 18:41 | Emergency (ER) | payer MEDICARE, MEDICAID, SELFPAY ==
[2025-01-20 18:47] VITALS: BP 137/76; PULSE 93; RESP 20; TEMP 36.8; O2SAT 98; BMI 29.9
--- NOTE | 2025-01-20 18:48 | CTR_ITS ---
PROCEDURE INFORMATION: Exam: CT Abdomen And Pelvis With Contrast Exam date and time: 01/20/2025 7:30 PM Age: 64 years old Clinical indication: Abdominal pain; Localized; Right lower quadrant (rlq); Prior surgery; Surgery date: 6+ months; Surgery type: Gb. Csection; C/O rlq pain. History of stage iii ckd. TECHNIQUE: Imaging protocol: Computed tomography of the abdomen and pelvis with contrast. Radiation optimization: All CT scans at this facility use at least one of these dose optimization techniques: automated exposure control; mA and/or kV adjustment per patient size (includes targeted exams where dose is matched to clinical indication); or iterative reconstruction. Contrast material: OMNI 350; Contrast volume: 80 ml; Contrast route: INTRAVENOUS (IV); COMPARISON: CT abdomen pelvis w con* [id number] 11/23/2022 1:07 PM RADIATION DOSE METRICS: Total DLP (mGy-cm): 467.08 FINDINGS: Lungs: Visualized lung bases are clear. Liver: Probable hepatic steatosis. No suspicious hepatic masses. Gallbladder and biliary ducts: Status post cholecystectomy. No significant biliary ductal dilation. Pancreas: Mild atrophy of the pancreas. No pancreatic ductal dilation. Spleen: Multiple subcentimeter calcified granulomas in the spleen. Adrenal glands: The adrenal glands are unremarkable. Kidneys and ureters: Mild prominence of the right renal pelvis and proximal right ureter appears unchanged compared to 11/23/2022 and is favored to be chronic. No distinct hydronephrosis or hydroureter on current study. Kidneys demonstrate symmetric post-contrast nephrograms. Left kidney and ureter are normal in appearance. Stomach and bowel: No evidence of bowel obstruction. Appendix: The appendix is not distinctly identified. There are no obvious secondary signs of acute appendicitis. Intraperitoneal space: No extraluminal free air. No significant free fluid in the abdomen or pelvis. Vasculature: Two distinct punctate calcifications located near the right ureterovesicular junction appear unchanged compared to 11/23/2022 and are favored to represent punctate phleboliths. Lymph nodes: No distinct pathologically enlarged lymphadenopathy. Urinary bladder: Urinary bladder is within normal limits. Reproductive: Visualized reproductive structures are within normal limits. Bones/joints: No acute osseous findings. Soft tissues: Visualized superficial soft tissues are within normal limits. CT/CT abdomen pelvis w con* [id number] IMPRESSION: 1. No focal findings in the right lower quadrant to suggest a specific cause of abdominal pain. 2. Two distinct punctate calcifications located near the right ureterovesicular junction appear unchanged compared to 11/23/2022 and are favored to represent punctate phleboliths. 3. Mild prominence of the right renal pelvis and proximal right ureter appears unchanged compared to 11/23/2022 and is favored to be chronic. No distinct hydronephrosis or hydroureter on current study. Kidneys demonstrate symmetric post-contrast nephrograms. 4. Probable hepatic steatosis.
[2025-01-20 18:57] LABS: Basophils % 0.3 %; Eosinophils # 0.2 10^3/uL (0.0-0.8); Eosinophils % 2.6 %; Hematocrit 40.7 % (36-47); Lymphocytes # 3.4 10^3/uL (0.8-4.8); Lymphocytes % 52.2 %; Mean Corpuscular HGB Conc 32.7 g/dL (30-55); Mean Corpuscular Hemoglobin 27.7 pg (27-33); Mean Corpuscular Volume 84.8 fl (85-98); Mean Platelet Volume 10.7 fL (7.4-10.4); Monocytes # 0.6 10^3/uL (0.2-0.9); Monocytes % 8.6 %; Neutrophils # 2.36 10^3/uL (1.8-7.7); Neutrophils % 36.1 %; Nucleated Red Blood Cells % 0 %; Platelet Count 247 10^3/cmm (157-399); Red Cell Distribution Width 13.1 % (12.1-15.1); White Blood Count 6.53 10^3/uL (3.29-11.43)
[2025-01-20] MEDS: ondansetron 2 mg/ML SDV 2 mL 4 MG IVP (18:58)
[2025-01-20] MEDS: morphine 4 mg/mL SDV 1 mL IVP (18:59)
[2025-01-20] MEDS: sodium chloride 0.9% 1,000 ML 999 ML IV (18:59)
[2025-01-20 19:03] VITALS: BP 134/88; PULSE 92; RESP 16; O2SAT 100
[2025-01-20 19:08] LABS: Bilirubin Urine Negative (Negative); Blood Urine Negative (Negative); Glucose Urine UA Negative (Normal); Ketones Urine Negative (Negative); Leukocyte Esterase Urine Negative (Negative); Nitrate Urine Negative (Negative); Protein Urine Negative (Negative); Specific Gravity, Urine 1.009 (1.005-1.030); Urine Appearance Clear (CLEAR); Urine Color Yellow (Yellow)
--- NOTE | 2025-01-20 19:10 | W.ED.ABDPA2 ---
HPI - Abdominal Pain General: Chief Complaint: Abdominal Pain Stated Complaint: ruq abd pain Time Seen by Provider: 01/20/25 18:42 History of Present Illness: Patient is 64-year-old female that reports to emergency room with worsening right lower quadrant pain. Initially she started having a right lower quadrant pain on and off from the 12/05. She was seen by her primary care physician on 08 January. She does have association nausea. Today, this was worsening in nature, was having difficulty with ambulation due to the pain in her right lower quadrant, and association of nausea and vomiting. Last food intake: 1500, last water intake: 1730 She has not had any fevers. No flank pain. No dysuria. Associated Symptoms: Reports nausea and vomiting; Denies chills and fever(s) Related Data Home Medications ?Medication ?Instructions ?Recorded ?Confirmed cetirizine 10 mg capsule (All Day 5 mg PO DAILY PRN Allergy Symptoms 08/12/22 01/08/25 Allergy (cetirizine)) paroxetine HCl 20 mg tablet 20 mg PO BEDTIME 07/11/24 01/08/25 silver sulfadiazine 1 % topical 1 applic topical BID PRN ingrown 10/25/24 01/08/25 cream toemanil fluticasone fur. 100 mcg-umeclid 1 inh inhalation DAILY 12/12/24 01/08/25 62.5 mcg-vilant 25 mcg inhalat.powder (Trelegy Ellipta) Previous Rx's ?Medication ?Instructions ?Recorded Carbon Fiber Plate #1 ea 10/14/23 Hinged Knee Brace, right #1 ea 02/07/24 blood sugar diagnostic (Blood #50 ea 03/06/24 Glucose Test strips) bupropion HCl 300 mg 24 hr tablet, 300 mg PO QAM #30 tabs 06/13/24 extended release (Wellbutrin XL) paroxetine HCl 40 mg tablet 40 mg PO QPM #30 tabs 06/13/24 lancets 30 gauge (OneTouch Delica #100 ea 07/10/24 Plus Lancet) linaclotide 145 mcg capsule 145 mcg PO DAILY #30 caps 08/21/24 (Linzess) mirabegron 25 mg tablet,extended 25 mg PO DAILY 90 days #90 tabs 10/03/24 release 24 hr (Myrbetriq) tizanidine 4 mg capsule 4 mg PO BID PRN muscle spasticity 10/30/24 #60 caps gabapentin 100 mg capsule 100 mg PO BEDTIME #30 caps 11/02/24 alendronate 70 mg tablet 70 mg PO .weekly #4 tabs 11/06/24 fluticasone propionate 50 2 spray intranasal DAILY #16 grams 11/06/24 mcg/actuation nasal spray,suspension (Flonase Allergy Relief) oxycodone 5 mg tablet 5 mg PO Q4H PRN Moderate To Severe 11/06/24 Pain 7 days #40 tabs albuterol sulfate 90 mcg/actuation See Rx Instructions .Route 12/21/24 aerosol inhaler .COMPLEX #27 grams prednisone 20 mg tablet See Rx Instructions PO .q AM 10 12/28/24 days #11 tabs ondansetron 4 mg disintegrating 4 mg PO DAILY PRN nausea and 01/20/25 tablet vomiting 4 days #10 tabs Allergies Allergy/AdvReac Type Severity Reaction Status Date / Time aspirin Allergy Severe makes me Verified 01/08/25 10:56 stop breathing mushroom Allergy Severe Can't Verified 01/08/25 10:56 breath codeine Allergy Intermediate loss of Verified 01/08/25 10:56 functioning hepatitis B virus vaccine Allergy Intermediate ADR-Dizzine Verified 01/08/25 10:56 ss metronidazole (From Flagyl) Allergy Intermediate memory fog Verified 01/08/25 10:56 trospium (From Sanctura) AdvReac Severe ADR/ALGY-Pa Verified 01/08/25 10:56 lpitations Review of Systems General: Reports: 10 or more systems reviewed and unremarkable except in HPI and below Const: Denies: fever(s) or chills Eyes: Denies: change in vision or blurry vision ENMT: Denies: throat pain or uvular edema Card: Denies: chest pain or palpitations Resp: Denies: dyspnea or productive cough GI: Reports: abdominal pain, nausea and vomiting : Denies: flank pain or difficulty voiding Musc: Denies: neck pain or back pain Skin/Breast: Denies: rash or pruritus Neuro: Denies: headache(s) or numbness in extremities Psych: Denies: anxiety or depression Endo: Denies: polyuria or polydipsia Clint/Lymph: Denies: easy bruising or easy bleeding All/Imm: Denies: urticaria or throat swelling PFSH ED PFSH: Medical History Tubulovillous adenoma of colon Myocardial infarction (2007) Chronic kidney disease Stage 3a 10/2022 Eczema Osteoarthritis Depression Obstructive sleep apnea Psychiatric care Allergic rhinosinusitis COPD (chronic obstructive pulmonary disease) Breast cancer Osteoporosis Surgical History Hx of colonoscopy with polypectomy [facility] less than 10 yrs ago S/P matrixectomy of toe History of section x 3 History of right mastectomy (08/17/19) Right modified radical mastectomy History of cholecystectomy Family History Mother Diabetes Cancer Chronic kidney disease (CKD) Breast cancer Denies family history of Colon cancer Ovarian cancer Heart disease Hyperlipidemia Hypertension Uterine cancer Thyroid disease Stroke Social History Smoking and tobacco/nicotine status: current every day tobacco/nicotine user (pack per day ) cigarettes Packs smoked per day: 0.5 [ Other cigarette details: relpsed and now smoking 1/2 -3/4 Pack for day ] Quit status (tobacco/nicotine): has tried quititng Second hand smoke exposure: Yes (Some.) Alcohol intake: former Substance/Drug Use: never Lives independently: Yes Household members: none Marital status: / Current occupational status: disabled Do you think of yourself as: Straight/Heterosexual Current gender identity: Female Physical Exam Const: COMMON NORMALS: no acute distress, average body habitus and patient oriented x3 HENMT: COMMON NORMALS: normocephalic and atraumatic HEAD & SCALP: normocephalic and atraumatic THROAT: no uvular edema Eye: COMMON NORMALS: Equal, round and reactive pupils present and EOMs intact bilaterally PUPIL: Yes Equal, round and reactive pupils present Lymph: LYMPHATIC: no lymphadenopathy noted Chest: COMMONS NORMALS: normal inspection of the chest and normal palpation of entire chest wall Resp: COMMON NORMALS: normal respiratory effort, No retractions and clear to auscultation bilaterally AUSCULTATION: clear to auscultation bilaterally Cardio: COMMON NORMALS: regular rate and regular rhythm RATE: regular rate RHYTHM: regular rhythm GI: COMMON NORMALS: Soft to palpation AUSCULTATION: Yes normoactive bowel sounds and Yes Hypoactive bowel sounds present PALPATION: Yes Soft to palpation, Yes Tenderness to palpation present (GI) Details: RLQ, Yes Guarding due to palpation present (GI) in the RLQ, No Hepatosplenomegaly present, Yes Rebound tenderness present and Yes Other GI palpation findings present (Psoas +, Rovsing +) : COMMON NORMALS: Yes no CVA tenderness BLADDER/KIDNEY EXAM: Yes no CVA tenderness Back/Pelvis: COMMON NORMALS: no CVA tenderness Extremity: COMMON NORMALS: normal to inspection, full ROM and capillary refill normal Neuro: COMMON NORMALS: patient oriented x3 Psych: COMMON NORMALS: mental status grossly normal and Normal thought process present THOUGHT PROCESS: Normal thought process present Skin: COMMON NORMALS: no rashes or lesions noted and no wounds GENERAL SKIN EXAM: no rashes or lesions noted Course Vital Signs: Vital signs: Vital Signs Temperature 98.2 F 01/20/25 18:47 Pulse Rate 90 01/20/25 20:44 Respiratory Rate 16 01/20/25 20:44 Blood Pressure 140/92 01/20/25 20:44 Pulse Oximetry 100 01/20/25 20:44 MDM - Abdominal Pain Medical Decision Making Patient has a positive psoas, Rovsing. Her exam is consistent with acute appendicitis, however given her history, it is unlikely acute appendicitis illness that is associated with the peritonitis given the amount of time. Additional differentials would still include a right-sided diverticulitis, pancreatitis, although patient does not consume alcohol, small bowel obstruction with previous surgeries of cholecystectomy on her abdomen. Will obtain the workup, CT of the abdomen and pelvis, IV fluids, and continue n.p.o. status until further review. Lab Data 01/20/25 18:49 01/20/25 18:49 Labs/Radiology: Radiology Impressions Abdomen/Pelvis CT 01/20/25 18:48 IMPRESSION: 1. No focal findings in the right lower quadrant to suggest a specific cause of abdominal pain. 2. Two distinct punctate calcifications located near the right ureterovesicular junction appear unchanged compared to 11/23/2022 and are favored to represent punctate phleboliths. 3. Mild prominence of the right renal pelvis and proximal right ureter appears unchanged compared to 11/23/2022 and is favored to be chronic. No distinct hydronephrosis or hydroureter on current study. Kidneys demonstrate symmetric post-contrast nephrograms. 4. Probable hepatic steatosis. Laboratory Results WBC 6.53 10^3/uL (3.29-11.43) 01/20/25 18:49 RBC 4.80 10^6/uL (3.85-5.65) 01/20/25 18:49 Hgb 13.30 g/dL (11.27-16.99) 01/20/25 18:49 Hct 40.7 % (36-47) 01/20/25 18:49 MCV 84.8 fl (85-98) L 01/20/25 18:49 MCH 27.7 pg (27-33) 01/20/25 18:49 MCHC 32.7 g/dL (30-55) 01/20/25 18:49 RDW 13.1 % (12.1-15.1) 01/20/25 18:49 Plt Count 247 10^3/cmm (157-399) 01/20/25 18:49 MPV 10.7 fL (7.4-10.4) H 01/20/25 18:49 Neut % (Auto) 36.1 % 01/20/25 18:49 Lymph % (Auto) 52.2 % 01/20/25 18:49 [place] % (Auto) 8.6 % 01/20/25 18:49 Eos % (Auto) 2.6 % 01/20/25 18:49 Baso % (Auto) 0.3 % 01/20/25 18:49 Neut # (Auto) 2.36 10^3/uL (1.8-7.7) 01/20/25 18:49 Lymph # (Auto) 3.4 10^3/uL (0.8-4.8) 01/20/25 18:49 [place] # (Auto) 0.6 10^3/uL (0.2-0.9) 01/20/25 18:49 Eos # (Auto) 0.2 10^3/uL (0.0-0.8) 01/20/25 18:49 Baso # (Auto) 0.0 10^3/uL (0.0-0.1) 01/20/25 18:49 Nucleated RBC % (auto) 0 % 01/20/25 18:49 Nucleated RBCs # 0.0 /100WBC 01/20/25 18:49 Sodium 139 mmol/L (136-145) 01/20/25 18:49 Potassium 4.2 mmol/L (3.5-5.1) 01/20/25 18:49 Chloride 101 mmol/L (98-107) 01/20/25 18:49 Carbon Dioxide 26 mmol/L (22-29) 01/20/25 18:49 Anion Gap 16.2 (5-19) 01/20/25 18:49 BUN 9 mg/dL (8-23) 01/20/25 18:49 Creatinine 1.2 mg/dL (0.5-0.9) H 01/20/25 18:49 GFR Calculation 45.5 mL/min (90-130) L 01/20/25 18:49 Glucose 92 mg/dL (65-115) 01/20/25 18:49 Calculated Osmolality 286 mOsm/kg (285-295) 01/20/25 18:49 Lactic Acid 1.2 mmol/L (0.5-2.2) 01/20/25 18:49 Calcium 9.2 mg/dL (8.5-10.5) 01/20/25 18:49 Magnesium 2.3 mg/dL (1.7-2.3) 01/20/25 18:49 Total Bilirubin 0.2 mg/dL (0.15-1.2) 01/20/25 18:49 AST 25 U/L (0-32) 01/20/25 18:49 ALT 31 U/L (0-33) 01/20/25 18:49 Alkaline Phosphatase 84 U/L (35-105) 01/20/25 18:49 Total Protein 6.9 g/dL (6.6-8.7) 01/20/25 18:49 Albumin 4.3 g/dL (3.5-5.2) 01/20/25 18:49 Globulin 2.6 g/dL (1.3-4.6) 01/20/25 18:49 Lipase 34 U/L (13-60) 01/20/25 18:49 Urine Color Yellow (Yellow) 01/20/25 18:55 Urine Appearance Clear (CLEAR) 01/20/25 18:55 Urine pH 8.0 (5-7) A 01/20/25 18:55 Ur Specific [place] 1.009 (1.005-1.030) 01/20/25 18:55 Urine Protein Negative (Negative) 01/20/25 18:55 Urine Glucose (UA) Negative (Normal) 01/20/25 18:55 Urine Ketones Negative (Negative) 01/20/25 18:55 Urine Blood Negative (Negative) 01/20/25 18:55 Urine Nitrate Negative (Negative) 01/20/25 18:55 Urine Bilirubin Negative (Negative) 01/20/25 18:55 Urine Urobilinogen 1.0 mg/dL (Negative) 01/20/25 18:55 Ur Leukocyte Esterase Negative (Negative) 01/20/25 18:55 Urine RBC 0-2 /hpf (0-2) 01/20/25 18:55 Urine WBC 0-5 /hpf (0-5) 01/20/25 18:55 Ur Squamous Epith Cells 0-5 /hpf (0-5) 01/20/25 18:55 Amorphous Sediment Not Reportable 01/20/25 18:55 Urine Bacteria None seen /hpf (NONE) 01/20/25 18:55 Hyaline Casts 0-4 /lpf H 01/20/25 18:55 All radiology interpretation(s) finalized by discharge ED provider radiology interpretation(s): no acute Discharge Plan Discharge Patient Disposition: Home Clinical Impression: Gastroenteritis Nausea & vomiting Qualifiers: Vomiting type: unspecified Qualified Code(s): R11.2 - Nausea with vomiting, unspecified Condition: Stable Prescriptions: New ondansetron 4 mg tablet,disintegrating 4 mg PO DAILY PRN (Reason: nausea and vomiting) 4 Days Qty: 10 0RF No Action (DME) Carbon Fiber Plate See Rx Instructions .Route .MEDSUPPLY Qty: 1 0RF Rx Instructions: As directed (DME) Blood Glucose Test Strip See Rx Instructions .ROUTE .MEDSUPPLY Qty: 50 11RF Rx Instructions: Brand/type to go with meter per insurance coverage Linzess 145 mcg capsule 145 mcg PO DAILY Qty: 30 11RF oxycodone 5 mg tablet 5 mg PO Q4H PRN (Reason: Moderate To Severe Pain) 7 Days Qty: 40 0RF Trelegy Ellipta 100-62.5-25 mcg blister with device 1 inh inhalation DAILY prednisone 20 mg tablet See Rx Instructions PO .q AM 10 Days Qty: 11 0RF Rx Instructions: Day 1-3: 2 tabs, Day 4-6: 1 tabs, Day 7-10: 1/2 tabs PO .q AM; All Day Allergy (cetirizine) 10 mg capsule 5 mg PO DAILY PRN (Reason: Allergy Symptoms) (DME) Hinged Knee Brace, right See Rx Instructions .Route .MEDSUPPLY Qty: 1 0RF Rx Instructions: As directed bupropion HCl [Wellbutrin XL] 300 mg tablet extended release 24 hr 300 mg PO QAM Qty: 30 11RF paroxetine HCl 40 mg tablet 40 mg PO QPM Qty: 30 11RF mirabegron [Myrbetriq] 25 mg tablet extended release 24 hr 25 mg PO DAILY 90 Days Qty: 90 1RF gabapentin 100 mg capsule 100 mg PO BEDTIME Qty: 30 0RF (DME) lancets [OneTouch Delica Plus Lancet] 30 gauge misc See Rx Instructions .ROUTE .COMPLEX Qty: 100 3RF Dose Instruction: USE DIRECTED FOUR TIMES DAILY Rx Instructions: USE DIRECTED FOUR TIMES DAILY tizanidine 4 mg capsule 4 mg PO BID PRN (Reason: muscle spasticity) Qty: 60 1RF alendronate 70 mg tablet 70 mg PO .weekly Qty: 4 2RF fluticasone propionate [Flonase Allergy Relief] 50 mcg/actuation spray,suspension 2 spray intranasal DAILY Qty: 16 2RF Rx Instructions: administer into each nostril albuterol sulfate 90 mcg/actuation HFA aerosol inhaler See Rx Instructions .ROUTE .COMPLEX Qty: 27 2RF Dose Instruction: INHALE TWO PUFFS BY MOUTH EVERY 4 HOURS NEEDED Rx Instructions: INHALE TWO PUFFS BY MOUTH EVERY 4 HOURS NEEDED silver sulfadiazine 1 % cream 1 applic topical BID PRN (Reason: ingrown toemanil) Rx Instructions: apply a 1.5 mm thickness paroxetine HCl 20 mg tablet 20 mg PO BEDTIME Rx Instructions: Take with 40 mg for a total of 60 mg daily Discharge Orders: Discharge ED (Routine); Ordered 01/20/25 Ordered By: Frances Mobley Referrals: Liane Granados MD [Primary Care Provider, Family Practice] Discharge Diet: Clear Liquid Discharge Activity: Resume usual activity Patient Instructions: [place] Diet - Adult, Full Liquid Diet, Clear Liquid Diet (ED), Gastroenteritis (ED) Activity Restrictions/Additional Instructions: Clear liquid diet for 24 hours then advance to full liquid diet for 24 hours, then a bland diet. If you continue to have nausea or vomiting on your clear, or full liquid diet do not advance to a bland diet Add a probiotic to your regimen for gut motility. Follow-up with your doctor regarding this visit today. Is important for you to be reevaluated, examine, and explored for any additional concerns set or nonemergent basis. Return to ED if there is further help we can give you. Print Language: Lao Coding Level of Care Code ED Referral Coordinator for Karen Stokes
[2025-01-20 19:13] LABS: Lactic Sepsis W/Reflex 1.2 mmol/L (0.5-2.2)
[2025-01-20 19:13] LABS: Add Urine Microscopic? YES; Bacteria Urine None Seen /hpf; Hyaline Casts Urine 0-4 /lpf; RBC Urine 0-2 /hpf (0-2); Squamous Epithelial Cell Urine 0-5 /hpf (0-5); WBC Urine 0-5 /hpf (0-5)
[2025-01-20 19:14] LABS: Alanine Aminotransferase 31 U/L (0-33); Albumin Level 4.3 g/dL (3.5-5.2); Alkaline Phosphatase 84 U/L (35-105); Anion Gap 16.2 (5-19); Aspartate Amino Transferase 25 U/L (0-32); Blood Urea Nitrogen 9 mg/dL (8-23); Calcium 9.2 mg/dL (8.5-10.5); Carbon Dioxide 26 mmol/L (22-29); Chloride 101 mmol/L (98-107); Creatinine Clr Calc Pharmacy 51.3048; Globulin 2.6 g/dL (1.3-4.6); Glomerular Filtration Rate 45.5 mL/min (90-130); Glucose 92 mg/dL (65-115); Lipase 34 U/L (13-60); Magnesium 2.3 mg/dL (1.7-2.3); Osmolality Calculated 286 mOsm/kg (285-295); Potassium 4.2 mmol/L (3.5-5.1); Sodium 139 mmol/L (136-145); Total Bilirubin 0.2 mg/dL (0.15-1.2); Total Protein 6.9 g/dL (6.6-8.7)
[2025-01-20] MEDS: iohexol 350 mg/mL 500 mL Btl (per mL) IV (19:31)
[2025-01-20 20:07] VITALS: BP 139/83; PULSE 94; RESP 16; O2SAT 100
--- NOTE | 2025-01-20 20:41 | PC.NURSE ---
Cleansed lre wounds with normal saline, applied Vaseline guaze to open wounds, covered with non stick guaze and wrapped with kerlex.
[2025-01-20 20:44] VITALS: BP 140/92; PULSE 90; RESP 16; O2SAT 100
== END 2025-01-20 20:51 | disposition home or self-care (01) ==
PROVIDERS: Emergency Provider Physician Assistant; PCP Family Medicine
DX: K52.9 Noninfective gastroenteritis and colitis, unspecified (principal); R11.2 Nausea with vomiting, unspecified; F17.210 Nicotine dependence, cigarettes, uncomplicated; J44.9 Chronic obstructive pulmonary disease, unspecified; Z85.3 Personal history of malignant neoplasm of breast; N18.31 Chronic kidney disease, stage 3a
CPT/HCPCS: 36415; 74177; 80053; 81001; 83605; 83690; 83735; 85025; 96361; 96374; 96375; 99285; J2270; J2405; J7030

== ENCOUNTER → 2025-01-24 15:01 | Outpatient (BNVA) | payer MEDICARE, MEDICAID, SELFPAY | PROVIDERS: PCP Family Medicine; Visit Provider Obstetrics & Gynecology | DX: R30.0 Dysuria (principal) | CPT/HCPCS: 81000 ==

== ENCOUNTER → 2025-02-01 10:02 | Outpatient (BNVA) | payer MEDICARE, MEDICAID, SELFPAY | PROVIDERS: PCP Family Medicine; Visit Provider Student in an Organized Health Care Education/Training Program | DX: R10.31 Right lower quadrant pain (principal); R12 Heartburn | CPT/HCPCS: 99204 ==

== ENCOUNTER 2025-02-06 09:07 | Day surgery (SDC) | payer MEDICARE, MEDICAID, SELFPAY ==
[2025-02-06 09:38] VITALS: BP 143/93; PULSE 83; RESP 17; TEMP 36.2; O2SAT 98; BMI 25.2
--- NOTE | 2025-02-06 10:50 | P.ANESASSM_ITS ---
Pre-Anesthetic Assessment Height/Weight: Height 1.65 m Weight 68.946 kg Temp Pulse Resp BP Pulse Ox O2 Del Method 97.2 F L 83 17 143/93 98 Room Air 02/06/25 09:38 02/06/25 09:38 02/06/25 09:38 02/06/25 09:38 02/06/25 09:38 02/06/25 09:38 Preop Diagnosis: Abd pain Operation Date: 02/06/25 11:00 Proposed Procedures p EGD with Biopsy [id number], R10.31(Not Applicable) - Cayden Rodriguez MD Was Beta Marcelino taken within 24 hours: Yes Last intake: Intake Last Liquid Date 02/05/25 Last Liquid Time 22:00 Last Solid Date 02/05/25 Last Solid Time 18:30 Social Tobacco Exam alert, oriented x 3, clear to auscultation bilaterally and regular rate & rhythm Airway Submandibular: within normal limits Cervical ROM: within normal limits Mallampati: Class II Dentition: false and full History/ROS No significant history except as noted and No significant complaints Pulmonary Chronic Obstructive Pulmonary Disease, Exertional Dyspnea and Shortness of Breath CV/HEM Hypertension and Myocardial Infarction None reported Hepatic None reported GI Gastroesophageal Reflux Disease Metabolic None reported Musc/skel Osteoarthritis/DJD Neuropsych Anxiety and Depression Anesthetic Plan ASA status: 3 Anesthesia: Anesthesia Evaluation and MAC Risk of > 500 ml blood loss (7ml/kg in children): No Medications/Allergies Home Medications ?Medication ?Instructions ?Recorded ?Confirmed ?Last Taken ?Type cetirizine 10 mg capsule (All Day 5 mg PO DAILY PRN Al lergy Symptoms 08/12/22 02/06/25 02/04/25 History Allergy (cetirizine)) Carbon Fiber Plate #1 ea 10/14/23 02/01/2507/02 Rx blood sugar diagnostic (Blood #50 ea 03/06/24 02/01/25 07/11/24 Rx Glucose Test strips) bupropion HCl 300 mg 24 hr tablet, 300 mg PO QAM #30 t abs 06/13/24 02/06/25 02/05/25 Rx extended release (Wellbutrin XL) paroxetine HCl 40 mg tablet 40 mg PO QPM #30 tabs 06/0202/06/25 02/04/25 Rx lancets 30 gauge (OneTouch Delica #100 ea 07/10/2410/2407/11/24 Rx Plus Lancet) paroxetine HCl 20 mg tablet 20 mg PO BEDTIME 07/11/24 02/06/25 02/04/25 History linaclotide 145 mcg capsule 145 mcg PO DAILY #30 caps 08/21/24 02/06/25 02/05/25 Rx (Linzess) mirabegron 25 mg tablet,extended 25 mg PO DAILY 90 day s #90 tabs 10/03/24 02/06/25 02/05/25 Rx release 24 hr (Myrbetriq) silver sulfadiazine 1 % topical 1 applic topical BID P RN ingrown 10/25/24 02/06/25 Unknown History cream toemanil tizanidine 4 mg capsule 4 mg PO BID PRN muscle spast icity 10/30/24 02/06/25 02/04/25 Rx #60 caps gabapentin 100 mg capsule 100 mg PO BEDTIME #30 caps 0 11/02/24 02/06/25 02/04/25 Rx fluticasone propionate 50 2 spray intranasal DAILY #16 grams 11/06/24 02/06/25 02/04/25 Rx mcg/actuation nasal spray,suspension (Flonase Allergy Relief) fluticasone fur. 100 mcg-umeclid 1 inh inhalation JOYCE Y 12/12/24 02/06/25 02/06/25 History 62.5 mcg-vilant 25 mcg inhalat.powder (Trelegy Ellipta) estradiol 0.01% (0.1 mg/gram) 1 appful vaginal DAILY # 42.5 grams 01/24/25 02/06/25 Unknown Rx vaginal cream (Estrace) nystatin-triamcinolone 100,000 1 applic topical BID #6 0 grams 01/24/25 02/06/25 02/05/25 Rx unit/g-0.1 % topical cream albuterol sulfate 90 mcg/actuation 2 puff inhalation Q 4H PRN 02/05/25 02/06/25 02/05/25 History aerosol inhaler Shortness Of Breath Or [place] ing alendronate 70 mg tablet 70 mg PO .WEEKLY 02/05/2502/04/25 History Allergies Allergy/AdvReac Type Severity Reaction Status Date / Time aspirin Allergy Severe makes me Verified 02/06/25 09:35 stop breathing mushroom Allergy Severe Can't Verified 02/06/25 09:35 breath codeine Allergy Intermediate loss of Verified 02/06/25 09:35 functioning hepatitis B virus vaccine Allergy Intermediate ADR-Dizzine Verified 02/06/25 09:35 ss metronidazole (From Flagyl) Allergy Intermediate memory fog Verified 02/06/25 09:35 trospium (From [place]) AdvReac Severe ADR/ALGY-Pa Verified 02/06/25 09:35 lpitations Current Medications Generic Name Dose Route Start Last Admin Trade Name Freq PRN Reason Stop Dose Admin Sodium Chloride 1,000 mls @ 15 mls/hr 02/06/25 09:14 02/06/25 09:48 Sodium Chloride 0.9% IV 02/07/25 09:13 15 mls/hr .Q24H PRN Administration COLONOSCOPY FLUIDS PFSH Anesthesia Medical History (Updated 02/01/25 @ 14:07 by Cayden Rodriguez MD) Tubulovillous adenoma of colon Myocardial infarction (2007) Chronic kidney disease Stage 3a 10/2022 Eczema Osteoarthritis Depression Obstructive sleep apnea Psychiatric care Allergic rhinosinusitis COPD (chronic obstructive pulmonary disease) Breast cancer Osteoporosis Surgical History Hx of colonoscopy with polypectomy [facility] less than 10 yrs ago S/P matrixectomy of toe History of section x 3 History of right mastectomy (08/17/19) Right modified radical mastectomy History of cholecystectomy Family History Mother Diabetes Cancer Chronic kidney disease (CKD) Breast cancer Denies family history of Colon cancer Ovarian cancer Heart disease Hyperlipidemia Hypertension Uterine cancer Thyroid disease Stroke Social History Smoking and tobacco/nicotine status: current every day tobacco/nicotine user cigarettes Packs smoked per day: 0.5 [ Other cigarette details: relpsed and now smoking 1/2 -3/4 Pack for day ] Quit status (tobacco/nicotine): has tried quititng Second hand smoke exposure: Yes (Some.) Alcohol intake: former Substance/Drug Use: never Lives independently: Yes Household members: none Marital status: / Current occupational status: disabled Do you think of yourself as: Straight/Heterosexual Current gender identity: Female Data Anesthesia Cardiac Studies: Echocardiogram 05/25/23
--- NOTE | 2025-02-06 11:01 | W.PM.OPSUD ---
Surgery/Procedure H&P Update DATE OF PROCEDURE: February 06, 2025 DATE H&P PERFORMED: 02/01/25 H&P UPDATE INFORMATION: I have reviewed H&P completed within last 30 days, I have examined patient prior to procedure and No changes to prior documentation PREOP DIAGNOSIS: Abd pain PLANNED PROCEDURE: Operation Date: 02/06/25 11:00 Proposed Procedures p EGD with Biopsy [id number], R10.31(Not Applicable) - Cayden Rodriguez MD
[2025-02-06 11:14] VITALS: BP 128/74; PULSE 80; RESP 20; TEMP 36.3; O2SAT 100
[2025-02-06 11:30] VITALS: BP 130/90; PULSE 82; RESP 18; O2SAT 100
--- NOTE | 2025-02-06 11:55 | ANE.PACU2 ---
Inpatient post-anesthesia follow up: Airway intact: Yes Vital signs: Temperature 97.4 F Pulse Rate 82 Respiratory Rate 18 Blood Pressure 130/90 Pulse Oximetry 100 Oxygen Delivery Me thod Room Air Oxygen Flow Rate 3 Fraction of Inspir ed Oxygen Hydration adequate: Yes Nausea and vomiting: No Pain level: 1 Mental status: Baseline
== END 2025-02-06 11:55 | disposition home or self-care (01) ==
PROVIDERS: PCP Family Medicine; Visit Provider Student in an Organized Health Care Education/Training Program
PROC: 0DJ08ZZ Inspection of Upper Intestinal Tract, Via Natural or Artificial Opening Endoscopic (ICD-10-PCS; principal; 2025-02-06 11:00)
DX: K29.50 Unspecified chronic gastritis without bleeding (principal); J44.9 Chronic obstructive pulmonary disease, unspecified; I25.2 Old myocardial infarction; K21.9 Gastro-esophageal reflux disease without esophagitis; F17.210 Nicotine dependence, cigarettes, uncomplicated; Z79.899 Other long term (current) drug therapy; Z88.8 Allergy status to other drugs, medicaments and biological substances; Z88.5 Allergy status to narcotic agent; I12.9 Hypertensive chronic kidney disease with stage 1 through stage 4 chronic kidney disease, or unspecified chronic kidney disease; N18.31 Chronic kidney disease, stage 3a; Z86.0101 Personal history of adenomatous and serrated colon polyps
CPT/HCPCS: 43239; 88305; J2704; J7030

== ENCOUNTER 2025-02-09 06:58 | Day surgery (SDC) | payer MEDICARE, MEDICAID, SELFPAY ==
[2025-02-09] VITALS (7 sets, daily range): BP systolic 106–151; BP diastolic 66–92; PULSE 74–79; RESP 16–17; TEMP 36.1–36.4; O2SAT 97–100; BMI 24.3
--- NOTE | 2025-02-09 07:50 | ANES.PREANE2 ---
Pre-Anesthetic Assessment Height/Weight: Height 5 ft 5 in Weight 146 lb Temp Pulse Resp BP Pulse Ox O2 Del Method 97 F L 75 17 140/84 99 Room Air 02/09/25 07:18 02/09/25 07:18 02/09/25 07:18 02/09/25 07:18 02/09/25 07:18 02/09/25 07:18 Preop Diagnosis: Painful hardware right second toe Operation Date: 02/09/25 08:40 Proposed Procedures p Hardware Removal RIGHT Second Toe(Right) - LIU ZamudioM Was Beta Marcelino taken within 24 hours: N/A Was Clonidine taken within 24 hours: N/A Last intake: Intake Last Liquid Date 02/08/25 Last Liquid Time 20:00 Last Solid Date 02/08/25 Last Solid Time 18:30 Social Tobacco and No alcohol Exam alert, oriented x 3, clear to auscultation bilaterally and regular rate & rhythm Airway Submandibular: within normal limits Cervical ROM: within normal limits Mallampati: Class III Dentition: false Anesthetic Plan ASA status: 3 Anesthesia: MAC Other: No prior issues with anesthesia NPO since yesterday evening History of COPD, current smoker. Occasional inhaler use GERD, controlled with Protonix CKD stage 3 Labs reviewed from 01/20/2025 and acceptable for procedure EKG showing sinus rhythm Plan for MAC anesthesia with local via surgeon Medications/Allergies Home Medications ?Medication ?Instructions ?Recorded ?Confirmed ?Last Taken ?Type cetirizine 10 mg capsule (All Day 5 mg PO DAILY PRN Allergy Symptoms 08/12/22 02/09/25 02/08/25 History Allergy (cetirizine)) Carbon Fiber Plate #1 ea 10/14/23 02/01/25 07/11/24 Rx blood sugar diagnostic (Blood #50 ea 03/06/24 02/01/25 07/11/24 Rx Glucose Test strips) bupropion HCl 300 mg 24 hr tablet, 300 mg PO QAM #30 tabs 06/13/24 02/09/25 02/08/25 Rx extended release (Wellbutrin XL) paroxetine HCl 40 mg tablet 40 mg PO QPM #30 tabs 06/13/24 02/09/25 02/08/25 Rx lancets 30 gauge (OneTouch Delica #100 ea 07/10/24 02/01/25 07/11/24 Rx Plus Lancet) paroxetine HCl 20 mg tablet 20 mg PO BEDTIME 07/11/24 02/09/25 02/08/25 History linaclotide 145 mcg capsule 145 mcg PO DAILY #30 caps 08/21/24 02/09/25 02/08/25 Rx (Linzess) mirabegron 25 mg tablet,extended 25 mg PO DAILY 90 days #90 tabs 10/03/24 02/09/25 02/08/25 Rx release 24 hr (Myrbetriq) silver sulfadiazine 1 % topical 1 applic topical BID PRN ingrown 10/25/24 02/09/25 Unknown History cream toemanil tizanidine 4 mg capsule 4 mg PO BID PRN muscle spasticity 10/30/24 02/09/25 02/08/25 Rx #60 caps gabapentin 100 mg capsule 100 mg PO BEDTIME #30 caps 11/02/24 02/09/25 02/08/25 Rx fluticasone propionate 50 2 spray intranasal DAILY #16 grams 11/06/24 02/09/25 02/08/25 Rx mcg/actuation nasal spray,suspension (Flonase Allergy Relief) fluticasone fur. 100 mcg-umeclid 1 inh inhalation DAILY 12/12/24 02/09/25 02/08/25 History 62.5 mcg-vilant 25 mcg inhalat.powder (Trelegy Ellipta) estradiol 0.01% (0.1 mg/gram) 1 appful vaginal DAILY #42.5 grams 01/24/25 02/09/25 02/08/25 Rx vaginal cream (Estrace) nystatin-triamcinolone 100,000 1 applic topical BID #60 grams 01/24/25 02/09/25 02/08/25 Rx unit/g-0.1 % topical cream albuterol sulfate 90 mcg/actuation 2 puff inhalation Q4H PRN 02/05/25 02/09/25 02/08/25 History aerosol inhaler Shortness Of Breath Or Wheezing alendronate 70 mg tablet 70 mg PO .WEEKLY 02/05/25 02/09/25 02/04/25 History pantoprazole 40 mg tablet,delayed 40 mg PO DAILY 6 weeks #42 tabs 02/06/25 02/09/25 02/08/25 Rx release (Protonix) Allergies Allergy/AdvReac Type Severity Reaction Status Date / Time aspirin Allergy Severe makes me Verified 02/09/25 07:12 stop breathing mushroom Allergy Severe Can't Verified 02/09/25 07:12 breath codeine Allergy Intermediate loss of Verified 02/09/25 07:12 functioning hepatitis B virus vaccine Allergy Intermediate ADR-Dizzine Verified 02/09/25 07:12 ss metronidazole (From Flagyl) Allergy Intermediate memory fog Verified 02/09/25 07:12 trospium (From Sanctura) AdvReac Severe ADR/ALGY-Pa Verified 02/09/25 07:12 lpitations Current Medications Generic Name Dose Route Start Last Admin Trade Name Freq PRN Reason Stop Dose Admin Sodium Chloride 1,000 mls @ 30 mls/hr 02/09/25 07:15 02/09/25 07:35 Sodium Chloride 0.9% IV 02/10/25 07:14 30 mls/hr .Q24H RASHAWN Administration PFSH Anesthesia Medical History (Updated 02/01/25 @ 14:07 by Cayden Rodriguez MD) Tubulovillous adenoma of colon Myocardial infarction (2007) Chronic kidney disease Stage 3a 10/2022 Eczema Osteoarthritis Depression Obstructive sleep apnea Psychiatric care Allergic rhinosinusitis COPD (chronic obstructive pulmonary disease) Breast cancer Osteoporosis Surgical History (Updated 02/08/25 @ 14:03 by Nicole Bear RN) Hx of colonoscopy with polypectomy [facility] less than 10 yrs ago S/P matrixectomy of toe History of section x 3 History of right mastectomy (08/17/19) Right modified radical mastectomy History of cholecystectomy Family History Mother Diabetes Cancer Chronic kidney disease (CKD) Breast cancer Denies family history of Colon cancer Ovarian cancer Heart disease Hyperlipidemia Hypertension Uterine cancer Thyroid disease Stroke Social History Smoking and tobacco/nicotine status: current every day tobacco/nicotine user cigarettes Packs smoked per day: 0.5 [ Other cigarette details: relpsed and now smoking 1/2 -3/4 Pack for day ] Quit status (tobacco/nicotine): has tried quititng Second hand smoke exposure: Yes (Some.) Alcohol intake: former Substance/Drug Use: never Lives independently: Yes Household members: none Marital status: / Current occupational status: disabled Do you think of yourself as: Straight/Heterosexual Current gender identity: Female Data Anesthesia Cardiac Studies: Echocardiogram 05/25/23
--- NOTE | 2025-02-09 08:18 | W.PM.OPSUD ---
Surgery/Procedure H&P Update DATE OF PROCEDURE: February 09, 2025 DATE H&P PERFORMED: 02/09/25 H&P UPDATE INFORMATION: I have reviewed H&P completed within last 30 days, I have examined patient prior to procedure, No changes to prior documentation and Risks and benefits of the procedure reviewed PREOP DIAGNOSIS: Painful hardware right second toe PLANNED PROCEDURE: Operation Date: 02/09/25 08:40 Proposed Procedures p Hardware Removal RIGHT Second Toe(Right) - Luis Manuel Bingham DPM
--- NOTE | 2025-02-09 08:19 | PM.OPSURHP ---
Providers/Chief Complaint Primary Care Provider: Liane Granados MD Chief Complaint: T84.84XA History of Present Illness Shana Connor is a 64 year old female presenting with left foot pain and awareness of retained hardware post-surgery. She reports discomfort in the middle of her left foot, likely due to arthritis, with concerns about ill-fitting shoes exacerbating her symptoms. Exploration of wider shoe options like Hey Dudes was suggested. Her medical history includes prior knee surgery and foot surgery with hardware placement, which she is considering having removed due to residual impact on her daily activities. Swelling in the face is noted by the patient, and she queries if this could be related to past surgeries. She experiences neuropathy, which poses difficulties in receiving insurance coverage for non-diabetic neuropathy-relieving footwear, adding to her discomfort and unease. Review of Systems General: Reports: 10 or more systems reviewed and unremarkable except in HPI and below Const: Denies: fever(s) or chills Eyes: Denies: change in vision Card: Denies: chest pain or palpitations Resp: Denies: dyspnea or productive cough GI: Denies: abdominal pain, nausea or vomiting : Denies: flank pain Musc: Reports: extremity pain, joint pain, joint stiffness, limited range of motion and deformity Skin/Breast: Reports: skin tenderness; Denies: rash Neuro: Reports: difficulty walking; Denies: numbness in extremities, sensory changes or frequent falls Psych: Denies: suicidal ideation Clint/Lymph: Denies: easy bruising Medications/Allergies Home Medications ?Medication ?Instructions ?Recorded ?Confirmed ?Last Taken ?Type cetirizine 10 mg capsule (All Day 5 mg PO DAILY PRN Allergy Symptoms 08/12/22 02/09/25 02/08/25 History Allergy (cetirizine)) Carbon Fiber Plate #1 ea 10/14/23 02/01/25 07/11/24 Rx blood sugar diagnostic (Blood #50 ea 03/06/24 02/01/25 07/11/24 Rx Glucose Test strips) bupropion HCl 300 mg 24 hr tablet, 300 mg PO QAM #30 tabs 06/13/24 02/09/25 02/08/25 Rx extended release (Wellbutrin XL) paroxetine HCl 40 mg tablet 40 mg PO QPM #30 tabs 06/13/24 02/09/25 02/08/25 Rx lancets 30 gauge (OneTouch Delica #100 ea 07/10/24 02/01/25 07/11/24 Rx Plus Lancet) paroxetine HCl 20 mg tablet 20 mg PO BEDTIME 07/11/24 02/09/25 02/08/25 History linaclotide 145 mcg capsule 145 mcg PO DAILY #30 caps 08/21/24 02/09/25 02/08/25 Rx (Linzess) mirabegron 25 mg tablet,extended 25 mg PO DAILY 90 days #90 tabs 10/03/24 02/09/25 02/08/25 Rx release 24 hr (Myrbetriq) silver sulfadiazine 1 % topical 1 applic topical BID PRN ingrown 10/25/24 02/09/25 Unknown History cream toemanil tizanidine 4 mg capsule 4 mg PO BID PRN muscle spasticity 10/30/24 02/09/25 02/08/25 Rx #60 caps gabapentin 100 mg capsule 100 mg PO BEDTIME #30 caps 11/02/24 02/09/25 02/08/25 Rx fluticasone propionate 50 2 spray intranasal DAILY #16 grams 11/06/24 02/09/25 02/08/25 Rx mcg/actuation nasal spray,suspension (Flonase Allergy Relief) fluticasone fur. 100 mcg-umeclid 1 inh inhalation DAILY 12/12/24 02/09/25 02/08/25 History 62.5 mcg-vilant 25 mcg inhalat.powder (Trelegy Ellipta) estradiol 0.01% (0.1 mg/gram) 1 appful vaginal DAILY #42.5 grams 01/24/25 02/09/25 02/08/25 Rx vaginal cream (Estrace) nystatin-triamcinolone 100,000 1 applic topical BID #60 grams 01/24/25 02/09/25 02/08/25 Rx unit/g-0.1 % topical cream albuterol sulfate 90 mcg/actuation 2 puff inhalation Q4H PRN 02/05/25 02/09/25 02/08/25 History aerosol inhaler Shortness Of Breath Or Wheezing alendronate 70 mg tablet 70 mg PO .WEEKLY 02/05/25 02/09/25 02/04/25 History pantoprazole 40 mg tablet,delayed 40 mg PO DAILY 6 weeks #42 tabs 02/06/25 02/09/25 02/08/25 Rx release (Protonix) Allergies Allergy/AdvReac Type Severity Reaction Status Date / Time aspirin Allergy Severe makes me Verified 02/09/25 07:12 stop breathing mushroom Allergy Severe Can't Verified 02/09/25 07:12 breath codeine Allergy Intermediate loss of Verified 02/09/25 07:12 functioning hepatitis B virus vaccine Allergy Intermediate ADR-Dizzine Verified 02/09/25 07:12 ss metronidazole (From Flagyl) Allergy Intermediate memory fog Verified 02/09/25 07:12 trospium (From Sanctura) AdvReac Severe ADR/ALGY-Pa Verified 02/09/25 07:12 lpitations PFSH PFSH: Medical History (Updated 02/09/25 @ 08:20 by Luis Manuel Bingham DPM) Tubulovillous adenoma of colon Myocardial infarction (2007) Chronic kidney disease Stage 3a 10/2022 Eczema Osteoarthritis Depression Obstructive sleep apnea Psychiatric care Allergic rhinosinusitis COPD (chronic obstructive pulmonary disease) Breast cancer Osteoporosis Surgical History (Updated 02/08/25 @ 14:03 by Nicole Bear RN) Hx of colonoscopy with polypectomy [facility] less than 10 yrs ago S/P matrixectomy of toe History of section x 3 History of right mastectomy (08/17/19) Right modified radical mastectomy History of cholecystectomy Family History Mother Diabetes Cancer Chronic kidney disease (CKD) Breast cancer Denies family history of Colon cancer Ovarian cancer Heart disease Hyperlipidemia Hypertension Uterine cancer Thyroid disease Stroke Social History Smoking and tobacco/nicotine status: current every day tobacco/nicotine user cigarettes Packs smoked per day: 0.5 [ Other cigarette details: relpsed and now smoking 1/2 -3/4 Pack for day ] Quit status (tobacco/nicotine): has tried quititng Second hand smoke exposure: Yes (Some.) Alcohol intake: former Substance/Drug Use: never Lives independently: Yes Household members: none Marital status: / Current occupational status: disabled Do you think of yourself as: Straight/Heterosexual Current gender identity: Female Dietary Habits: Caffeine: Yes Caffeine intake frequency: coffee Vital Signs Vitals Signs: Last Vital Signs Temp 97 F L 02/09/25 07:18 Pulse 75 02/09/25 07:18 Resp 17 02/09/25 07:18 BP 140/84 02/09/25 07:18 Pulse Ox 99 02/09/25 07:18 O2 Del Method Room Air 02/09/25 07:18 Weight: Weight last 48 hrs Weight 146 lb Physical Exam Narrative: EXAM NARRATIVE: Patient is alert and oriented ?3 and in no acute distress. The following is a focused RIGHT lower extremity exam. VASCULAR: Dorsalis pedis and posterior tibial arteries palpable +2. Capillary refill time less than 3 seconds to the distal hallux bilaterally. Calf is supple and nontender proximally and distally. Mild edema at the operative site consistent with postoperative course. NEUROLOGICAL: Protective sensation intact to light touch. DERMATOLOGICAL: No wounds or dehiscence at right foot. Partial regrowth of nail plate left third toe with dystrophic thickening and discoloration and abrasive texture. MUSCULOSKELETAL: Mild tenderness at hardware right second toe. Muscle strength +5 in all 3 planes bilateral foot and ankle. Right second toe is rectus. CARDIOVASCULAR: S1, S2, normal rate, normal rhythm. Dorsalis pedis and posterior tibial arteries palpable. LUNGS: Clear to auscltation, no use of acessory muscles, no crackles or wheezes. A&P Assessment and plan 1. Right foot pain: 2. Painful orthopaedic hardware: Plan: X-ray right foot 3 view shows healed hammertoe correction of right second toe with intact hardware consistent with screw without lucency or failure. 64-year-old female with a history of knee surgery presenting with left foot pain and postoperative status with retained hardware. The foot pain may be related to arthritis, compounded by unsuitable footwear. Neuropathy presents a management challenge. The hardware is stable and removable when scheduling allows. 1. Foot Pain Plan: Transition to wider shoes like Hey Dudes for better support and pressure reduction on the foot. Monitor symptoms for progression or relief. 2. Postoperative Status With Retained Hardware Plan: Schedule the elective procedure for hardware removal on February 09, based on the patient's availability and surgical scheduling. 3. Neuropathy Plan: Recommend specialized wider shoes to alleviate symptoms, despite insurance challenges. Continue to manage symptomatically.. - Consider wearing wider shoes for better comfort and support. - Schedule to have foot hardware removed on February 09. - Observe any changes in swelling in the face or other symptoms, and seek further consultation if they persist or worsen. - Monitor foot pain and neuropathy symptoms and report any significant changes. The patient's current condition exhibits left foot pain likely due to arthritis, compounded by inadequately fitting footwear. The strategic approach involves recommending wider shoes like Hey Dudes to accommodate her foot's structure, providing relief from pressure points associated with ordinary shoe wear. Given the past orthopedic interventions, post-surgical retained hardware presents an opportunity for elective removal. The discussion confirmed scheduling for January, complementing her recovery plans from past knee surgery. While her insurance does not recognize non-diabetic neuropathy for coverage, continued focus on alleviating symptoms with special footwear remains dumont. Facial swelling reported by the patient invites future assessment to ascertain any surgical associations. I reviewed at length with the patient, the risks, potential complications, benefits, alternatives, expectations, and typical outcomes associated with the surgery. The risks and potential complications were explained in detail, including but not limited to infection, wound dehiscence or soft tissue complications, bleeding and hematoma, chronic edema, neuritis or nerve damage producing numbness or chronic pain, CRPS, failure to relieve pain or worsening pain, thick / painful / unsightly scar, limited motion / stiffness, malposition, delayed union, malunion, or nonunion, fracture, reaction to implants, anesthetic complications, venous thromboembolism, and deformity recurrence. I discussed the notion of no regrets with the patient as it pertains to complications and outcomes. The patient seemed to understand the nature of the proposed care and required convalescence. They asked appropriate questions, answered to their satisfaction. They are aware no guarantees can be made as to a satisfactory outcome and they understand there may be other possible unforeseen complications or outcomes not listed here that will be treated accordingly if they arise. There were no written or implied guarantees given to the patient. They gave informed consent to proceed. Planning on hard removal February 09, 2025 Screw removal right second toe February 09 patient local [facility], supine, 15 minutes. PDMP PDMP Reviewed: Not Reviewed Coding Level of Care Code Acute Code for Chg Fwd Diagnoses Right foot pain M79.671 Painful orthopaedic hardware T84.84XA
[2025-02-09] MEDS: ceFAZolin 2,000 mg SDV 2000 MG IVP (08:34)
[2025-02-09] MEDS: BUPivacaine 0.5% INJ 10 mL INJECTION (08:45)
[2025-02-09] MEDS: BUPivacaine liposome 13.3 mg/mL SDV 20 mL 133 MG INJECTION (08:45)
--- NOTE | 2025-02-09 08:56 | W.PM.BPON ---
Date of Procedure: 10/15/23 Surgeon: Luis Manuel Bingham DPM Cold Reduction Roller(s): Nessa Procedure(s) performed: Deep hardware removal right second toe. Findings of the procedure(s): None Estimated blood loss: 1 mL Specimen(s) removed: None Post-operative diagnosis: Painful hardware right second toe
--- NOTE | 2025-02-09 08:57 | P.OP_ITS ---
Operative Report Date of procedure: February 09, 2025 Pre-op diagnosis: Foot pain M79.673 Painful orthopaedic hardware T84.84XA Post-op diagnosis: Foot pain M79.673 Painful orthopaedic hardware T84.84XA Procedure done: Hardware removal right second toe CPT code 05506 Implants: 4-0 nylon Surgeon: Luis Manuel Bingham DPM Plant Health Manager: Nessa Estimated blood loss: 1 5 IV fluids: See intraoperative documentation Urine output: none Complications: none Brief History: X-ray right foot 3 view shows healed hammertoe correction of right second toe with intact hardware consistent with screw without lucency or failure. 64-year-old female with a history of knee surgery presenting with left foot pain and postoperative status with retained hardware. The foot pain may be related to arthritis, compounded by unsuitable footwear. Neuropathy presents a management challenge. The hardware is stable and removable when scheduling allows. 1. Foot Pain Plan: Transition to wider shoes like Hey Dudes for better support and pressure reduction on the foot. Monitor symptoms for progression or relief. 2. Postoperative Status With Retained Hardware Plan: Schedule the elective procedure for hardware removal on February 09, based on the patient's availability and surgical scheduling. 3. Neuropathy Plan: Recommend specialized wider shoes to alleviate symptoms, despite insurance challenges. Continue to manage symptomatically.. - Consider wearing wider shoes for better comfort and support. - Schedule to have foot hardware removed on February 09. - Observe any changes in swelling in the face or other symptoms, and seek further consultation if they persist or worsen. - Monitor foot pain and neuropathy symptoms and report any significant changes. The patient's current condition exhibits left foot pain likely due to arthritis, compounded by inadequately fitting footwear. The strategic approach involves recommending wider shoes like Hey Dudes to accommodate her foot's structure, providing relief from pressure points associated with ordinary shoe wear. Given the past orthopedic interventions, post-surgical retained hardware presents an opportunity for elective removal. The discussion confirmed scheduling for January, complementing her recovery plans from past knee surgery. While her insurance does not recognize non-diabetic neuropathy for coverage, continued focus on alleviating symptoms with special footwear remains dumont. Facial swelling reported by the patient invites future assessment to ascertain any surgical associations. I reviewed at length with the patient, the risks, potential complications, benefits, alternatives, expectations, and typical outcomes associated with the surgery. The risks and potential complications were explained in detail, including but not limited to infection, wound dehiscence or soft tissue complications, bleeding and hematoma, chronic edema, neuritis or nerve damage producing numbness or chronic pain, CRPS, failure to relieve pain or worsening pain, thick / painful / unsightly scar, limited motion / stiffness, malposition, delayed union, malunion, or nonunion, fracture, reaction to implants, anesthetic complications, venous thromboembolism, and deformity recurrence. I discussed the notion of no regrets with the patient as it pertains to complications and outcomes. The patient seemed to understand the nature of the proposed care and required convalescence. They asked appropriate questions, answered to their satisfaction. They are aware no guarantees can be made as to a satisfactory outcome and they understand there may be other possible unforeseen complications or outcomes not listed here that will be treated accordingly if they arise. There were no written or implied guarantees given to the patient. They gave informed consent to proceed. Planning on hard removal February 09, 2025 Procedure: Under mild sedation the patient was brought to the operating room and remained on the gurney in supine position. A timeout was performed. Anesthesia was then administered by the anesthesia service. Local anesthesia injected by myself consisting of 20 cc of 0.5% Marcaine plain in a right second ray block fashion with additional 20 cc of Exparel rel subcutaneously in a grid like fashion to the dorsal and plantar aspect of the right forefoot. Well-padded pneumatic tourniquet applied to the right ankle. The right lower extremity was scrubbed, prepped and draped utilizing normal aseptic technique. Right foot and ankle were then exanguinated with Esmarch bandage and tourniquet inflated to 250 mmHg. Attention was directed to the distal aspect of the right second toe where a linear incision was performed transversely approximately 4 mm in length through skin with dissection carried down through subcutaneous tissue to the layer of bone and periosteum and screw head which was identified and backed out in total without fragmentation, stripping or failure and passed from operative field to be disposed of. The incision was irrigated with copious amounts of sterile saline solution. Intraoperative C-arm confirmed no remaining hardware. The incision was then closed with 4-0 nylon and dressed with Xeroform, sterile gauze, Kerlix Richard wrap and a postop shoe was applied to the right foot. Tourniquet was deflated and a prompt hyperemic response is noted to the distal digits of the right foot. Patient tolerated the procedure and anesthesia well and was transferred to the PACU with vital signs stable and vascular status intact. Following a period of postoperative monitoring she will be discharged home without home care instructions and scheduled follow-up.
--- NOTE | 2025-02-09 08:59 | PC.NURSE ---
approved for hardware that was removed from right foot to be taken home by patient once decontamination has taken place.
--- NOTE | 2025-02-09 10:10 | ANE.PACU2 ---
Inpatient post-anesthesia follow up: Airway intact: Yes Vital signs: Temperature 97.5 F Pulse Rate 74 Respiratory Rate 17 Blood Pressure 151/77 Pulse Oximetry 100 Oxygen Delivery Me thod Room Air Oxygen Flow Rate 6 Fraction of Inspir ed Oxygen Hydration adequate: Yes Nausea and vomiting: No Pain level: 1 Mental status: Baseline
== END 2025-02-09 10:10 | disposition home or self-care (01) ==
PROVIDERS: PCP Family Medicine; Visit Provider Podiatrist Foot & Ankle Surgery
PROC: (CPT 20680; principal; 2025-02-09 08:30)
DX: T84.84XA Pain due to internal orthopedic prosthetic devices, implants and grafts, initial encounter (principal); Z47.2 Encounter for removal of internal fixation device; K21.9 Gastro-esophageal reflux disease without esophagitis; I25.2 Old myocardial infarction; J44.9 Chronic obstructive pulmonary disease, unspecified; N18.31 Chronic kidney disease, stage 3a; F32.A Depression, unspecified; Z85.3 Personal history of malignant neoplasm of breast; M81.0 Age-related osteoporosis without current pathological fracture; F17.210 Nicotine dependence, cigarettes, uncomplicated
CPT/HCPCS: 20680; J0666; J0690; J2250; J2704; J3010; J3490; J7030

== ENCOUNTER → 2025-02-12 14:02 | Outpatient (BNVA) | payer MEDICARE, MEDICAID, SELFPAY | PROVIDERS: PCP Family Medicine; Visit Provider Specialist | DX: Z96.651 Presence of right artificial knee joint (principal) | CPT/HCPCS: 73560; 73565; 99213 ==

== ENCOUNTER 2025-02-13 11:45 | Emergency (ER) | payer MEDICARE, MEDICAID, SELFPAY ==
--- OUTSIDE RECORDS SUMMARY | 2020-07-22 06:30 | XMS_ITS | Continuity of Care Document ---
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 Name Role Phone Unavailable Unavailable Unavailable Allergies, Adverse Reactions, Alerts Substance Reaction Status Criticality aspirin Active No Information codeine Active No Information Medications Medication Instructions Dosage Effective Dates (start - stop) Status Comments PROAIR HFA (unknown strength) inhale 2 puff by inhalation route every 4 - 6 hours as needed Not Available - Active Procedures Procedure Date No Work Today/No Charge EDR Approval Note Comprehensive Oral Evaluatio n New Or Established Panoramic Film Intraoral Periapical First Film Intraoral Periapical Each Additional Film EDR Approval Note Advance Directives Directive Yes / No Effective Date File Name No Information Encounters Encounter Description Practice Location Reason(s) For Visit Diagnoses Date Provider Providers Copied on Encounter [facility], [id number] [place], [place], [id number], [place] tel:[phone] [facility] Encounter for dental exam and cleaning w/o abnormal findings 0 No Information [facility], [id number] [place], [place], [id number], [place] tel:[phone] [facility] Encounter for dental exam and cleaning w/o abnormal findings 0 No Information Family History Family Member Type Diagnosis Age At Onset No Information Payers Payer name Insurance type Covered green party ID Authoriza tion(s) D Medicaid [id number] Social History Type Description Quantity Date Captured Comments Sex Female Smoking Status No Information Chief Complaint And Reason For Visit No Information Reason For Referral Reason For Referral No Information History Of Present Illness Encounter Date Complaint History Of Prese nt Illness No Information Functional Status Date Functional Assessmen t No Information Instructions Date Instruction Additional Infor mation No Information Assessments Type Assessment Date No Information Patient Care Teams Name Effective Dates (start - stop) Status Members No Information
--- NOTE | 2025-02-13 11:54 | ECG_ITS ---
[employer] Stream Test Date: 2025-02-13 Pat Name: Shana Connor Department: Room: Gender: Female Hassock Maker: : [id number] Requested By: Liss Cantu Order Number: [id number] Smiley MD: Dilshad Mcknight M.D. Measurements Intervals Muir Rate: 75 P: 58 SC: 158 QRS: 32 QRSD: 86 T: 61 QT: 383 QTc: 429 Interpretive Statements SINUS RHYTHM POSSIBLE RIGHT VENTRICULAR CONDUCTION DELAY [RSR (QR) IN V1/V2] Compared to ECG 03/20/2024 22:43:04 No significant changes Electronically Signed On 02-13-2025 14:57:57 CDT by Dilshad Mcknight M.D. [email or web address]
[2025-02-13 11:56] VITALS: BP 134/80; PULSE 95; RESP 18; TEMP 36.7; O2SAT 100; BMI 25.0
--- NOTE | 2025-02-13 12:00 | XR_ITS ---
WS: [id number] XR chest 1V portable [id number] REASON FOR EXAM: cp FINDINGS: Chest is unchanged compared to 12/24/2023. The heart and the mediastinum are within normal limits. Calcified granulomatous disease in both hemithoraces. No acute pulmonary parenchymal or pleural abnormality. Mild degenerative spondylosis in the mid and lower thoracic spine. XR/XR chest 1V portable [id number] IMPRESSION: Stable chest without acute abnormality.
[2025-02-13 12:21] VITALS: BP 134/80; PULSE 82; O2SAT 99
--- OUTSIDE RECORDS SUMMARY | 2025-02-13 12:35 | XMS_ITS | Clinical Summary ---
Author Organization [facility] Address [address] [place] [id number] Care Team Providers Care I&C Tech Name Role Phone Salvador Menjivar Primary Care Provider [phone] Allergies Active Allergy Reactions Criticality Noted Date Comments Codeine Confusion Low 06/20/2008 Food Extracts Unknown High 03/25/2022 Ibuprofen Angioedema High 08/01/2014 Metronidazole Anaphylaxis,Other (S ee Comments) High 10/27/2021 Hypotension and dizzy Medications albuterol sulfate 90 mcg/actuation aero powdr breath act w/sensor Take by inhalation. 2 Active buPROPion HCL (WELLBUTRIN XL) 150 mg Extended Release 24 hour tablet Take by mouth. 2 Active vitamin E 400 unit capsule Take 400 Units by mouth daily. Active vitamin B complex (Vitamins B Complex) Capsule Take 1 Capsule by mouth daily. Active CEPHALEXIN ORAL Take by mouth. 2 Active alendronate (FOSAMAX) 70 mg tablet TAKE ONE TABLET BY MOUTH ONCE WEEKLY 4 Active OneTouch Verio test strips Strip 4 Active cetirizine (ZyrTEC) 10 mg tablet Take 10 mg by mouth daily. Active cholecalciferol , Vitamin D3, 125 mcg (5,000 unit) Capsule Take 5,000 Units by mouth daily. 1 Active ciclopirox (LOPROX) 0.77 % Cream Apply to affected area. Active clobetasoL (TEMOVATE) 0.05 % Cream apply a thin layer TO THE affected area(s) 1 time a DAY FOR 1 WEEK; taper down FOR maintenance TO 1-2 times a WEEK 4 Active exemestane (AROMASIN) 25 mg tablet Take 25 mg by mouth daily. 2 Active fluticasone propionate (FLONASE) 50 mcg/spray [place], Suspension nasal inhaler Administer 1 [place] in each nostril. Active hydrOXYzine HCL (ATARAX) 50 mg tablet Take 50 mg by mouth 2 times daily as needed. 3 Active OneTouch Delica Plus Lancet 30 gauge 4 Active PARoxetine HCl (PAXIL) 40 mg tablet 4 Active mirabegron (MYRBETRIQ) 25 mg Extended Release 24 hour tablet Take 1 Tablet (25 mg) by mouth daily. 30 Tablet 5 Active Active Problems Problem Noted Date Diagnosed Date Chronic pain of left knee 05/06/2017 Lumbar spondylosis 09/17/2009 Abnormal stress test 10/12/2008 Overview (11/28/2020): 2008 - coronary angiography for evaluation of abnromal ST (There is a small area of ischemia noted in the inferolateral wall) revealed: A. Hemodynamic Data: Left ventricular systolic pressure was 104 mmHg. Left ventricular end-diastolic pressure was 10 mmHg. Aortic pressure was 104/64 mmHg. B. Right Coronary Artery: This is a medium caliber nondominant vessel that is free of obstructive plaque. C. Left Coronary System: The left main coronary artery is large and free obstructive plaque. The circumflex is a large dominant vessel which gives off a large marginal branch, a large posterolateral branch, and a large posterior descending artery. The circumflex is free of obstructive plaque. The left anterior descending artery gives rise to a large proximal diagonal branch. The distal left anterior descending is large. The left anterior descending system is smooth and free of obstructive plaque. D. Left Ventriculogram: Left ventricular systolic function is normal. The left ventricular ejection fraction is 65%. There is no mitral insufficiency. Generalized anxiety disorder 06/20/2008 Depression with anxiety 06/20/2008 Allergic rhinitis 06/20/2008 Resolved Problems Problem Noted Date Diagnosed Date Resolved Date Tobacco use disorder 09/14/2008 011 Encounters Date Type Department Care Team Description 01/31/[address] [facility] Gastroenterology- [address] [place] [phone] Liane Granados MD Abdominal pain, right lower quadrant (Primary Dx) 01/23/2025 External Device Data [facility] ABSTRACTION Provider, Abstract 12/26/2024 External Device Data [facility] ABSTRACTION Provider, Abstract 12/20/2024 External Device Data ST[facility] ABSTRACTION Provider, Abstract 12/19/2024 External Device Data STL ABSTRACTION Provider, Abstract from Last 3 Months Immunizations Immunization Administration Dates Next Due (ADACEL/BOOSTRIX)(10 YR UP) TDAP VACCINE, 0.5ML, IM 02/24/2012 Skin Test TB 02/24/2012 Family History Medical History Relation Name Comments Diabetes Mother Diabetes Son Deepak Relation Name Status Comments Father Other Mother Alive Son Deepak Alive Social History Tobacco Use Types Packs/Day Years Used Date Smoking Tobacco: Every Day Cigarettes Last attempted to quit: 12/14/2009 Smokeless Tobacco: Never Tobacco Cessation:Ready to Q uit: Not Asked; Counseling Given: Not Answered Alcohol Use Standard Drinks/Week Comments No 0 (1 standard drink = 0.6 oz pur e alcohol) Comments Unknown Sex and Gender Information Value Date Recorded Sex Assigned at Not on file 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 Gender Identity Not on file Sexual Orientation Not on file Last Filed Vital Signs Vital Sign Reading Time Taken Comments Blood Pressure 116/64 12/14/2023 10:08 AM CDT Pulse 96 05/06/2017 3:47 PM CDT Temperature - - Respiratory Rate - - Oxygen Saturation - - Inhaled Oxygen Concentration - - Weight 74.4 kg (164 lb) 12/14/2023 10:08 AM CDT Height 165.1 cm (5' 5 ) 12/14/2023 10:08 AM CDT Body Mass Index 27.29 12/14/2023 10:08 AM CDT Plan of Treatment Health Maintenance Due Date Last Done Comments HPV/Cotest (21-29) 1983 CERVICAL CANCER SCREENING 1992 HPV/Cotest (30-65) 1992 PAP SMEAR 1992 COLORECTAL SCREENING 2007 Colorectal Cancer Screening 2007 FIT-DNA Q 3 years 2007 FIT/FOBT Q 1 year 2007 Flex Sig/CT Colonography Q 5 years 2007 BREAST CANCER SCREENING 07/19/2010 07/19/2009, 07/19 DTAP/TDAP/TD VACCINES (2 - Td or Tdap) 02/23/2022 ZOSTER VACCINE (2 of 3) 07/20/2022 05/25/2022 INFLUENZA VACCINE (#1) 2025 RSV VACCINE (60+ or ) (1 - 1-dose 75+ series) 2037 Procedures Procedure Name Priority Date/Time Associated Diagnosis Comments MAMMO SCREENING BILAT Routine 07/19/2009 9:14 AM 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
[2025-02-13 12:38] LABS: Hematocrit 40.3 % (36-47); Hemoglobin 13.30 g/dL (11.27-16.99); Mean Corpuscular HGB Conc 33.0 g/dL (30-55); Mean Corpuscular Hemoglobin 27.9 pg (27-33); Mean Corpuscular Volume 84.7 fl (85-98); Nucleated Red Blood Cells % 0 %; Platelet Count 233 10^3/cmm (157-399); Red Blood Count 4.76 10^6/uL (3.85-5.65); White Blood Count 6.83 10^3/uL (3.29-11.43)
[2025-02-13 13:00] LABS: Troponin(5th) Baseline < 6 ng/L (0-10)
[2025-02-13 13:07] LABS: Alanine Aminotransferase 32 U/L (0-33); Albumin Level 4.5 g/dL (3.5-5.2); Alkaline Phosphatase 81 U/L (35-105); Anion Gap 16.5 (5-19); Aspartate Amino Transferase 27 U/L (0-32); Blood Urea Nitrogen 9 mg/dL (8-23); Calcium 9.6 mg/dL (8.5-10.5); Carbon Dioxide 25 mmol/L (22-29); Chloride 103 mmol/L (98-107); Creatinine Clr Calc Pharmacy 62.8373; Globulin 2.5 g/dL (1.3-4.6); Glucose 91 mg/dL (65-115); Lipase 25 U/L (13-60); NT Pro B Type Natriuretic Pept 47 pg/mL (0-125); Osmolality Calculated 288 mOsm/kg (285-295); Potassium 4.5 mmol/L (3.5-5.1); Sodium 140 mmol/L (136-145); Total Protein 7.0 g/dL (6.6-8.7)
[2025-02-13 14:00] VITALS: BP 151/87; PULSE 80; RESP 16; O2SAT 100
[2025-02-13 14:40] VITALS: BP 151/87; PULSE 75; RESP 16; O2SAT 98
[2025-02-13 14:41] LABS: Troponin 5 2HR < 6.0 ng/L (0-10); Troponin 5 2HR Delta 0 ABS# (0-10)
[2025-02-13 15:20] VITALS: BP 146/96; PULSE 81; RESP 16; O2SAT 98
--- NOTE | 2025-02-13 22:07 | ED_ITS ---
HPI - Chest Pain 2 General: Chief Complaint: Chest Pain Stated Complaint: Chest Pain Time Seen by Provider: 02/13/25 11:46 History of Present Illness: 64-year-old female patient presents to [facility] emergency department with chest pain that started a few days ago. Patient states that she is having some shortness of breath that is mild. Patient states that the solid waste truck driver gave her a nitro and the pain got better but patient states she noticed she started having pain bumping around in the ambulance ride. Patient denies any fever cough congestion patient denies any radiation of pain. Related Data Home Medications ?Medication ?Instructions ?Recorded ?Confirmed cetirizine 10 mg capsule (All Day 5 mg PO DAILY PRN Al lergy Symptoms 08/12/22 02/12/25 Allergy (cetirizine)) paroxetine HCl 20 mg tablet 20 mg PO BEDTIME 07/11/24 02/12/25 silver sulfadiazine 1 % topical 1 applic topical BID P RN ingrown 10/25/24 02/12/25 cream toemanil fluticasone fur. 100 mcg-umeclid 1 inh inhalation JOYCE Y 12/12/24 02/12/25 62.5 mcg-vilant 25 mcg inhalat.powder (Trelegy Ellipta) albuterol sulfate 90 mcg/actuation 2 puff inhalation Q 4H PRN 02/05/25 02/12/25 aerosol inhaler Shortness Of Breath Or Wheez ing alendronate 70 mg tablet 70 mg PO .WEEKLY 02/05/25 Previous Rx's ?Medication ?Instructions ?Recorded Carbon Fiber Plate #1 ea 10/14/23 blood sugar diagnostic (Blood #50 ea 03/06/24 Glucose Test strips) bupropion HCl 300 mg 24 hr tablet, 300 mg PO QAM #30 t abs 06/13/24 extended release (Wellbutrin XL) paroxetine HCl 40 mg tablet 40 mg PO QPM #30 tabs 06/02 09/25 lancets 30 gauge (OneTouch Delica #100 ea 07/10/24 Plus Lancet) linaclotide 145 mcg capsule 145 mcg PO DAILY #30 caps 08/21/24 (Linzess) mirabegron 25 mg tablet,extended 25 mg PO DAILY 90 day s #90 tabs 10/03/24 release 24 hr (Myrbetriq) tizanidine 4 mg capsule 4 mg PO BID PRN muscle spast icity 10/30/24 #60 caps gabapentin 100 mg capsule 100 mg PO BEDTIME #30 caps 0 11/02/24 fluticasone propionate 50 2 spray intranasal DAILY #16 grams 11/06/24 mcg/actuation nasal spray,suspension (Flonase Allergy Relief) estradiol 0.01% (0.1 mg/gram) 1 appful vaginal DAILY # 42.5 grams 01/24/25 vaginal cream (Estrace) nystatin-triamcinolone 100,000 1 applic topical BID #6 0 grams 01/24/25 unit/g-0.1 % topical cream pantoprazole 40 mg tablet,delayed 40 mg PO DAILY 6 wee ks #42 tabs 02/06/25 release (Protonix) hydrocodone 5 mg-acetaminophen 325 1 tab PO Q6H PRN pa in 7 days #28 02/09/25 mg tablet tabs Allergies Allergy/AdvReac Type Severity Reaction Status Date / Time aspirin Allergy Severe makes me Verified 02/12/25 10:02 stop breathing mushroom Allergy Severe Can't Verified 02/12/25 10:02 breath codeine Allergy Intermediate loss of Verified 02/12/25 10:02 functioning hepatitis B virus vaccine Allergy Intermediate ADR-Dizzine Verified 02/12/25 10:02 ss metronidazole (From Flagyl) Allergy Intermediate memory fog Verified 02/12/25 10:02 trospium (From [place]) AdvReac Severe ADR/ALGY-Pa Verified 02/12/25 10:02 lpitations Review of Systems 2 General: Reports: 10 or more systems reviewed and unremarkable except in HPI and below PFSH ED 2 PFSH: Medical History Tubulovillous adenoma of colon Myocardial infarction (2007) Chronic kidney disease Stage 3a 10/2022 Eczema Osteoarthritis Depression Obstructive sleep apnea Psychiatric care Allergic rhinosinusitis COPD (chronic obstructive pulmonary disease) Breast cancer Osteoporosis Surgical History Hx of colonoscopy with polypectomy [facility] less than 10 yrs ago S/P matrixectomy of toe History of section x 3 History of right mastectomy (08/17/19) Right modified radical mastectomy History of cholecystectomy Family History Mother Diabetes Cancer Chronic kidney disease (CKD) Breast cancer Denies family history of Colon cancer Ovarian cancer Heart disease Hyperlipidemia Hypertension Uterine cancer Thyroid disease Stroke Social History Smoking and tobacco/nicotine status: current every day tobacco/nicotine user cigarettes Packs smoked per day: 0.5 [ Other cigarette details: relpsed and now smoking 1/2 -3/4 Pack for day ] Quit status (tobacco/nicotine): has tried quititng Second hand smoke exposure: Yes (Some.) Alcohol intake: former Substance/Drug Use: never Lives independently: Yes Household members: none Marital status: / Current occupational status: disabled Do you think of yourself as: Straight/Heterosexual Current gender identity: Female Physical Exam 2 Const: COMMON NORMALS: no acute distress, average body habitus, patient oriented x3, no limitations, alert and well nourished GENERAL APPEARANCE: c ooperative ORIENTATION/CONSCIOUSNESS: Yes awake, Yes oriented to person, Yes oriented to place and Yes oriented to time HENMT: COMMON NORMALS: normocephalic and atraumatic HEAD & SCALP: n ormocephalic and atraumatic Eye: GENERAL EYE: appearance normal, both eyes and all related structures E YELID: eyelids normal Chest: COMMONS NORMALS: normal inspection of the chest Resp: COMMON NORMALS: normal respiratory effort EFFORT & INSPECTION: Yes able to speak in complete sentences and Yes symmetric chest movement Cardio: COMMON NORMALS: regular rate and regular rhythm RATE: regular rate RHYTHM: regular rhythm GI: COMMON NORMALS: Normal to inspection, nondistended, normoactive bowel sounds present, Soft to palpation and non-tender PALPATION: Yes Soft to palpation : COMMON NORMALS: Yes no CVA tenderness BLADDER/KIDNEY EXAM: Yes no CVA tenderness Back/Pelvis: COMMON NORMALS: no CVA tenderness, thoracic and lumbar spine normal to inspection, no thoracic nor lumbar tenderness and thoraco-lumbar ROM normal Neuro: COMMON NORMALS: patient oriented x3 SENSORIUM/ORIENTATION: Yes alert, Yes oriented to person, Yes oriented to place and Yes oriented to time SPEECH: speech normal Psych: ATTITUDE: Yes engaged ACTIVITY/MOTOR BEHAVIOR: Yes appropriate eye contact ATTENTION/CONCENTRATION: Yes attention grossly intact M JAN/COGNITION: Yes memory grossly intact Skin: COMMON NORMALS: no rashes or lesions noted, turgor normal and no jaundice GENERAL SKIN EXAM: no rashes or lesions noted and turgor normal Course 2 Vital Signs: Vital signs: Vital Signs Temperature 98.1 F 02/13/25 11:56 Pulse Rate 81 02/13/25 15:20 Respiratory Rate 16 02/13/25 15:20 Blood Pressure 146/96 02/13/25 15:20 Pulse Oximetry 98 02/13/25 15:20 Oxygen Delivery Me thod Room Air 02/13/25 14:00 Oxygen Flow Rate 3 02/13/25 12:21 MDM - Chest Pain Medical Decision Making Patient is well-appearing nontoxic and in no acute distress. 64-year-old female patient presents to the emergency department with chest pain that started a few days ago. Patient states that she is having some shortness of breath that is mild. Patient states that the solid waste truck driver gave her a nitro and the pain got better but patient states she noticed she started having pain bumping around in the ambulance ride. Patient denies any fever cough congestion patient denies any radiation of pain. Patient did not have any chest pain while here in the emergency department. Patient's pain was reproducible when patient's chest wall was palpated she had tenderness with this. Patient recently had 2 surgeries 1 for removing the rods in her foot and the other was to be scoped. Patient states after she sees was scoped she noticed the thoughts when she started having pain in her chest wall. Patient is not tachycardic. Patient does not have pain in her back. Patient has not had any chest pain while here in the emergency department patient has not had any shortness of breath while here in the emergency department patient has no evidence of hypoxemia. I do not feel evaluation of pulmonary emboli is needed at this time. Patient's EKG does not reveal any ST elevation or depression delta Trope was within normal limits. Patient's labs are otherwise reassuring chest x-ray is negative for any acute findings. Patient's findings are consistent with chest wall pain. I discussed with patient close return precautions as well as follow-up and home care. Lab Data 02/13/25 12:32 02/13/25 12:32 Radiology Impressions Chest X-Ray 02/13/25 12:00 IMPRESSION: Stable chest without acute abnormality. Laboratory Results WBC 6.83 10^3/uL (3.29-11.43) 02/13/25 12:32 RBC 4.76 10^6/uL (3.85-5.65) 02/13/25 12:32 Hgb 13.30 g/dL (11.27-16.99) 02/13/25 12:32 Hct 40.3 % (36-47) 02/13/25 12:32 MCV 84.7 fl (85-98) L 02/13/25 12:32 MCH 27.9 pg (27-33) 02/13/25 12:32 MCHC 33.0 g/dL (30-55) 02/13/25 12:32 RDW 13.1 % (12.1-15.1) 02/13/25 12:32 Plt Count 233 10^3/cmm (157-399) 02/13/25 12:32 MPV 10.6 fL (7.4-10.4) H 02/13/25 12:32 Neut % (Auto) 51.4 % 02/13/25 12:32 Lymph % (Auto) 38.7 % 02/13/25 12:32 [place] % (Auto) 7.3 % 02/13/25 12:32 Eos % (Auto) 1.9 % 02/13/25 12:32 Baso % (Auto) 0.4 % 02/13/25 12:32 Neut # (Auto) 3.51 10^3/uL (1.8-7.7) 02/13/25 12:32 Lymph # (Auto) 2.6 10^3/uL (0.8-4.8) 02/13/25 12:32 [place] # (Auto) 0.5 10^3/uL (0.2-0.9) 02/13/25 12:32 Eos # (Auto) 0.1 10^3/uL (0.0-0.8) 02/13/25 12:32 Baso # (Auto) 0.0 10^3/uL (0.0-0.1) 02/13/25 12:32 Nucleated RBC % (auto) 0 % 02/13/25 12:32 Nucleated RBCs # 0.0 /100WBC 02/13/25 12:32 Sodium 140 mmol/L (136-145) 02/13/25 12:32 Potassium 4.5 mmol/L (3.5-5.1) 02/13/25 12:32 Chloride 103 mmol/L (98-107) 02/13/25 12:32 Carbon Dioxide 25 mmol/L (22-29) 02/13/25 12:32 Anion Gap 16.5 (5-19) 02/13/25 12:32 BUN 9 mg/dL (8-23) 02/13/25 12:32 Creatinine 0.9 mg/dL (0.5-0.9) 02/13/25 12:32 GFR Calculation 63.4 mL/min (90-130) L 02/13/25 12:32 Glucose 91 mg/dL (65-115) 02/13/25 12:32 Calculated Osmolality 288 mOsm/kg (285-295) 02/13/25 12:32 Calcium 9.6 mg/dL (8.5-10.5) 02/13/25 12:32 Total Bilirubin 0.3 mg/dL (0.15-1.2) 02/13/25 12:32 AST 27 U/L (0-32) 02/13/25 12:32 ALT 32 U/L (0-33) 02/13/25 12:32 Alkaline Phosphatase 81 U/L (35-105) 02/13/25 12:32 Troponin T Baseline < 6 ng/L (0-10) 02/13/25 12:32 Troponin T 120 Minute < 6.0 ng/L (0-10) 02/13/25 14:17 Delta Troponin T 0 ABS# (0-10) 02/13/25 14:17 NT-Pro-B Natriuret Pep 47 pg/mL (0-125) 02/13/25 12:32 Total Protein 7.0 g/dL (6.6-8.7) 02/13/25 12:32 Albumin 4.5 g/dL (3.5-5.2) 02/13/25 12:32 Globulin 2.5 g/dL (1.3-4.6) 02/13/25 12:32 Lipase 25 U/L (13-60) 02/13/25 12:32 All radiology interpretation(s) finalized by discharge Discharge Plan Discharge Patient Disposition: Home Clinical Impression: Chest pain Condition: Stable Prescriptions: No Action (DME) Carbon Fiber Plate See Rx Instructions .Route .MEDSUPPLY Qty: 1 0RF Rx Instructions: As directed (DME) Blood Glucose Test Strip See Rx Instructions .ROUTE .MEDSUPPLY Qty: 50 11RF Rx Instructions: Brand/type to go with meter per insurance coverage Linzess 145 mcg capsule 145 mcg PO DAILY Qty: 30 11RF nystatin-triamcinolone 100,000-0.1 unit/g-% cream 1 applic topical BID Qty: 60 6RF Rx Instructions: apply small amount to vulva BID estradiol [Estrace] 0.01 % (0.1 mg/gram) cream 1 appful vaginal DAILY Qty: 42.5 6RF Rx Instructions: apply small amount to vulva daily Trelegy Ellipta 100-62.5-25 mcg blister with device 1 inh inhalation DAILY All Day Allergy (cetirizine) 10 mg capsule 5 mg PO DAILY PRN (Reason: Allergy Symptoms) bupropion HCl [Wellbutrin XL] 300 mg tablet extended release 24 hr 300 mg PO QAM Qty: 30 11RF paroxetine HCl 40 mg tablet 40 mg PO QPM Qty: 30 11RF mirabegron [Myrbetriq] 25 mg tablet extended release 24 hr 25 mg PO DAILY 90 Days Qty: 90 1RF gabapentin 100 mg capsule 100 mg PO BEDTIME Qty: 30 0RF (DME) lancets [OneTouch Delica Plus Lancet] 30 gauge misc See Rx Instructions .ROUTE .COMPLEX Qty: 100 3RF Dose Instruction: USE DIRECTED FOUR TIMES DAILY Rx Instructions: USE DIRECTED FOUR TIMES DAILY tizanidine 4 mg capsule 4 mg PO BID PRN (Reason: muscle spasticity) Qty: 60 1RF fluticasone propionate [Flonase Allergy Relief] 50 mcg/actuation spray,suspension 2 spray intranasal DAILY Qty: 16 2RF Rx Instructions: administer into each nostril silver sulfadiazine 1 % cream 1 applic topical BID PRN (Reason: ingrown toemanil) Rx Instructions: apply a 1.5 mm thickness hydrocodone-acetaminophen 5-325 mg tablet 1 tab PO Q6H PRN (Reason: pain) 7 Days Qty: 28 0RF alendronate 70 mg tablet 70 mg PO .WEEKLY Rx Instructions: TAKE ONE TABLET BY MOUTH ONCE WEEKLY albuterol sulfate 90 mcg/actuation HFA aerosol inhaler 2 puff inhalation Q4H PRN (Reason: Shortness Of Breath Or Wheezing) Rx Instructions: INHALE TWO PUFFS BY MOUTH EVERY 4 HOURS NEEDED pantoprazole [Protonix] 40 mg tablet,delayed release (DR/EC) 40 mg PO DAILY 42 Days Qty: 42 0RF paroxetine HCl 20 mg tablet 20 mg PO BEDTIME Rx Instructions: Take with 40 mg for a total of 60 mg daily Discharge Orders: Discharge ED (Routine); Ordered 02/13/25 Ordered By: Liss Cantu Referrals: Liane Granados MD [Primary Care Provider, Family Practice] Discharge Diet: Advance as tolerated Discharge Activity: Increase activity as tolerated Patient Instructions: Opioid Safety, Pain Management, Patient Portal & Rudolph Instructions Activity Restrictions/Additional Instructions: Please follow up with your PCP for recheck Return to the ER with any chest pain, Shortness of breath, fever or any other concerns Print Language: Mohawk Coding Level of Care Code ED Cloth Grader for Karen Stokes
--- NOTE | 2025-02-14 00:16 | W.ED.CHESTPA ---
HPI - Chest Pain General: Chief Complaint: Chest Pain Stated Complaint: Chest Pain Time Seen by Provider: 02/13/25 11:46 History of Present Illness: Please delete chart this is a duplicate chart created in error Related Data Home Medications ?Medication ?Instructions ?Recorded ?Confirmed cetirizine 10 mg capsule (All Day 5 mg PO DAILY PRN Allergy Symptoms 08/12/22 02/14/25 Allergy (cetirizine)) paroxetine HCl 20 mg tablet 20 mg PO BEDTIME 07/11/24 02/14/25 silver sulfadiazine 1 % topical 1 applic topical BID PRN ingrown 10/25/24 02/14/25 cream toemanil fluticasone fur. 100 mcg-umeclid 1 inh inhalation DAILY 12/12/24 02/14/25 62.5 mcg-vilant 25 mcg inhalat.powder (Trelegy Ellipta) albuterol sulfate 90 mcg/actuation 2 puff inhalation Q4H PRN 02/05/25 02/14/25 aerosol inhaler Shortness Of Breath Or Wheezing alendronate 70 mg tablet 70 mg PO .WEEKLY 02/05/25 02/14/25 Previous Rx's ?Medication ?Instructions ?Recorded Carbon Fiber Plate #1 ea 10/14/23 blood sugar diagnostic (Blood #50 ea 03/06/24 Glucose Test strips) bupropion HCl 300 mg 24 hr tablet, 300 mg PO QAM #30 tabs 06/13/24 extended release (Wellbutrin XL) paroxetine HCl 40 mg tablet 40 mg PO QPM #30 tabs 06/13/24 lancets 30 gauge (OneTouch Delica #100 ea 07/10/24 Plus Lancet) linaclotide 145 mcg capsule 145 mcg PO DAILY #30 caps 08/21/24 (Linzess) mirabegron 25 mg tablet,extended 25 mg PO DAILY 90 days #90 tabs 10/03/24 release 24 hr (Myrbetriq) tizanidine 4 mg capsule 4 mg PO BID PRN muscle spasticity 10/30/24 #60 caps gabapentin 100 mg capsule 100 mg PO BEDTIME #30 caps 11/02/24 fluticasone propionate 50 2 spray intranasal DAILY #16 grams 11/06/24 mcg/actuation nasal spray,suspension (Flonase Allergy Relief) estradiol 0.01% (0.1 mg/gram) 1 appful vaginal DAILY #42.5 grams 01/24/25 vaginal cream (Estrace) nystatin-triamcinolone 100,000 1 applic topical BID #60 grams 01/24/25 unit/g-0.1 % topical cream pantoprazole 40 mg tablet,delayed 40 mg PO DAILY 6 weeks #42 tabs 02/06/25 release (Protonix) hydrocodone 5 mg-acetaminophen 325 1 tab PO Q6H PRN pain 7 days #28 02/09/25 mg tablet tabs nitroglycerin 0.4 mg sublingual 0.4 mg sublingual Q5M PRN chest 02/14/25 tablet pain #25 tabs Allergies Allergy/AdvReac Type Severity Reaction Status Date / Time aspirin Allergy Severe makes me Verified 02/14/25 07:52 stop breathing mushroom Allergy Severe Can't Verified 02/14/25 07:52 breath codeine Allergy Intermediate loss of Verified 02/14/25 07:52 functioning hepatitis B virus vaccine Allergy Intermediate ADR-Dizzine Verified 02/14/25 07:52 ss metronidazole (From Flagyl) Allergy Intermediate memory fog Verified 02/14/25 07:52 trospium (From Sanctura) AdvReac Severe ADR/ALGY-Pa Verified 02/14/25 07:52 lpitations PFS ED PFS: Medical History (Updated 02/14/25 @ 13:01 by Toma Miranda LPN) Tubulovillous adenoma of colon Myocardial infarction (2007) Chronic kidney disease Stage 3a 10/2022 Eczema Osteoarthritis Depression Obstructive sleep apnea Psychiatric care Allergic rhinosinusitis COPD (chronic obstructive pulmonary disease) Breast cancer Osteoporosis Surgical History Hx of colonoscopy with polypectomy [facility] less than 10 yrs ago S/P matrixectomy of toe History of section x 3 History of right mastectomy (08/17/19) Right modified radical mastectomy History of cholecystectomy Family History Mother Diabetes Cancer Chronic kidney disease (CKD) Breast cancer Denies family history of Colon cancer Ovarian cancer Heart disease Hyperlipidemia Hypertension Uterine cancer Thyroid disease Stroke Social History Smoking and tobacco/nicotine status: current every day tobacco/nicotine user cigarettes Packs smoked per day: 0.5 [ Other cigarette details: relpsed and now smoking 1/2 -3/4 Pack for day ] Quit status (tobacco/nicotine): has tried quititng Second hand smoke exposure: Yes (Some.) Alcohol intake: former Substance/Drug Use: never Lives independently: Yes Household members: none Marital status: / Current occupational status: disabled Do you think of yourself as: Straight/Heterosexual Current gender identity: Female Course Vital Signs: Vital signs: Vital Signs Temperature 98.1 F 02/13/25 11:56 Pulse Rate 81 02/13/25 15:20 Respiratory Rate 16 02/13/25 15:20 Blood Pressure 146/96 02/13/25 15:20 Pulse Oximetry 98 02/13/25 15:20 Oxygen Delivery Me thod Room Air 02/13/25 14:00 Oxygen Flow Rate 3 02/13/25 12:21 MDM - Chest Pain Medical Decision Making Duplicate chart please delete Lab Data 02/13/25 12:32 02/13/25 12:32 Radiology Impressions Chest X-Ray 02/13/25 12:00 IMPRESSION: Stable chest without acute abnormality. Laboratory Results WBC 6.83 10^3/uL (3.29-11.43) 02/13/25 12:32 RBC 4.76 10^6/uL (3.85-5.65) 02/13/25 12:32 Hgb 13.30 g/dL (11.27-16.99) 02/13/25 12:32 Hct 40.3 % (36-47) 02/13/25 12:32 MCV 84.7 fl (85-98) L 02/13/25 12:32 MCH 27.9 pg (27-33) 02/13/25 12:32 MCHC 33.0 g/dL (30-55) 02/13/25 12:32 RDW 13.1 % (12.1-15.1) 02/13/25 12:32 Plt Count 233 10^3/cmm (157-399) 02/13/25 12:32 MPV 10.6 fL (7.4-10.4) H 02/13/25 12:32 Neut % (Auto) 51.4 % 02/13/25 12:32 Lymph % (Auto) 38.7 % 02/13/25 12:32 [place] % (Auto) 7.3 % 02/13/25 12:32 Eos % (Auto) 1.9 % 02/13/25 12:32 Baso % (Auto) 0.4 % 02/13/25 12:32 Neut # (Auto) 3.51 10^3/uL (1.8-7.7) 02/13/25 12:32 Lymph # (Auto) 2.6 10^3/uL (0.8-4.8) 02/13/25 12:32 [place] # (Auto) 0.5 10^3/uL (0.2-0.9) 02/13/25 12:32 Eos # (Auto) 0.1 10^3/uL (0.0-0.8) 02/13/25 12:32 Baso # (Auto) 0.0 10^3/uL (0.0-0.1) 02/13/25 12:32 Nucleated RBC % (auto) 0 % 02/13/25 12: Nucleated RBCs # 0.0 /100WBC 02/13/25 12:32 Sodium 140 mmol/L (136-145) 02/13/25 12:32 Potassium 4.5 mmol/L (3.5-5.1) 02/13/25 12:32 Chloride 103 mmol/L (98-107) 02/13/25 12:32 Carbon Dioxide 25 mmol/L (22-29) 02/13/25 12:32 Anion Gap 16.5 (5-19) 02/13/25 12:32 BUN 9 mg/dL (8-23) 02/13/25 12:32 Creatinine 0.9 mg/dL (0.5-0.9) 02/13/25 12:32 GFR Calculation 63.4 mL/min (90-130) L 02/13/25 12:32 Glucose 91 mg/dL (65-115) 02/13/25 12:32 Calculated Osmolality 288 mOsm/kg (285-295) 02/13/25 12:32 Calcium 9.6 mg/dL (8.5-10.5) 02/13/25 12:32 Total Bilirubin 0.3 mg/dL (0.15-1.2) 02/13/25 12:32 AST 27 U/L (0-32) 02/13/25 12:32 ALT 32 U/L (0-33) 02/13/25 12:32 Alkaline Phosphatase 81 U/L (35-105) 02/13/25 12:32 Troponin T Baseline < 6 ng/L (0-10) 02/13/25 12:32 Troponin T 120 Minute < 6.0 ng/L (0-10) 02/13/25 14:17 Delta Troponin T 0 ABS# (0-10) 02/13/25 14:17 NT-Pro-B Natriuret Pep 47 pg/mL (0-125) 02/13/25 12:32 Total Protein 7.0 g/dL (6.6-8.7) 02/13/25 12:32 Albumin 4.5 g/dL (3.5-5.2) 02/13/25 12:32 Globulin 2.5 g/dL (1.3-4.6) 02/13/25 12:32 Lipase 25 U/L (13-60) 02/13/25 12:32 No radiology studies performed this visit Discharge Plan Discharge Patient Disposition: Home Clinical Impression: Chest pain Qualifiers: Chest pain type: chest pain due to myocardial ischemia Ischemic chest pain type: stable angina pectoris Qualified Code(s): I20.89 - Other forms of angina pectoris Condition: Stable Prescriptions: No Action (DME) Carbon Fiber Plate See Rx Instructions .Route .MEDSUPPLY Qty: 1 0RF Rx Instructions: As directed (DME) Blood Glucose Test Strip See Rx Instructions .ROUTE .MEDSUPPLY Qty: 50 11RF Rx Instructions: Brand/type to go with meter per insurance coverage Linzess 145 mcg capsule 145 mcg PO DAILY Qty: 30 11RF nystatin-triamcinolone 100,000-0.1 unit/g-% cream 1 applic topical BID Qty: 60 6RF Rx Instructions: apply small amount to vulva BID estradiol [Estrace] 0.01 % (0.1 mg/gram) cream 1 appful vaginal DAILY Qty: 42.5 6RF Rx Instructions: apply small amount to vulva daily Trelegy Ellipta 100-62.5-25 mcg blister with device 1 inh inhalation DAILY All Day Allergy (cetirizine) 10 mg capsule 5 mg PO DAILY PRN (Reason: Allergy Symptoms) bupropion HCl [Wellbutrin XL] 300 mg tablet extended release 24 hr 300 mg PO QAM Qty: 30 11RF paroxetine HCl 40 mg tablet 40 mg PO QPM Qty: 30 11RF mirabegron [Myrbetriq] 25 mg tablet extended release 24 hr 25 mg PO DAILY 90 Days Qty: 90 1RF gabapentin 100 mg capsule 100 mg PO BEDTIME Qty: 30 0RF nitroglycerin 0.4 mg tablet, sublingual 0.4 mg sublingual Q5M PRN (Reason: chest pain) Qty: 25 1RF Rx Instructions: do not exceed 3 doses per episode (DME) lancets [OneTouch Delica Plus Lancet] 30 gauge misc See Rx Instructions .ROUTE .COMPLEX Qty: 100 3RF Dose Instruction: USE DIRECTED FOUR TIMES DAILY Rx Instructions: USE DIRECTED FOUR TIMES DAILY tizanidine 4 mg capsule 4 mg PO BID PRN (Reason: muscle spasticity) Qty: 60 1RF fluticasone propionate [Flonase Allergy Relief] 50 mcg/actuation spray,suspension 2 spray intranasal DAILY Qty: 16 2RF Rx Instructions: administer into each nostril silver sulfadiazine 1 % cream 1 applic topical BID PRN (Reason: ingrown toemanil) Rx Instructions: apply a 1.5 mm thickness hydrocodone-acetaminophen 5-325 mg tablet 1 tab PO Q6H PRN (Reason: pain) 7 Days Qty: 28 0RF alendronate 70 mg tablet 70 mg PO .WEEKLY Rx Instructions: TAKE ONE TABLET BY MOUTH ONCE WEEKLY albuterol sulfate 90 mcg/actuation HFA aerosol inhaler 2 puff inhalation Q4H PRN (Reason: Shortness Of Breath Or Wheezing) Rx Instructions: INHALE TWO PUFFS BY MOUTH EVERY 4 HOURS NEEDED pantoprazole [Protonix] 40 mg tablet,delayed release (DR/EC) 40 mg PO DAILY 42 Days Qty: 42 0RF paroxetine HCl 20 mg tablet 20 mg PO BEDTIME Rx Instructions: Take with 40 mg for a total of 60 mg daily Discharge Orders: Discharge ED (Routine); Ordered 02/13/25 Ordered By: Liss Cantu Referrals: Liane Granados MD [Primary Care Provider, Family Practice] Discharge Diet: Advance as tolerated Discharge Activity: Increase activity as tolerated Patient Instructions: Opioid Safety, Pain Management, Patient Portal & Rudolph Instructions Activity Restrictions/Additional Instructions: Please follow up with your PCP for recheck Return to the ER with any chest pain, Shortness of breath, fever or any other concerns Print Language: Algerian Coding Level of Care Code ED Weight Trainer for Karen Stokes
== END 2025-02-13 15:19 | disposition home or self-care (01) ==
PROVIDERS: Emergency Provider Registered Nurse; PCP Family Medicine
DX: I20.89 Other forms of angina pectoris (principal); G47.33 Obstructive sleep apnea (adult) (pediatric); Z79.899 Other long term (current) drug therapy; J44.9 Chronic obstructive pulmonary disease, unspecified; N18.31 Chronic kidney disease, stage 3a; I25.2 Old myocardial infarction; F17.210 Nicotine dependence, cigarettes, uncomplicated
CPT/HCPCS: 36415; 71045; 80053; 83690; 83880; 84484; 85025; 93005; 99285

== ENCOUNTER → 2025-02-19 09:50 | Outpatient (BNVA) | payer MEDICARE, MEDICAID, SELFPAY | PROVIDERS: PCP Family Medicine; Visit Provider Student in an Organized Health Care Education/Training Program | DX: Z09 Encounter for follow-up examination after completed treatment for conditions other than malignant neoplasm (principal) | CPT/HCPCS: 99213 ==

== ENCOUNTER → 2025-02-22 11:29 | Outpatient (BNVA) | payer MEDICARE, MEDICAID, SELFPAY | PROVIDERS: PCP Family Medicine; Visit Provider Podiatrist Foot & Ankle Surgery | DX: Z98.890 Other specified postprocedural states (principal) | CPT/HCPCS: 99024 ==

== ENCOUNTER 2025-03-02 06:30 | Outpatient (RCR) | payer MEDICARE, MEDICAID, SELFPAY | END 2025-04-01 23:59 | disposition home or self-care (01) | LOC: MPT 06:30 | PROVIDERS: PCP Family Medicine; Visit Provider Specialist | DX: Z47.1 Aftercare following joint replacement surgery (principal); Z96.651 Presence of right artificial knee joint | CPT/HCPCS: 97110; G0283 ==

== ENCOUNTER → 2025-03-07 13:24 | Outpatient (BNVA) | payer MEDICARE, MEDICAID, SELFPAY | PROVIDERS: PCP Family Medicine; Visit Provider Nurse Practitioner Family | DX: L57.8 Other skin changes due to chronic exposure to nonionizing radiation (principal); L70.0 Acne vulgaris; L81.4 Other melanin hyperpigmentation; D22.5 Melanocytic nevi of trunk; L82.1 Other seborrheic keratosis; L57.0 Actinic keratosis | CPT/HCPCS: 17000; 99214 ==

== ENCOUNTER → 2025-03-14 09:51 | Outpatient (BNVA) | payer MEDICARE, MEDICAID, SELFPAY | PROVIDERS: PCP Family Medicine; Visit Provider Family Medicine | DX: R73.03 Prediabetes (principal); N18.31 Chronic kidney disease, stage 3a; E87.1 Hypo-osmolality and hyponatremia | CPT/HCPCS: 80053; 80061; 83036 ==

== ENCOUNTER → 2025-03-19 16:45 | Outpatient (BNVA) | payer MEDICARE, MEDICAID, SELFPAY | PROVIDERS: PCP Family Medicine; Visit Provider Obstetrics & Gynecology | DX: R10.2 Pelvic and perineal pain (principal) | CPT/HCPCS: 87624 ==

== ENCOUNTER → 2025-03-21 11:53 | Outpatient (BNVA) | payer MEDICARE, MEDICAID, SELFPAY | PROVIDERS: PCP Family Medicine; Visit Provider Internal Medicine Cardiovascular Disease | DX: I25.118 Atherosclerotic heart disease of native coronary artery with other forms of angina pectoris (principal); E11.22 Type 2 diabetes mellitus with diabetic chronic kidney disease; N18.31 Chronic kidney disease, stage 3a; J44.9 Chronic obstructive pulmonary disease, unspecified; F17.210 Nicotine dependence, cigarettes, uncomplicated; I25.2 Old myocardial infarction; R06.02 Shortness of breath; R07.9 Chest pain, unspecified | CPT/HCPCS: 99204 ==

== ENCOUNTER → 2025-03-27 14:33 | Outpatient (BNVA) | payer MEDICARE, MEDICAID, SELFPAY | PROVIDERS: PCP Family Medicine; Visit Provider Obstetrics & Gynecology | DX: R10.2 Pelvic and perineal pain (principal); N85.4 Malposition of uterus | CPT/HCPCS: 76830 ==

== ENCOUNTER 2025-04-02 06:30 | Outpatient (RCR) | payer MEDICARE, MEDICAID, SELFPAY | END 2025-05-01 23:59 | disposition home or self-care (01) | LOC: MPT 06:30 | PROVIDERS: PCP Family Medicine; Visit Provider Specialist | DX: Z47.1 Aftercare following joint replacement surgery (principal); Z96.651 Presence of right artificial knee joint | CPT/HCPCS: 97110; 97530; G0283 ==

== ENCOUNTER → 2025-04-09 12:56 | Outpatient (BNVA) | payer MEDICARE, MEDICAID, SELFPAY | PROVIDERS: PCP Family Medicine; Visit Provider Anesthesiology Pain Medicine | DX: M47.816 Spondylosis without myelopathy or radiculopathy, lumbar region (principal); M51.16 Intervertebral disc disorders with radiculopathy, lumbar region; M54.9 Dorsalgia, unspecified | CPT/HCPCS: 99214 ==

== ENCOUNTER → 2025-04-13 15:15 | Outpatient (BNVA) | payer MEDICARE, MEDICAID, SELFPAY | PROVIDERS: PCP Family Medicine; Referring Provider Family Medicine; Visit Provider Family Medicine | DX: M54.12 Radiculopathy, cervical region (principal) | CPT/HCPCS: 72040 ==

== ENCOUNTER 2025-04-23 10:47 | Outpatient (CLI) | payer MEDICARE, MEDICAID, SELFPAY ==
[2025-04-18 15:00] VITALS: BP 111/71; BMI 25.6
--- NOTE | 2025-04-23 11:15 | USCV_ITS ---
Shana Connor Age: 65 Gender: F : 1960 Exam Date: 04/23/2025 11:12 Ordering Phys: Alfred Farah MD ([email or web address]) Technologist: Exam Location: [facility] [place] Indication: BP: 150 / 80 HR: 73 Rhythm: Sinus Technical Quality: Adequate MEASUREMENTS (Male / Female) Normal Values 2D ECHO LV Diastolic Diameter PLAX 4.8 cm 4.2 - 5.9 / 3.9 - 5.3 cm IVS Diastolic Thickness 1.1 cm 0.6 - 1.0 / 0.6 - 0.9 cm IVS Systolic Thickness 1.4 cm LVPW Diastolic Thickness 1.0 cm 0.6 - 1.0 / 0.6 - 0.9 cm LVPW Systolic Thickness 1.6 cm LVOT Diameter 2.1 cm LV Ejection Fraction 2D Teich 61.6 % LV Ejection Fraction MOD 4C 72.7 % LV Ejection Fraction MOD 2C 56.2 % LV Ejection Fraction 2C AL 56.7 % LA Diameter 2.9 cm RA Systolic Volume 4C AL 23.5 ml RA Systolic Volume 4C MOD 23.0 ml LA Sys Volume AL 32.4 cm cubed LA Sys Volume Index AL 18.0 cm cubed/m squared Aorta at Sinotubular Diameter 2.8 cm IVC Diameter 1.0 cm M-MODE LA Ao Ratio MM 0.9 AV Cusp Separation MM 2.1 cm DOPPLER AV Peak Velocity 155.0 cm/s LVOT Peak Velocity 84.0 cm/s AV Area Cont Eq vti 1.9 cm squared AV Area Cont Eq pk 1.9 cm squared MV Peak Velocity 87.0 cm/s MV Area PHT 4.9 cm squared Mitral E to A Ratio 0.7 TV Peak Velocity 169.5 cm/s TR Peak Velocity 198.0 cm/s TR Peak Gradient 15.7 mmHg TV Peak E Velocity 72.0 cm/s PV Peak Velocity 98.0 cm/s FINDINGS Left Ventricle Normal left ventricular size, systolic function and wall thickness, with no regional wall motion abnormalities. Left ventricular ejection fraction is estimated at 60 %. Grade I/IV diastolic dysfunction (abnormal relaxation filling pattern), normal to mildly elevated filling pressures. Right Ventricle The right ventricle is normal in size and function. Right Atrium The right atrium is normal in size. Left Atrium The left atrium is normal in size. Mitral Valve Structurally normal mitral valve without significant stenosis or prolapse. There is no mitral regurgitation. Aortic Valve Mild aortic valve calcification. No aortic valve stenosis. Trace aortic valve regurgitation. Tricuspid Valve Structurally normal tricuspid valve without significant stenosis or regurgitation. Pulmonary artery systolic pressure is normal. Pulmonic Valve Structurally normal pulmonic valve without significant stenosis. There is no pulmonic regurgitation. Pericardium Normal pericardium without effusion. Aorta Normal ascending aorta dimension. IVC The inferior vena cava appears normal. CONCLUSIONS Normal left ventricular size, systolic function and wall thickness, with no regional wall motion abnormalities. Left ventricular ejection fraction is estimated at 60 %. Grade I/IV diastolic dysfunction (abnormal relaxation filling pattern), normal to mildly elevated filling pressures. There is no pericardial effusion. No significant valve abnormalities. Right atrial pressure is around 5 mm of mercury. Alfred Farah MD (Electronically Signed) Final Date: 27 April 2025 15:13 S
== END 2025-04-23 10:48 | disposition home or self-care (01) ==
PROVIDERS: PCP Family Medicine; Visit Provider Internal Medicine Cardiovascular Disease
DX: R06.02 Shortness of breath (principal); I70.0 Atherosclerosis of aorta; I35.1 Nonrheumatic aortic (valve) insufficiency; I50.31 Acute diastolic (congestive) heart failure
CPT/HCPCS: 93306

== ENCOUNTER 2025-04-24 07:55 | Outpatient (CLI) | payer MEDICARE, MEDICAID, SELFPAY ==
[2025-04-18 15:00] VITALS: BP 111/71; BMI 25.6
--- NOTE | 2025-04-24 | ECG_ITS ---
[facility] Test Date: 2025-04-24 Pat Name: Shana Connor Department: Room: Gender: Female Client Insights Consultant: : 1960 Requested By: Alfred Farah Order Number: [id number] Smiley MD: David Tolentino M.D. Interpretive Statements Procedure: A total of 0.4 mg of Lexiscan was infused over 20 seconds. The stress phase was continued for a total of 5 minutes. Sestamibi was injected 20 seconds after the Lexiscan infusion. Vital signs and ECG findings: Resting blood pressure was 133/84 with a heart rate of 71 bpm. Blood pressure after Lexiscan injection was 139/68 with a heart rate of 120 bpm. At the end of recovery blood pressure was 159/83 with a heart rate of 105 bpm. Resting EKG showed normal sinus rhythm with sinus arrhythmia and no ST-T wave abnormality. No ST-T wave abnormality during stress test and in recovery. No arrhythmias during stress test. Conclusion: 1. Normal EKG response to Lexiscan infusion 2. No Lexiscan induced chest pain or cardiac arrhythmia. 3. Normal blood pressure and heart rate response. 4. Nuclear myocardial perfusion scan pending; see separate report. Electronically Signed On 04-24-2025 21:03:26 CDT by David Tolentino M.D. [email or web address]
[2025-04-24 08:03] VITALS: BMI 25.6
--- NOTE | 2025-04-24 08:17 | NMCV_ITS ---
NM margaux perf SPECT r/s* [id number] Nikolas Shana Age: 65 Gender: F : 1960 Exam Date: 04/24/2025 09:13 Ordering Phys: Alfred Farah MD ([email or web address]) Technologist: BRUCE Gardner Exam Location: [facility] [place] Indications: CP STRESS TEST Please see separate stress test report in [facility] for full findings IMAGE PROTOCOL Rest/Stress 1 Lexiscan Day Radiopharmaceutical Dose (mCi) Administration Site Administered by Rest: Tc-99m 10.6 IV BRUCE Woods Sestamibi Stress:Tc-99m 32.6 IV BRUCE Woods Sestamibi Rest: 24-Apr-2025 60 Discovery 630 Stress: 24-Apr-2025 30 Discovery 630 0.4mg Lexiscan. Images obtained in supine and prone position. SPECT RESULTS Technical Quality: Good Raw Data Analysis: Normal Image Corrections: No attenuation or motion correction applied Summed Stress Score: 1 Summed Rest Score: 0 Summed Difference Score: 1 PERFUSION FINDINGS SPECT images demonstrate homogeneous tracer distribution throughout the myocardium. FUNCTIONAL RESULTS (calculated via Gated SPECT) Stress Image LV EF (%): 61 Stress EDV (mL):84 TID: 1.06 Stress ESV (mL):33 FUNCTIONAL FINDINGS: There is normal left ventricular systolic function. IMPRESSIONS Myocardial perfusion imaging is normal. Normal left ventricular systolic function. David Tolentino MD, FACC (Electronically Signed) Final Date: 24 April 2025 20:05 S
[2025-04-24 10:28] VITALS: BP 159/84; PULSE 88
== END 2025-04-24 07:56 | disposition home or self-care (01) ==
LOC: CDL 07:58
PROVIDERS: PCP Family Medicine; Visit Provider Internal Medicine Cardiovascular Disease
DX: R07.9 Chest pain, unspecified (principal); I49.8 Other specified cardiac arrhythmias
CPT/HCPCS: 36415; 78452; 93017; 96374; A9500; J2785

== ENCOUNTER 2025-05-02 11:07 | Outpatient (CLI) | payer MEDICARE, MEDICAID, SELFPAY ==
[2025-04-18 15:00] VITALS: BP 111/71; BMI 25.6
--- NOTE | 2025-05-02 11:30 | MM_ITS ---
WS: [id number] DIAGNOSTIC LEFT DIGITAL BREAST TOMOSYNTHESIS WITH CAD HISTORY: Carcinoma of upper-outer quadrant right breast, prior RIGHT mastectomy. COMPARISON: 05/03/2024, 04/29/2023, 06/11/2022, 07/24/2021 Left craniocaudal, mediolateral oblique and medial lateral images are submitted with tomosynthesis and SM. Computer aided detection performed. Breast composition: There are scattered areas of fibroglandular density. There are a few benign calcifications. There is a lobulated mass of increased density in the upper outer quadrant LEFT breast. This is best seen on the lateral projections measuring 4 x 5 mm. This area of increased density has been present on prior studies but appears more prominent today. No additional abnormalities. MM/MM diag LT tomosynthesis [id number] IMPRESSION: BI-RADS: 0 - Incomplete: Need additional imaging evaluation. FOLLOW UP: Need Additional Imaging LEFT breast: Spot compression views (CC and MLO). True ML. Ultrasound to follow if abnormality persists.
== END 2025-05-02 11:08 | disposition home or self-care (01) ==
LOC: RAD 11:11
PROVIDERS: PCP Family Medicine; Visit Provider Internal Medicine Medical Oncology
DX: C50.411 Malignant neoplasm of upper-outer quadrant of right female breast (principal); Z17.0 Estrogen receptor positive status [ER+]; R92.1 Mammographic calcification found on diagnostic imaging of breast; R92.323 Mammographic fibroglandular density, bilateral breasts; N63.21 Unspecified lump in the left breast, upper outer quadrant
CPT/HCPCS: 77061; G0279

== ENCOUNTER 2025-05-15 15:42 | Oncology outpatient (recurring) (ONCR) | payer MEDICARE, MEDICAID, SELFPAY ==
[2025-04-18 15:00] VITALS: BP 111/71; BMI 25.6
== END 2025-06-01 23:59 | disposition home or self-care (01) ==
LOC: ONCMED 15:43
PROVIDERS: PCP Family Medicine; Visit Provider Internal Medicine Medical Oncology
DX: C50.411 Malignant neoplasm of upper-outer quadrant of right female breast (principal); Z17.0 Estrogen receptor positive status [ER+]; R92.322 Mammographic fibroglandular density, left breast; M17.11 Unilateral primary osteoarthritis, right knee
CPT/HCPCS: 99213

== ENCOUNTER → 2025-05-21 13:17 | Outpatient (BNVA) | payer MEDICARE, MEDICAID, SELFPAY ==
[2025-04-18 15:00] VITALS: BP 111/71; BMI 25.6
== END ==
PROVIDERS: PCP Family Medicine; Visit Provider Anesthesiology Pain Medicine
DX: M47.816 Spondylosis without myelopathy or radiculopathy, lumbar region (principal); M51.16 Intervertebral disc disorders with radiculopathy, lumbar region
CPT/HCPCS: 99214

== ENCOUNTER → 2025-05-29 14:38 | Outpatient (BNVA) | payer MEDICARE, MEDICAID, SELFPAY ==
[2025-04-18 15:00] VITALS: BP 111/71; BMI 25.6
== END ==
PROVIDERS: PCP Family Medicine; Referring Provider Family Medicine; Visit Provider Specialist
DX: M54.12 Radiculopathy, cervical region (principal); R20.0 Anesthesia of skin; R20.2 Paresthesia of skin; G62.89 Other specified polyneuropathies
CPT/HCPCS: 95911

== ENCOUNTER 2025-05-30 09:41 | Outpatient (RCR) | payer MEDICARE, MEDICAID, SELFPAY ==
[2025-04-18 15:00] VITALS: BP 111/71; BMI 25.6
== END 2025-06-01 23:59 | disposition home or self-care (01) ==
LOC: MPT 09:41
PROVIDERS: PCP Family Medicine; Visit Provider Specialist
DX: Z47.1 Aftercare following joint replacement surgery (principal); Z96.651 Presence of right artificial knee joint
CPT/HCPCS: 97110; 97530; G0283

== ENCOUNTER → 2025-06-18 09:17 | Outpatient (BNVA) | payer MEDICARE, MEDICAID, SELFPAY ==
[2025-04-18 15:00] VITALS: BP 111/71; BMI 25.6
== END ==
PROVIDERS: PCP Family Medicine; Visit Provider Specialist
DX: M25.521 Pain in right elbow (principal); R20.0 Anesthesia of skin; R20.2 Paresthesia of skin; G56.91 Unspecified mononeuropathy of right upper limb
CPT/HCPCS: 73080; 99215

== ENCOUNTER 2025-06-25 08:47 | Outpatient (RCR) | payer MEDICARE, MEDICAID, SELFPAY ==
[2025-04-18 15:00] VITALS: BP 111/71; BMI 25.6
== END 2025-07-01 23:59 | disposition home or self-care (01) ==
LOC: MPT 08:47
PROVIDERS: PCP Family Medicine; Visit Provider Specialist
DX: Z47.89 Encounter for other orthopedic aftercare (principal)
CPT/HCPCS: 97110; 97530

== ENCOUNTER → 2025-07-02 13:28 | Outpatient (BNVA) | payer MEDICARE, MEDICAID, SELFPAY ==
[2025-04-18 15:00] VITALS: BP 111/71; BMI 25.6
== END ==
PROVIDERS: PCP Family Medicine; Referring Provider Specialist; Visit Provider Anesthesiology Pain Medicine
DX: M54.2 Cervicalgia (principal); M47.816 Spondylosis without myelopathy or radiculopathy, lumbar region; M51.16 Intervertebral disc disorders with radiculopathy, lumbar region; Z87.891 Personal history of nicotine dependence
CPT/HCPCS: 99214

== ENCOUNTER → 2025-07-03 10:56 | Outpatient (BNVA) | payer MEDICARE, MEDICAID, SELFPAY ==
[2025-04-18 15:00] VITALS: BP 111/71; BMI 25.6
== END ==
PROVIDERS: PCP Family Medicine; Visit Provider Family Medicine
DX: E11.22 Type 2 diabetes mellitus with diabetic chronic kidney disease (principal); E11.9 Type 2 diabetes mellitus without complications; N18.31 Chronic kidney disease, stage 3a
CPT/HCPCS: 80053; 83036

== ENCOUNTER 2025-07-04 09:47 | Outpatient (RCR) | payer MEDICARE, MEDICAID, SELFPAY ==
[2025-04-18 15:00] VITALS: BP 111/71; BMI 25.6
== END 2025-08-01 23:59 | disposition home or self-care (01) ==
LOC: MPT 09:47
PROVIDERS: PCP Family Medicine; Visit Provider Specialist
DX: Z47.1 Aftercare following joint replacement surgery (principal); Z96.651 Presence of right artificial knee joint
CPT/HCPCS: 97110

== ENCOUNTER → 2025-07-05 09:22 | Outpatient (BNVA) | payer MEDICARE, OTHER, MEDICAID, SELFPAY ==
[2025-04-18 15:00] VITALS: BP 111/71; BMI 25.6
== END ==
PROVIDERS: PCP Family Medicine; Visit Provider Internal Medicine
DX: G47.33 Obstructive sleep apnea (adult) (pediatric) (principal); Z99.89 Dependence on other enabling machines and devices; Z91.198 Patient's noncompliance with other medical treatment and regimen for other reason; J44.9 Chronic obstructive pulmonary disease, unspecified; R91.1 Solitary pulmonary nodule; J30.89 Other allergic rhinitis; F17.210 Nicotine dependence, cigarettes, uncomplicated
CPT/HCPCS: 99214; Q3014

== ENCOUNTER → 2025-07-09 09:14 | Outpatient (BNVA) | payer MEDICARE, MEDICAID, SELFPAY ==
[2025-04-18 15:00] VITALS: BP 111/71; BMI 25.6
== END ==
PROVIDERS: PCP Family Medicine; Visit Provider Podiatrist Foot & Ankle Surgery
DX: L84 Corns and callosities (principal)
CPT/HCPCS: 99213

== ENCOUNTER 2025-07-13 09:09 | Day surgery (SDC) | payer MEDICARE, MEDICAID, SELFPAY ==
[2025-04-18 15:00] VITALS: BP 111/71; BMI 25.6
[2025-07-13] VITALS (10 sets, daily range): BP systolic 138–149; BP diastolic 83–107; PULSE 87–106; RESP 14–18; TEMP 36.7–36.9; O2SAT 91–97; BMI 26.8
--- NOTE | 2025-07-13 00:47 | W.PM.OPSFHP ---
Same Day Surgery H&P Indication for Procedure/HPI DATE OF PROCEDURE: July 13, 2025 CHIEF COMPLAINT/INDICATIONFOR SURGICAL PROCEDURE: history of abnormal paps PREOP DIAGNOSIS: history of abnormal paps PLANNED PROCEDURE: Operation Date: 07/13/25 11:10 Proposed Procedures p Loop Electrosurgical Excision Procedure (LEEP) 04426 R10.2 R87.619 R87.622 R87.89(Not Applicable) - Marshall Lr MD Medications/Allergies* Home Medications ?Medication ?Instructions ?Recorded ?Confirmed ?Type silver sulfadiazine 1 % topical 1 applic topical BID PRN ingrown 10/25/24 07/12/25 History cream toemanil mirabegron 50 mg tablet,extended 50 mg PO DAILY 05/22/25 07/12/25 History release 24 hr (Myrbetriq) empagliflozin 10 mg tablet 10 mg PO DAILY 07/09/25 07/09/25 History (Jardiance) mirabegron 25 mg tablet,extended 50 mg PO DAILY 07/12/25 07/12/25 History release 24 hr (Myrbetriq) Allergies/Adverse Reactions Allergy/AdvReac Type Severity Reaction Status Date / Time aspirin Allergy Severe makes me Verified 07/12/25 09:22 stop breathing mushroom Allergy Severe Can't Verified 07/12/25 09:22 breath codeine Allergy Intermediate loss of Verified 07/12/25 09:22 functioning hepatitis B virus vaccine Allergy Intermediate ADR-Dizzine Verified 07/12/25 09:22 ss metronidazole (From Flagyl) Allergy Intermediate memory fog Verified 07/12/25 09:22 trospium (From Sanctura) AdvReac Severe ADR/ALGY-Pa Verified 07/12/25 09:22 lpitations Pertinent History/Comorbid Conditions* Medical History (Updated 06/04/25 @ 14:35 by IVONE Pisano) Tubulovillous adenoma of colon Myocardial infarction (2007) Chronic kidney disease Stage 3a 10/2022 Eczema Osteoarthritis Depression Obstructive sleep apnea Psychiatric care Allergic rhinosinusitis COPD (chronic obstructive pulmonary disease) Breast cancer Osteoporosis Surgical History (Updated 10/28/24 @ 00:00 by COSMO Alves) Hx of colonoscopy with polypectomy [facility] less than 10 yrs ago S/P matrixectomy of toe History of section x 3 History of right mastectomy (08/17/19) Right modified radical mastectomy History of cholecystectomy Family History (Updated 09/25/24 @ 09:50 by Melanie Almeida CMA) Diabetes Mother Chronic kidney disease (CKD) Mother Breast cancer Mother Cancer Mother Denies family history of Colon cancer Ovarian cancer Heart disease Hyperlipidemia Hypertension Uterine cancer Thyroid disease Stroke Social History Smoking and tobacco/nicotine status: light tobacco/nicotine user (3/4 ppd X 48 years. Now only smoking 2 per day. ) cigarettes Packs smoked per day: 0.5 [ Other cigarette details: relpsed and now smoking 1/2 -3/4 Pack for day ] Quit status (tobacco/nicotine): has tried quititng Second hand smoke exposure: Yes (Some.) Alcohol intake: former Substance/Drug Use: never Lives independently: Yes Household members: none Marital status: / Current occupational status: disabled Do you think of yourself as: Straight/Heterosexual Current gender identity: Female Pertinent Exam Findings alert, oriented x 3, clear to auscultation bilaterally and regular rate & rhythm Recommendations Surgery/Procedure today Coding Level of Care Code Acute Code for Chg Fwd
--- NOTE | 2025-07-13 09:45 | ANES.PREANE2 ---
Pre-Anesthetic Assessment Height/Weight: Height 5 ft 5 in Weight 161 lb Temp Pulse Resp BP Pulse Ox O2 Del Method 98.5 F 90 18 146/88 97 Room Air 07/13/25 09:41 07/13/25 09:41 07/13/25 09:41 07/13/25 09:41 07/13/25 09:41 07/13/25 09:41 Preop Diagnosis: abnormal pap Operation Date: 07/13/25 11:10 Proposed Procedures p Loop Electrosurgical Excision Procedure (LEEP) 97313 R10.2 R87.619 R87.622 R87.89(Not Applicable) - Marshall Lr MD Was Beta Marcelino taken within 24 hours: N/A Was Clonidine taken within 24 hours: N/A Last intake: Intake Last Liquid Date 07/12/25 Last Liquid Time 21:00 Last Solid Date 07/12/25 Last Solid Time 17:30 Social Tobacco and No alcohol Exam alert, oriented x 3, clear to auscultation bilaterally and regular rate & rhythm Airway Submandibular: within normal limits Cervical ROM: within normal limits Mallampati: Class III Dentition: false Anesthetic Plan ASA status: 3 Anesthesia: General Other: No prior issues with anesthesia NPO since yesterday evening History of COPD, current smoker. Occasional inhaler use GERD, controlled with Protonix CKD stage 3 Labs reviewed from 07/03/2025 and acceptable for procedure EKG showing sinus rhythm Plan for general anesthesia Medications/Allergies Home Medications ?Medication ?Instructions ?Recorded ?Confirmed ?Last Taken ?Type Carbon Fiber Plate #1 ea 10/14/23 07/09/25 07/11/24 Rx paroxetine HCl 40 mg tablet 40 mg PO QPM #30 tabs 06/13/24 07/12/25 07/12/25 Rx silver sulfadiazine 1 % topical 1 applic topical BID PRN ingrown 10/25/24 07/12/25 Unknown History cream toemanil estradiol 0.01% (0.1 mg/gram) 1 appful vaginal DAILY #42.5 grams 01/24/25 07/12/25 02/08/25 Rx vaginal cream (Estrace) nystatin-triamcinolone 100,000 1 applic topical BID #60 grams 01/24/25 07/12/25 02/08/25 Rx unit/g-0.1 % topical cream nitroglycerin 0.4 mg sublingual 0.4 mg sublingual Q5M PRN chest 02/14/25 07/12/25 Unknown Rx tablet pain #25 tabs sucralfate 100 mg/mL oral 10 ml PO BID 30 days #600 mL 02/19/25 07/12/25 07/12/25 Rx suspension aripiprazole 5 mg tablet (Abilify) 5 mg PO DAILY #30 tabs 03/13/25 07/12/25 07/12/25 Rx alendronate 70 mg tablet 70 mg PO .WEEKLY 90 days #13 tabs 03/14/25 07/12/25 07/08/25 Rx fluticasone propionate 50 2 spray intranasal DAILY #16 grams 03/14/25 07/12/25 Unknown Rx mcg/actuation nasal spray,suspension (Flonase Allergy Relief) linaclotide 145 mcg capsule 145 mcg PO DAILY #30 caps 03/14/25 07/12/25 07/12/25 Rx (Linzess) empagliflozin 10 mg tablet 10 mg PO QAM 30 days #30 tabs 03/22/25 07/12/25 07/05/25 Rx (Jardiance) fexofenadine 180 mg tablet 180 mg PO DAILY #90 tabs 03/22/25 07/12/25 07/12/25 Rx gabapentin 100 mg capsule 100 mg PO BEDTIME #30 caps 05/09/25 07/12/25 07/12/25 Rx mirabegron 50 mg tablet,extended 50 mg PO DAILY 05/22/25 07/12/25 07/12/25 History release 24 hr (Myrbetriq) venlafaxine 37.5 mg 37.5 mg PO DAILY #30 caps 06/05/25 07/12/25 07/12/25 Rx capsule,extended release 24 hr tizanidine 4 mg tablet 4 mg PO BID PRN muscle spasticity 07/02/25 07/12/25 Unknown Rx #60 tabs albuterol sulfate 90 mcg/actuation 2 puff inhalation Q4H PRN 07/03/25 07/12/25 Unknown Rx aerosol inhaler Shortness Of Breath Or Wheezing #8.5 grams blood sugar diagnostic (Blood #50 ea 07/03/25 07/09/25 Unknown Rx Glucose Test strips) blood-glucose meter (Blood Glucose #1 ea 07/03/25 07/09/25 Unknown Rx Monitoring kit) fluticasone fur. 100 mcg-umeclid 1 inh inhalation Q24H #60 ea 07/03/25 07/12/25 Unknown Rx 62.5 mcg-vilant 25 mcg inhalat.powder (Trelegy Ellipta) bupropion HCl 75 mg tablet 75 mg PO DAILY #21 tabs 07/05/25 07/12/25 07/12/25 Rx montelukast 10 mg tablet 10 mg PO DAILY #30 tabs 07/05/25 07/12/25 07/12/25 Rx (Singulair) empagliflozin 10 mg tablet 10 mg PO DAILY 07/09/25 07/09/25 Unknown History (Jardiance) mirabegron 25 mg tablet,extended 50 mg PO DAILY 07/12/25 07/12/25 07/12/25 History release 24 hr (Myrbetriq) Allergies Allergy/AdvReac Type Severity Reaction Status Date / Time aspirin Allergy Severe makes me Verified 07/12/25 09:22 stop breathing mushroom Allergy Severe Can't Verified 07/12/25 09:22 breath codeine Allergy Intermediate loss of Verified 07/12/25 09:22 functioning hepatitis B virus vaccine Allergy Intermediate ADR-Dizzine Verified 07/12/25 09:22 ss metronidazole (From Flagyl) Allergy Intermediate memory fog Verified 07/12/25 09:22 trospium (From Sanctura) AdvReac Severe ADR/ALGY-Pa Verified 07/12/25 09:22 lpitations PFSH Anesthesia Medical History Tubulovillous adenoma of colon Myocardial infarction (2007) Chronic kidney disease Stage 3a 10/2022 Eczema Osteoarthritis Depression Obstructive sleep apnea Psychiatric care Allergic rhinosinusitis COPD (chronic obstructive pulmonary disease) Breast cancer Osteoporosis Surgical History Hx of colonoscopy with polypectomy [facility] less than 10 yrs ago S/P matrixectomy of toe History of section x 3 History of right mastectomy (08/17/19) Right modified radical mastectomy History of cholecystectomy Family History Mother Diabetes Cancer Chronic kidney disease (CKD) Breast cancer Denies family history of Colon cancer Ovarian cancer Heart disease Hyperlipidemia Hypertension Uterine cancer Thyroid disease Stroke Social History Smoking and tobacco/nicotine status: light tobacco/nicotine user (3/4 ppd X 48 years. Now only smoking 2 per day. ) cigarettes Packs smoked per day: 0.5 [ Other cigarette details: relpsed and now smoking 1/2 -3/4 Pack for day ] Quit status (tobacco/nicotine): has tried quititng Second hand smoke exposure: Yes (Some.) Alcohol intake: former Substance/Drug Use: never Lives independently: Yes Household members: none Marital status: / Current occupational status: disabled Do you think of yourself as: Straight/Heterosexual Current gender identity: Female Data Anesthesia Cardiac Studies: Echocardiogram 04/23/25 Sestamibi Stress Test (Cardiology) 04/24/25
--- NOTE | 2025-07-13 10:42 | W.PM.OPSUD ---
Surgery/Procedure H&P Update DATE OF PROCEDURE: July 13, 2025 DATE H&P PERFORMED: 07/13/25 H&P UPDATE INFORMATION: I have reviewed H&P completed within last 30 days, I have examined patient prior to procedure and No changes to prior documentation PREOP DIAGNOSIS: abnormal pap PLANNED PROCEDURE: Operation Date: 07/13/25 11:10 Proposed Procedures p Loop Electrosurgical Excision Procedure (LEEP) 66575 R10.2 R87.619 R87.622 R87.89(Not Applicable) - Marshall Lr MD
[2025-07-13] MEDS: fentaNYL 50 mcg/mL INJ 2mL IVP (12:40)
--- NOTE | 2025-07-13 13:05 | PM.OP ---
Operative Report Date of procedure: July 13, 2025 Pre-op diagnosis: abnormal pap Post-op diagnosis: same Procedure done: Electrosurgical loop excision of the cervix Implants: none Specimens removed/disposition: cervical tissue Surgeon: Marshall Lr MD Anesthesia: MAC Estimated blood loss (mL): 3 Complications: none Condition: stable Disposition: PACU Brief History: 65 y.o. with long history of abnormal paps Procedure: The patient was taken to the operating room and placed supine on the table. MAC anesthesia was induced. The patient was placed in dorsolithotomy position. The patient was prepped and draped in the usual sterile fashion. A bivalve speculum was placed in the vagina. The anterior lip of the cervix was grasped with a single toothed tenaculum. The cervix was then infiltrated at the cervicovaginal junction with 20 U of vasopressin to decrease bleeding. Electrosurgical loop excision of the cervix was done to a depth of approximately 5 mm. Bleeding from the posterior cervix was controlled with Monsel?s solution. Excellent hemostasis was noted. All instruments were then removed. The patient was placed supine, awakened, and taken to the recovery room. Postoperative condition: stable EBL: less than 5 cc Complications: none Sponge and instrument counts were correct x two
--- NOTE | 2025-07-13 14:05 | ANE.PACU2 ---
Inpatient post-anesthesia follow up: Airway intact: Yes Vital signs: Temperature 98.0 F Pulse Rate 87 Respiratory Rate 17 Blood Pressure 138/86 Pulse Oximetry 92 Oxygen Delivery Me thod Room Air Oxygen Flow Rate Fraction of Inspir ed Oxygen Hydration adequate: Yes Nausea and vomiting: No Pain level: 1 Mental status: Baseline
== END 2025-07-13 14:07 | disposition home or self-care (01) ==
PROVIDERS: PCP Family Medicine; Visit Provider Obstetrics & Gynecology
PROC: (CPT 57522; principal; 2025-07-13 11:00)
DX: R87.619 Unspecified abnormal cytological findings in specimens from cervix uteri (principal); R87.612 Low grade squamous intraepithelial lesion on cytologic smear of cervix (LGSIL); N18.31 Chronic kidney disease, stage 3a; G47.33 Obstructive sleep apnea (adult) (pediatric); J44.9 Chronic obstructive pulmonary disease, unspecified; Z85.3 Personal history of malignant neoplasm of breast; F32.A Depression, unspecified; Z85.038 Personal history of other malignant neoplasm of large intestine; F17.210 Nicotine dependence, cigarettes, uncomplicated; K21.9 Gastro-esophageal reflux disease without esophagitis; I25.2 Old myocardial infarction; Z90.11 Acquired absence of right breast and nipple; Z80.3 Family history of malignant neoplasm of breast
CPT/HCPCS: 57522; 36416; 82962; 88305; J1100; J2405; J2704; J3010; J3490; J7030; J9999

== ENCOUNTER 2025-07-18 18:18 | Emergency (ER) | payer MEDICARE, MEDICAID, SELFPAY ==
[2025-04-18 15:00] VITALS: BP 111/71; BMI 25.6
[2025-07-18 18:19] VITALS: BP 138/84; PULSE 97; RESP 16; TEMP 37.1; O2SAT 97
--- OUTSIDE RECORDS SUMMARY | 2025-07-18 18:30 | XMS_ITS | Encounter Summary ---
Author Organization [facility] Address [address] [place] [address] Care Team Providers Care Shoe Repairman Name Role Phone Salvador Menjivar Primary Care Provider [phone] Encounter Details Date Type Department Care Team ([facility] st Contact Info) Description 07/10/2025 External Device Data [facility] ABSTRACTION Provider, Abstract NO ADDRESS ON FILE Social History Tobacco Use Types Packs/Day Years Used Date Smoking Tobacco: Every Day Cigarettes 0.3 Last attempted to quit: 12/14/2009 Smokeless Tobacco: Never Alcohol Use Standard Drinks/Week Comments No 0 (1 standard drink = 0.6 oz pur e alcohol) Comments Unknown Sex and Gender Information Value Date Recorded Sex Assigned at Not on file Legal Sex Female 3:53 PM DIRECTOR DIABETES Gender Identity Not on file Sexual Orientation Not on file documented as of this encounter Plan of Treatment Not on file documented as of this encounter Visit Diagnoses Not on filedocumented in this encounter Care Teams Shoe Repairman Relationship Specialty Start Date End Date Salvador Menjivar PA PCP - General Physician Parking Cashier 03/21/20 documented as of this encounter
--- OUTSIDE RECORDS SUMMARY | 2025-07-18 18:30 | XMS_ITS | Clinical Summary ---
Author Organization [facility] [address] Care Team Providers Care Pageant Director Name Role Phone Salvador Menjivar Primary Care Provider Allergies Active Allergy Reactions Criticality Noted Date [...] 2 Active fluticasone propionate (FLONASE) 50 mcg/spray [place], Suspension nasal inhaler Administer 1 [place] in each nostril. Active hydrOXYzine HCL (ATARAX) 50 mg tablet Take 50 mg by mouth 2 times daily as needed. 3 Active OneTouch Delica Plus Lancet 30 gauge 4 Active PARoxetine HCl (PAXIL) 40 mg tablet 4 Active ARIPiprazole (ABILIFY) 5 mg tablet Take 1 Tablet by mouth daily. 5 Active cyclobenzaprine (FLEXERIL) 10 mg tablet Take 10 mg by mouth 3 times daily as needed for Spasm. 5 Active Jardiance 10 mg tablet Take 10 mg by mouth daily in the morning. 5 Active gabapentin (NEURONTIN) 100 mg capsule Take 100 mg by mouth daily at bedtime. 5 Active Trelegy Ellipta 100-62.5-25 mcg Disk with Device Take 1 Puff by inhalation daily. 5 Active mirabegron (MYRBETRIQ) 50 mg Extended Release 24 hour tablet Take 1 Tablet (50 mg) by mouth daily. 30 Tablet 3 5 Active Active Problems Problem Noted Date [...] Encounters Date Type Department Care Team Description 07/10/2025 External Device Data [facility] ABSTRACTION Provider, Abstract 06/19/2025 External Device Data [facility] ABSTRACTION Provider, Abstract 05/30/2025 External Device Data [facility] ABSTRACTION Provider, Abstract 05/29/2025 External Device Data [facility] ABSTRACTION Provider, Abstract 05/21/2025 [facility] [address] [place] [address] Chelsea Ott RN 05/17/2025 1:30 PM CDT Office Visit [address] [place] [address] Jeanmarie Simons MD Frequency of urination (Primary Dx) 05/17/2025 Orders Only [address] [place] [address] Mariaa Calderon Frequency of urination from Last 3 Months Immunizations Immunization Administration [...] on file Legal Sex Female 3:53 PM DETECTIVE PRECINCT Gender Identity Not on file Sexual Orientation [...] 2007 BREAST CANCER SCREENING 07/19/2010 07/19/2009, 07/19 RSV VACCINE (60+ or ) (1 - Risk 50-74 years 1-dose series) 2012 DTAP/TDAP/TD VACCINES (2 - Td or Tdap) 02/23/2022 ZOSTER VACCINE (2 of 3) 07/20/2022 05/25/2022 INFLUENZA VACCINE (#1) 2025 06/24/2020 COVID-19 Vaccine (3 - season) 2025, 10/14/2020 Pre-Diabetes and Diabetes Screening 03/06/202703/06 Procedures Procedure Name Priority Date/Time Associated Diagnosis Comments CYTOLOGY, NON GYNE Routine 05/17/2025 1: 47 PM CDT Frequency of urination URINE CULTURE Routine 05/17/2025 1:47 PM CDT Frequency of urination POC URINALYSIS DIPSTICK AUTOMATED Routine 05/17/2025 1:33 PM CDT HEMOGLOBIN A1C Routine 03/06/2024 MAMMO SCREENING BILAT Routine 07/19/2009 9:14 AM DETECTIVE PRECINCT Breast cancer screening from Last 3 Months or Most Recently Relevant to Health Maintenance Results * URINE CULTURE (05/17/2025 1:47 PM CDT) URINE CULTURE SEE NOTE [facility] Comment: CULTURE, URINE, ROUTINE Micro Number: [id number] Test Status: Final Specimen Source: Urine, clean catch Specimen Quality: Adequate Result: No Growth Test Performed at: [facility] [address] [place] [address] Carlton Moon MD Urine URINE SPECIMEN OBTAINED BY CLEAN CATCH PROCEDURE / Unknown 05/17/2025 1:47 PM CDT 05/17/2025 10:59 PM CDT Jeanmarie Simons MD MICROBIOLOGY - GENERAL ORDER BARON Final Result Performing Organization Address City/State/[facility] Co de Phone Number [facility] [phone] [facility] [place] [address] [place] [address] * CYTOLOGY, NON GYNE (05/17/2025 1:47 PM CDT) CASE REPORT Medical Cytology Report Case: [id number] Authorizing Provider: Jeanmarie Simons MD Collected: 05/17/2025 01:47 PM Ordering Location: [facility] Received: 05/18/2025 07:31 AM Pathologist: Bronwyn Hampton DO Specimen: Urine, clean catch 1:09 PM CDT [facility] FINAL DIAGNOSIS A. Urine, ThinPrep - NEGATIVE FOR HIGH-GRADE UROTHELIAL CARCINOMA - Benign urothelial and squamous cells with yeast forms Bronwyn Hampton DO [id number] 1:09 PM CDT [facility] at 1309 CDT GROSS DESCRIPTION A. Urine - 15 ml clear pale yellow fluid submitted for ThinPrep 1:09 PM CDT [facility] CLINICAL INFORMATION R35.0 - Frequency of urination [ICD-10-CM] 1:09 PM CDT [facility] COMMENT The mWater voice-activated dictation system may have been used in the creation of this report. Inherent to this system is the possibility of errors in syntax, grammar, punctuation, or other areas that could impact interpretation. If there are interpretive questions about the report, please contact the performing pathologist. Unless gross only is specified in the diagnosis, the microscopic examination substantiates the above cited diagnosis. The performance characteristics of all immunohistochemical stains cited in this report (if any) were determined by the [facility] of [facility] in compliance with CLIA'88 regulations. Some of these tests rely on the use of analyte specific reagents and are subject to specific labeling requirements by the FDA. All controls show appropriate reactivity. This testing was developed by the [facility]. It has not been cleared or approved by the FDA. The FDA has determined that such clearance or approval is not necessary. 1:09 PM CDT [facility] Body fluid URINE SPECIMEN OBTAINED BY CLEAN CATCH PROCEDURE / Unknown Collection / Unknown 05/17/2025 1:47 PM CDT 05/18/2025 7:31 AM CDT us Jeanmarie Simons MD PATHOLOGY/CYTOLOGY ORDERABLE S Final Result Performing Organization Address City/State/[facility] Co de Phone Number [facility] CLIA # [id number] [address] [place] [id number] * (ABNORMAL) POC URINALYSIS DIPSTICK AUTOMATED (05/17/2025 1:33 PM CDT) COLOR UA Yellow Pale to Dark Yellow 05/17/2025 1:33 PM CDT [facility] CLARITY UA Clear Clear 05/17/2025 1:33 PM CDT [facility] GLUCOSE UA 3+(A) Negative 05/17/2025 1:33 PM CDT [facility] BILIRUBIN UA Negative Negative 05/17/2025 1:33 PM CDT [facility] KETONES UA Negative Negative 05/17/2025 1:33 PM CDT [facility] BLOOD UA Trace(A) Negative 05/17/2025 1:33 PM CDT [facility] PH UA 5.5 5.0 - 8.0 05/17/2025 1:33 PM CDT [facility] PROTEIN UA Negative Negative 05/17/2025 1:33 PM CDT [facility] UROBILINOGEN UA 0.2 <2.0 mg/dL 1:33 PM CDT [facility] NITRITE UA Negative Negative 05/17/2025 1:33 PM CDT [facility] LEUKOCYTE ESTERASE UA Negative Negative 05/17/2025 1:33 PM CDT [facility] SPECIFIC GRAVITY UA POC 1.010 1.000 - 1.030 05/17/2025 1:33 PM CDT [facility] Urine 05/17/2025 1:33 PM CDT 05/17/2025 1:[address] [facility] 05/17/2025 1:33 PM CDT Recommend Urine Microcopic ([id number])and Urine Culture ([id number]) if indicated. Jeanmarie Simons MD POINT OF CARE TESTING Final Result [facility] CLIA# [id number] [address] [place] [id number], * HEMOGLOBIN A1C (03/06/2024) ABSTRACTED HGB A1C 5.6 % Blood us Abstract Provider CHEMISTRY ORDERABLES Edited Re sult - Final * MAMMO SCREENING BILAT (07/19/2009 9:14 AM DETECTIVE PRECINCT) Anatomical Region Laterality Modality Breast Bilateral Other Joselito Lozano NP MAMMO ORDERABLES Final Result from Last 3 Months or Most Recently Relevant to Health Maintenance Insurance [address] [place] [address] [place] [place] [facility] Care Teams Pageant Director Relationship Specialty Start Date End Date Salvador Menjivar PA PCP - General Physician Media Production Manager 03/21/20
--- OUTSIDE RECORDS SUMMARY | 2025-07-18 18:30 | XMS_ITS | Data Portability ---
Author Organization CHARLIE Benito [facility] Fed[facility], [facility] Address [address] [place] [phone] Assessment No assessment recorded. Plan of Treatment Reminders Order Date Submit Date Provider Last Modified By Organization Details Last Modified Time Details Appointments None recorded . Lab rapid strep group A, throat 024 07/29/[address] ([facility]), [address] [place] [address], [id number], 4 16:55:42 rapid flu (A+B), PCR 024 07/29/[address] ([facility]), [address] [place], [address], 4 16:55:42 Referral None recorded . Procedures None recorded . Surgeries None recorded . Imaging None recorded . Medication Orders None recorded . Patient TargetsNo targets recorded. Patient InstructionsNo instructions recorded. Reason for Referral None Reported. Results Created Date Observation Date Name Description Value Unit Range Abnormal Flag Note LastModifiedBy Organization Detail LastModifiedTime 07/29/20 24 07/29/2024 rapid flu (A+B) , PCR Influenza A negati ve Not Available [facility] ([facility]) [address] [place], [address], 07/29/2024 13:39:59 07/29/20 24 07/29/2024 rapid flu (A+B) , PCR Influenza B negati ve Not Available [facility] ([facility]) [address] [place] [address], [id number], 07/29/2024 13:39:59 07/29/20 24 07/29/2024 rapid strep group A, throa t Strep negati ve Not Available [facility] ([facility]) [address] [place], [address], 07/29/2024 12:58:20 Result Notes None recorded. Medical Equipment None Reported. Allergies Allergen ID Allergen Name Allergen Category Reaction Reaction Severity Criticality Documentation Date Start Date Code Code System Note Provider Name and Address Organization Details Recorded Time 22492 aspirin medicatio n Not available Not available Not available 07/29/2024 1191 RxNorm Fina geiger [facility] 4 12:57:07 09592 Flagyl medicatio n Not available Not available Not available 07/29/202491536 6 RxNorm Fina geiger [facility] 4 12:57:14 41273 hepatitis B surface antigen vaccine medicatio n Not available Not available Not available 07/29/2024 65730 2 RxNorm Fina geiger [facility] 4 12:57:30 28905 codeine medicatio n Not available Not available Not available 07/29/2024 2670 RxNorm Fina geiger [facility] 4 12:59:00 97210 trospium medicatio n Not available Not available Not available 07/29/2024 04437 8 RxNorm Fina geiger [facility] 4 12:59:13 Medications Name Sig Start Date Stop Date Status Note LastModified by Organization Details LastModified Time trazodone 50 mg tablet TAKE TWO TABLETS (100 MG) BY MOUTH ONCE DAILY AT BEDTIME as needed for trouble sleeping active Not Available Not Available No t Available oxybutynin chloride ER 10 mg tablet,exte nded release 24 hr TAKE 1 TABLET BY MOUTH ONCE DAILY 07/29 completed Not Available Not Available Not Available hydrocodone 5 mg-acetamin ophen 325 mg tablet TAKE ONE TABLET BY MOUTH EVERY 6 HOURS NEEDED FOR PAIN FOR SEVEN DAYS 07/29 completed Not Available Not Available Not Available alendronate 70 mg tablet TAKE ONE TABLET BY MOUTH ONCE WEEKLY 07/29 completed Not Available Not Available Not Available clobetasol 0.05 % topical cream apply a thin layer TO THE affected area(s) 1 time a DAY FOR 1 WEEK; taper down FOR maintenan ce TO 1-2 times a WEEK 07/29 completed Not Available Not Available Not Available triamcinolo ne acetonide 0.1 % topical cream apply enough TO cover topically TWICE DAILY FOR 1 MONTH as needed 07/29 completed Not Available Not Available Not Available exemestane 25 mg tablet TAKE 1 TABLET BY MOUTH ONCE DAILY active Not Available Not Available No t Available cephalexin 500 mg capsule TAKE ONE CAPSULE (500 MG) BY MOUTH TWICE DAILY FOR 7 DAYS 07/29 completed Not Available Not Available Not Available paroxetine 20 mg tablet TAKE 1 TABLET BY MOUTH ONCE DAILY with a 40mg tablet FOR a total of 60mg daily active Not Available Not Available No t Available oxybutynin chloride ER 5 mg tablet,exte nded release 24 hr TAKE 1 TABLET BY MOUTH ONCE DAILY 07/29 completed Not Available Not Available Not Available albuterol sulfate HFA 90 mcg/actuati on aerosol inhaler INHALE TWO PUFFS BY MOUTH EVERY 4 HOURS NEEDED active Not Available Not Available No t Available SSD 1 % topical cream 1 applicati on topically TWICE DAILY FOR 2 WEEKS; apply a 1.5 mm thickness 07/29 completed Not Available Not Available Not Available paroxetine 40 mg tablet TAKE 1 TABLET BY MOUTH ONCE DAILY EVERY EVENING active Not Available Not Available No t Available fluticasone propionate 50 mcg/actuati on nasal spray,suspe nsion USE SPRAYS intranasa lly ONCE daily; administe r into each nostril active Not Available Not Available No t Available bupropion HCl XL 300 mg 24 hr tablet, extended release TAKE 1 TABLET BY MOUTH ONCE DAILY EVERY MORNING active Not Available Not Available No t Available nitrofurant oin monohydrate /macrocryst als 100 mg capsule TAKE ONE CAPSULE BY MOUTH EVERY TWELVE HOURS FOR 7 DAYS; take with a meal/food 12/28 /2024 completed Not Available Not Available Not Available trospium 20 mg tablet TAKE ONE TABLET (20mg) BY MOUTH TWICE DAILY 07/29 completed Not Available Not Available Not Available solifenacin 5 mg tablet TAKE 1 TABLET BY MOUTH ONCE DAILY 07/29 completed Not Available Not Available Not Available Zyrtec active Not Available Not Availa ble Not Available Vesicare active Not Available Not Avai lable Not Available vit B complex 100 combo no.2 active Not Available Not Available N ot Available OneTouch Verio test strips USE DIRECTED TO test blood sugars FOUR TIMES DAILY active Not Available Not Available No t Available Linzess 145 mcg capsule TAKE 1 CAPSULE BY MOUTH ONCE DAILY active Not Available Not Available No t Available Anoro Ellipta 62.5 mcg-25 mcg/actuati on powder for inhalation INHALE 1 PUFF BY MOUTH ONCE DAILY FOR COPD active Not Available Not Available No t Available Stiolto Respimat 2.5 mcg-2.5 mcg/actuati on solution for inhalation INHALE 2 PUFFS BY MOUTH ONCE DAILY 07/29 completed Not Available Not Available Not Available Bevespi Aerosphere 9 mcg-4.8 mcg HFA aerosol inhaler INHALE TWO PUFFS BY MOUTH TWICE DAILY 07/29 completed Not Available Not Available Not Available OneTouch Delica Plus Lancet 30 gauge USE DIRECTED FOUR TIMES DAILY active Not Available Not Available No t Available vit B3 20 mg-B5 5 mg-B6 2 mg-B7 75 mcg-folic-B 12-inosit-C chew tablet Take by oral route. active Not Available Not Available No t Available Vitals Date Recorded Body height Body mass index (BMI) Body weight Body temperature Heart rate Oxygen saturation Systolic And Diastolic Provider Name and Address Organization Details Last Updated DateTime 4 162.56 cm 25.8 kg/m2 64792.5 6 g 98.3 [degF] 80 /min 97 % 110/62 mm[Hg] Fina Simons [facility] 4 13:05:34 Social History None recorded. Functional Status None recorded. Mental Status None recorded. Family History Nothing Reported. Medical History No medical history recorded. Gynecological HistoryNo gynecological history recorded. Obstetrics History GPAL:G 0 P 0 0 0 0 Past Encounters Encounter ID Performer Location Encounter Start Date Encounter Closed Date Diagnosis/Indication Diagnosis SNOMED-CT Code Diagnosis ICD10 Code Diagnosis IMO Codes Diagnosis Note [id number] IVONE BERGMAN [facility] ([facility]) [address] [place] [address] 07/29/2024 12:21:20 07/29/2024 14:06:01 Sore throat 907358913 J02.9 Monitor symptoms. May use over the counter chlorasept ic lozenges as needed. Fever 452605960 R50.9 Health Concerns Section Related Observation LastModified by Organization Detai ls LastModified Time None Recorded Concern Status LastModified by Organization Details LastModified Time None Recorded Advance Directives Directive None Recorded Payers Insurance Date Sequence Insurance Name Policy Number Policy Wray Covered Member ID Wray Member ID Guarantor Name 07/29/2024 1 [employer] (MEDICARE REPLACEMENT/ ADVANTAGE - HMO) [id number] Shana Connor [id number] Shana Connor 07/29/2024 2 [place] Shana Connor [id number] Shana Connor 08/01/2024 [place] [facility]) Shana Connor [id number] Shana Connor Notes Date Note Type Note Provider Name and Address Organization Details Recorded Time 07/29/2024 text/html Sore ThroatRepor skye by PatientDenies any other symptoms. Wants antibiotics. Denies any known exposure to illness.ROS as noted in the HPI walk in ptPt has a sore throat since 2 am today IVONE BERGMAN [address] [place], [address], [facility]ene 07/30/2024 13:55:34 OBGyn Episode No OBEpisode recorded.
--- NOTE | 2025-07-18 18:36 | XRR_ITS ---
PROCEDURE INFORMATION: Exam: XR Abdomen Exam date and time: 07/18/2025 6:41 PM Age: 65 years old Clinical indication: Nausea and vomiting; Additional info: Short of breath, n/v TECHNIQUE: Imaging protocol: Radiologic exam of the abdomen. 1 image(s) are submitted. Views: 2 Views. Upright and supine views. COMPARISON: CT abdomen pelvis w con* [id number] 11/22/2022 6:12 PM FINDINGS: Gastrointestinal tract: Normal. No bowel dilation. Intraperitoneal space: Normal. No free air. Bones/joints: Unremarkable for age. XR/XR acute abdomen series 95106 IMPRESSION: No acute findings. Frontal view of the chest is unremarkable. Status post cholecystectomy. Splenic calcification are unchanged likely secondary to prior granulomatous infection. No evidence of small bowel obstruction or pneumoperitoneum.
--- NOTE | 2025-07-18 18:37 | W.ED.WEAKNES ---
HPI - Weakness General: Chief complaint: Weakness Stated complaint: not feeling well x 5 days Time Seen by Provider: 07/18/25 18:21 History of Present Illness: Patient is 65-year-old female status post ACL repair 09/2024, presents to the emergency room due to shortness of breath, weakness, nausea, vomiting, chills, x 5 days. Context: Patient stated 5 days ago, she just was not feeling well. She stated initially she had chills, sweats, unknown feeling of temperature, associated shortness of breath. This has progressed to nausea, vomiting, diarrhea. Denies any sick contact. She does not have any chest pain. Associated symptoms: Reports chills, fever(s), nausea and vomiting; Denies chest pain or easy bruising Related Data Home Medications ?Medication ?Instructions ?Recorded ?Confirmed silver sulfadiazine 1 % topical 1 applic topical BID PRN ingrown 10/25/24 07/12/25 cream toemanil mirabegron 50 mg tablet,extended 50 mg PO DAILY 05/22/25 07/12/25 release 24 hr (Myrbetriq) empagliflozin 10 mg tablet 10 mg PO DAILY 07/09/25 07/09/25 (Jardiance) mirabegron 25 mg tablet,extended 50 mg PO DAILY 07/12/25 07/12/25 release 24 hr (Myrbetriq) Previous Rx's ?Medication ?Instructions ?Recorded Carbon Fiber Plate #1 ea 10/14/23 paroxetine HCl 40 mg tablet 40 mg PO QPM #30 tabs 06/13/24 estradiol 0.01% (0.1 mg/gram) 1 appful vaginal DAILY #42.5 grams 01/24/25 vaginal cream (Estrace) nystatin-triamcinolone 100,000 1 applic topical BID #60 grams 01/24/25 unit/g-0.1 % topical cream nitroglycerin 0.4 mg sublingual 0.4 mg sublingual Q5M PRN chest 02/14/25 tablet pain #25 tabs sucralfate 100 mg/mL oral 10 ml PO BID 30 days #600 mL 02/19/25 suspension aripiprazole 5 mg tablet (Abilify) 5 mg PO DAILY #30 tabs 03/13/25 alendronate 70 mg tablet 70 mg PO .WEEKLY 90 days #13 tabs 03/14/25 fluticasone propionate 50 2 spray intranasal DAILY #16 grams 03/14/25 mcg/actuation nasal spray,suspension (Flonase Allergy Relief) linaclotide 145 mcg capsule 145 mcg PO DAILY #30 caps 03/14/25 (Linzess) empagliflozin 10 mg tablet 10 mg PO QAM 30 days #30 tabs 03/22/25 (Jardiance) fexofenadine 180 mg tablet 180 mg PO DAILY #90 tabs 03/22/25 gabapentin 100 mg capsule 100 mg PO BEDTIME #30 caps 05/09/25 venlafaxine 37.5 mg 37.5 mg PO DAILY #30 caps 06/05/25 capsule,extended release 24 hr tizanidine 4 mg tablet 4 mg PO BID PRN muscle spasticity 07/02/25 #60 tabs albuterol sulfate 90 mcg/actuation 2 puff inhalation Q4H PRN 07/03/25 aerosol inhaler Shortness Of Breath Or Wheezing #8.5 grams blood sugar diagnostic (Blood #50 ea 07/03/25 Glucose Test strips) blood-glucose meter (Blood Glucose #1 ea 07/03/25 Monitoring kit) fluticasone fur. 100 mcg-umeclid 1 inh inhalation Q24H #60 ea 07/03/25 62.5 mcg-vilant 25 mcg inhalat.powder (Trelegy Ellipta) bupropion HCl 75 mg tablet 75 mg PO DAILY #21 tabs 07/05/25 montelukast 10 mg tablet 10 mg PO DAILY #30 tabs 07/05/25 (Singulair) methylprednisolone 4 mg tablets in See Rx Instructions PO .COMPLEX 07/18/25 a dose pack (Medrol (Chris)) #21 ea ondansetron 4 mg disintegrating 4 mg PO Q8H PRN nausea and 07/18/25 tablet vomiting 4 days #14 tabs Allergies Allergy/AdvReac Type Severity Reaction Status Date / Time aspirin Allergy Severe makes me Verified 07/12/25 09:22 stop breathing mushroom Allergy Severe Can't Verified 07/12/25 09:22 breath codeine Allergy Intermediate loss of Verified 07/12/25 09:22 functioning hepatitis B virus vaccine Allergy Intermediate ADR-Dizzine Verified 07/12/25 09:22 ss metronidazole (From Flagyl) Allergy Intermediate memory fog Verified 07/12/25 09:22 trospium (From [place]) AdvReac Severe ADR/ALGY-Pa Verified 07/12/25 09:22 lpitations Review of Systems General: Reports: 10 or more systems reviewed and unremarkable except in HPI and below Const: Reports: fever(s), chills, body aches and malaise Eyes: Denies: change in vision Card: Reports: lightheadedness; Denies: chest pain, palpitations or swelling of feet/ankles Resp: Reports: dyspnea and non-productive cough; Denies: productive cough GI: Reports: nausea, vomiting and diarrhea; Denies: abdominal pain : Denies: flank pain Musc: Denies: back pain, extremity pain, extremity swelling or joint pain Skin/Breast: Reports: surgical incision; Denies: rash Neuro: Reports: dizziness; Denies: numbness in extremities, sensory changes, lack of coordination, frequent falls or vertigo Psych: Denies: anxiety or depression Clint/Lymph: Denies: easy bruising PFSH ED PFSH: Medical History (Updated 07/18/25 @ 19:28 by NICOLLE Garner) Tubulovillous adenoma of colon Myocardial infarction (2007) Chronic kidney disease Stage 3a 10/2022 Eczema Osteoarthritis Depression Obstructive sleep apnea Psychiatric care Allergic rhinosinusitis COPD (chronic obstructive pulmonary disease) Breast cancer Osteoporosis Surgical History Hx of colonoscopy with polypectomy [facility] less than 10 yrs ago S/P matrixectomy of toe History of section x 3 History of right mastectomy (08/17/19) Right modified radical mastectomy History of cholecystectomy Family History Mother Diabetes Cancer Chronic kidney disease (CKD) Breast cancer Denies family history of Colon cancer Ovarian cancer Heart disease Hyperlipidemia Hypertension Uterine cancer Thyroid disease Stroke Social History Smoking and tobacco/nicotine status: light tobacco/nicotine user (3/4 ppd X 48 years. Now only smoking 2 per day. ) cigarettes Packs smoked per day: 0.5 [ Other cigarette details: relpsed and now smoking 1/2 -3/4 Pack for day ] Quit status (tobacco/nicotine): has tried quititng Second hand smoke exposure: Yes (Some.) Alcohol intake: former Substance/Drug Use: never Lives independently: Yes Household members: none Marital status: / Current occupational status: disabled Do you think of yourself as: Straight/Heterosexual Current gender identity: Female Physical Exam Const: COMMON NORMALS: no acute distress, patient oriented x3 and alert GENERAL APPEARANCE: cooperative HENMT: COMMON NORMALS: atraumatic HEAD & SCALP: atraumatic Eye: COMMON NORMALS: conjunctivae normal CONJUNCTIVA: Yes conjunctivae normal Lymph: LYMPHATIC: no lymphadenopathy noted Chest: COMMONS NORMALS: normal inspection of the chest and normal palpation of entire chest wall Resp: COMMON NORMALS: normal respiratory effort AUSCULTATION: wheezes expiratory wheezes and scattered wheezes Cardio: COMMON NORMALS: regular rate, regular rhythm and No murmurs present (Cardio) RATE: regular rate RHYTHM: regular rhythm GI: COMMON NORMALS: Normal to inspection, nondistended, normoactive bowel sounds present and non-tender : COMMON NORMALS: Yes no CVA tenderness BLADDER/KIDNEY EXAM: Yes no CVA tenderness Back/Pelvis: COMMON NORMALS: no CVA tenderness and thoracic and lumbar spine normal to inspection Extremity: GENERAL: Yes normal exam except as noted Neuro: COMMON NORMALS: patient oriented x3 and moves all extremities SENSORIUM/ORIENTATION: Yes alert GAIT: Yes Normal gait present Skin: COMMON NORMALS: no rashes or lesions noted GENERAL SKIN EXAM: no rashes or lesions noted and no erythema Course Vital Signs: Vital signs: Vital Signs Temperature 98.8 F 07/18/25 18:19 Pulse Rate 98 07/18/25 19:33 Respiratory Rate 16 07/18/25 18:19 Blood Pressure 112/72 07/18/25 19:33 Pulse Oximetry 94 07/18/25 19:33 Oxygen Delivery Me thod Room Air 07/18/25 19:33 MDM - Weakness Medical Decision Making Patient is a 65-year-old female presents to the ED due to nausea, vomiting, shortness of breath, fever of unknown amount, and chills. Oxygen saturation during my interview is 98%. She is not on home O2. She is a smoker. No sick contact. Will check a acute abdominal series, COVID, and give Zofran with oral trial, and dexamethasone due to her wheezing. No red flags at this time. She is speaking full sentences without conversational dyspnea. Patient is positive for COVID, which her symptoms were consistent. At this juncture, we will give Medrol Dosepak, advised confinements for 5 days, albuterol inhaler as needed, and Zofran for symptoms. She is out of the window for Paxlovid. Medical Records I reviewed the patient's medical records. Lab Data I reviewed the patient's lab results. Radiology Impressions Chest/Abdomen X-ray 07/18/25 18:36 IMPRESSION: No acute findings. Frontal view of the chest is unremarkable. Status post cholecystectomy. Splenic calcification are unchanged likely secondary to prior granulomatous infection. No evidence of small bowel obstruction or pneumoperitoneum. Laboratory Results Urine Color Yellow (Yellow) 07/18/25 18:42 Urine Appearance Clear (CLEAR) 07/18/25 18:42 Urine pH 5.0 (5-7) 07/18/25 18:42 Ur Specific [place] 1.034 (1.005-1.030) H 07/18/25 18:42 Urine Protein Negative (Negative) 07/18/25 18:42 Urine Glucose (UA) 3+ (Normal) H 07/18/25 18:42 Urine Ketones Negative (Negative) 07/18/25 18:42 Urine Blood 1+ (Negative) A 07/18/25 18:42 Urine Nitrate Negative (Negative) 07/18/25 18:42 Urine Bilirubin Negative (Negative) 07/18/25 18:42 Urine Urobilinogen 1.0 mg/dL (Negative) 07/18/25 18:42 Ur Leukocyte Esterase Negative (Negative) 07/18/25 18:42 Urine RBC 0-2 /hpf (0-2) 07/18/25 18:42 Urine WBC 6-10 /hpf (0-5) 07/18/25 18:42 Ur Squamous Epith Cells 0-5 /hpf (0-5) 07/18/25 18:42 Amorphous Sediment Not Reportable 07/18/25 18:42 Urine Bacteria None seen /hpf (NONE) 07/18/25 18:42 Hyaline Casts 1.65 /lpf 07/18/25 18:42 Influenza A (PCR) Negative (Negative) 07/18/25 18:20 Influenza Type B (PCR) Negative (Negative) 07/18/25 18:20 RSV (PCR) Negative (Negative) 07/18/25 18:20 SARS-CoV-2 (PCR) Positive (Negative) A 07/18/25 18:20 XR interpretation done by ED provider, pending radiology final review ED provider radiology interpretation(s): No acute EKG Data EKG 1: Interpretation: nsr, normal axis, no st segment elevation Discharge Plan Discharge Patient Disposition: Home Clinical Impression: COVID-19 Condition: Stable Prescriptions: New methylprednisolone [Medrol (Chris)] 4 mg tablets,dose pack See Rx Instructions .ROUTE .COMPLEX Qty: 21 0RF Rx Instructions: for 6 days ondansetron 4 mg tablet,disintegrating 4 mg PO Q8H PRN (Reason: nausea and vomiting) 4 Days Qty: 14 0RF No Action (DME) Carbon Fiber Plate See Rx Instructions .Route .MEDSUPPLY Qty: 1 0RF Rx Instructions: As directed nystatin-triamcinolone 100,000-0.1 unit/g-% cream 1 applic topical BID Qty: 60 6RF Rx Instructions: apply small amount to vulva BID estradiol [Estrace] 0.01 % (0.1 mg/gram) cream 1 appful vaginal DAILY Qty: 42.5 6RF Rx Instructions: apply small amount to vulva daily alendronate 70 mg tablet 70 mg PO .WEEKLY 90 Days Qty: 13 1RF Rx Instructions: TAKE ONE TABLET BY MOUTH ONCE WEEKLY fluticasone propionate [Flonase Allergy Relief] 50 mcg/actuation spray,suspension 2 spray intranasal DAILY Qty: 16 6RF Rx Instructions: administer into each nostril Linzess 145 mcg capsule 145 mcg PO DAILY Qty: 30 11RF aripiprazole [Abilify] 5 mg tablet 5 mg PO DAILY Qty: 30 2RF sucralfate 100 mg/mL suspension 10 ml PO BID 30 Days Qty: 600 5RF (DME) Blood Glucose Test Strip See Rx Instructions .ROUTE .MEDSUPPLY Qty: 50 11RF Rx Instructions: Brand/type to go with meter per insurance coverage (DME) blood-glucose meter [Blood Glucose Monitoring] Kit See Rx Instructions .ROUTE .MEDSUPPLY Qty: 1 0RF Rx Instructions: Brand/type per insurance coverage albuterol sulfate 90 mcg/actuation HFA aerosol inhaler 2 puff inhalation Q4H PRN (Reason: Shortness Of Breath Or Wheezing) Qty: 8.5 5RF Rx Instructions: INHALE TWO PUFFS BY MOUTH EVERY 4 HOURS NEEDED Trelegy Ellipta 100-62.5-25 mcg blister with device 1 inh inhalation Q24H Qty: 60 5RF Jardiance 10 mg tablet 10 mg PO QAM 30 Days Qty: 30 3RF fexofenadine 180 mg tablet 180 mg PO DAILY Qty: 90 3RF mirabegron [Myrbetriq] 50 mg tablet extended release 24 hr 50 mg PO DAILY bupropion HCl 75 mg tablet 75 mg PO DAILY Qty: 21 0RF Rx Instructions: Take one tablet mouth daily for 14 days then decrease to one tablet every other day for 14 days then discontinue. Jardiance 10 mg tablet 10 mg PO DAILY paroxetine HCl 40 mg tablet 40 mg PO QPM Qty: 30 11RF nitroglycerin 0.4 mg tablet, sublingual 0.4 mg sublingual Q5M PRN (Reason: chest pain) Qty: 25 1RF Rx Instructions: do not exceed 3 doses per episode venlafaxine 37.5 mg capsule,extended release 24hr 37.5 mg PO DAILY Qty: 30 3RF tizanidine 4 mg tablet 4 mg PO BID PRN (Reason: muscle spasticity) Qty: 60 0RF montelukast [Singulair] 10 mg tablet 10 mg PO DAILY Qty: 30 6RF gabapentin 100 mg capsule 100 mg PO BEDTIME Qty: 30 0RF silver sulfadiazine 1 % cream 1 applic topical BID PRN (Reason: ingrown toemanil) Rx Instructions: apply a 1.5 mm thickness mirabegron [Myrbetriq] 25 mg tablet extended release 24 hr 50 mg PO DAILY Discharge Orders: Discharge ED (Routine); Ordered 07/18/25 Ordered By: Frances Mobley Referrals: Liane Granados MD [Primary Care Provider, Family Practice] Discharge Diet: Clear Liquid Patient Instructions: COVID-19 (Coronavirus Disease 2019) (ED), Patient Portal & [facility] Instructions Activity Restrictions/Additional Instructions: - Stay isolated for the next 5 days. This is still a communicable disease that causes high risk mortality and are elderly and immuno suppressed people such as people with cancer. - Take your inhaler as needed for shortness of breath - At the pharmacy: Medrol Dosepak to help with the inflammatory changes, Zofran/ondansetron for nausea, vomiting, and this also helps with diarrhea, due to the fact it causes constipation -You may use Tylenol and ibuprofen for fever and/or headache -- Reasons for admission/return to the ED: Oxygen level 88% or less on room air, fever greater than 102.0 documented, shortness of breath where you cannot catch her breath. Thank you for choosing [facility] for your healthcare needs today. You have been screened and evaluated and felt safe for discharge. Health conditions do change or evolve sometimes and as such it is important that you follow up with your Primary Doctor to be re checked, 3-5 days is a general good time frame for follow up. You are always welcome to return to the ED for re assessment if your symptoms are worsening or you have new concerns Print Language: Ukrainian Coding Level of Care Code ED Inspector Plug Seam for Karen Stokes
[2025-07-18 18:53] LABS: Glucose Urine UA 3+ (Normal); Nitrate Urine Negative (Negative)
[2025-07-18 18:57] LABS: Add Urine Microscopic? YES
[2025-07-18 19:22] LABS: Specific Gravity, Urine 1.034 (1.005-1.030)
[2025-07-18 19:26] LABS: Respiratory Syncytial Virus Ce NEGATIVE (Negative)
[2025-07-18] MEDS: ondansetron hcl ODT 4 mg Tab PO (19:30)
[2025-07-18 19:33] VITALS: BP 112/72; PULSE 98; O2SAT 94
[2025-07-18 19:46] LABS: SARS-CoV-2 PCR Positive (Negative)
== END 2025-07-18 20:25 | disposition home or self-care (01) ==
PROVIDERS: Emergency Provider Physician Assistant; PCP Family Medicine
DX: U07.1 COVID-19 (principal); Z11.52 Encounter for screening for COVID-19; F17.210 Nicotine dependence, cigarettes, uncomplicated; J44.9 Chronic obstructive pulmonary disease, unspecified; Z85.3 Personal history of malignant neoplasm of breast; N18.31 Chronic kidney disease, stage 3a
CPT/HCPCS: 74022; 81001; 87637; 96372; 99284; J1100; Q0162

== ENCOUNTER 2025-07-31 09:15 | Oncology outpatient (recurring) (ONCR) | payer MEDICARE, MEDICAID, SELFPAY ==
[2025-04-18 15:00] VITALS: BP 111/71; BMI 25.6
--- NOTE | 2025-07-31 09:20 | MM_ITS ---
WS: [id number] ADDITIONAL VIEWS LEFT MAMMOGRAM WITH DIGITAL BREAST TOMOSYNTHESIS. LEFT breast ultrasound, limited. HISTORY: ABNORMAL MAMMOGRAM COMPARISON: 05/02/2025, 05/03/2024, 04/29/2023 Spot compression views LEFT breast in CC, MLO projections submitted with digital breast tomosynthesis and . Breast composition: There are scattered areas of fibroglandular density. Reidentified is a slightly spiculated high density mass with central calcifications in the lateral LEFT breast near 2:00. Mass measures 8 x 6 x 8 mm and is new compared to 2023. Mass is at a middle depth. LEFT breast ultrasound, limited. No mass or shadowing is identified by ultrasound. MM/MM diag LT tomosynthesis [id number] IMPRESSION: BI-RADS: 4 - Suspicious Finding - Biopsy Should Be Considered. FOLLOW UP: Biopsy Recommended LEFT breast biopsy recommended by stereotactic imaging. The mass is not definit jeanette identified by ultrasound. Mass should be visible by stereotactic biopsy.
== END 2025-08-01 23:59 | disposition home or self-care (01) ==
LOC: RAD 09:16 → ONCMED 09:38
PROVIDERS: PCP Family Medicine; Visit Provider Internal Medicine Medical Oncology
DX: R92.322 Mammographic fibroglandular density, left breast; M17.11 Unilateral primary osteoarthritis, right knee; Z53.9 Procedure and treatment not carried out, unspecified reason
CPT/HCPCS: 76642; 77061; 77063